=== PATIENT | male | born 1960 | race Caucasian/White ===

== ENCOUNTER 2020-07-01 12:28 | Inpatient (IN) | payer OTHER, SELFPAY ==
[2020-07-01] VITALS (9 sets, daily range): BP systolic 82–161; BP diastolic 56–99; PULSE 85–144; RESP 18–28; TEMP 36.4–37.2; O2SAT 94–97; BMI 22.9
--- NOTE | 2020-07-01 12:44 | ECG_ITS ---
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: : 1960 Requested By: Myke Barrera Order Number: [id number] Cecilia MD: JOSE ANTUNEZ Measurements Intervals [place] Rate: 143 P: AR: -1 QRS: 22 QRSD: 96 T: 35 QT: 297 QTc: 459 Interpretive Statements ATRIAL FIBRILLATION WITH RAPID VENTRICULAR RESPONSE NONSPECIFIC ST & T-WAVE ABNORMALITY ABNORMAL RHYTHM ECG No previous ECG available for comparison Electronically Signed On 07-01-2020 20:14:46 MAINTENANCE DISPATCHER by JOSE ANTUNEZ [id number] f
[2020-07-01 12:59] LABS: Glucose Point of Care > 600 mg/dL (70-110)
[2020-07-01 13:01] LABS: Basophils # 0.1 10^3/uL (0.0-0.1); Basophils % 0.4 %; Eosinophils # 0.1 10^3/uL (0.0-0.8); Eosinophils % 0.7 %; Hematocrit 42.3 % (42.0-52.0); Hemoglobin 13.3 g/dL (11.7-16.6); Lymphocytes # 0.6 10^3/uL (0.8-4.8); Lymphocytes % 3.1 %; Mean Corpuscular HGB Conc 31.4 g/dL (30.0-36.0); Mean Corpuscular Hemoglobin 29.1 pg (28.0-34.0); Mean Corpuscular Volume 92.6 fL (80-94); Mean Platelet Volume 10.5 fL (7.4-10.4); Monocytes # 0.6 10^3/uL (0.2-0.9); Monocytes % 3.4 %; Neutrophils # 16.38 10^3/uL (1.8-7.7); Neutrophils % 91.8 %; Nucleated Red Blood Cells % 0 %; Platelet Count 262 10^3/cmm (130-400); Red Blood Count 4.57 10^6/uL (4.1-5.3); Red Cell Distribution Width 12.9 % (12.1-15.1); White Blood Count 17.8 10^3/uL (4.0-10.0)
[2020-07-01 13:17] LABS: Lactate (Lactic Acid level) 2.4 mmol/L (0.5-2.2)
[2020-07-01 13:18] LABS: Alanine Aminotransferase 11 U/L (0-41); Albumin Level 2.7 g/dL (3.5-5.2); Alkaline Phosphatase 160 IU/L (40-130); Anion Gap 20.2 (5-19); Aspartate Amino Transferase 10 U/L (0-40); Blood Urea Nitrogen 35 mg/dL (6-20); Calcium 8.3 mg/dL (8.5-10.5); Carbon Dioxide 23 mmol/L (22-29); Chloride 87 mmol/L (98-107); Globulin 4.8 g/dL (1.3-4.6); Glomerular Filtration Rate 62.2 mL/min (90-130); Osmolality Calculated 306 mOsm/kg (285-295); Potassium 4.2 mmol/L (3.5-5.1); Sodium 126 mmol/L (136-145); Total Bilirubin 0.3 mg/dL (0.15-1.2); Total Protein 7.5 g/dL (6.6-8.7)
[2020-07-01 13:19] LABS: Glucose 749 mg/dL (65-115)
[2020-07-01 13:27] LABS: Slide Review Slide Review Perform
--- NOTE | 2020-07-01 13:30 | W.ED.WEAKNES ---
HPI - Weakness General: Chief complaint: Weakness Stated complaint: WEAKNESS/ NECROTIC FOOT Time Seen by Provider: 07/01/20 12:41 History of Present Illness: HPI Narrative: 51-year-old male presents emergency room via EMS. Is complaining of swelling and redness discomfort of his left great toe and foot he is also been extremely thirsty has a history of diabetes. He has some abdominal pain and left flank pain he states he fell and hit a stool at home. All of these things particularly his foot seem to come up for the last 3 to 4 days. He denies any fever sweats or chills he has had a little bit of a cough. No vomiting or diarrhea. MD Complaint: generalized weakness and difficulty walking Onset (ago): day(s) (3-4) Duration: constant and progressively worsening Location: generalized Migration: none Severity: severe Relieving factors: none Exacerbating factors: none Context: recent illness Associated symptoms: Reports chills, confusion, decreased appetite, myalgias and nausea; Denies chest pain, melena, diaphoresis, dysuria, easy bruising, fever(s), headache(s), rash, short of breath, syncope or vomiting Review of Systems Const: Reports: chills; Denies: fever(s) or diaphoresis ENMT: Denies: throat pain, ear or mastoid pain, nasal discharge or nasal congestion Card: Denies: chest pain or syncope Resp: Denies: dyspnea, productive cough or non-productive cough GI: Reports: nausea; Denies: vomiting or melena : Denies: dysuria Skin/Breast: Denies: rash or pruritus Neuro: Reports: confusion; Denies: headache(s) Paul/Lymph: Denies: easy bruising PFS ED PFSH: Medical History (Updated 07/05/20 @ 07:25 by Myke Ward DO) Atrial fibrillation COVID-19 Diabetes mellitus HFrEF (heart failure with reduced ejection fraction) Medical non-compliance Peripheral arterial disease Surgical History (Updated 07/04/20 @ 08:14 by Gerson Oshea M.D) S/P ablation of atrial fibrillation Physical Exam Const: COMMON NORMALS: no acute distress GENERAL APPEARANCE: cooperative and comfortable ORIENTATION/CONSCIOUSNESS: Yes awake, Yes oriented to person, Yes oriented to place and Yes oriented to time HENMT: COMMON NORMALS: normocephalic, atraumatic and hearing grossly normal bilaterally HEAD & SCALP: normocephalic and atraumatic Eye: COMMON NORMALS: Equal, round and reactive pupils present, EOMs intact bilaterally, conjunctivae normal and no scleral icterus CONJUNCTIVA: Yes conjunctivae normal PUPIL: Yes Equal, round and reactive pupils present Neck/C-Spine: COMMON NORMALS: full ROM, no lymphadenopathy, supple and no JVD Lymph: LYMPHATIC: no lymphadenopathy noted and no lymphedema noted Resp: COMMON NORMALS: normal respiratory effort, No retractions, No use of accessory muscles and clear to auscultation bilaterally AUSCULTATION: clear to auscultation bilaterally Cardio: COMMON NORMALS: no JVD, regular rate, regular rhythm and No murmurs present (Cardio) RATE: regular rate RHYTHM: regular rhythm GI: COMMON NORMALS: Soft to palpation and No hepatosplenomegaly present AUSCULTATION: Yes normoactive bowel sounds PALPATION: Yes Soft to palpation, No Tenderness to palpation present (GI), No Guarding due to palpation present (GI) and Yes No hepatosplenomegaly present Extremity: NARRATIVE EXTREMITY EXAM: Left great toe blackened gangrenous appearance or some desquamation of tissue on the dorsum of the great toe. Proximally it appears to be subcutaneous tissue involvement. There is redness and erythema over the dorsum of the foot to the level of the ankle and extending with lymphangitic spread proximal. It is warm to the touch there is no fluctuant masses. Neuro: SENSORIUM/ORIENTATION: Yes oriented to person, Yes oriented to place and Yes oriented to time Skin: COMMON NORMALS: no rashes or lesions noted GENERAL SKIN EXAM: no rashes or lesions noted Course Vital Signs: Vital signs: Vital Signs Temperature 97.0 F L 07/05/20 04:00 Pulse Rate 78 07/05/20 04:00 Respiratory Rate 18 07/05/20 04:00 Blood Pressure 132/77 07/05/20 04:00 Pulse Oximetry 97 07/05/20 04:00 MDM - Weakness MDM Narrative: Medical decision making narrative: Initially patient started on Cardizem and then switched to esmolol. Cellulitis is quite impressive and extends up the leg the gangrene on the toe is very well-defined and severe. There is subcutaneous gas along the bone although there is not appear to be any osteolytic changes the bone itself. Patient need to be admitted IV antibiotics been started surgery will need to be consulted discussed with Dr. Arredondo he will contact surgery. Lab Data: Labs: Lab Results 07/01/20 07/01/20 07/01/20 Range/Units 12:52 12:52 12:52 WBC 17.8 H (4.0-10.0) 10^3/ uL RBC 4.57 (4.1-5.3) 10^6/u L Hgb 13.3 (11.7-16.6) g/dL Hct 42.3 (42.0-52.0) % MCV 92.6 (80-94) fL MCH 29.1 (28.0-34.0) pg MCHC 31.4 (30.0-36.0) g/dL RDW 12.9 (12.1-15.1) % Plt Count 262 (130-400) 10^3/c mm MPV 10.5 H (7.4-10.4) fL Neut % (Auto) 91.8 % Lymph % (Auto) 3.1 % [place] % (Auto) 3.4 % Eos % (Auto) 0.7 % Baso % (Auto) 0.4 % Neut # (Auto) 16.38 H (1.8-7.7) 10^3/u L Lymph # (Auto) 0.6 L (0.8-4.8) 10^3/u L [place] # (Auto) 0.6 (0.2-0.9) 10^3/u L Eos # (Auto) 0.1 (0.0-0.8) 10^3/u L Baso # (Auto) 0.1 (0.0-0.1) 10^3/u L Nucleated RBC % (a uto) 0 % Nucleated RBCs # 0.0 /100WBC Specimen Type Sample Site ABG pH (7.35-7.45) ABG pCO2 (35-45) mmHg ABG pO2 (80.0-100.0) mmH g ABG HCO3 (22-26) mmol/L ABG O2 Saturation ABG Base Excess (-2.0-2.0) mmol/ L Arley Test A-a O2 Gradient (5-10) mmHg Hematocrit (42-52) % Hgb O2 Saturation (95-100) % Carboxyhemoglobin (0.4-20.1) %THgb Methemoglobin (0.4-1.5) % Total Hemoglobin (14-18) g/dL Ionized Calcium (1.1-1.4) mmol/L O2 Delivery Device FiO2 % Regulatory Compliance Officer ID Sodium 126 L (136-145) mmol/L Potassium 4.2 (3.5-5.1) mmol/L Chloride 87 L (98-107) mmol/L Carbon Dioxide 23 (22-29) mmol/L Anion Gap 20.2 H (5-19) BUN 35 H (6-20) mg/dL Creatinine 1.2 (0.7-1.2) mg/dL GFR Calculation 62.2 L (90-130) mL/min Glucose 749 H* (65-115) mg/dL POC Glucose (70-110) mg/dL Calculated Osmolal ity 306 H (285-295) mOsm/k g Lactate 2.4 H (0.5-2.2) mmol/L Calcium 8.3 L (8.5-10.5) mg/dL Total Bilirubin 0.3 (0.15-1.2) mg/dL AST 10 (0-40) U/L ALT 11 (0-41) U/L Alkaline Phosphata se 160 H (40-130) IU/L C-Reactive Protein (0.0-4.9) mg/L Total Protein 7.5 (6.6-8.7) g/dL Albumin 2.7 L (3.5-5.2) g/dL Globulin 4.8 H (1.3-4.6) g/dL Urine Color (Yellow) Urine Appearance (CLEAR) Urine pH (5-7) Ur Specific Gravit y (1.005-1.030) Urine Protein (Negative) Urine Glucose (UA) (Normal) Urine Ketones (Negative) Urine Blood (Negative) Urine Nitrate (Negative) Urine Bilirubin (Negative) Urine Urobilinogen (Negative) mg/dL Ur Leukocyte Lo ase (Negative) 07/01/20 07/01/20 07/01/20 Range/Units 12:52 12:56 13:27 WBC (4.0-10.0) 10^3/ uL RBC (4.1-5.3) 10^6/u L Hgb (11.7-16.6) g/dL Hct (42.0-52.0) % MCV (80-94) fL MCH (28.0-34.0) pg MCHC (30.0-36.0) g/dL RDW (12.1-15.1) % Plt Count (130-400) 10^3/c mm MPV (7.4-10.4) fL Neut % (Auto) % Lymph % (Auto) % [place] % (Auto) % Eos % (Auto) % Baso % (Auto) % Neut # (Auto) (1.8-7.7) 10^3/u L Lymph # (Auto) (0.8-4.8) 10^3/u L [place] # (Auto) (0.2-0.9) 10^3/u L Eos # (Auto) (0.0-0.8) 10^3/u L Baso # (Auto) (0.0-0.1) 10^3/u L Nucleated RBC % (a uto) % Nucleated RBCs # /100WBC Specimen Type Arterial Sample Site Brachial, right ABG pH 7.40 (7.35-7.45) ABG pCO2 35.1 (35-45) mmHg ABG pO2 81.8 (80.0-100.0) mmH g ABG HCO3 21.9 L (22-26) mmol/L ABG O2 Saturation 97.4 ABG Base Excess -2.4 L (-2.0-2.0) mmol/ L Arley Test N/a A-a O2 Gradient 3.3 L (5-10) mmHg Hematocrit 37.6 L (42-52) % Hgb O2 Saturation 95.3 (95-100) % Carboxyhemoglobin 1.6 (0.4-20.1) %THgb Methemoglobin 0.6 (0.4-1.5) % Total Hemoglobin 12.3 L (14-18) g/dL Ionized Calcium 1.1 (1.1-1.4) mmol/L O2 Delivery Device Room air FiO2 21.0 % Regulatory Compliance Officer ID Amh Sodium 128.0 L (136-145) mmol/L Potassium 4.2 (3.5-5.1) mmol/L Chloride (98-107) mmol/L Carbon Dioxide (22-29) mmol/L Anion Gap (5-19) BUN (6-20) mg/dL Creatinine (0.7-1.2) mg/dL GFR Calculation (90-130) mL/min Glucose 729.0 H (65-115) mg/dL POC Glucose > 600 (70-110) mg/dL Calculated Osmolal ity (285-295) mOsm/k g Lactate (0.5-2.2) mmol/L Calcium (8.5-10.5) mg/dL Total Bilirubin (0.15-1.2) mg/dL AST (0-40) U/L ALT (0-41) U/L Alkaline Phosphata se (40-130) IU/L C-Reactive Protein 357.6 H (0.0-4.9) mg/L Total Protein (6.6-8.7) g/dL Albumin (3.5-5.2) g/dL Globulin (1.3-4.6) g/dL Urine Color (Yellow) Urine Appearance (CLEAR) Urine pH (5-7) Ur Specific Gravit y (1.005-1.030) Urine Protein (Negative) Urine Glucose (UA) (Normal) Urine Ketones (Negative) Urine Blood (Negative) Urine Nitrate (Negative) Urine Bilirubin (Negative) Urine Urobilinogen (Negative) mg/dL Ur Leukocyte Lo ase (Negative) 07/01/20 07/01/20 07/01/20 Range/Units 15:20 15:28 15:29 WBC (4.0-10.0) 10^3/ uL RBC (4.1-5.3) 10^6/u L Hgb (11.7-16.6) g/dL Hct (42.0-52.0) % MCV (80-94) fL MCH (28.0-34.0) pg MCHC (30.0-36.0) g/dL RDW (12.1-15.1) % Plt Count (130-400) 10^3/c mm MPV (7.4-10.4) fL Neut % (Auto) % Lymph % (Auto) % [place] % (Auto) % Eos % (Auto) % Baso % (Auto) % Neut # (Auto) (1.8-7.7) 10^3/u L Lymph # (Auto) (0.8-4.8) 10^3/u L [place] # (Auto) (0.2-0.9) 10^3/u L Eos # (Auto) (0.0-0.8) 10^3/u L Baso # (Auto) (0.0-0.1) 10^3/u L Nucleated RBC % (a uto) % Nucleated RBCs # /100WBC Specimen Type Sample Site ABG pH (7.35-7.45) ABG pCO2 (35-45) mmHg ABG pO2 (80.0-100.0) mmH g ABG HCO3 (22-26) mmol/L ABG O2 Saturation ABG Base Excess (-2.0-2.0) mmol/ L Arley Test A-a O2 Gradient (5-10) mmHg Hematocrit (42-52) % Hgb O2 Saturation (95-100) % Carboxyhemoglobin (0.4-20.1) %THgb Methemoglobin (0.4-1.5) % Total Hemoglobin (14-18) g/dL Ionized Calcium (1.1-1.4) mmol/L O2 Delivery Device FiO2 % Regulatory Compliance Officer ID Sodium (136-145) mmol/L Potassium (3.5-5.1) mmol/L Chloride (98-107) mmol/L Carbon Dioxide (22-29) mmol/L Anion Gap (5-19) BUN (6-20) mg/dL Creatinine (0.7-1.2) mg/dL GFR Calculation (90-130) mL/min Glucose (65-115) mg/dL POC Glucose 525 536 (70-110) mg/dL Calculated Osmolal ity (285-295) mOsm/k g Lactate (0.5-2.2) mmol/L Calcium (8.5-10.5) mg/dL Total Bilirubin (0.15-1.2) mg/dL AST (0-40) U/L ALT (0-41) U/L Alkaline Phosphata se (40-130) IU/L C-Reactive Protein (0.0-4.9) mg/L Total Protein (6.6-8.7) g/dL Albumin (3.5-5.2) g/dL Globulin (1.3-4.6) g/dL Urine Color Yellow (Yellow) Urine Appearance Clear (CLEAR) Urine pH 5 (5-7) Ur Specific Gravit y 1.010 (1.005-1.030) Urine Protein Neg (Negative) Urine Glucose (UA) 4+ H (Normal) Urine Ketones 1+ H (Negative) Urine Blood Neg (Negative) Urine Nitrate Negative (Negative) Urine Bilirubin Neg (Negative) Urine Urobilinogen Norm (Negative) mg/dL Ur Leukocyte Lo ase Negative (Negative) Discharge Plan Discharge Patient Disposition: Admitted As Inpatient Admit Provider: Petra Bergeron Clinical Impression: Diabetic wet gangrene of the foot, Atrial fibrillation, Diabetes mellitus, Atrial fibrillation with rapid ventricular response, Diabetic peripheral neuropathy associated with type 2 diabetes mellitus, Peripheral arterial disease Condition: Stable Interventions: ED Discharge Assessment Last Done: 07/01/20 20:21 ED Charges Last Done: 07/01/20 20:21 Discharge Date/Time: 07/01/20 20:22 Coding Level of Care Code ED Floor Inspector for Chg Fwd Exam Comprehensive
[2020-07-01 13:39] LABS: ABG PCO2 35.1 mmHg (35-45); Alveolar-Arterial Oxygen Gradi 3.3 mmHg (5-10); Arterial Blood Gas Hematocrit 37.6 % (42-52); Base Excess ABG -2.4 mmol/L (-2.0-2.0); Blood Gas Operator Identificat AMH; Blood Gas Sample Site Brachial, right; Blood Gas Sample Type Arterial; Carboxyhemoglobin 1.6 %THgb (0.4-20.1); HCO3 ABG 21.9 mmol/L (22-26); HGB O2 Sat 95.3 % (95-100); Ionized Calcium Level - ABG 1.1 mmol/L (1.1-1.4); Methemoglobin 0.6 % (0.4-1.5); Oxygen Device ROOM AIR; Oxygen Saturation ABG 97.4; PO2 ABG 81.8 mmHg (80.0-100.0); Potassium Level - ABG 4.2 mmol/L (3.5-5.0); Total Hemoglobin 12.3 g/dL (14-18)
[2020-07-01] MEDS: levofloxacin-dextrose 5 % 750 MG/150 ML PREMIX 100 MG IV (13:55)
[2020-07-01] MEDS: vancomycin 1,000 MG in sodium chloride 0.9% 250 ML 250 MG IV (14:05)
[2020-07-01] MEDS: insulin regular-human 100 units/1 mL 15 UNIT IVP (14:16)
[2020-07-01] MEDS: sodium chloride 0.9% 1,000 ML 999 ML IV ×2 (14:19→18:36)
--- NOTE | 2020-07-01 14:54 | XRR_ITS ---
PROCEDURE INFORMATION: Exam: XR Chest, 1 View Exam date and time: 07/01/2020 3:08 PM Age: 59 years old Clinical indication: Cough and dyspnea; Prior surgery; Surgery type: Ablasion; Additional info: Dyspnea/cough TECHNIQUE: Imaging protocol: XR of the chest Views: 1 view. COMPARISON: No relevant prior studies available. FINDINGS: Lungs: Reticular markings left lung base are nonspecific and could represent chronic fibrosis, atelectasis or interstitial infiltrate. Pleural space: Unremarkable. No pleural effusion. No pneumothorax. Heart/Mediastinum: Unremarkable. No cardiomegaly. Diaphragm: Mild elevation of left hemidiaphragm. Bones/joints: Unremarkable. XR/XR chest 1V portable [id number] IMPRESSION: Reticular markings left lung base are nonspecific and could represent chronic fibrosis, atelectasis or interstitial infiltrate.
--- NOTE | 2020-07-01 14:54 | XRR_ITS ---
PROCEDURE INFORMATION: Exam: XR Left Foot Complete Exam date and time: 07/01/2020 3:14 PM Age: 59 years old Clinical indication: Condition or disease; Other: Infection great toe; Patient HX: Black necrotic weeping 1st digit TECHNIQUE: Imaging protocol: XR Left foot. Views: 3 or more views. COMPARISON: No relevant prior studies available. FINDINGS: Bones/joints: Osseous structures appear intact. Chronic heel spurs. Generalized distal foot and toe soft tissue swelling. Air/gas throughout the big toe soft tissues consistent with infection. Smaller amount of air dorsum of foot. Soft tissues: Normal. XR/XR foot LT min 3V* [id number] IMPRESSION: Osseous structures appear intact. Generalized distal foot and toe soft tissue swelling. Air/gas throughout the big toe soft tissues consistent with infection. Smaller amount of air dorsum of foot.
[2020-07-01 15:34] LABS: Glucose Point of Care 536 mg/dL (70-110)
[2020-07-01 15:34] LABS: Glucose Point of Care 525 mg/dL (70-110)
[2020-07-01] MEDS: insulin regular-human 250 UNIT in sodium chloride 0.9% 250 ML IV (15:36)
[2020-07-01 15:46] LABS: Add Urine Microscopic? NO
--- NOTE | 2020-07-01 15:46 | P.HP_ITS ---
Providers/Chief Complaint Primary Care Provider: ADORE Ramires Chief Complaint: WEAKNESS/ NECROTIC FOOT History of Present Illness 59 year old with past medical history of diabetes mellitus with peripheral neuropathy and lower extremity diabetic foot infection who is presenting to the hospital with generalized weakness, subjective fever and chills. In the last 2-3 days he also noted increasing erythema of left lower extremity and subsequently noted gangrene of left foot great toe. Denied being on any recent antibiotics. Patient has very poor insight in to his medical problems. States he stopped taking all his medication including for diabetes. Upon arrival to ER his initial laboratory work up showed a WBC of 17.8, Sodium of 126, anion gap of 20.2, BUN of 35, creatinine of 1.2, and a glucose 749. Lactate of 2.4. Imaging studies included a left foot x-ray which showed osseous structure to be intact. Soft tissue swelling and air/gas through out big toe consistent with infectious process. He was started on broad specturm antibiotics. In addition due mild dka he was started on insulin gtt. While in ER however he was found to be in atrial fibrillation with rapid ventricular response. Initially started on cardizem gtt however this was changed to esmolol after which the patient converted to NSR. Review of Systems General: Reports: 10 or more systems reviewed and unremarkable except in HPI and below Medications/Allergies Home Medications Medication Instructions Recorded Confirmed Last Taken Type No Known Home Medications 07/01/20 07/01/20 Unknown History Allergies Allergy/AdvReac Type Severity Reaction Status Date / Time Penicillins Allergy Intermediate ALGY-Anaphy Verified 07/01/20 12:42 laxis PFSH Acute PFSH: Medical History (Updated 07/01/20 @ 19:31 by Petra Bergeron MD) Atrial fibrillation Diabetes mellitus Vitals/I&O/Wt Last Vital Signs Temp 97.5 F L 07/01/20 12:34 Pulse 126 H 07/01/20 15:25 Resp 27 H 07/01/20 15:25 BP 136/71 07/01/20 15:25 Pulse Ox 97 07/01/20 15:25 Weight last 48 hrs Weight 72.575 kg Physical Exam Narrative: EXAM NARRATIVE: General : No distress, chronically ill appearing HEENT : Grossly unremarkable CVS : irregularly irregular Chest: Clear to ausculation Abdomen: Soft Nontender Ext - Left lower extremity erythema and dark discoloration of left great toe. Data : 07/01/20 12:52 07/01/20 12:52 Micro: Microbiology 07/01/20 13:30 Blood Culture - Preliminary Blood SPECIMEN COLLECTED 07/01/20 13:30 Blood Culture - Preliminary Blood SPECIMEN COLLECTED A&P Assessment and plan (1) Diabetes mellitus: Status: Acute (2) Atrial fibrillation: Status: Acute (3) Diabetic infection of left foot: Status: Acute (4) Increased anion gap metabolic acidosis: Status: Acute (5) DKA (diabetic ketoacidoses): Status: Acute (6) Medical non-compliance: Status: Acute (7) Atrial fibrillation with rapid ventricular response: Status: Acute Sepsis due to LLE cellulitis, 1st toe gangrene Mild DKA in setting of uncontrolled Dm Anion gap metabolic acidosis Atrial fibrillation with RVR Medication non-compliance GI ppx DVT ppx Plan; Continue vancomycin pharmacy to dose Continue levaquin 750 mg IV q24hr Will add flagyl 500 mg IV q8hr Follow up on blood culture x 2 Will consult podiatry Repeat Cbc, cmpin am Consider ID consult Transition off esmolol gtt Add oral beta dawna ECHO Continue insulin gtt BMP q6hr Mag in am Diabetic diet q1hr bs checks Protonix 40 mg Po daily Loenox 40 mg SQ daily Attestations Medical Necessity Statement*: Due to sepsis from diabetic foot infection, dka, new onset afib will require over 2 midnight stay in hospital for eval and management Time Spent in Patient Care: Greater than 35 minutes Coding Level of Care Code Acute Social Welfare Administrator for [facility] Fwd Diagnoses Diabetes mellitus E11.9 Atrial fibrillation I48.91 Diabetic infection of left foot E11.628; L08.9 Increased anion gap metabolic acidosis E87.2 DKA (diabetic ketoacidoses) E11.10 Medical non-compliance Z91.19 Atrial fibrillation with rapid ventricular response I48.91
[2020-07-01 15:55] LABS: Bilirubin Urine Neg (Negative); Blood Urine Neg (Negative); Glucose Urine UA 4+ (Normal); Ketones Urine 1+ (Negative); Leukocyte Esterase Urine Negative (Negative); Nitrate Urine Negative (Negative); Protein Urine Neg (Negative); Urine Appearance Clear (CLEAR); Urine Color Yellow (Yellow); Urobilinogen Urine Norm (Negative); pH Urine 5 (5-7)
[2020-07-01 16:05] LABS: C Reactive Protein 357.6 mg/L (0.0-4.9)
[2020-07-01] MEDS: esmolol drip 2,500 MG/250 ML PREMIX 21.8 MG IV (17:21)
[2020-07-01 17:52] LABS: Glucose Point of Care 485 mg/dL (70-110)
[2020-07-01] MEDS: insulin glargine 100 units/1 mL 15 UNIT SUBCUT (18:29)
[2020-07-01] MEDS: carvedilol 3.125 mg Tablet PO (18:29)
[2020-07-01] MEDS: insulin regular-human 100 units/1 mL 20 UNIT IVP (18:35)
--- NOTE | 2020-07-01 18:51 | PC.NURSE ---
Insulin drip and esmolol were discontinued, pt resting quietly in room at this time, no needs identified, will continue to monitor.
--- NOTE | 2020-07-01 19:04 | PC.NURSE ---
GLU: [id number]
[2020-07-01 19:06] LABS: Glucose Point of Care 422 mg/dL (70-110)
[2020-07-01 19:45] LABS: Ketone (Acetest) Serum Negative (Negative)
[2020-07-01] MEDS: heparin 5,000 unit/mL INJ 1 mL 5000 UNIT SUBCUT (20:00)
[2020-07-01] MEDS: sodium chloride 0.9% 1,000 ML 125 ML IV (20:01)
[2020-07-01 20:13] LABS: Anion Gap 16.7 (5-19); Blood Urea Nitrogen 35 mg/dL (6-20); Calcium 8.3 mg/dL (8.5-10.5); Carbon Dioxide 23 mmol/L (22-29); Chloride 94 mmol/L (98-107); Glomerular Filtration Rate 76.7 mL/min (90-130); Glucose 404 mg/dL (65-115); Osmolality Calculated 295 mOsm/kg (285-295); Potassium 3.7 mmol/L (3.5-5.1); Sodium 130 mmol/L (136-145)
[2020-07-01 21:40] LABS: Glucose Point of Care 467 mg/dL (70-110)
[2020-07-02] VITALS (7 sets, daily range): BP systolic 98–118; BP diastolic 61–79; PULSE 66–118; RESP 17–30; TEMP 36.3–37.3; O2SAT 92–98
[2020-07-02 06:33] LABS: Glucose Point of Care 166 mg/dL (70-110)
[2020-07-02 06:34] LABS: Alanine Aminotransferase 13 U/L (0-41); Alkaline Phosphatase 177 IU/L (40-130); Anion Gap 14.7 (5-19); Aspartate Amino Transferase 34 U/L (0-40); Blood Urea Nitrogen 40 mg/dL (6-20); Carbon Dioxide 25 mmol/L (22-29); Chloride 99 mmol/L (98-107); Globulin 4.1 g/dL (1.3-4.6); Glomerular Filtration Rate 56.7 mL/min (90-130); Glucose 105 mg/dL (65-115); Osmolality Calculated 290 mOsm/kg (285-295); Potassium 3.7 mmol/L (3.5-5.1); Sodium 135 mmol/L (136-145); Total Bilirubin 0.3 mg/dL (0.15-1.2); Total Protein 6.1 g/dL (6.6-8.7)
[2020-07-02 06:36] LABS: Magnesium 2.5 mg/dL (1.7-2.3); Thyroid Stimulating Hormone 1.12 uIU/mL (0.27-4.20)
[2020-07-02 07:53] LABS: Basophils # 0.2 10^3/uL (0.0-0.1); Basophils % 0.8 %; Eosinophils # 0.2 10^3/uL (0.0-0.8); Eosinophils % 1.1 %; Hematocrit 31.9 % (42.0-52.0); Hemoglobin 10.4 g/dL (11.7-16.6); Lymphocytes # 0.6 10^3/uL (0.8-4.8); Lymphocytes % 3.3 %; Mean Corpuscular HGB Conc 32.6 g/dL (30.0-36.0); Mean Corpuscular Hemoglobin 29.4 pg (28.0-34.0); Mean Corpuscular Volume 90.1 fL (80-94); Mean Platelet Volume 11.4 fL (7.4-10.4); Monocytes # 0.5 10^3/uL (0.2-0.9); Monocytes % 2.5 %; Neutrophils # 17.01 10^3/uL (1.8-7.7); Neutrophils % 91.6 %; Nucleated Red Blood Cells % 0.2 %; Platelet Count 243 10^3/cmm (130-400); Red Blood Count 3.54 10^6/uL (4.1-5.3); Red Cell Distribution Width 13.2 % (12.1-15.1); White Blood Count 18.6 10^3/uL (4.0-10.0)
[2020-07-02] MEDS: famotidine 20 mg Tablet PO ×2 (08:04→18:00)
[2020-07-02] MEDS: heparin 5,000 unit/mL INJ 1 mL 5000 UNIT SUBCUT ×2 (08:05→20:50)
[2020-07-02] MEDS: sodium chloride 0.9% 1,000 ML 125 ML IV ×2 (08:05→20:34)
[2020-07-02 08:09] LABS: Slide Review Slide Review Perform
--- NOTE | 2020-07-02 09:50 | PC.CHAP ---
Pastoral Care Encounter/Spiritual Assessment Type of Contact [] Declined beadworker visit [] Patient/Family/Request visit [] Outpatient visit [] Follow-up visit [] Physician referral [] Code/Alert [] Routine visit [] Staff referral [] Actively dying [] Patient sleeping [] Family support [] [] Out of room [] Palliative care [] [] Receiving care in room [] Pre-surgical visit [] Trauma [] Long length of stay [] ICU visit [] Other: Relational/Emotional Strength [] Patient feels connected with others/family/visitors/staff [x] Distress [] Loneliness/isolation [] Abandonment Spirituality of Patient [x] There are Spiritual issues to be addressed Lightning Rod Installer Interventions [x] Prayer [] Active listening [] Non-anxious presence [] Spiritual/emotional support [] Crisis/trauma care [] Spiritual counseling [] Bereavement support [] Provided bereavement packet [] Provided Bible/devotional materials [] Provided toy/stuffed animal, coloring book to patient or family member [] Provided Communion [] Anointing/[place] [] Salvation [] Completed spiritual assessment [] Other: Impact on Illness or Injury [] Angry [] Fearful [] Anxious [] Often cries [] Exhaustion [] Unable to work [] Unable to attend druze [] Unable to walk/stand [] Unable to read [x] Unable to drive [] Unable to eat/drink [] Unable to sleep [] Unable to be with family [] Patient intubated [] Other: Summary patient very weak going to need hnelp Time spent with patient 15 min
[2020-07-02 10:49] LABS: Glucose Point of Care 362 mg/dL (70-110)
[2020-07-02 11:42] LABS: Glucose Point of Care 150 mg/dL (70-110)
[2020-07-02] MEDS: metroNIDAZOLE IV 500 MG/100 ML PREMIX 100 MG IV ×2 (12:32→17:59)
[2020-07-02] MEDS: levofloxacin-dextrose 5 % 750 MG/150 ML PREMIX 100 MG IV (12:36)
[2020-07-02 16:55] LABS: Glucose Point of Care 126 mg/dL (70-110)
--- NOTE | 2020-07-02 17:04 | P.PN_ITS ---
Subjective Subjective: Interval history: Patient his very unclear about past medical history, noted weakness. No fever, chills, nausea or vomiting. Vitals/I&O/Wt Last Vital Signs Temp 97.7 F 07/02/20 20:00 Pulse 87 07/02/20 20:00 Resp 28 H 07/02/20 20:00 BP 118/73 07/02/20 20:00 Pulse Ox 97 07/02/20 20:00 07/02/20 07/02/20 07/02/20 06:59 14:59 22:59 Intake Total 240 / 480 1220 / 1220 3075 / 4295 Output Total 100 / 100 Balance 240 / 480 1120 / 1120 3075 / 4195 Weight last 48 hrs Weight 78.426 kg Weight 72.575 kg Physical Exam Narrative: EXAM NARRATIVE: General : No distress, chronically ill appearing HEENT : Grossly unremarkable CVS : irregularly irregular Chest: Clear to ausculation Abdomen: Soft Nontender Ext - Left lower extremity erythema and dark discoloration of left great toe. Data : 07/02/20 04:52 07/02/20 04:52 Micro: Microbiology 07/01/20 13:30 Blood Culture - Preliminary Blood Gram positive cocci Gram Negative Rods 07/01/20 13:30 Blood Culture - Preliminary Blood Gram positive cocci Gram Negative Rods A&P Assessment and plan (1) Diabetes mellitus: Status: Acute (2) Atrial fibrillation: Status: Acute (3) Diabetic infection of left foot: Status: Acute (4) Increased anion gap metabolic acidosis: Status: Acute (5) DKA (diabetic ketoacidoses): Status: Acute (6) Medical non-compliance: Status: Acute (7) Atrial fibrillation with rapid ventricular response: Status: Acute Sepsis due to diabetic foot infection/cellulitis - Will continue vancomycin pharmacy to dose - WBC 18 - Levaquin 750 mg IV daily - Flagyl 500 mg IV Q8hr - Blood culture x 2 - NGTD - Lactic acidosis - 2.4 - Check Lactic acid in am - Podiatry consult - Will obtain CTA aorta runoff - Plan to consult Dr. Mills in am - Will likely require surgery Left great toe gangrene - Possible distal embolic - Due to acute onset - Heparin gtt - as noted below - CTA aorta with runoff ordered - Asa 325 mg PO daily Atrial fibrillation with RVR - Converted to NSR - S/p Esmolol gtt / Coreg 3.125 mg x 1 in ER - Soft BP will monitor for now - ECHO - ordered - Start heparin gtt weight based protocol Acute kidney injury - Creatinine 1.3 - NS at 125 cc/hr - Monitor urine output - Alfonso in place Anemia - 13 -> 10 - No obvious bleed - Will check stool occult - Monitor on heparin gtt Diabetes Mellitus - Mild DKA on admission - S/p Insulin gtt - Order a1c in am - Lantus 10 units qam - Sliding scale insulin - Lipid panel in am Medication non-compliance - Unclear past med history GI ppx - Pepcid 20 mg PO BID DVT ppx - On heparin gtt Attestations Medical Necessity Statement*: Will require ongoing hospitalization for management of sepsis, atrial fibrillation, diabetic foot infection. Coding Level of Care Code Acute Aquatics Coordinator for [facility] Fwd Diagnoses Diabetes mellitus E11.9 Atrial fibrillation I48.91 Diabetic infection of left foot E11.628; L08.9 Increased anion gap metabolic acidosis E87.2 DKA (diabetic ketoacidoses) E11.10 Medical non-compliance Z91.19 Atrial fibrillation with rapid ventricular response I48.91
--- NOTE | 2020-07-02 17:23 | P.CONIM_ITS ---
Providers/Reason For Consult Consulting Physican/Specialty*: Jeff Fung D.P.M. Reason for Consult*: Diabetic foot infection with sepsis left foot. Attending Physician: Petra Bergeron Primary Care Provider: ADORE Ramires History of Present Illness History of Present Illness Mr. Hathaway is a 59-year-old uncontrolled diabetic male with wet gangrene to the left foot. He reports color changes, redness and drainage with abrupt onset 4 days ago. Patient has been noncompliant with his medications, he lives alone. Patient septic on admission also DKA and atrial fibrillation. Review of Systems General: Reports: 10 or more systems reviewed and unremarkable except in HPI and below Const: Reports: fever(s) and change in appetite Card: Denies: chest pain or palpitations Resp: Denies: productive cough GI: Reports: nausea : Denies: flank pain Musc: Reports: extremity swelling, joint pain, joint swelling, joint redness, joint warmth, joint stiffness, limited range of motion and deformity Skin/Breast: Reports: erythema, skin tenderness, sores, nail changes and change in hair; Denies: rash Neuro: Reports: numbness in extremities, sensory changes and difficulty walking Psych: Denies: suicidal ideation Paul/Lymph: Denies: easy bruising Meds/Allergies Home Medications and Allergies Home Medications Medication Instructions Recorded Confirmed Last Taken Type No Known Home Medications 07/01/20 07/01/20 Unknown History Allergies Allergy/AdvReac Type Severity Reaction Status Date / Time Penicillins Allergy Intermediate ALGY-Anaphy Verified 07/01/20 12:42 laxis Current Medications Current Medications Generic Name Dose Route Start Last Admin Trade Name Rileyq PRN Reason Stop Dose Admin Famotidine 20 mg 07/02/20 09:00 07/02/20 08:04 Pepcid Tab PO 20 mg BID DAIANA Administration Heparin Sodium (Beef Lung) 5,000 unit 07/01/20 19:45 07/02/20 08:05 Heparin SUBCUT 5,000 unit Q12H DAIANA Administration Insulin Human Regular 250 unit 252.5 mls @ 0 mls/hr 07/01/20 14:15 07/01/20 15:36 / Sodium Chloride IV 5 ml/hr .Q0M DAIANA 5 mls/hr Administration Protocol Per Protocol Sodium Chloride 1,000 mls @ 125 mls/hr 07/01/20 19:45 07/02/20 16:05 Sodium Chloride 0.9% IV Infused .Q8H DAIANA Infusion Metronidazole 500 mg in 100 mls @ 100 mls/hr 07/02/20 12:30 07/02/20 13:32 Flagyl Iv IV Infused Q6H DAIANA Infusion Protocol Vancomycin HCl 1,500 mg/ 250 mls @ 166.667 mls/hr 07/02/20 13:00 07/02/20 14:01 Sodium Chloride IV 166.7 mls/hr Q18H DAIANA Administration Protocol Levofloxacin/Dextrose 750 mg in 150 mls @ 100 mls/hr 07/02/20 13:00 07/02/20 12:36 Levaquin-D5w IV 100 mls/hr Q24H DAIANA Administration Protocol Insulin Aspart 0 unit 07/01/20 21:00 07/02/20 12:37 Novolog SUBCUT 4 unit WM&BEDTIME DAIANA Administration Protocol PFSH Acute PFSH: Medical History (Updated 07/02/20 @ 19:09 by Jeff Fung DPM) Atrial fibrillation Diabetes mellitus Vitals/I&O/Wt Last Vital Signs Temp 97.9 F 07/02/20 14:56 Pulse 99 07/02/20 14:56 Resp 18 07/02/20 14:56 BP 107/69 07/02/20 14:56 Pulse Ox 92 07/02/20 14:56 07/02/20 07/02/20 07/02/20 06:59 14:59 22:59 Intake Total 240 / 480 1220 / 1220 1000 / 2220 Output Total 100 / 100 Balance 240 / 480 1120 / 1120 1000 / 2120 Weight last 48 hrs Weight 172 lb 14.4 oz Weight 160 lb Physical Exam Narrative: EXAM NARRATIVE: GENERAL: Patient is alert and oriented ?3 and in no acute distress. The following is a focused bilateral lower extremity exam. VASCULAR: Dorsalis pedis and posterior tibial are faintly palpable. Capillary refill time less than 5 seconds to the distal hallux bilaterally. Calf is supple and nontender proximally and distally. Diminished pedal hair growth bilaterally. NEUROLOGICAL: Protective sensation intact 0/10 sites, tested with [place] monofilament to bilateral feet. DERMATOLOGICAL: Black left hallux with an eschar there is fluctuance and the eschar is soft, ischemic changes to the entire left hallux with cellulitis at the entire left foot and lower two thirds of the left lower extremity. Malodor present, purulence appreciated there is desquamation at the medial aspect of the left forefoot with bullae and dusky appearance. MUSCULOSKELETAL: No pain with posterior calf squeeze bilaterally. Muscle strength 5 out of 5 in all 3 cardinal planes to bilateral foot and ankle. Data Micro: Micro: Microbiology 07/01/20 13:30 Blood Culture - Pr eliminary Blood Gram positive c occi Gram Negative R ods 07/01/20 13:30 Blood Culture - Pr eliminary Blood Gram positive c occi Gram Negative R ods A&P Assessment and plan (1) Diabetic peripheral neuropathy associated with type 2 diabetes mellitus: Status: Acute (2) Diabetic wet gangrene of the foot: Status: Acute (3) Sepsis: Status: Acute Qualifiers: Sepsis acute organ dysfunction status: unspecified Sepsis type: sepsis due to unspecified organism Qualified Code(s): A41.9 - Sepsis, unspecified organism Mr. Hathaway is a 59-year-old poorly controlled diabetic male with wet gangrene to the left foot. Eschar is soft with fluctuance and crepitus, ascending cellulitis involving the distal two thirds of the left leg. Soft tissue emphysema on x-ray of the left foot without obvious osseous destruction. -Recommend CT angiogram of abdominal aorta with runoff, patient has poor pedal pulses bilaterally and ischemic changes to the left foot. -Recommend vascular surgery consultation for lower extremity peripheral arterial disease -Ideally would prioritize vascular intervention prior to any level of amputation however patient has wet gangrene and is septic with positive blood cultures and significant leukocytosis. -n.p.o. after midnight for partial first ray amputation of the left foot for initial infection control. Scheduled 7 AM 07/03/2020. -Patient receiving empiric IV antibiotics vancomycin, Levaquin and Flagyl, has penicillin allergy. -Will perform soft tissue and bone culture intraoperatively. -Nonweightbearing left foot may heel touch only for transfers. Consult Attestations Medical Necessity Statement: Wet gangrene left foot Coding Level of Care Code Acute Committee Member for [facility] Diagnoses Diabetic peripheral neuropathy associated with type 2 diabetes mellitus E11.42 Diabetic wet gangrene of the foot E11.52 Sepsis A41.9 Sepsis acute organ dysfunction status: unspecified Sepsis type: sepsis due to unspecified organism
[2020-07-02 19:30] LABS: Erythrocyte Sedimentation Rate 89 mm/hr (0-10)
[2020-07-02 19:59] LABS: C Reactive Protein 277.3 mg/L (0.0-4.9)
[2020-07-02 21:16] LABS: Glucose Point of Care 224 mg/dL (70-110)
[2020-07-02] MEDS: metoprolol tartrate 50 mg Tablet PO (21:18)
--- NOTE | 2020-07-02 22:28 | CTR_ITS ---
PROCEDURE INFORMATION: Exam: CTA Angiogram of the Abdominal Aorta and Bilateral Lower Extremities (Run-off) With IV Contrast Exam date and time: 07/02/2020 10:52 PM Age: 59 years old Clinical indication: Condition or disease; Other: Gangrene in lt great toe, afib; Additional info: Large great toe gangrene in setting of atrial fib TECHNIQUE: Imaging protocol: CT angiogram of the abdominal aorta, pelvis and bilateral lower extremities with IV iodinated contrast. 3D rendering (Not supervised by radiologist): MIP and/or 3D reconstructed images were created by the technologist. Radiation optimization: All CT scans at this facility use at least one of these dose optimization techniques: automated exposure control; mA and/or kV adjustment per patient size (includes targeted exams where dose is matched to clinical indication); or iterative reconstruction. Contrast material: VISI; Contrast volume: 95 ml; Contrast route: INTRAVENOUS (IV); COMPARISON: CR XR foot LT min 3V* [id number] 07/01/2020 3:00 PM RADIATION DOSE METRICS: Total DLP (mGy-cm): 3552.69 FINDINGS: Limitations: Motion on some of the slices. Streak artifacts. Aorta: Atherosclerosis. No aortic aneurysm or dissection. Celiac trunk and mesenteric arteries: Replaced hepatic artery. No significant stenosis in the SMA. No occlusion of the proximal splenic artery. Apparent tight stenosis in 1 branch of the distal splenic artery. Approximately moderate stenosis at the origin of the ANAYA. Renal arteries: Approximately mild stenosis of the origin of the right renal artery despite artifacts through this area. No significant stenosis in the left renal artery. Right iliac arteries: Calcific plaque in the right iliac arteries. Mild stenosis in the distal right common iliac artery. [id number]-oozhzczs stenosis of the origin of the right internal iliac artery. No significant stenosis in the right external iliac artery. Right femoral/popliteal arteries: Mild stenosis of the origin of the right superficial femoral artery. Extensive calcific plaque in this artery with 2 mild stenoses in its middle to distal aspect. Calcific plaque in the right popliteal artery associated with a mild stenosis in its distal aspect. Right infrapopliteal arteries: Extensive calcific plaque in the right anterior tibial artery probably associated with some tight stenoses or short occlusions proximally; definite moderate stenosis in the midportion of this artery. Patency of the distal right anterior tibial artery and its continuation into the dorsalis pedis artery. Prominent calcific plaque in the other trifurcation vessels with a moderate stenosis in the proximal aspect of the right tibioperoneal trunk and a probable tight stenosis in its distal aspect. Apparent tight stenoses or short occlusions in the right peroneal and posterior tibial arteries; longer focus of occlusion of the distal peroneal artery, but continuation of the posterior tibial artery into the foot. Left iliac arteries: Calcific plaque in the left iliac arteries. Marked stenosis of the origin of the left internal iliac artery. No significant stenosis in the left common and external iliac arteries. Left femoral/popliteal arteries: Extensive calcific plaque in the left superficial femoral artery. Bxry-qh-eajdhxes stenosis in the distal aspect of this artery. Calcific plaque in the left popliteal artery causing no significant stenosis. Left infrapopliteal arteries: Prominent calcific plaque in the left trifurcation arteries. Multiple occlusions and short reconstitutions in the left anterior tibial artery. Patchy minimal contrast in the left dorsalis pedis artery. Multiple tight stenoses or short occlusions in the peroneal artery resulting in minimal contrast in its distal aspect. At least moderate stenosis of the origin of the left posterior tibial artery, but continuation of this artery into the foot. Lungs: Subsegmental atelectasis in both lower lobes and minimal atelectasis elsewhere in the lower lungs. Calcified granuloma in the right lower lobe on the uppermost slice. Pleural space: [id number]-[id number]-[id number] bilateral pleural effusions. No pneumothorax. Heart: Cardiomegaly. Prominent left coronary artery calcifications. No pericardial effusion. Mediastinum: Extensive gas in the left great toe again evident. Slight gas in the medial plantar soft tissues of the left foot, also. Liver: No enhancing liver mass. Gallbladder and bile ducts: No definite calcified gallstone. No obvious biliary ductal dilatation. Pancreas: Fatty infiltration of the distal pancreas. No pancreatic ductal dilatation. Spleen: Large wedge-shaped area of decreased density measuring 26 HU in the spleen highly likely representing a recent infarct. No splenomegaly. Adrenals: No adrenal mass. Kidneys and ureters: No hydronephrosis or apparent renal mass. Stranding in the perirenal fat. Stomach and bowel: No obstruction. No gross mucosal thickening. Nondistended stomach. Appendix: No apparent appendicitis. Bladder: Nondistended bladder precluding exclusion of wall thickening. Reproductive: Enlarged prostate. Intraperitoneal space: No free air. Slight fluid in the pararenal spaces bilaterally. Lymph nodes: Calcified node in the right superior hilum. Enlarged nodes along the left side of the infrarenal aorta. Enlarged left external iliac node. Slight prominence of other left pelvic nodes. Bones/joints: Developmental variant of 6 lumbar vertebral bodies. Old compression fractures. Degeneration of several discs. Slight spondylolisthesis at L4-L5. Increased kyphosis in the lower thoracic spine. Probable loose body in the lateral right ankle joint. Posterior calcaneal spurring bilaterally and calcifications in the distal Achilles tendons. Left medial chondromalacia patellae. Degenerative spurs along the margins of the left knee joints. Soft tissues: Extensive prominent body wall edema. Extensive edema in the superficial aspects of both lower extremities, also. CT/CT angio abd aorta runof [id number] IMPRESSION: 1. Extensive prominent atherosclerosis causing numerous stenoses along with multiple occlusions in the lower leg arteries detailed above. No aortic aneurysm. 2. Bilateral pleural effusions causing atelectasis in the lower lungs. Cardiomegaly. Prominent left coronary artery calcifications. Extensive prominent body wall edema as well as superficial edema throughout the lower extremities. 3. Large area of decreased density in the spleen consistent with a recent infarct. 4. Enlarged nodes along the left side of the infrarenal aorta and an enlarged left external iliac node, significance unclear. 5. Enlarged prostate. 6. Prominent soft tissue gas in the left great toe and distal foot consistent with the history of gangrene. Bone and joint abnormalities and other findings detailed above. Radiation Dose CTDIVOL = (mGy): DLP = 3552.69 (mGy-cm)
[2020-07-02] MEDS: iodixanol 320 mg/mL 100mL Btl IV (23:24)
[2020-07-02 23:58] LABS: Platelet Count 217 10^3/cmm (130-400)
[2020-07-03] VITALS (15 sets, daily range): BP systolic 92–130; BP diastolic 54–79; PULSE 71–113; RESP 15–24; TEMP 36.1–36.9; O2SAT 95–100
[2020-07-03] MEDS: metroNIDAZOLE IV 500 MG/100 ML PREMIX 100 MG IV ×5 (00:20→23:53)
[2020-07-03] MEDS: heparin drip 25,000 UNIT/500 ML PREMIX 23 UNIT IV (00:21)
[2020-07-03] MEDS: metoprolol tartrate 1 mg/1 mL SDV 5 mL 5 MG IV (05:00)
[2020-07-03 06:24] LABS: Basophils # 0.1 10^3/uL (0.0-0.1); Basophils % 0.5 %; Eosinophils % 0.2 %; Hemoglobin 10.8 g/dL (11.7-16.6); Lymphocytes # 1.8 10^3/uL (0.8-4.8); Lymphocytes % 9.1 %; Mean Corpuscular HGB Conc 32.7 g/dL (30.0-36.0); Mean Corpuscular Hemoglobin 29.3 pg (28.0-34.0); Mean Corpuscular Volume 89.7 fL (80-94); Mean Platelet Volume 10.9 fL (7.4-10.4); Monocytes # 0.8 10^3/uL (0.2-0.9); Monocytes % 4.3 %; Neutrophils # 16.41 10^3/uL (1.8-7.7); Neutrophils % 85.4 %; Nucleated Red Blood Cells % 0 %; Platelet Count 235 10^3/cmm (130-400); Red Blood Count 3.68 10^6/uL (4.1-5.3); Red Cell Distribution Width 13.5 % (12.1-15.1); White Blood Count 19.2 10^3/uL (4.0-10.0)
--- NOTE | 2020-07-03 06:32 | ANES.PREANE2 ---
Pre-Anesthetic Assessment Pre-Anesthetic Assessment: Height/Weight: Height 1.78 m Weight 82.236 kg Temp Pulse Resp BP Pulse Ox 97.6 F 113 H 18 123/73 97 07/03/20 04:00 07/03/20 04:00 07/03/20 04:00 07/03/20 04:00 07/03/20 04:00 Preop Diagnosis: gangrene Proposed Procedure: Operation Date: 07/03/20 07:00 Proposed Procedures p Amputation Toe/s(Left) - Jeff Fung DPM Familial anesthetic complications: None Was Beta Jose taken within 24 hours: Yes Last intake: Intake Last Liquid Date 07/02/20 Last Liquid Time 23:55 Last Solid Date 07/02/20 Last Solid Time 23:55 Social: Social History: No alcohol and No tobacco Exam: Pre-Anes Outpt Exam: alert, oriented x 3, clear to auscultation bilaterally and regular rate & rhythm Airway: Cervical ROM: WNL MP: 3 Dentition: Chipped and Other (missing, poor dentitoin) CV/HEM: CV/HEM: Afib (converted to sinus, HR 78) Metabolic: Metabolic: DM Comments: DKA; sepsis Anesthetic Plan: ASA status: 4 Anesthesia: MAC Risk of > 500 ml blood loss (7ml/kg in children): No Meds/Allergies Current Medications: Current Medications Generic Name Dose Route Start Last Admin Trade Name Freq PRN Reason Stop Dose Admin Famotidine 20 mg 07/02/20 09:00 07/02/20 18:00 Pepcid Tab PO 20 mg BID DAIANA Administration Insulin Human Regu lar 250 unit 252.5 mls @ 0 mls /hr 07/01/20 14:15 07/01/20 15:36 / Sodium Chlorid e IV 5 ml/hr .Q0M DAIANA 5 mls/hr Administration Protocol Per Protocol Sodium Chloride 1,000 mls @ 125 m ls/hr 07/01/20 19:45 07/02/20 20:34 Sodium Chloride 0.9% IV 125 mls/hr .Q8H DAIANA Administration Metronidazole 500 mg in 100 mls @ 100 mls/hr 07/02/20 12:30 07/03/20 06:08 Flagyl Iv IV 100 mls/hr Q6H DAIANA Administration Protocol Vancomycin HCl 1,5 00 mg/ 250 mls @ 166.667 mls/hr 07/02/20 13:00 07/02/20 18:22 Sodium Chloride IV Infused Q18H DAIANA Infusion Protocol Levofloxacin/Dextr ose 750 mg in 150 mls @ 100 mls/hr 07/02/20 13:00 07/02/20 18:22 Levaquin-D5w IV Infused Q24H DAIANA Infusion Protocol Heparin Sodium/Sod ium Chloride 25,000 unit in 50 0 mls @ 0 mls/hr 07/02/20 22:45 07/03/20 00:21 Heparin Drip IV 14.66 unit/kg/hr .Q0M DAIANA 23 mls/hr Administration Protocol Per Protocol Insulin Aspart 0 unit 07/01/20 21:00 07/02/20 21:18 Novolog SUBCUT 8 unit WM&BEDTIME DAIANA Administration Protocol PFS Anesthesia PFSH: Medical History (Updated 07/02/20 @ 19:09 by Jeff Fung DPM) Atrial fibrillation Diabetes mellitus Data Anesthesia CBC & Chem 7: 07/03/20 05:59 07/02/20 04:52 Other Labs: Laboratory Results - last 48 hr 07/01/20 07/01/20 07/01/20 12:52 12:52 12:52 WBC 17.8 H RBC 4.57 Hgb 13.3 Hct 42.3 MCV 92.6 MCH 29.1 MCHC 31.4 RDW 12.9 Plt Count 262 MPV 10.5 H Neut % (Auto) 91.8 Lymph % (Auto) 3.1 Garvin % (Auto) 3.4 Eos % (Auto) 0.7 Baso % (Auto) 0.4 Neut # (Auto) 16.38 H Lymph # (Auto) 0.6 L Garvin # (Auto) 0.6 Eos # (Auto) 0.1 Baso # (Auto) 0.1 Nucleated RBC % (auto) 0 Nucleated RBCs # 0.0 ESR Specimen Type Sample Site ABG pH ABG pCO2 ABG pO2 ABG HCO3 ABG O2 Saturation ABG Base Excess Arley Test A-a O2 Gradient Hematocrit Hgb O2 Saturation Carboxyhemoglobin Methemoglobin Total Hemoglobin Ionized Calcium O2 Delivery Device FiO2 Calculator Operator ID Sodium 126 L Potassium 4.2 Chloride 87 L Carbon Dioxide 23 Anion Gap 20.2 H BUN 35 H Creatinine 1.2 GFR Calculation 62.2 L Glucose 749 H* POC Glucose Calculated Osmolality 306 H Lactate 2.4 H Calcium 8.3 L Magnesium Total Bilirubin 0.3 AST 10 ALT 11 Alkaline Phosphatase 160 H C-Reactive Protein Total Protein 7.5 Albumin 2.7 L Globulin 4.8 H TSH Urine Color Urine Appearance Urine pH Ur Specific [place] Urine Protein Urine Glucose (UA) Urine Ketones Urine Blood Urine Nitrate Urine Bilirubin Urine Urobilinogen Ur Leukocyte Esterase Serum Ketones 07/01/20 07/01/20 07/01/20 12:52 12:56 13:27 WBC RBC Hgb Hct MCV MCH MCHC RDW Plt Count MPV Neut % (Auto) Lymph % (Auto) Garvin % (Auto) Eos % (Auto) Baso % (Auto) Neut # (Auto) Lymph # (Auto) Garvin # (Auto) Eos # (Auto) Baso # (Auto) Nucleated RBC % (auto) Nucleated RBCs # ESR Specimen Type Arterial Sample Site Brachial, right ABG pH 7.40 ABG pCO2 35.1 ABG pO2 81.8 ABG HCO3 21.9 L ABG O2 Saturation 97.4 ABG Base Excess -2.4 L Arley Test N/a A-a O2 Gradient 3.3 L Hematocrit 37.6 L Hgb O2 Saturation 95.3 Carboxyhemoglobin 1.6 Methemoglobin 0.6 Total Hemoglobin 12.3 L Ionized Calcium 1.1 O2 Delivery Device Room air FiO2 21.0 Calculator Operator ID Amh Sodium 128.0 L Potassium 4.2 Chloride Carbon Dioxide Anion Gap BUN Creatinine GFR Calculation Glucose 729.0 H POC Glucose > 600 Calculated Osmolality Lactate Calcium Magnesium Total Bilirubin AST ALT Alkaline Phosphatase C-Reactive Protein 357.6 H Total Protein Albumin Globulin TSH Urine Color Urine Appearance Urine pH Ur Specific [place] Urine Protein Urine Glucose (UA) Urine Ketones Urine Blood Urine Nitrate Urine Bilirubin Urine Urobilinogen Ur Leukocyte Esterase Serum Ketones 07/01/20 07/01/20 07/01/20 15:20 15:28 15:29 WBC RBC Hgb Hct MCV MCH MCHC RDW Plt Count MPV Neut % (Auto) Lymph % (Auto) Garvin % (Auto) Eos % (Auto) Baso % (Auto) Neut # (Auto) Lymph # (Auto) Garvin # (Auto) Eos # (Auto) Baso # (Auto) Nucleated RBC % (auto) Nucleated RBCs # ESR Specimen Type Sample Site ABG pH ABG pCO2 ABG pO2 ABG HCO3 ABG O2 Saturation ABG Base Excess Arley Test A-a O2 Gradient Hematocrit Hgb O2 Saturation Carboxyhemoglobin Methemoglobin Total Hemoglobin Ionized Calcium O2 Delivery Device FiO2 Calculator Operator ID Sodium Potassium Chloride Carbon Dioxide Anion Gap BUN Creatinine GFR Calculation Glucose POC Glucose 525 536 Calculated Osmolality Lactate Calcium Magnesium Total Bilirubin AST ALT Alkaline Phosphatase C-Reactive Protein Total Protein Albumin Globulin TSH Urine Color Yellow Urine Appearance Clear Urine pH 5 Ur Specific [place] 1.010 Urine Protein Neg Urine Glucose (UA) 4+ H Urine Ketones 1+ H Urine Blood Neg Urine Nitrate Negative Urine Bilirubin Neg Urine Urobilinogen Norm Ur Leukocyte Esterase Negative Serum Ketones 07/01/20 07/01/20 07/01/20 17:48 18:18 19:03 WBC RBC Hgb Hct MCV MCH MCHC RDW Plt Count MPV Neut % (Auto) Lymph % (Auto) Garvin % (Auto) Eos % (Auto) Baso % (Auto) Neut # (Auto) Lymph # (Auto) Garvin # (Auto) Eos # (Auto) Baso # (Auto) Nucleated RBC % (auto) Nucleated RBCs # ESR Specimen Type Sample Site ABG pH ABG pCO2 ABG pO2 ABG HCO3 ABG O2 Saturation ABG Base Excess Arley Test A-a O2 Gradient Hematocrit Hgb O2 Saturation Carboxyhemoglobin Methemoglobin Total Hemoglobin Ionized Calcium O2 Delivery Device FiO2 Calculator Operator ID Sodium 130 L Potassium 3.7 Chloride 94 L Carbon Dioxide 23 Anion Gap 16.7 BUN 35 H Creatinine 1.0 GFR Calculation 76.7 L Glucose 404 H POC Glucose 485 422 Calculated Osmolality 295 Lactate Calcium 8.3 L Magnesium Total Bilirubin AST ALT Alkaline Phosphatase C-Reactive Protein Total Protein Albumin Globulin TSH Urine Color Urine Appearance Urine pH Ur Specific [place] Urine Protein Urine Glucose (UA) Urine Ketones Urine Blood Urine Nitrate Urine Bilirubin Urine Urobilinogen Ur Leukocyte Esterase Serum Ketones Negative 07/01/20 07/02/20 07/02/20 21:27 04:52 04:52 WBC 18.6 H RBC 3.54 L Hgb 10.4 L Hct 31.9 L MCV 90.1 MCH 29.4 MCHC 32.6 RDW 13.2 Plt Count 243 MPV 11.4 H Neut % (Auto) 91.6 Lymph % (Auto) 3.3 Garvin % (Auto) 2.5 Eos % (Auto) 1.1 Baso % (Auto) 0.8 Neut # (Auto) 17.01 H Lymph # (Auto) 0.6 L Garvin # (Auto) 0.5 Eos # (Auto) 0.2 Baso # (Auto) 0.2 H Nucleated RBC % (auto) 0.2 Nucleated RBCs # 0.0 ESR Specimen Type Sample Site ABG pH ABG pCO2 ABG pO2 ABG HCO3 ABG O2 Saturation ABG Base Excess Arley Test A-a O2 Gradient Hematocrit Hgb O2 Saturation Carboxyhemoglobin Methemoglobin Total Hemoglobin Ionized Calcium O2 Delivery Device FiO2 Calculator Operator ID Sodium 135 L Potassium 3.7 Chloride 99 Carbon Dioxide 25 Anion Gap 14.7 BUN 40 H Creatinine 1.3 H GFR Calculation 56.7 L Glucose 105 POC Glucose 467 Calculated Osmolality 290 Lactate Calcium 8.0 L Magnesium Total Bilirubin 0.3 AST 34 ALT 13 Alkaline Phosphatase 177 H C-Reactive Protein Total Protein 6.1 L Albumin 2.0 L Globulin 4.1 TSH Urine Color Urine Appearance Urine pH Ur Specific [place] Urine Protein Urine Glucose (UA) Urine Ketones Urine Blood Urine Nitrate Urine Bilirubin Urine Urobilinogen Ur Leukocyte Esterase Serum Ketones 07/02/20 07/02/20 07/02/20 04:52 04:52 04:52 WBC RBC Hgb Hct MCV MCH MCHC RDW Plt Count MPV Neut % (Auto) Lymph % (Auto) Garvin % (Auto) Eos % (Auto) Baso % (Auto) Neut # (Auto) Lymph # (Auto) Garvin # (Auto) Eos # (Auto) Baso # (Auto) Nucleated RBC % (auto) Nucleated RBCs # ESR 89 H Specimen Type Sample Site ABG pH ABG pCO2 ABG pO2 ABG HCO3 ABG O2 Saturation ABG Base Excess Arley Test A-a O2 Gradient Hematocrit Hgb O2 Saturation Carboxyhemoglobin Methemoglobin Total Hemoglobin Ionized Calcium O2 Delivery Device FiO2 Calculator Operator ID Sodium Potassium Chloride Carbon Dioxide Anion Gap BUN Creatinine GFR Calculation Glucose POC Glucose Calculated Osmolality Lactate Calcium Magnesium 2.5 H Total Bilirubin AST ALT Alkaline Phosphatase C-Reactive Protein 277.3 H Total Protein Albumin Globulin TSH 1.12 Urine Color Urine Appearance Urine pH Ur Specific [place] Urine Protein Urine Glucose (UA) Urine Ketones Urine Blood Urine Nitrate Urine Bilirubin Urine Urobilinogen Ur Leukocyte Esterase Serum Ketones 07/02/20 07/02/20 07/02/20 06:25 10:42 11:40 WBC RBC Hgb Hct MCV MCH MCHC RDW Plt Count MPV Neut % (Auto) Lymph % (Auto) Garvin % (Auto) Eos % (Auto) Baso % (Auto) Neut # (Auto) Lymph # (Auto) Garvin # (Auto) Eos # (Auto) Baso # (Auto) Nucleated RBC % (auto) Nucleated RBCs # ESR Specimen Type Sample Site ABG pH ABG pCO2 ABG pO2 ABG HCO3 ABG O2 Saturation ABG Base Excess Arley Test A-a O2 Gradient Hematocrit Hgb O2 Saturation Carboxyhemoglobin Methemoglobin Total Hemoglobin Ionized Calcium O2 Delivery Device FiO2 Calculator Operator ID Sodium Potassium Chloride Carbon Dioxide Anion Gap BUN Creatinine GFR Calculation Glucose POC Glucose 166 362 150 Calculated Osmolality Lactate Calcium Magnesium Total Bilirubin AST ALT Alkaline Phosphatase C-Reactive Protein Total Protein Albumin Globulin TSH Urine Color Urine Appearance Urine pH Ur Specific [place] Urine Protein Urine Glucose (UA) Urine Ketones Urine Blood Urine Nitrate Urine Bilirubin Urine Urobilinogen Ur Leukocyte Esterase Serum Ketones 07/02/20 07/02/20 07/02/20 16:51 21:13 23:48 WBC RBC Hgb Hct MCV MCH MCHC RDW Plt Count 217 MPV Neut % (Auto) Lymph % (Auto) Garvin % (Auto) Eos % (Auto) Baso % (Auto) Neut # (Auto) Lymph # (Auto) Garvin # (Auto) Eos # (Auto) Baso # (Auto) Nucleated RBC % (auto) Nucleated RBCs # ESR Specimen Type Sample Site ABG pH ABG pCO2 ABG pO2 ABG HCO3 ABG O2 Saturation ABG Base Excess Arley Test A-a O2 Gradient Hematocrit Hgb O2 Saturation Carboxyhemoglobin Methemoglobin Total Hemoglobin Ionized Calcium O2 Delivery Device FiO2 Calculator Operator ID Sodium Potassium Chloride Carbon Dioxide Anion Gap BUN Creatinine GFR Calculation Glucose POC Glucose 126 224 Calculated Osmolality Lactate Calcium Magnesium Total Bilirubin AST ALT Alkaline Phosphatase C-Reactive Protein Total Protein Albumin Globulin TSH Urine Color Urine Appearance Urine pH Ur Specific [place] Urine Protein Urine Glucose (UA) Urine Ketones Urine Blood Urine Nitrate Urine Bilirubin Urine Urobilinogen Ur Leukocyte Esterase Serum Ketones 07/03/20 05:59 WBC 19.2 H RBC 3.68 L Hgb 10.8 L Hct 33.0 L MCV 89.7 MCH 29.3 MCHC 32.7 RDW 13.5 Plt Count 235 MPV 10.9 H Neut % (Auto) 85.4 Lymph % (Auto) 9.1 Garvin % (Auto) 4.3 Eos % (Auto) 0.2 Baso % (Auto) 0.5 Neut # (Auto) 16.41 H Lymph # (Auto) 1.8 Garvin # (Auto) 0.8 Eos # (Auto) 0.0 Baso # (Auto) 0.1 Nucleated RBC % (auto) 0 Nucleated RBCs # 0.0 ESR Specimen Type Sample Site ABG pH ABG pCO2 ABG pO2 ABG HCO3 ABG O2 Saturation ABG Base Excess Arley Test A-a O2 Gradient Hematocrit Hgb O2 Saturation Carboxyhemoglobin Methemoglobin Total Hemoglobin Ionized Calcium O2 Delivery Device FiO2 Calculator Operator ID Sodium Potassium Chloride Carbon Dioxide Anion Gap BUN Creatinine GFR Calculation Glucose POC Glucose Calculated Osmolality Lactate Calcium Magnesium Total Bilirubin AST ALT Alkaline Phosphatase C-Reactive Protein Total Protein Albumin Globulin TSH Urine Color Urine Appearance Urine pH Ur Specific [place] Urine Protein Urine Glucose (UA) Urine Ketones Urine Blood Urine Nitrate Urine Bilirubin Urine Urobilinogen Ur Leukocyte Esterase Serum Ketones Micro: Microbiology 07/01/20 13:30 Blood Culture - Preliminary Blood Gram positive cocci Gram Negative Rods 07/01/20 13:30 Blood Culture - Preliminary Blood Gram positive cocci Gram Negative Rods Cardiac Studies: No Data to Display
--- NOTE | 2020-07-03 06:39 | P.OP_ITS ---
Operative Report Date of procedure: July 03, 2020 Pre-op Diagnosis: Wet gangrene left foot Post-op diagnosis: same Post-op Findings: Devitalized soft tissue and bone left foot Procedure Done: Left hallux amputation at the metatarsophalangeal joint CPT code 97496 Implants: 1 g of vancomycin powder. Specimens removed/disposition: Soft tissue left foot sent to microbiology for Gram stain and culture Left proximal phalanx bone sent to microbiology for Gram stain and culture Pathology: Left hallux sent to pathology for permanent Surgeon: Jeff Fung D.P.M. Manager Inventory Management: Stephan Anesthesia: MAC Estimated blood loss: 10 mL Tourniquet time: No tourniquet utilized IV fluids: None Urine output: None Complications: None Findings: Devitalized soft tissue and bone left foot Condition: stable Disposition: floor Brief History: Mr. Hathaway is a 59-year-old uncontrolled diabetic male who is not been taking his medications. He reports 4 days ago abrupt onset of gangrenous changes to his left foot, reports his left great toe turned black his left foot was red draining and malodorous. He endorsed fevers, decreased appetite and malaise. Soft tissue emphysema on x-ray. Procedure: Under mild sedation the patient was brought to the operating room and placed on the operating table in supine position. A timeout was performed. Anesthesia was then administered by the anesthesia service. Local anesthesia injected by myself 30 cc of 0.5% Marcaine and 1% lidocaine one-to-one mixture and a left ankle block fashion. Well-padded pneumatic tourniquet applied to high calf this was never utilized or inflated during the duration of the procedure. Left lower extremity was scrubbed, prepped and draped utilizing normal aseptic technique. Attention was directed to the left foot, able to appreciate gangrenous changes with significant cellulitis and black left hallux, left hallux with soft have purulent drainage and soft tissue emphysema with crepitus at the medial forefoot medially and plantarly. #10 blade utilized to perform incision through soft tissue down to bone circumferentially around the left first metatarsal phalangeal joint this was disarticulated utilizing sharp dissection and passed from the operative field. Devitalized epidermis, dermis, subcutaneous tissue, fat layer and deep fascia sharply debrided at the medial and plantar forefoot, extensor tendons at the metatarsophalangeal joint appeared viable without purulence these were transected at their proximal margin. Flexor tendons and sesamoids had purulence tracking proximally these were sharply dissected at the most proximal margin that was healthy and passed from operative field. First metatarsal appeared viable with normal color and density. Incision site was irrigated with copious amounts of sterile saline solution, all bleeders were ligated and cauterized as necessary. No pulsatile bleeders appreciated. Incision site was dressed with vancomycin powder, Dakin's wet-to-dry, Kerlix, ABD pad and Luis Manuel wrap without compression no compression imparted with the dressing due to underlying peripheral arterial disease. Patient tolerated procedure well and was transferred to the PACU with vital signs stable vascular status intact. Following a period of postoperative monitoring he will be trans ferred back to the floor to continue empiric IV antibiotics including vancomycin, Levaquin and Flagyl. Significant soft tissue deficit due to ischemic changes this was sharply debrided patient will potentially require additional debridement pending his response clinically to IV antibiotics at this point. Patient will likely require healing by secondary intention.
[2020-07-03 06:46] LABS: Alanine Aminotransferase 25 U/L (0-41); Alkaline Phosphatase 201 IU/L (40-130); Aspartate Amino Transferase 69 U/L (0-40); Blood Urea Nitrogen 55 mg/dL (6-20); Calcium 7.9 mg/dL (8.5-10.5); Carbon Dioxide 22 mmol/L (22-29); Chloride 99 mmol/L (98-107); Globulin 4.5 g/dL (1.3-4.6); Glomerular Filtration Rate 36.6 mL/min (90-130); Glucose 188 mg/dL (65-115); Osmolality Calculated 292 mOsm/kg (285-295); Sodium 131 mmol/L (136-145); Total Bilirubin 0.4 mg/dL (0.15-1.2); Total Protein 6.5 g/dL (6.6-8.7)
[2020-07-03 06:47] LABS: Chol HDL Ratio 6.87 mg/dL (1.0-5.00); Cholesterol 103 mg/dL (0-200); HDL Cholesterol 15 mg/dL (60-100); LDL Cholesterol Calculated 57 mg/dL (50-129); Triglycerides 156 mg/dL (0-150)
[2020-07-03 06:54] LABS: Estmated Average Glucose 326
[2020-07-03] MEDS: sodium chloride 0.9% 1,000 ML 30 ML IV (07:09)
[2020-07-03] MEDS: lidocaine 1% INJ 20 mL INJECTION (07:22)
[2020-07-03] MEDS: vancomycin 1,000 MG SDV 1000 MG XX (07:25)
--- NOTE | 2020-07-03 08:05 | PM.PACU ---
PACU note Post-Anesthesia Exam: awake and vital signs stable Disposition: back to floor
--- NOTE | 2020-07-03 08:21 | PC.NURSE ---
pt back on floor from surgery
--- NOTE | 2020-07-03 08:27 | SUR.PHASEI ---
0806 PT AWAKE ALERT REQUESTS JUICE AND BREAKFAST , DENIES PAIN AND NAUSEA, LT FOOT ELEVATED PER BED SOFT DRESSING D/I VSS REPORT CALLED TO FLOOR.
[2020-07-03 08:35] LABS: Glucose Point of Care 190 mg/dL (70-110)
--- NOTE | 2020-07-03 08:39 | PC.NURSE ---
called Thaddeus from Pharmacy, nonadmining 0700 dose of vanc due to current dose from OR running. Dr. Bergeron notified.
[2020-07-03] MEDS: aspirin 325 mg Tablet PO (08:46)
[2020-07-03] MEDS: metoprolol tartrate 25 mg Tablet PO ×2 (08:46→17:56)
[2020-07-03] MEDS: famotidine 20 mg Tablet PO ×2 (08:46→17:19)
[2020-07-03] MEDS: sodium chloride 0.9% 1,000 ML 125 ML IV ×2 (08:47→14:43)
--- NOTE | 2020-07-03 12:50 | PC.NURSE ---
blood sugar 306
--- NOTE | 2020-07-03 13:08 | PC.NURSE ---
pt experiencing emesis. asked pt if he would like Zofran, pt stated no. repositioned pt and cleaned him up. pt states he feels better
--- NOTE | 2020-07-03 15:18 | PM.PN ---
Subjective Subjective: Interval history: Patient seen postop. Denies any chest pain or shortness of breath. Stated to felt somewhat better. Pain was under control. Vitals/I&O/Wt Last Vital Signs Temp 97.5 F L 07/03/20 12:00 Pulse 72 07/03/20 12:00 Resp 17 07/03/20 12:00 BP 104/71 07/03/20 12:00 Pulse Ox 99 07/03/20 12:00 07/03/20 07/03/20 07/03/20 06:59 14:59 22:59 Intake Total 1100 / 5495 941.667 / 941.667 Output Total 150 / 250 Balance 950 / 5245 941.667 / 941.667 Weight last 48 hrs Weight 82.236 kg Weight 78.426 kg Physical Exam Narrative: EXAM NARRATIVE: General : No distress, chronically ill appearing HEENT : Grossly unremarkable CVS : irregularly irregular Chest: Clear to ausculation Abdomen: Soft Nontender Ext - Left lower extremity erythema and dark discoloration of left great toe. Urinary Catheter Management^: Alfonso: Cath Placed During This Visit: yes Reason for Continuing Indwelling Catheter: Other Urinary Catheter Date of Insertion: 07/03/20 Urinary Catheter Time of Insertion: 00:45 Data : 07/03/20 05:59 07/03/20 05:59 Micro: Microbiology 07/01/20 13:30 Blood Culture - Preliminary Blood Staphylococcus species Gram Negative Rods 07/01/20 13:30 Blood Culture - Preliminary Blood Gram positive cocci Gram Negative Rods A&P Assessment and plan (1) Diabetes mellitus: Status: Acute (2) Atrial fibrillation: Status: Acute (3) Diabetic infection of left foot: Status: Acute (4) Increased anion gap metabolic acidosis: Status: Acute (5) DKA (diabetic ketoacidoses): Status: Acute (6) Medical non-compliance: Status: Acute (7) Atrial fibrillation with rapid ventricular response: Status: Acute Sepsis due to diabetic foot infection with Bacteremia - WBC 18 - > 19.2 - Levaquin 750 mg IV daily - Flagyl 500 mg IV Q8hr - Vancomycin pharmacy to dose - Blood culture x 2 - 07/01 - > Staphylococcus species, Gram negative rods. - Repeat blood culture in am - Lactic acidosis - 2.4 - Check Lactic acid in am - Podiatry consult noted - Follow up on operative cultures - Wound care per podiatry - Consider consult with ID Peripheral vascular obstructive disease - Left great toe gangrene - Abrupt onset, weak distal pulse, in setting of afib - Started on IV heparin gtt - held due to surgical intervention - Will resume when ok with surgery - CTA aorta with runoff - Extensive prominent atherosclerosis with numerious stenosis with multiple occulusion - Asa 325 mg PO daily Atrial fibrillation with RVR - Converted to NSR - S/p Esmolol gtt / Coreg 3.125 mg x 1 in ER - Soft BP will monitor for now - ECHO - ordered - Resume Heparin gtt weight based protocol ( when ok with surgery) 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 Diabetes Mellitus with hyperglycemia - S/p Insulin gtt - Qachs checks - A1c - > 13.0% - Lantus 10 units qam - Sliding scale insulin - Lipid panel in am Suspected BPH - Enlarged prostate on CT - Alfonso in place currently Medication non-compliance - Unclear past med history GI ppx - Pepcid 20 mg PO BID DVT ppx - On heparin gtt - No SCD due to PVD Attestations Medical Necessity Statement*: Patient require further hospitalization for management of sepsis, bacteremia, acute renal insufficiency new onset heart failure. Time Spent in Patient Care: Greater than 35 minutes (>than 50% of time spent in counselling and/or direct pt care on unit). Coding Level of Care Code Acute Veterinary Inspector for [facility] Fwd Diagnoses Diabetes mellitus E11.9 Atrial fibrillation I48.91 Diabetic infection of left foot E11.628; L08.9 Increased anion gap metabolic acidosis E87.2 DKA (diabetic ketoacidoses) E11.10 Medical non-compliance Z91.19 Atrial fibrillation with rapid ventricular response I48.91
[2020-07-03 16:11] LABS: Glucose Point of Care 306 mg/dL (70-110)
[2020-07-03 17:02] LABS: Glucose Point of Care 159 mg/dL (70-110)
--- NOTE | 2020-07-03 17:04 | PC.NURSE ---
blood sugar 159
--- NOTE | 2020-07-03 19:42 | XR_ITS ---
WS: [id number] XR foot LT min 3V* [id number] REASON FOR EXAM: post op FINDINGS: Examination of 07/01/2020 demonstrated soft tissue findings indicative of significant soft tissue infe ction in the great toe overlying the proximal and distal phalanx. Since that previous examination the proximal and distal phalanx of the great toe have been amputated. Sesamoid bones have also been sanket richard. The distal first metatarsal appears intact. No radiopaque body is identified in the surgical bed. XR/XR foot LT min 3V* [id number] IMPRESSION: Amputation of the distal great toe as above.
[2020-07-03 21:20] LABS: Glucose Point of Care 118 mg/dL (70-110)
[2020-07-03 21:35] LABS: Partial Thromboplastin Time 38.5 SECONDS (23.9-36.7)
--- NOTE | 2020-07-03 21:38 | PM.CONSULT ---
Providers/Reason For Consult Consulting Physican/Specialty*: Gerson Oshea MD/Interventional Cardiology Reason for Consult*: Afib/congestive heart failure Attending Physician: Petra Bergeron Primary Care Provider: ADORE Ramires History of Present Illness History of Present Illness Ben Hathaway is a 59 year old male with past medical history of diabetes mellitus with peripheral neuropathy and lower extremity diabetic foot infection who presented to the hospital with generalized weakness, subjective fever and chills. He was found to be septic and had wet gangrene of left hallux which underwent amputation with I&D of the left foot. Cardiology was consulted as patient had atrial fibrillation with RVR in the ER which converted to normal sinus rhythm after he was put on esmolol. On echocardiogram his EF was found to be 30 to 35%. According to patient he had known history of A. fib and had ablation done in [place] in the past. Right now his heart rate is well controlled and is in 70s. He is in sinus rhythm. Of note patient also tested positive for Covid. He seems compensated with regards to his congestive heart failure. CTA with runoff was also performed that showed multilevel infrapopliteal disease. Also has possible ostial left common iliac disease. Review of Systems Narrative: CONSTITUTIONAL: Had fever HEENT: Normocephalic, atraumatic.[] RESPIRATORY: No cough, sputum, hemoptysis or wheezing.[] CARDIOVASCULAR: No shortness of breath, chest pain, PND, orthopnea, lower extremity edema, presyncope or syncope. [] GI: no nausea vomiting diarrhea. 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 [] MUSCULOSKELETAL: No knee or joint pain or rashes. [] Meds/Allergies Home Medications and Allergies Home Medications Medication Instructions Recorded Confirmed Last Taken Type No Known Home Medications 07/01/20 07/01/20 Unknown History Allergies Allergy/AdvReac Type Severity Reaction Status Date / Time Penicillins Allergy Intermediate ALGY-Anaphy Verified 07/01/20 12:42 laxis Current Medications Current Medications Generic Name Dose Route Start Last Admin Trade Name Freq PRN Reason Stop Dose Admin Aspirin 325 mg 07/03/20 09:00 07/03/20 08:46 Aspirin PO 325 mg DAILY DAIANA Administration Famotidine 20 mg 07/02/20 09:00 07/03/20 17:19 Pepcid Tab PO 20 mg BID DAIANA Administration Insulin Human Regular 250 unit 252.5 mls @ 0 mls/hr 07/01/20 14:15 07/01/20 15:36 / Sodium Chloride IV 5 ml/hr .Q0M DAIANA 5 mls/hr Administration Protocol Per Protocol Sodium Chloride 1,000 mls @ 125 mls/hr 07/01/20 19:45 07/03/20 14:43 Sodium Chloride 0.9% IV 125 mls/hr .Q8H DAIANA Administration Metronidazole 500 mg in 100 mls @ 100 mls/hr 07/02/20 12:30 07/03/20 17:56 Flagyl Iv IV 100 mls/hr Q6H DAIANA Administration Protocol Vancomycin HCl 1,500 mg/ 250 mls @ 166.667 mls/hr 07/02/20 13:00 07/03/20 08:39 Sodium Chloride IV Not Given Q18H DAIANA Protocol Heparin Sodium/Sodium Chloride 25,000 unit in 500 mls @ 0 mls/hr 07/02/20 22:45 07/03/20 05:50 Heparin Drip IV 0 unit/kg/hr .Q0M DAIANA 0 mls/hr Titration Protocol Per Protocol Insulin Aspart 0 unit 07/01/20 21:00 07/03/20 21:29 Novolog SUBCUT Not Given WM&BEDTIME DAIANA Protocol Metoprolol Tartrate 25 mg 07/03/20 18:00 07/03/20 17:56 Lopressor PO 25 mg BID DAIANA Administration PFSH Acute PFSH: Medical History (Updated 07/04/20 @ 08:24 by Gerson Oshea M.D) Atrial fibrillation Diabetes mellitus Surgical History (Updated 07/04/20 @ 08:14 by Gerson Oshea M.D) S/P ablation of atrial fibrillation Vitals/I&O/Wt Last Vital Signs Temp 98.2 F 07/03/20 19:46 Pulse 79 07/03/20 19:46 Resp 24 H 07/03/20 19:46 BP 106/79 07/03/20 19:46 Pulse Ox 99 07/03/20 16:00 07/03/20 07/03/20 07/03/20 06:59 14:59 22:59 Intake Total 1226.117 / 5621.117 941.667 / 941.667 Output Total 150 / 250 Balance 1076.117 / 5371.117 941.667 / 941.667 Weight last 48 hrs Weight 181 lb 4.8 oz Weight 172 lb 14.4 oz Physical Exam Narrative: EXAM NARRATIVE: GENERAL: Patient is alert, awake and oriented x3. [] NECK: No jugular vein distension. [] HEENT: No cyanosis. No icterus. No pallor. [] HEART: Regular S1 and S2. No murmur, rub or gallop. [] LUNGS: Clear to auscultate bilaterally. [] ABDOMEN: Soft, nontender and nondistended. Positive bowel sounds. No guarding, rebound or tenderness. [] CENTRAL NERVOUS SYSTEM: Grossly nonfocal. [] EXTREMITIES: Has dressing on left foot, diminished pulses bilaterally Urinary Catheter Management^: Alfonso: Cath Placed During This Visit: yes Reason for Continuing Indwelling Catheter: Other Urinary Catheter Date of Insertion: 07/03/20 Urinary Catheter Time of Insertion: 00:45 Data Micro: Micro: Microbiology 07/03/20 07:33 Gram Stain - Final Tissue 07/01/20 13:30 Blood Culture - Pr eliminary Blood Staphylococcus species Gram Negative R ods A&P Assessment and plan (1) Diabetic wet gangrene of the foot: Status: Acute (2) Atrial fibrillation with rapid ventricular response: Status: Acute (3) Diabetes mellitus: Status: Acute (4) HFrEF (heart failure with reduced ejection fraction): Status: Acute Patient is overall stable from a heart standpoint. He is compensated from heart failure standpoint and converted to normal sinus rhythm. Continue anticoagulation if no bleeding risk. Apparently patient had ablation of atrial fibrillation done at outside hospital. Will help to get records to assess if this is a new drop in EF or has been known in the past. He might need ischemic work-up as outpatient. Continue beta-dawna. He has multi level infrapopliteal disease on CTA. There is also possible ostial left iliac artery disease. He is Covid positive at this time. Urgent peripheral angiogram and intervention is not indicated. We will discuss further. Thank you for involving us with care of this patient. Please call with questions. Coding Level of Care Code Acute Pass Worker for Mallory Mata Diagnoses Diabetic wet gangrene of the foot E11.52 Atrial fibrillation with rapid ventricular response I48.91 Diabetes mellitus E11.9 HFrEF (heart failure with reduced ejection fraction) I50.20
--- NOTE | 2020-07-03 22:27 | USCV_ITS ---
Ben Hathaway Age: 59 Gender: M : 1960 Exam Date: 07/03/2020 06:00 Ordering Phys: Petra Bergeron MD Technologist: Gaby Hobson Exam Location: [facility] [place] Indication: edema, afib BP: 123 / 73 HR: 75 Rhythm: Sinus Technical Quality: Adequate MEASUREMENTS (Male / Female) Normal Values 2D ECHO LV Diastolic Diameter PLAX 4.5 cm 4.2 - 5.9 / 3.9 - 5.3 cm LV Systolic Diameter PLAX 3.8 cm LV Chamber Size 4.5 cm IVS Diastolic Thickness 1.3 cm 0.6 - 1.0 / 0.6 - 0.9 cm IVS Systolic Thickness 1.3 cm LVPW Diastolic Thickness 1.6 cm 0.6 - 1.0 / 0.6 - 0.9 cm LVPW Systolic Thickness 2.1 cm RV Chamber Size 3.3 cm LVOT Diameter 2.1 cm LV Ejection Fraction 2D Teich 34.6 % LV Ejection Fraction MOD 2C 27.3 % LV Ejection Fraction 2C AL 29.5 % LA Diameter 4.3 cm LA Width 2.7 cm LA Height 4.3 cm RA Width 4.3 cm RA Height 5.2 cm Aorta at Sinotubular Diameter 3.2 cm M-MODE LV Diastolic Diameter MM 6.1 cm 4.2 - 5.9 / 3.9 - 5.3 cm LV Systolic Diameter MM 5.4 cm LV Ejection Fraction MM Teich 24.2 % IVS Diastolic Thickness MM 0.7 cm 0.6 - 1.0 / 0.6 - 0.9 cm IVS Systolic Thickness MM 0.6 cm LVPW Diastolic Thickness MM 1.0 cm 0.6 - 1.0 / 0.6 - 0.9 cm LVPW Systolic Thickness MM 1.3 cm Aortic Annulus Diameter 3.2 cm LA Ao Ratio MM 1.2 MV E Point Septal Separation 1.2 cm DOPPLER AV Peak Velocity 126.0 cm/s LVOT Peak Velocity 93.0 cm/s AV Area Cont Eq vti 2.7 cm squared AV Area Cont Eq pk 2.5 cm squared MV Area PHT 5.1 cm squared Mitral E to A Ratio 4.0 MV E' Velocity 66.5 cm/s Mitral E to MV E' Ratio 12.7 Mitral E to LV E' Lateral Ratio 9.7 Mitral E to LV E' Septal Ratio 18.3 TR Peak Velocity 271.0 cm/s TR Peak Gradient 29.4 mmHg TV Peak E Velocity 37.0 cm/s Right Atrial Pressure 3.0 mmHg Pulmonary Artery Systolic Pressu 32.4 mmHg PV Peak Velocity 48.0 cm/s RV Acceleration Time 0.1 s RV Ejection Time 0.3 s RV AcT/ET 0.4 FINDINGS Left Ventricle Normal left ventricular size and wall thickness. LV systolic function is severely reduced with EF of 30 to 35%. Severe global hypokinesis is noted. Normal left ventricular wall thickness. Diastolic dysfunction with restrictive pattern. Elevated filling pressures. Right Ventricle The right ventricle is normal in size and function. Right Atrium The right atrium is normal in size. Left Atrium The left atrium is severely enlarged Mitral Valve Structurally normal mitral valve without significant stenosis or prolapse. There is mild to moderate mitral regurgitation. Aortic Valve Structurally normal aortic valve without significant sclerosis or stenosis. There is mild aortic regurgitation. Tricuspid Valve Structurally normal tricuspid valve without significant stenosis. Mild tricuspid regurgitation is present. RVSP is 30 to 35 mmHg. Pulmonic Valve Structurally normal pulmonic valve without significant stenosis. There is no pulmonic regurgitation. Pericardium Normal pericardium without effusion. Aorta Normal ascending aorta dimension. CONCLUSIONS LV systolic function is severely reduced with EF of 30 to 35%. Severe global hypokinesis is present. Diastolic dysfunction with restrictive pattern. Left atrium is severely enlarged. Mild to moderate mitral regurgitation is noted. Mild aortic regurgitation is present. RVSP is 30 to 35 mmHg. There are no comparison studies available. Gerson Oshea MD (Electronically Signed) Final Date: 03 July 2020 09:01 S
[2020-07-03] MEDS: LORazepam 2 mg/mL INJ 1 mL 0.5 MG IVP (22:39)
[2020-07-03 23:03] LABS: Quest SARS-CoV-2 RNA DETECTED (NOT DETECTED)
[2020-07-04] VITALS (8 sets, daily range): BP systolic 102–137; BP diastolic 66–81; PULSE 70–81; RESP 16–24; TEMP 36.4–36.7; O2SAT 94–99
[2020-07-04 02:04] LABS: Platelet Count 178 10^3/cmm (130-400)
--- NOTE | 2020-07-04 04:08 | PC.PHAR ---
Pharmacokinetic dosing service Date: 07/04/20 Time: 399 Patient: Rivas Contreras Floor: [id number] Weight: 82.236 Kilograms Vancomycin single level analysis: Current dose being given: 1500 mg Current dosing interval: 18 hrs Current infusion time (hrs): 1 Single level Trough Data: Trough level obtained: 21 mcg/ml Timing of trough - # of hrs before next dose: 0.01 Hrs Desired peak: 40 mcg/ml Desired trough: 15 mcg/ml Diagnosis: Relevant medical/social history: Cultures and sensitivities: Other labs: Estimated PK Parameters: New rate constant (ashley): 0.045 hr-1 Half-life: 15.40 Hours Vd from levels: 57.57 Liters (0.7 L/kg) CLvanco= 2.591 L/hr Estimated New Dose and Interval Recommended dose: 1510.9 mg Recommended interval: 22.8 Hrs Patient response: Patient is responding to treatment [yes/no] wbc decreasing, S/SX reduced [yes/no] Renal function is stable/unstable Recommendations: Give Vancomycin 1500 mg q 24 hrs. Infuse over 1.5 hrs Expected Cpeak: 38.2 mcg/mL Expected Ctrough: 13.9 mcg/mL AUC 0-24 /TACO Data: TACO 0.5 mcg/mL: AUC/TACO: 1157.9 TACO 1.0 mcg/mL: AUC/TACO: 578.9 Recommended labs and intervals: Measure Bun and Scr 3 times/week. Renal dosing of other antibiotics (review renal dosing of other medications and list guidelines here): Thank you for the consult, will continue to follow. Signature: Florina Hyatt [facility]
[2020-07-04] MEDS: metroNIDAZOLE IV 500 MG/100 ML PREMIX 100 MG IV ×2 (05:38→12:13)
[2020-07-04 05:40] LABS: Partial Thromboplastin Time 153.8 SECONDS (23.9-36.7)
[2020-07-04 06:33] LABS: Glucose Point of Care 194 mg/dL (70-110)
--- NOTE | 2020-07-04 06:35 | PC.NURSE ---
HEPARIN GTT PT'S PTT CAME BACK CRITICAL AT 153.8 AFTER 6 HOURS OF RESTARTING HEPARIN GTT. HOSPITALIST NOTIFIED. LAB REDRAW WAS ORDERED. IF LEVEL IS STILL OVER >150 AFTER REDRAW, HOLD GTT FOR 4 HOURS AND REDRAW ANOTHER PTT.
[2020-07-04 07:16] LABS: Partial Thromboplastin Time 40.7 SECONDS (23.9-36.7)
--- NOTE | 2020-07-04 07:18 | P.PN_ITS ---
Subjective Subjective: Interval history: Mr. Hathaway seen bedside this a.m., denies any acute events overnight, tolerating regular diet, states he is feeling better no subjective fevers. He is 1 day status post left foot I&D and left hallux amputation secondary to wet gangrene, patient was septic on admission with positive blood cultures and leukocytosis. Vitals/I&O/Wt Last Vital Signs Temp 97.6 F 07/04/20 04:00 Pulse 74 07/04/20 04:00 Resp 19 H 07/04/20 04:00 BP 123/81 07/04/20 04:00 Pulse Ox 99 07/04/20 04:00 07/03/20 07/04/20 07/04/20 22:59 06:59 14:59 Intake Total 100 / 1041.667 300 / 1341.667 Output Total 125 / 125 200 / 325 Balance -25 / 916.667 100 / 1016.667 Weight last 48 hrs Weight 208 lb 6.4 oz Weight 181 lb 4.8 oz Physical Exam Narrative: EXAM NARRATIVE: GENERAL: Patient is alert and oriented ?3 and in no acute distress. The following is a focused bilateral lower extremity exam. VASCULAR: Dorsalis pedis and posterior tibial are faintly palpable. Capillary refill time less than 5 seconds to the distal hallux bilaterally. Calf is supple and nontender proximally and distally. Diminished pedal hair growth bilaterally. NEUROLOGICAL: Protective sensation intact 0/10 sites, tested with Hegins Thomas monofilament to bilateral feet. DERMATOLOGICAL: No strikethrough bleeding or drainage from postoperative dressings. Postop dressings were removed and new dressing applied there was minimal bleeding, delayed capillary refill time at skin margins at amputation site, no further proximal lymphangitic streaking or proximal cellulitis in comparison to preoperative evaluation. MUSCULOSKELETAL: No pain with posterior calf squeeze bilaterally. Muscle strength 5 out of 5 in all 3 cardinal planes to bilateral foot and ankle. PREOP POSTOP Urinary Catheter Management^: Alfonso: Cath Placed During This Visit: yes Reason for Continuing Indwelling Catheter: Other Urinary Catheter Date of Insertion: 07/03/20 Urinary Catheter Time of Insertion: 00:45 Data : 07/04/20 01:50 07/03/20 05:59 Micro: Microbiology 07/03/20 07:33 Gram Stain - Final Tissue 11/02/20 13:30 Blood Culture - Preliminary Blood Staphylococcus species Gram Negative Rods A&P Assessment and plan (1) Diabetic peripheral neuropathy associated with type 2 diabetes mellitus: Status: Acute (2) Diabetic wet gangrene of the foot: Status: Acute (3) Sepsis: Status: Acute Qualifiers: Sepsis acute organ dysfunction status: unspecified Sepsis type: sepsis due to unspecified organism Qualified Code(s): A41.9 - Sepsis, unspecified organism Mr. Hathaway is a 59-year-old poorly controlled diabetic male with wet gangrene to the left foot. Eschar is soft with fluctuance and crepitus, ascending cellulitis involving the distal two thirds of the left leg. Soft tissue emphysema on x-ray of the left foot without obvious osseous destruction. -Recommend CT angiogram of abdominal aorta with runoff, patient has poor pedal pulses bilaterally and ischemic changes to the left foot. -Recommend interventional cardiology/vascular surgery consultation for lower extremity peripheral arterial disease -Ideally would prioritize vascular intervention prior to any level of amputation however patient has wet gangrene and is septic with positive blood cultures and significant leukocytosis. -Patient receiving empiric IV antibiotics vancomycin, Levaquin and Flagyl, has penicillin allergy. -Nonweightbearing left foot may heel touch only for transfers. Interim: CT angiogram completed concerning for multiple segmental occlusions and calcifications infrapopliteal and distally. Echocardiogram shows decreased ejection fraction. Patient is 1 day status post incision and debridement left foot with left hallux amputation and excision of sesamoids, soft tissue and bone cultures taken intraoperatively pending. Patient has tested positive for COVID-19 and is in isolation. Performed dressing change Dakin's wet-to-dry. From my perspective patient is stabilized and would prioritize vascular work- up/intervention if this is indicated, in regards to his left foot wound he would likely require further surgical debridement, PICC line and wound care versus higher level of amputation. 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
[2020-07-04] MEDS: metoprolol tartrate 25 mg Tablet PO ×2 (08:43→17:12)
[2020-07-04] MEDS: famotidine 20 mg Tablet PO ×2 (08:43→17:11)
[2020-07-04] MEDS: heparin 5,000 unit/mL INJ 1 mL IV (09:10)
[2020-07-04 11:50] LABS: Glucose Point of Care 188 mg/dL (70-110)
[2020-07-04] MEDS: bisacodyl 5 mg Tablet 10 MG PO (12:13)
--- NOTE | 2020-07-04 12:19 | ANE.PACU2 ---
Inpatient post-anesthesia follow up: Airway intact: Yes Vital signs: Temperature 98.1 F Pulse Rate [Right Radial] 142 Pulse Rate 70 Respiratory Rate 16 Blood Pressure [Ri ght Arm] 82/56 Blood Pressure 119/74 Pulse Oximetry 96 Oxygen Delivery Me thod [ Room Air Current Rate & Del jad] Oxygen Delivery Me thod Room Air Oxygen Flow Rate 8 Fraction of Inspir ed Oxygen Hydration adequate: Yes Nausea and vomiting: No Pain level: 1 Mental status: Baseline
[2020-07-04] MEDS: levofloxacin-dextrose 5 % 750 MG/150 ML PREMIX 100 MG IV (13:20)
--- NOTE | 2020-07-04 15:19 | PM.PN ---
Subjective Subjective: Interval history: Hospital course and vitals appreciated. No acute events overnight. Patient on examination looks tired but is able to have complete conversation with me, AO x3, complaining of hiccups denies any nausea, vomiting, headache, dizziness. Denies any back pain. No labs done today. Vitals/I&O/Wt Last Vital Signs Temp 98.1 F 07/04/20 11:47 Pulse 70 07/04/20 11:47 Resp 16 07/04/20 11:47 BP 119/74 07/04/20 11:47 Pulse Ox 96 07/04/20 11:47 07/04/20 07/04/20 07/04/20 06:59 14:59 22:59 Intake Total 400 / 1441.667 710 / 710 Output Total 200 / 325 Balance 200 / 1116.667 710 / 710 Weight last 48 hrs Weight 94.529 kg Weight 82.236 kg Physical Exam Narrative: EXAM NARRATIVE: General : No distress, chronically ill appearing HEENT : Grossly unremarkable CVS : i S1-S2 irregularly irregular, pansystolic murmur at the apex Chest: Normal vesicular breath sounds, no added sounds, good air entry all over the lung aguilar. Abdomen: Soft, nontender, no organomegaly, bowel sounds present Ext -surgically bandaged, no cellulitis in calf Urinary Catheter Management^: Alfonso: Cath Placed During This Visit: yes Reason for Continuing Indwelling Catheter: Required Immobilization for Trauma or Surgery or Anesthesia Urinary Catheter Date of Insertion: 07/03/20 Urinary Catheter Time of Insertion: 00:45 Data : 07/04/20 01:50 07/03/20 05:59 Micro: Microbiology 07/03/20 07:33 Gram Stain - Final Tissue Wound Culture - Preliminary Staphylococcus aureus Gram Negative Rods 07/03/20 07:55 Wound Culture - Preliminary Bone Staphylococcus aureus Gram Negative Rods 07/01/20 13:30 Blood Culture - Final Blood Staphylococcus aureus Enterobacter cloacae 07/01/20 13:30 Blood Culture - Final Blood Staphylococcus aureus Enterobacter cloacae A&P Assessment and plan (1) Sepsis: Status: Acute Qualifiers: Sepsis type: sepsis due to unspecified organism Sepsis acute organ dysfunction status: unspecified Qualified Code(s): A41.9 - Sepsis, unspecified organism (2) Staphylococcus aureus bacteremia: Status: Acute (3) Diabetic wet gangrene of the foot: Status: Acute (4) Diabetic peripheral neuropathy associated with type 2 diabetes mellitus: Status: Acute (5) Atrial fibrillation with rapid ventricular response: Status: Acute (6) HFrEF (heart failure with reduced ejection fraction): Status: Acute (7) Peripheral arterial disease: Status: Acute (8) COVID-19: Status: Acute (9) Medical non-compliance: Status: Acute Additional A&P Information MSSA staphylococcal and enterococcal bacteremia: Blood cultures positive from admission. Sepsis due to diabetic wet gangrene: Post amputation of the toe. Patient most likely require further debridement as per Dr. Fung. Dr. [place] will be following up with Dr. Fung is awaited. Dr. Fung is requesting ID consult. Wound cultures growing staph MSSA and gram-negative rods. Most likely patient would require 6 weeks of antibiotics. PICC line once blood cultures are negative. Stat blood cultures. Repeat CBC and CMP today along with procalcitonin. MRSA swab. Repeat lactate. Peripheral arterial disease: CTA aorta runoff appreciated. Case discussed with Dr. Diaz from cardiology. No plan for revascularization as an inpatient for now as patient has small vessel disease and has collaterals. Stop heparin drip and start patient on Eliquis 5 mg twice daily. Hemoglobin has remained stable and no active signs of bleeding. Lipid panel results appreciated. Continue aspirin 81 mg oral daily. Congestive heart failure: Compensated at present. Echocardiogram shows an EF of 30-35% with diastolic dysfunction with mild to moderate MR, moderate AR. Cardiology has been consulted. Patient looks euvolemic to dehydrated at present. No further diuresis at present. Documented urine output in last 24 hours to 50 cc. Start patient on IV fluids with normal saline at 50 cc/h with gentle hydration while monitoring for fluid overload. Atrial fibrillation with rapid ventricular response: Normal sinus rhythm at present. Continue with metoprolol 25 mg twice daily for now. Monitor blood pressures. Damir vas score- 4. Eliquis 5 mg twice daily. BARBER: Multifactorial. Most likely secondary to cardiorenal syndrome and severe sepsis. CT abdomen negative for any hydronephrosis. Renal ultrasound, urinalysis, urine lites, urine creatinine. We will give fluid challenge with 50 cc/h while monitoring for fluid overload. Medical reconciliation done for nephrotoxic drugs. Controlled Alfonso catheterization for strict input output charting. COVID-19: Rapid antigen positive. Patient is on room air. Vitamin C, zinc. Continue to monitor. Isolation precautions. Type 2 diabetes mellitus: On admission was in DKA. Noncompliance. HbA1c 13. Insulin sliding scale at moderate dose. Anemia: On admission 13. A 10.6 and has been stable. Stool for occult blood pending. Monitor for bleeding. Iron panel. Suspected BPH Renal nondialysis carb consistent diet. Eliquis will help with DVT prophylaxis. Full code. Attestations Medical Necessity Statement*: Patient requires further hospitalization for management of MSSA staphylococcal and enterococcal bacteremia, wet gangrene, peripheral artery disease, arterial fibrillation, BARBER, COVID-19, congestive heart failure. Time Spent in Patient Care: Greater than 35 minutes (>than 50% of time spent in counselling and/or direct pt care on unit). Coding Level of Care Code Acute Air Technician for [facility] Fwd Diagnoses Sepsis A41.9 Sepsis type: sepsis due to unspecified organism Sepsis acute organ dysfunction status: unspecified Staphylococcus aureus bacteremia R78.81; B95.61 Diabetic wet gangrene of the foot E11.52 Diabetic peripheral neuropathy associated with type 2 diabetes mellitus E11.42 Atrial fibrillation with rapid ventricular response I48.91 HFrEF (heart failure with reduced ejection fraction) I50.20 Peripheral arterial disease I73.9 COVID-19 U07.1 Medical non-compliance Z91.19
[2020-07-04] MEDS: cefepime 1,000 MG in sodium chloride 0.9% (plus) 50 ML 100 MG IV (15:28)
[2020-07-04] MEDS: sodium chloride 0.9% 1,000 ML 75 ML IV (15:54)
[2020-07-04 16:37] LABS: Glucose Point of Care 253 mg/dL (70-110)
[2020-07-04] MEDS: apixaban 5 mg Tablet PO (17:11)
[2020-07-04 17:16] LABS: Potassium, Radom Urine 60 mmol/L; Urine Random Chloride 19 mmol/L; Urine Random Sodium 16 mmol/L
[2020-07-04 18:29] LABS: Urine Creatinine 157 mg/dL (39-259)
[2020-07-04 19:37] LABS: Urine Appearance Cloudy (CLEAR); Urine Color Yellow (Yellow)
[2020-07-04 19:39] LABS: pH Urine 5 (5-7)
[2020-07-04 19:40] LABS: Bilirubin Urine Neg (Negative); Blood Urine 2+ (Negative); Glucose Urine UA Norm (Normal); Ketones Urine 1+ (Negative); Leukocyte Esterase Urine 2+ (Negative); Nitrate Urine Negative (Negative); Protein Urine Trace (Negative); Urobilinogen Urine 1 mg/dL (Negative)
[2020-07-04 19:42] LABS: Bacteria Urine 3+ /hpf; Mucus Urine 1+ /hpf; Squamous Epithelial Cell Urine 0-4 /hpf (0-5)
[2020-07-04 19:43] LABS: Add Urine Culture? Yes; Amorphous Sediment Urine 1+ /hpf; Eosinophil Urine No Eosinophils Seen; Urine Eosinophil Count 0 (0-0)
[2020-07-04 20:41] LABS: Glucose Point of Care 111 mg/dL (70-110)
[2020-07-04 20:52] LABS: Basophils # 0.1 10^3/uL (0.0-0.1); Basophils % 0.4 %; Eosinophils # 0.1 10^3/uL (0.0-0.8); Eosinophils % 0.5 %; Hematocrit 39.2 % (42.0-52.0); Hemoglobin 12.4 g/dL (11.7-16.6); Lymphocytes # 2.8 10^3/uL (0.8-4.8); Lymphocytes % 16.5 %; Mean Corpuscular HGB Conc 31.6 g/dL (30.0-36.0); Mean Corpuscular Hemoglobin 28.8 pg (28.0-34.0); Mean Corpuscular Volume 91.2 fL (80-94); Mean Platelet Volume 11.4 fL (7.4-10.4); Monocytes # 0.8 10^3/uL (0.2-0.9); Monocytes % 4.5 %; Neutrophils # 12.93 10^3/uL (1.8-7.7); Neutrophils % 77.2 %; Nucleated Red Blood Cells % 0 %; Platelet Count 320 10^3/cmm (130-400); Red Cell Distribution Width 14.1 % (12.1-15.1); White Blood Count 16.8 10^3/uL (4.0-10.0)
[2020-07-04 21:12] LABS: Alanine Aminotransferase 211 U/L (0-41); Albumin Level 1.9 g/dL (3.5-5.2); Alkaline Phosphatase 423 IU/L (40-130); Anion Gap 16.2 (5-19); Aspartate Amino Transferase 543 U/L (0-40); Blood Urea Nitrogen 74 mg/dL (6-20); Calcium 7.4 mg/dL (8.5-10.5); Carbon Dioxide 18 mmol/L (22-29); Chloride 100 mmol/L (98-107); Globulin 5.2 g/dL (1.3-4.6); Glomerular Filtration Rate 25.5 mL/min (90-130); Glucose 97 mg/dL (65-115); NT Pro B Type Natriuretic Pept 9562 pg/mL (0-125); Osmolality Calculated 292 mOsm/kg (285-295); Potassium 4.2 mmol/L (3.5-5.1); Sodium 130 mmol/L (136-145); Total Bilirubin 0.5 mg/dL (0.15-1.2); Total Protein 7.1 g/dL (6.6-8.7)
[2020-07-05] VITALS (7 sets, daily range): BP systolic 106–132; BP diastolic 65–79; PULSE 70–79; RESP 16–22; TEMP 36.1–36.7; O2SAT 94–99
[2020-07-05 00:09] LABS: Procalcitonin 4.21 ng/mL (0-0.5)
[2020-07-05 00:22] LABS: Iron 88 ug/dL (59-158)
[2020-07-05 00:39] LABS: Unsaturated Iron Binding > 10 ug/dL (112-347)
[2020-07-05] MEDS: cefepime 1,000 MG in sodium chloride 0.9% (plus) 50 ML 100 MG IV ×2 (04:52→15:17)
[2020-07-05] MEDS: sodium chloride 0.9% 1,000 ML 75 ML IV ×2 (04:53→22:12)
--- NOTE | 2020-07-05 05:26 | PC.NURSE ---
Pt had no events overnight. Did not require insuline at 2100. Was incontinent of bowel tonight, required a bed change. Continues to be a hard stick when attempting to draw blood. Lab was notified. No other needs at this time. Will continue to monitor.
[2020-07-05 06:31] LABS: Glucose Point of Care 173 mg/dL (70-110)
[2020-07-05 07:35] LABS: Alanine Aminotransferase 185 U/L (0-41); Albumin Level 1.7 g/dL (3.5-5.2); Alkaline Phosphatase 474 IU/L (40-130); Blood Urea Nitrogen 72 mg/dL (6-20); Calcium 7.7 mg/dL (8.5-10.5); Carbon Dioxide 16 mmol/L (22-29); Chloride 98 mmol/L (98-107); Globulin 5.1 g/dL (1.3-4.6); Glomerular Filtration Rate 30.9 mL/min (90-130); Glucose 140 mg/dL (65-115); Osmolality Calculated 293 mOsm/kg (285-295); Sodium 130 mmol/L (136-145); Total Bilirubin 0.6 mg/dL (0.15-1.2); Total Protein 6.8 g/dL (6.6-8.7)
[2020-07-05 07:36] LABS: Anion Gap 20.4 (5-19); Aspartate Amino Transferase 272 U/L (0-40); Potassium 4.4 mmol/L (3.5-5.1)
[2020-07-05 07:53] LABS: Basophils # 0.1 10^3/uL (0.0-0.1); Basophils % 0.7 %; Eosinophils # 0.1 10^3/uL (0.0-0.8); Eosinophils % 0.4 %; Hematocrit 49.9 % (42.0-52.0); Hemoglobin 16.1 g/dL (11.7-16.6); Lymphocytes # 1.4 10^3/uL (0.8-4.8); Lymphocytes % 7.2 %; Mean Corpuscular HGB Conc 32.3 g/dL (30.0-36.0); Mean Corpuscular Hemoglobin 28.4 pg (28.0-34.0); Mean Corpuscular Volume 88.2 fL (80-94); Mean Platelet Volume 11.6 fL (7.4-10.4); Monocytes # 0.7 10^3/uL (0.2-0.9); Monocytes % 3.7 %; Neutrophils # 17.28 10^3/uL (1.8-7.7); Nucleated Red Blood Cells % 0 %; Platelet Count 210 10^3/cmm (130-400); Red Blood Count 5.66 10^6/uL (4.1-5.3); Red Cell Distribution Width 13.9 % (12.1-15.1); White Blood Count 19.9 10^3/uL (4.0-10.0)
[2020-07-05] MEDS: ascorbic acid 500 mg Tablet PO (08:33)
[2020-07-05] MEDS: zinc gluconate 50 mg Tablet PO (08:33)
[2020-07-05] MEDS: metoprolol tartrate 25 mg Tablet PO ×2 (08:33→17:04)
[2020-07-05] MEDS: famotidine 20 mg Tablet PO ×2 (08:33→17:04)
[2020-07-05] MEDS: apixaban 5 mg Tablet PO ×2 (08:33→17:04)
[2020-07-05] MEDS: aspirin 325 mg Tablet PO (08:49)
--- NOTE | 2020-07-05 10:43 | PC.NURSE ---
Patient transferred to bedside commode, Non-weight bearing to left foot, pivot transfer with right foot, patient is noted to have moderate weakness with transfer, large BM soft and formed, Assisted back to bed, call light in reach, side rails up X2.
--- NOTE | 2020-07-05 11:12 | PM.PN ---
Subjective Subjective: Interval history: Leighton reports he is doing okay. Certainly feels better than he did on admission. No chest pain. No shortness of breath. Medications: Reviewed: Yes Vitals/I&O/Wt Last Vital Signs Temp 97.9 F 07/05/20 08:00 Pulse 79 07/05/20 08:00 Resp 16 07/05/20 08:00 BP 128/79 07/05/20 08:00 Pulse Ox 98 07/05/20 07:41 07/04/20 07/05/20 07/05/20 22:59 06:59 14:59 Intake Total 170 / 880 973.75 / 1853.75 480 / 480 Output Total 125 / 125 100 / 225 325 / 325 Balance 45 / 755 873.75 / 1628.75 155 / 155 Weight last 48 hrs Weight 86.183 kg Weight 94.529 kg Physical Exam Narrative: EXAM NARRATIVE: General exam is no apparent distress Cardiovascular regular rate and rhythm without murmur Lungs clear no wheezing or crackles Abdomen is soft, positive bowel sounds. Extremities no cyanosis clubbing. 1+ edema noted left lower extremity. Dressing in place left lower extremity over recent amputation site. Urinary Catheter Management^: Alfonso: Cath Placed During This Visit: yes Reason for Continuing Indwelling Catheter: Acute Urinary Retention or Obstruction Urinary Catheter Date of Insertion: 07/03/20 Urinary Catheter Time of Insertion: 00:45 Data : 07/05/20 06:55 07/05/20 06:55 Micro: Microbiology 07/05/20 06:50 Blood Culture - Preliminary Blood SPECIMEN COLLECTED 07/04/20 20:23 Blood Culture - Preliminary Blood SPECIMEN COLLECTED 07/03/20 07:33 Gram Stain - Final Tissue Wound Culture - Preliminary Staphylococcus aureus Gram Negative Rods 07/03/20 07:55 Wound Culture - Preliminary Bone Staphylococcus aureus Gram Negative Rods 07/01/20 13:30 Blood Culture - Final Blood Staphylococcus aureus Enterobacter cloacae 07/01/20 13:30 Blood Culture - Final Blood Staphylococcus aureus Enterobacter cloacae A&P Assessment and plan (1) Sepsis: Status: Resolved Qualifiers: Sepsis type: sepsis due to unspecified organism Sepsis acute organ dysfunction status: unspecified Qualified Code(s): A41.9 - Sepsis, unspecified organism (2) Staphylococcus aureus bacteremia: Status: Acute (3) Diabetic wet gangrene of the foot: Status: Acute (4) Diabetic peripheral neuropathy associated with type 2 diabetes mellitus: Status: Acute (5) Atrial fibrillation with rapid ventricular response: Status: Resolved (6) HFrEF (heart failure with reduced ejection fraction): Status: Chronic (7) Peripheral arterial disease: Status: Acute (8) COVID-19: Status: Acute (9) Medical non-compliance: Status: Acute Additional A&P Information Sepsis appears resolved. Repeat blood cultures pending but negative to date. Initial blood cultures demonstrated methicillin sensitive staphylococcal aureus, and Enterobacter. Currently the patient is on cefepime and vancomycin. Tissue cultures sensitivities are pending but are growing staph aureus and gram-negative rods. Infectious disease consultation has been ordered. He will likely need a course of IV antibiotics as an outpatient, the exact course to be determined. Wet gangrene. 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 Appreciate podiatry intervention. Peripheral vascular disease. Cardiology will evaluate again as an outpatient. They do not believe intervention is needed acutely. Please arrange follow-up with them upon patient's discharge. CTA demonstrated extensive atherosclerosis. Continue aspirin Atrial fibrillation. Previously with rapid ventricular rate now controlled and converted to sinus rhythm. Continue metoprolol, and anticoagulation with apixaban History of chronic ischemic cardiomyopathy with an EF of 30 to 35% with moderate mitral regurgitation. Continue beta-dawna. DONYA inhibitor contraindicated secondary to renal dysfunction. Currently he is well compensated. Acute kidney injury. Continue low-dose fluids. Renal function is improving. A renal ultrasound/Doppler was ordered but results are pending. Avoid renal toxic medications. Alfonso was placed Hyponatremia. Likely secondary to renal dysfunction. This appears stable. Splenic infarct noted on CT. Continue anticoagulation Anemia is stable, and there is no evidence of active bleeding. Type 2 diabetes. Continue sliding scale History of BPH. Currently has a Alfonso. Initiate Flomax. Consider removing this if renal function continues to improve. Eliquis for DVT prophylaxis Full code Attestations Medical Necessity Statement*: Needs continued hospitalization for IV antibiotics secondary to sepsis and close monitoring of renal failure. Coding Level of Care Code Acute Integration Software Engineer for [facility] Diagnoses Sepsis A41.9 Sepsis type: sepsis due to unspecified organism Sepsis acute organ dysfunction status: unspecified Staphylococcus aureus bacteremia R78.81; B95.61 Diabetic wet gangrene of the foot E11.52 Diabetic peripheral neuropathy associated with type 2 diabetes mellitus E11.42 Atrial fibrillation with rapid ventricular response I48.91 HFrEF (heart failure with reduced ejection fraction) I50.20 Peripheral arterial disease I73.9 COVID-19 U07.1 Medical non-compliance Z91.19
[2020-07-05 11:35] LABS: Glucose Point of Care 269 mg/dL (70-110)
--- NOTE | 2020-07-05 13:12 | PC.NURSE ---
Patient reports seeing flurries with vision for the past few days, Dr. Licona made aware.
--- NOTE | 2020-07-05 16:34 | USCV_ITS ---
Ben Hathaway Age: 59 Gender: M : 1960 Exam Date: 07/05/2020 06:19 Ordering Phys: Angus Guzmán MD Technologist: Carlos Alberto Bermudez [place]am Location: [facility] [place] [facility] [place] Indication: renal failure Aortic Velocity @ SMA (cm/s) 81.2 RIGHT KIDNEY LEFT KIDNEY Velocity (cm/s) Velocity (cm/s) Sys/Watson Sys/Watson Resistive Index Resistive Index 73.9 / 24.0 0.68 Proximal Renal Artery 71.3 / 16.4 0.77 81.2 / 15.4 0.81 Mid Renal Artery 53.1 / 11.5 0.78 65.9 / 16.0 0.76 Distal Renal Artery 53.1 / 15.4 0.71 54.2 / 11.1 0.80 Hilar 49.2 / 10.8 0.78 49.2 / 11.7 0.76 Upper Pole 50.8 / 13.1 0.74 40.0 / 10.7 0.73 Mid Pole 34.1 / 6.2 0.82 49.6 / 13.0 0.74 Lower Pole 35.1 / 8.7 0.75 1.00 Renal Aortic Ratio 0.88 Accleration Index (cm/sec2) 936.00 Hilar 3355.0 0 737.00 Upper Pole 870.00 Mid Pole 893.00 1268.0 Lower Pole 1132.0 0 0 124.0 Kidney Length (mm) 133.7 CONCLUSIONS Normal color flow Doppler, peak systolic velocities, Renal/Aortic peak systolic velocity ratio and resistive indices noted in bilateral main, segmental and interlobar renal arteries. No significant stenosis. Valentin Zarate MD (Electronically Signed) Final Date: 05 July 2020 17:06 S
[2020-07-05 16:57] LABS: Glucose Point of Care 330 mg/dL (70-110)
--- NOTE | 2020-07-05 18:11 | P.CONIM_ITS ---
Providers/Reason For Consult Consulting Physican/Specialty*: Daysi Vargas MD/Infectious Disease Reason for Consult*: Bacteremia, gangrene Attending Physician: Chip Licona MD Primary Care Provider: ADORE Ramires History of Present Illness History of Present Illness Ben Hathaway is a 59 year old male with past medical history of diabetes mellitus, peripheral neuropathy who presented to the hospital with history of trauma that he sustained 2 to 3 weeks ago, worsening 2 to 3 days prior to admission which brought him to the ER. Currently noted to be Covid PCR positive. Upon admission his foot was noted to have wet gangrene along with color changes redness and drainage. Labs were notable for a white blood cell count of 17, he was noted to be in DKA at the time and was started on insulin drip. Additionally noted to be having A. fib with RVR for which she was on Cardizem drip initially as well. Evaluated by podiatry, noted to have ischemic changes to the entire left hallux with cellulitis of the left foot and lower two thirds of the left lower extremity.. Purulence was noted as was disclamation. Pictures from initial podiatry consult reviewed. Due to him having sepsis, he was taken to the OR on 07 03 for a left hallux amputation at the meta tarsophalangeal joint along with I&D.. CTA with runoff was additionally ordered due to signs of poor extremity perfusion and this showed multilevel infrapopliteal disease. Also has possible ostial left common iliac disease. Urgent peripheral angiogram and intervention was not indicated for intervention cardiology consult. He is currently undergoing wet-to-dry dressing. ID service has been consulted due to positive blood cultures as follows: From 07/01: Blood culture positive for Enterobacter cloacae and MSSA. Blood culture from 07 04 is negative thus far. No intervening cultures available. From 07/03 OR cultures, MSSA and Enterobacter cloacae isolated. Patient has been afebrile since admission. White blood cell count persisting at 19(17 upon admission), not currently on any steroids as no respiratory symptoms from Covid. Echocardiogram with severely reduced EF of 30 to 35% with global hypokinesis. Diastolic dysfunction with restrictive pattern. Left atrium severely enlarged with probable mild to moderate mitral regurgitation. No past echocardiograms are in the system to compare. Review of Systems General: Reports: 10 or more systems reviewed and unremarkable except in HPI and below Const: Denies: fever(s), chills or body aches Eyes: Denies: change in vision, blurry vision or photophobia ENMT: Reports: hoarseness; Denies: throat pain, enlarged tonsils, odynophagia or nasal congestion Card: Denies: chest pain, palpitations, irregular heart rhythm, edema, swelling of feet/ankles, lightheadedness, pre-syncope, dyspnea on exertion or orthopnea Resp: Denies: dyspnea, productive cough, non-productive cough, wheezing, stridor, pain on inspiration, change in phlegm color, hemoptysis or chest congestion GI: Denies: abdominal pain, nausea, vomiting, hematemesis, coffee ground emesis, dysphagia, heartburn, diarrhea, constipation, GI cramping, change in stool character, hematochezia or melena : Denies: flank pain, dysuria, urinary frequency, urinary urgency, urinary hesitancy or hematuria Musc: Denies: neck pain, back pain, extremity pain, joint swelling, joint warmth or deformity Neuro: Denies: headache(s), numbness in extremities, weakness in extremities, sensory changes, difficulty walking, frequent falls, dizziness, vertigo, behavioral changes, Slurred speech present or seizure-like activity Psych: Denies: anxiety, depression, suicidal ideation or homicidal ideation Endo: Denies: polyuria, polydipsia, tired all the time, cold intolerance or hot flashes Paul/Lymph: Denies: easy bruising or easy bleeding Meds/Allergies Home Medications and Allergies Home Medications Medication Instructions Recorded Confirmed Last Taken Type No Known Home Medications 07/01/20 07/01/20 Unknown History Allergies Allergy/AdvReac Type Severity Reaction Status Date / Time Penicillins Allergy Intermediate ALGY-Anaphy Verified 07/01/20 12:42 laxis Current Medications Current Medications Generic Name Dose Route Start Last Admin Trade Name Freddie PRN Reason Stop Dose Admin Apixaban 5 mg 07/04/20 18:00 07/05/20 17:04 Eliquis PO 5 mg BID DAIANA Administration Ascorbic Acid 500 mg 07/05/20 09:00 07/05/20 08:33 Vitamin C PO 500 mg DAILY DAIANA Administration Aspirin 325 mg 07/05/20 09:00 07/05/20 08:49 Aspirin PO 325 mg DAILY DAIANA Administration Famotidine 20 mg 07/02/20 09:00 07/05/20 17:04 Pepcid Tab PO 20 mg BID DAIANA Administration Vancomycin HCl 1,500 mg/ 250 mls @ 166.667 mls/hr 07/04/20 07:00 07/05/20 06:54 Sodium Chloride IV 166.7 mls/hr Q24H DAIANA Administration Protocol Cefepime HCl 1,000 mg/ Sodium 50 mls @ 100 mls/hr 07/04/20 15:00 07/05/20 15:17 Chloride IV 100 mls/hr Q12H DAIANA Administration Protocol Sodium Chloride 1,000 mls @ 50 mls/hr 07/04/20 15:30 07/05/20 04:53 Sodium Chloride 0.9% IV 75 mls/hr .Q20H DAIANA Administration Insulin Aspart 0 unit 07/01/20 21:00 07/05/20 17:05 Novolog SUBCUT 12 unit WM&BEDTIME DAIANA Administration Protocol Metoprolol Tartrate 25 mg 07/03/20 18:00 07/05/20 17:04 Lopressor PO 25 mg BID DAIANA Administration Zinc Gluconate 50 mg 07/05/20 09:00 07/05/20 08:33 Zinc Gluconate PO 50 mg DAILY DAIANA Administration PFSH Acute PFSH: Medical History Atrial fibrillation COVID-19 Diabetes mellitus HFrEF (heart failure with reduced ejection fraction) Medical non-compliance Peripheral arterial disease Surgical History S/P ablation of atrial fibrillation Vitals/I&O/Wt Last Vital Signs Temp 97.5 F L 07/05/20 16:00 Pulse 70 07/05/20 16:00 Resp 18 07/05/20 16:00 BP 110/69 07/05/20 16:00 Pulse Ox 99 07/05/20 16:00 07/05/20 07/05/20 07/05/20 06:59 14:59 22:59 Intake Total 1023.75 / 1903.75 720 / 720 Output Total 100 / 225 325 / 325 200 / 525 Balance 923.75 / 1678.75 395 / 395 -200 / 195 Weight last 48 hrs Weight 86.183 kg Weight 94.529 kg Physical Exam Narrative: EXAM NARRATIVE: GENERAL: Awake, alert, oriented, in no acute distress. [] HEENT: Normocephalic, atraumatic, PERRLA. [] CHEST: Clear to auscultation bilaterally. [] CVS: S1, S2 normal. No murmur, rubs, gallops. Peripheral pulses palpable. [] ABDOMEN: Soft, nontender. Nondistended. Bowel sounds heard. [] NEUROVASCULAR: Awake, alert. Power 5/5 all extremities. DTR+ [] EXTREMITIES: Status post amputation, no gross cellulitic changes, dressing not open for exam by me today. [] Urinary Catheter Management^: Alfonso: Cath Placed During This Visit: yes Reason for Continuing Indwelling Catheter: Acute Urinary Retention or Obstruction Urinary Catheter Date of Insertion: 07/03/20 Urinary Catheter Time of Insertion: 00:45 Data Micro: Micro: Microbiology 07/04/20 13:30 MRSA Culture - Fin al Nose 07/03/20 07:55 Wound Culture - Pr eliminary Bone Staphylococcus aureus Enterobacter cl oacae 07/03/20 07:33 Gram Stain - Final Tissue Wound Culture - Pr eliminary Staphylococcus aureus Gram Negative R ods 07/05/20 06:50 Blood Culture - Pr eliminary Blood SPECIMEN [facility] 07/04/20 20:23 Blood Culture - Pr eliminary Blood SPECIMEN [facility] SUNDAY Imaging^: Other Xray: Radiologist's impression: XR/XR foot LT min 3V* [id number] IMPRESSION: Osseous structures appear intact. Generalized distal foot and toe soft tissue swelling. Air/gas throughout the big toe soft tissues consistent with infection. Smaller amount of air dorsum of foot. Other CT: Radiologist's impression: CT/CT angio abd aorta runof [id number] IMPRESSION: 1. Extensive prominent atherosclerosis causing numerous stenoses along with multiple occlusions in the lower leg arteries detailed above. No aortic aneurysm. 2. Bilateral pleural effusions causing atelectasis in the lower lungs. Cardiomegaly. Prominent left coronary artery calcifications. Extensive prominent body wall edema as well as superficial edema throughout the lower extremities. 3. Large area of decreased density in the spleen consistent with a recent infarct. 4. Enlarged nodes along the left side of the infrarenal aorta and an enlarged left external iliac node, significance unclear. 5. Enlarged prostate. 6. Prominent soft tissue gas in the left great toe and distal foot consistent with the history of gangrene. Bone and joint abnormalities and other findings detailed above. Echo: Radiologist's impression: CONCLUSIONS LV systolic function is severely reduced with EF of 30 to 35%. Severe global hypokinesis is present. Diastolic dysfunction with restrictive pattern. Left atrium is severely enlarged. Mild to moderate mitral regurgitation is noted. Mild aortic regurgitation is present. RVSP is 30 to 35 mmHg. There are no comparison studies available. Other Imaging: My impression: Procedure(s): CV renal doppler [id number] CONCLUSIONS Normal color flow Doppler, peak systolic velocities, Renal/Aortic peak systolic velocity ratio and resistive indices noted in bilateral main, segmental and interlobar renal arteries. No significant stenosis. Other Data: Other data: Wound Culture Justin: 07/03/20-0755 Organism 1 Staphylococcus aureus Growth HEAVY Organism 2 Enterobacter cloacae Growth FEW DAY 3 CRITICAL RESULT YES/NO: YES CRITICAL CALLED BY: SHANELL TO AND READ BACK BY: ABBIE DATE: 07/04/20 TIME: 1245 S aureus E cloacae M.I.C. RX M.I.C. RX --------- ------ --------- ------ * Amikacin <=16 S * Amoxicillin/Clavulanate <=4/2 S >16/8 R * Ampicillin >8 R >16 R * Ampicillin/Sulbactam <=8/4 S <=8/4 R * Aztreonam <=4 S * Cefepime <=8 S * Ceftriaxone <=8 S <=1 S * Cefuroxime 8 R * Ciprofloxacin <=1 S <=1 S * Clindamycin <=0.5 S * Erythromycin <=0.5 S * Gentamicin <=4 S <=2 S * Imipenem <=1 S * Levofloxacin <=1 S <=2 S * Linezolid 4 S * Oxacillin 0.5 S * Penicillin >8 R * Rifampin <=1 S * Tetracycline <=4 S <=4 S * Trimethoprim/Sulfamethoxazole <=0.5/9.5 S <=2/38 S Vancomycin 2 S * Piperacillin/Tazobactam <=16 S Daptomycin <=0.5 S Blood Culture Justin: 07/01/20-1330 4 of 4 BOTTLES POSITIVE AEROBIC BOTTLES GRAM STAIN: GRAM POSITIVE COCCI IN CLUSTERS AND GRAM NEGATIVE RODS ANAEROBIC BOTTLES GRAM STAIN:GRAM NEGATIVE RODS Organism 1 Staphylococcus aureus Growth IN 3 BOTTLES Organism 2 Enterobacter cloacae Growth IN 4 BOTTLES S aureus E cloacae M.I.C. RX M.I.C. RX --------- ------ --------- ------ * Amikacin <=16 S * Amoxicillin/Clavulanate <=4/2 S >16/8 R * Ampicillin 4 R 16 R * Ampicillin/Sulbactam <=8/4 S <=8/4 R * Aztreonam <=4 S * Cefepime <=8 S * Ceftriaxone <=8 S <=1 S * Cefuroxime 8 R * Ciprofloxacin <=1 S <=1 S * Clindamycin <=0.5 S * Erythromycin <=0.5 S * Gentamicin <=4 S <=2 S * Imipenem <=1 S * Levofloxacin <=1 S <=2 S * Linezolid 4 S * Oxacillin 0.5 S * Penicillin 8 R * Rifampin <=1 S * Tetracycline <=4 S <=4 S * Trimethoprim/Sulfamethoxazole <=0.5/9.5 S <=2/38 S Vancomycin 2 S * Piperacillin/Tazobactam <=16 S Daptomycin <=0.5 S A&P Assessment and plan (1) Diabetic wet gangrene of the foot: Status: Acute (2) Staphylococcus aureus bacteremia: Status: Acute (3) Gram-negative bacteremia: Status: Acute (4) COVID-19: Status: Acute (5) HFrEF (heart failure with reduced ejection fraction): Status: Chronic (6) Peripheral arterial disease: Status: Chronic (7) DKA (diabetic ketoacidoses): Status: Resolved (8) Atrial fibrillation with rapid ventricular response: Status: Resolved (9) Septicemia: Status: Acute Additional A&P Information 59 year old male with past medical history of diabetes mellitus, peripheral neuropathy who presented to the hospital with history of trauma that he sustained 2 to 3 weeks ago with worsening lower extremity wounds. Upon admission found to have sepsis due to wet gangrene s/p I&D with amputation on 07/03. Blood and wound cx + for MSSA and Enterobacter cloacae. #Septicemia as a result of wet gangrene #MSSA and Enterobacter cloacae bacteremia #COVID-19, no current respiratory symptoms #Heart failure with systolic dysfunction Status post amputation with I&D on 07/03, over findings with gangrenous changes and significant cellulitis of the hallux with soft tissue emphysema and crepitus. Metatarsophalangeal joint appeared viable without purulence. Flexor tendons and sesamoids had purulence tracking proximally which were sharply dissected. Based on x-ray findings, does not appear there were signs of underlying osteomyelitis. Patient does have significant peripheral artery disease as noted on CTA with runoff. WBC range persisting between 16-18. He has received empiric antibiotics with IV vancomycin Levaquin and Flagyl earlier in the course of admission, this was transitioned to cefepime and vancomycin with recovery of culture results. He has tolerated cefepime well. Allergy to penicillin listed as anaphylaxis. At this present time, will recommend changing patient's antibiotics to imipenem given recovery of Enterobacter which is a spice organism. Imipenem to appropriately cover for MSSA as well. We will plan to transition this to IV ertapenem once daily on discharge. Once daily regimen has been chosen for ease of outpatient administration, likely at outpatient surgery, given that patient does not have insurance, poor insight into medical understanding and will likely not be able to manage 3 times a day antibiotics at home. Important to note that given patient's known vasculopathy and poor peripheral perfusion, he remains at high risk for failure of conservative management. Any further debridements and/or amputations may additionally remain at poor risk of healing. Interventional cardiology consult reviewed. Duration of antibiotic recommended to be at least 4 to 6 weeks. Will prefer a longer course over short course of 2 weeks given the recovery of MSSA, there remains some degree of residual infection at the site and unknown duration of bacteremia prior to admission. #COVID-19 infection, no current respiratory symptoms at this present time. #Management of BARBER, CHF, A. 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
[2020-07-05 21:39] LABS: Glucose Point of Care 216 mg/dL (70-110)
[2020-07-06] VITALS: BP 111/75; PULSE 69; RESP 20; TEMP 35.9; O2SAT 99
[2020-07-06 04:00] VITALS: BP 119/71; PULSE 91; RESP 24; TEMP 36.4; O2SAT 98
[2020-07-06 07:17] LABS: Basophils # 0.1 10^3/uL (0.0-0.1); Basophils % 0.4 %; Eosinophils # 0.2 10^3/uL (0.0-0.8); Eosinophils % 1.3 %; Hematocrit 39.2 % (42.0-52.0); Hemoglobin 12.6 g/dL (11.7-16.6); Lymphocytes # 1.8 10^3/uL (0.8-4.8); Lymphocytes % 9.5 %; Mean Corpuscular HGB Conc 32.1 g/dL (30.0-36.0); Mean Corpuscular Hemoglobin 28.4 pg (28.0-34.0); Mean Corpuscular Volume 88.5 fL (80-94); Mean Platelet Volume 10.9 fL (7.4-10.4); Monocytes # 1.1 10^3/uL (0.2-0.9); Neutrophils # 15.11 10^3/uL (1.8-7.7); Neutrophils % 81.6 %; Nucleated Red Blood Cells % 0 %; Platelet Count 300 10^3/cmm (130-400); Red Blood Count 4.43 10^6/uL (4.1-5.3); Red Cell Distribution Width 13.9 % (12.1-15.1); White Blood Count 18.6 10^3/uL (4.0-10.0)
[2020-07-06 07:36] LABS: Glucose Point of Care 168 mg/dL (70-110)
[2020-07-06 07:37] LABS: Alanine Aminotransferase 114 U/L (0-41); Albumin Level 1.6 g/dL (3.5-5.2); Alkaline Phosphatase 483 IU/L (40-130); Anion Gap 13.8 (5-19); Aspartate Amino Transferase 119 U/L (0-40); Blood Urea Nitrogen 73 mg/dL (6-20); Carbon Dioxide 20 mmol/L (22-29); Chloride 101 mmol/L (98-107); Globulin 4.5 g/dL (1.3-4.6); Glomerular Filtration Rate 34.5 mL/min (90-130); Glucose 187 mg/dL (65-115); Osmolality Calculated 298 mOsm/kg (285-295); Potassium 3.8 mmol/L (3.5-5.1); Sodium 131 mmol/L (136-145); Total Bilirubin 0.4 mg/dL (0.15-1.2); Total Protein 6.1 g/dL (6.6-8.7)
[2020-07-06 08:00] VITALS: BP 125/78; PULSE 99; RESP 18; TEMP 36.4; O2SAT 98
[2020-07-06] MEDS: apixaban 5 mg Tablet PO ×2 (08:07→17:06)
[2020-07-06] MEDS: metoprolol tartrate 25 mg Tablet PO ×2 (08:07→17:05)
[2020-07-06] MEDS: tamsulosin 0.4 mg Capsule PO (08:07)
[2020-07-06] MEDS: zinc gluconate 50 mg Tablet PO (08:07)
[2020-07-06] MEDS: aspirin 325 mg Tablet PO (08:07)
[2020-07-06] MEDS: ascorbic acid 500 mg Tablet PO (08:07)
[2020-07-06] MEDS: famotidine 20 mg Tablet PO ×2 (08:07→17:06)
--- NOTE | 2020-07-06 09:15 | PC.NURSE ---
Patient had episode of incontinence of stool in bed, cleaned linens changed and blue pads applied, repositioned, unable to collect stool due to incontinence soaked into sheets.
--- NOTE | 2020-07-06 09:27 | PC.NURSE ---
Dr. [place] in the room with patient and this nurse, new orders received for wet to dry dressing changes TID to left foot, completed with 4X4's and kerlex, elevated foot with pillows due to swelling per doctors orders.
--- NOTE | 2020-07-06 10:49 | PC.NURSE ---
Patient resting in bed watching TV with left foot elevated, denies pain or needs, call light in reach, side rails up X2.
--- NOTE | 2020-07-06 11:27 | P.PN_ITS ---
Subjective Subjective: Interval history: Patient is status post amputation of left great toe, currently on IV antibiotics. He states that it is tender Vitals/I&O/Wt Last Vital Signs Temp 97.6 F 07/06/20 08:00 Pulse 99 07/06/20 08:00 Resp 18 07/06/20 08:00 BP 125/78 07/06/20 08:00 Pulse Ox 98 07/06/20 08:00 07/05/20 07/06/20 07/06/20 22:59 06:59 14:59 Intake Total 1580 / 2540 240 / 2540 200 / 200 Output Total 200 / 975 450 / 975 250 / 250 Balance 1380 / 1565 -210 / 1565 -50 / -50 Weight last 48 hrs Weight 200 lb 14.4 oz Weight 190 lb Physical Exam Narrative: EXAM NARRATIVE: Left foot: Wound has minimal necrotic tissue on the edges, the first metatarsal head is exposed. Erythema significantly improved Urinary Catheter Management^: Alfonso: Cath Placed During This Visit: yes Reason for Continuing Indwelling Catheter: Acute Urinary Retention or Obstruction Urinary Catheter Date of Insertion: 07/03/20 Urinary Catheter Time of Insertion: 00:45 Data : 07/06/20 07:02 07/06/20 07:02 Micro: Microbiology 07/04/20 17:45 Urine Culture - Final Urine,Clean Catch 07/05/20 06:50 Blood Culture - Preliminary Blood NEGATIVE TO DATE 07/04/20 20:23 Blood Culture - Preliminary Blood NEGATIVE TO DATE 07/04/20 13:30 MRSA Culture - Final Nose 07/03/20 07:55 Wound Culture - Preliminary Bone Staphylococcus aureus Enterobacter cloacae 07/03/20 07:33 Gram Stain - Final Tissue Wound Culture - Preliminary Staphylococcus aureus Gram Negative Rods A&P Assessment and plan (1) Diabetic wet gangrene of the foot: Status: Acute Mr. Hathaway is a 59-year-old poorly controlled diabetic male with wet gangrene to the left foot status post debridement and left great toe amputation who now has an open wound. Wet-to-dry dressings 3 times a day Continue IV antibiotics as per Dr. Vargas's recommendations Medical management as per hospitalist service Discussed with the patient that he most likely will need further debridement and or amputation at a higher level but at this point he is clinically stable and will continue with local wound care Attestations Medical Necessity Statement*: Diabetic foot ulcer Charu Coding Level of Care Code Acute Semiconductor Technician for [facility] [place] Diagnoses Diabetic wet gangrene of the foot E11.52
[2020-07-06 11:47] LABS: Glucose Point of Care 276 mg/dL (70-110)
[2020-07-06 12:00] VITALS: BP 110/71; PULSE 101; RESP 18; TEMP 36.5; O2SAT 98
--- NOTE | 2020-07-06 13:13 | PC.NURSE ---
Patient has been much weaker today with turning, and incontinent of stool today as well, brief changed and barrier ointment applied to bottom, repositioned with pillows to relieve pressure and elevated left foot, dressing to left foot changed with wet to dry per Dr. Colorado's order of TID dressing changes, patient denies pain or feeling in the left foot, call light in reach, side rails up x2.
--- NOTE | 2020-07-06 14:51 | P.PN_ITS ---
Subjective Subjective: Interval history: Assuming care of this patient today, chart thoroughly reviewed, labs noted, hemodynamically stable, afebrile, on room air, continued improvement in renal function, LFTs. Leukocytosis persists with white count of 18.6 today. Had 550 mL urine output overnight. He is POD # 3 s/p amputation of L great toe and debridement. Noted increased weakness today per PT and nursing staff. Dressing change recently completed by nurse, patient resting comfortably in bed, noted frustration due to increased weakness today. Medications: Reviewed: Yes Medication Review Details: Current Medications Generic Name Dose Route Start Last Admin Trade Name Freq PRN Reason Stop Dose Admin Apixaban 5 mg 07/04/20 18:00 07/06/20 08:07 Eliquis PO 5 mg BID DAIANA Administration Ascorbic Acid 500 mg 07/05/20 09:00 07/06/20 08:07 Vitamin C PO 500 mg DAILY DAIANA Administration Aspirin 325 mg 07/05/20 09:00 07/06/20 08:07 Aspirin PO 325 mg DAILY DAIANA Administration Famotidine 20 mg 07/02/20 09:00 07/06/20 08:07 Pepcid Tab PO 20 mg BID DAIANA Administration Sodium Chloride 1,000 mls @ 50 ml s/hr 07/04/20 15:30 07/05/20 22:12 Sodium Chloride 0.9% IV 75 mls/hr .Q20H DAIANA Administration Imipenem/Cilastati n Sodium 250 100 mls @ 200 mls /hr 07/05/20 19:00 07/06/20 11:35 mg/ Sodium Chlor natalia IV 200 mls/hr Q8H DAIANA Administration Protocol Insulin Aspart 0 unit 07/01/20 21:00 07/06/20 11:53 Novolog SUBCUT 10 unit WM&BEDTIME DAIANA Administration Protocol Metoprolol Tartrat e 25 mg 07/03/20 18:00 07/06/20 08:07 Lopressor PO 25 mg BID DAIANA Administration Tamsulosin HCl 0.4 mg 07/06/20 09:00 07/06/20 08:07 Flomax PO 0.4 mg DAILY DAIANA Administration Zinc Gluconate 50 mg 07/05/20 09:00 07/06/20 08:07 Zinc Gluconate PO 50 mg DAILY DAIANA Administration Vitals/I&O/Wt Last Vital Signs Temp 97.7 F 07/06/20 12:00 Pulse 101 H 07/06/20 12:00 Resp 18 07/06/20 12:00 BP 110/71 07/06/20 12:00 Pulse Ox 98 07/06/20 12:00 07/05/20 07/06/20 07/06/20 22:59 06:59 14:59 Intake Total 1580 / 2300 340 / 2640 560 / 560 Output Total 200 / 525 450 / 975 250 / 250 Balance 1380 / 1775 -110 / 1665 310 / 310 Weight last 48 hrs Weight 91.127 kg Weight 86.183 kg Physical Exam Const: COMMON NORMALS: no acute distress, patient oriented x3 and alert GENERAL APPEARANCE: cooperative and comfortable ORIENTATION/CONSCIOUSNESS: Yes awake OTHER: -resting quietly in bed HENMT: COMMON NORMALS: normocephalic, atraumatic, hearing grossly normal bilaterally and moist oral mucous membranes HEAD & SCALP: normocephalic and atraumatic Eye: COMMON NORMALS: Equal, round and reactive pupils present, EOMs intact bilaterally and conjunctivae normal CONJUNCTIVA: Yes conjunctivae normal PUPIL: Yes Equal, round and reactive pupils present Neck/C-Spine: COMMON NORMALS: full ROM GENERAL: Yes normal visual inspection and Yes trachea midline Resp: COMMON NORMALS: normal respiratory effort, No retractions, No use of accessory muscles and clear to auscultation bilaterally EFFORT & INSPECTION: Yes able to speak in complete sentences, Yes symmetric chest movement and No tachypneic AUSCULTATION: clear to auscultation bilaterally Cardio: COMMON NORMALS: regular rate, regular rhythm, S1 normal heart sound present, S2 normal heart sound present and No murmurs present (Cardio) RATE: regular rate RHYTHM: regular rhythm HEART SOUNDS: S1 normal heart sound present and S2 normal heart sound present GI: COMMON NORMALS: Normal to inspection, nondistended, normoactive bowel sounds present, Soft to palpation and non-tender PALPATION: Yes Soft to palpation : BLADDER/KIDNEY EXAM: Yes catheter in place Catheter type (Male): urethral Extremity: COMMON NORMALS: no pedal edema NARRATIVE EXTREMITY EXAM: -L foot; clean dressing in place; NWB Neuro: COMMON NORMALS: patient oriented x3, moves all extremities, no focal motor deficits and no sensory deficits noted SENSORIUM/ORIENTATION: Yes alert OTHER: -NWB to the E Psych: COMMON NORMALS: mental status grossly normal, Normal thought process present, cooperative, normal affect and speech normal SPEECH: Yes normal speech THOUGHT PROCESS: Normal thought process present Skin: COMMON NORMALS: no rashes or lesions noted, no jaundice, no petechiae and no mottling GENERAL SKIN EXAM: no rashes or lesions noted Urinary Catheter Management^: Alfonso: Cath Placed During This Visit: yes Reason for Continuing Indwelling Catheter: Acute Urinary Retention or Obstruction Urinary Catheter Date of Insertion: 07/03/20 Urinary Catheter Time of Insertion: 00:45 Data : 07/06/20 07:02 07/06/20 07:02 Micro: Microbiology 07/06/20 13:10 Occult Blood (FIT) - Final Stool - Stool Aspirate 07/03/20 07:33 Gram Stain - Final Tissue Wound Culture - Final Staphylococcus aureus Enterobacter cloacae 07/03/20 07:55 Wound Culture - Final Bone Staphylococcus aureus Enterobacter cloacae 07/04/20 17:45 Urine Culture - Final Urine,Clean Catch 07/05/20 06:50 Blood Culture - Preliminary Blood NEGATIVE TO DATE 07/04/20 20:23 Blood Culture - Preliminary Blood NEGATIVE TO DATE 07/04/20 13:30 MRSA Culture - Final Nose A&P Assessment and plan (1) Diabetic wet gangrene of the foot: -s/p debridement and amputation of L great toe on 07/03; POD # 3 -Wound cultures noted to grow staph aureus (MSSA) and Enterobacter cloacae -Initial set of blood cx grew staph aureus and Enterobacter in 4/4 bottles; repeat set prelim negative -leukocytosis persists; continue to monitor WBC -afebrile, VSS; continue to monitor -wound care per Dr. [place]; wet to dry dressings TID -pain control as needed -appreciate input from Dr. Fung -initially septic -appreciate input from Dr. Vargas; switched to Primaxin; off vancomycin, cefepime Status: Acute (2) Staphylococcus aureus bacteremia: -as noted above Status: Acute (3) Acute kidney injury: -renal function is gradually improving, continue to monitor -avoid nephrotoxins, renally dose meds -on gentle IVF -has Alfonso catheter in place -does have some underlying CKD stage 2; baseline Cr < 1 Status: Acute (4) COVID-19: -found to be COVID-19 positive -isolation precautions -appears to be mild disease -not requiring supplemental oxygen Status: Acute (5) HFrEF (heart failure with reduced ejection fraction): -Echo: EF=30-35%, severe global hypokinesis, mild to moderate MR, mild AR, mild TR -Appreciate cardiology evaluation -may need further ischemic workup as an outpatient -clinically compensated -continue BB; no diuretics or ACEi due to renal impairment Status: Chronic (6) Peripheral arterial disease: -has multilevel disease and evidence of extensive atherosclerosis that can be further evaluated as outpatient preferably by vascular surgery -continue ASA -imaging noted Status: Chronic (7) Diabetes mellitus: -poorly controlled, A1c-13 -Accucheks, ISS, hypoglycemia precautions Status: Chronic Qualifiers: Diabetes mellitus complication detail: with peripheral angiopathy with gangrene Diabetes mellitus complication status: with circulatory complication Diabetes mellitus detention insulin use: without computer terminal operator use Diabetes mellitus type: type 2 Qualified Code(s): E11.52 - Type 2 diabetes mellitus with diabetic peripheral angiopathy with gangrene (8) Diabetic peripheral neuropathy associated with type 2 diabetes mellitus: Status: Chronic (9) Atrial fibrillation: -initially had A.fib with RVR -HR better controlled, on BB -on AC with Eliquis -telemetry monitoring Status: Acute Qualifiers: Atrial fibrillation type: unspecified Qualified Code(s): I48.91 - Unspecified atrial fibrillation Additional A&P Information -known hx of chronic ischemic cardiomyopathy -hx of BPH; on floomax -noted evidence of large splenic infarct on CTA; on AC -hyponatremia; corrected Na-132 -Chronic normocytic anemia; baseline Hg wnl; H/H stable, no evidence of bleeding -UTI; UA indicative of infection, urine cx negative; on abx -Physical deconditioning; PT evaluation appreciated; noted increased weakness today -DVT ppx not needed as on Eliquis -GI ppx with famotidine -Dispo: home -Code status: FULL code Attestations Medical Necessity Statement*: Patient requires hospitalization for continued IV antibiotics for diabetic wet gangrene involving L foot, bacteremia, acute renal impairment. Time Spent in Patient Care: 16 - 35 minutes (>than 50% of time spent in counselling and/or direct pt care on unit) . Coding Level of Care Code Acute Manager [employer] [facility] Fwd Exam Comprehensive Diagnoses Diabetic wet gangrene of the foot E11.52 Staphylococcus aureus bacteremia R78.81; B95.61 Acute kidney injury N17.9 COVID-19 U07.1 HFrEF (heart failure with reduced ejection fraction) I50.20 Peripheral arterial disease I73.9 Diabetes mellitus E11.52 Diabetes mellitus complication detail: with peripheral angiopathy with gangrene Diabetes mellitus complication status: with circulatory complication Diabetes mellitus detention insulin use: without computer terminal operator use Diabetes mellitus type: type 2 Diabetic peripheral neuropathy associated with type 2 diabetes mellitus E11.42 Atrial fibrillation I48.91 Atrial fibrillation type: unspecified
[2020-07-06 15:21] VITALS: BP 116/70; PULSE 98; RESP 18; TEMP 36.7; O2SAT 97
[2020-07-06 16:51] LABS: Glucose Point of Care 148 mg/dL (70-110)
--- NOTE | 2020-07-06 18:01 | PC.NURSE ---
completed dressing change to left foot with wet to dry dressing per doctors orders.
[2020-07-06 20:00] VITALS: BP 127/76; PULSE 80; RESP 24; TEMP 36.4; O2SAT 98
[2020-07-06] MEDS: sodium chloride 0.9% 1,000 ML 75 ML IV (20:42)
[2020-07-06 22:52] LABS: Glucose Point of Care 160 mg/dL (70-110)
[2020-07-06 22:52] LABS: Glucose Point of Care 152 mg/dL (70-110)
[2020-07-07] VITALS (7 sets, daily range): BP systolic 111–132; BP diastolic 68–79; PULSE 79–93; RESP 16–20; TEMP 36–36.7; O2SAT 91–97
--- NOTE | 2020-07-07 04:47 | PC.NURSE ---
Addendum entered by Luna Finch RN 07/07/20 05:02: Notified Dr. Huynh. Original Note: Patient was noted to have decreased urine output in yañez catheter bag. Assessed tubing - free of kinks. Less than 25mL of urine in catheter bag. Patient denies pain or discomfort. Bladder scan shows >200mL of urine in bladder. Obvious sediment in urinary catheter tubing. Deflated and re-inflated yañez balloon, without any improvement of urine drainage. Attempted to irrigate catheter, but met significant resistance. Yañez was deflated and removed. Noted thick sediment at tip of yañez, and around balloon. Reinserted new 16fr yañez catheter. Immediate urine return noted with sediment. Approximately 300mL noted in catheter bag with insertion. Small amount of light red blood noted at the beginning of urine stream. Patient's brief and bed linens were saturated with urine through to the mattress. He states the catheter has been leaking for some time. Educated patient on signs and symptoms to report to nurse and clinical staff. Assisted with hygiene and linen change. Patient tolerated well.
--- NOTE | 2020-07-07 04:49 | PC.NURSE ---
Asked patient if brief was soiled and patient stated no. When asked to allow me to check patient refused.
[2020-07-07 06:20] LABS: Basophils # 0.1 10^3/uL (0.0-0.1); Basophils % 0.4 %; Eosinophils # 0.2 10^3/uL (0.0-0.8); Eosinophils % 1.1 %; Hematocrit 38.2 % (42.0-52.0); Hemoglobin 11.6 g/dL (11.7-16.6); Lymphocytes # 1.2 10^3/uL (0.8-4.8); Lymphocytes % 6.5 %; Mean Corpuscular HGB Conc 30.4 g/dL (30.0-36.0); Mean Corpuscular Hemoglobin 28.6 pg (28.0-34.0); Mean Corpuscular Volume 94.1 fL (80-94); Mean Platelet Volume 10.7 fL (7.4-10.4); Monocytes # 0.9 10^3/uL (0.2-0.9); Monocytes % 5.2 %; Neutrophils # 15.33 10^3/uL (1.8-7.7); Neutrophils % 85.5 %; Nucleated Red Blood Cells % 0 %; Platelet Count 276 10^3/cmm (130-400); Red Blood Count 4.06 10^6/uL (4.1-5.3); Red Cell Distribution Width 14.2 % (12.1-15.1); White Blood Count 17.9 10^3/uL (4.0-10.0)
[2020-07-07 06:27] LABS: Glucose Point of Care 183 mg/dL (70-110)
[2020-07-07 06:43] LABS: Alanine Aminotransferase 80 U/L (0-41); Albumin Level 1.6 g/dL (3.5-5.2); Alkaline Phosphatase 419 IU/L (40-130); Anion Gap 15.3 (5-19); Aspartate Amino Transferase 94 U/L (0-40); Blood Urea Nitrogen 63 mg/dL (6-20); Carbon Dioxide 17 mmol/L (22-29); Chloride 102 mmol/L (98-107); Globulin 4.3 g/dL (1.3-4.6); Glomerular Filtration Rate 34.5 mL/min (90-130); Glucose 210 mg/dL (65-115); Osmolality Calculated 294 mOsm/kg (285-295); Potassium 4.3 mmol/L (3.5-5.1); Sodium 130 mmol/L (136-145); Total Bilirubin 0.5 mg/dL (0.15-1.2); Total Protein 5.9 g/dL (6.6-8.7)
[2020-07-07] MEDS: aspirin 325 mg Tablet PO (08:35)
[2020-07-07] MEDS: ascorbic acid 500 mg Tablet PO (08:35)
[2020-07-07] MEDS: famotidine 20 mg Tablet PO ×2 (08:35→18:04)
[2020-07-07] MEDS: apixaban 5 mg Tablet PO ×2 (08:35→18:04)
[2020-07-07] MEDS: zinc gluconate 50 mg Tablet PO (08:35)
[2020-07-07] MEDS: tamsulosin 0.4 mg Capsule PO (08:35)
[2020-07-07] MEDS: metoprolol tartrate 25 mg Tablet PO ×2 (08:35→18:04)
--- NOTE | 2020-07-07 09:00 | PC.NURSE ---
Completed dressing change wet to dry to left foot, tolerated well, elevated with pillows, denies pain.
--- NOTE | 2020-07-07 09:50 | PC.NURSE ---
Optifoam applied to coccyx, blanchable redness noted to bottom.
[2020-07-07 11:05] LABS: Glucose Point of Care 260 mg/dL (70-110)
--- NOTE | 2020-07-07 12:33 | PM.PN ---
Subjective Subjective: Interval history: Hemodynamically stable, on RA, afebrile, Alfonso catheter replaced overnight due to noted decreased urine output. Improved leukocytosis, stable renal function, improved LFTs. Feels a little stronger today but continues to have some bouts of incontinence. Will need additional debridement planned for tomorrow. Medications: Reviewed: Yes Medication Review Details: Active Medications Generic Name Dose Route Start Last Admin Trade Name Freq PRN Reason Stop Dose Admin Acetaminophen 650 mg 07/01/20 19:39 Tylenol PO Q6H PRN Mild/Mod Pain Or Temp >/= 101 Apixaban 5 mg 07/04/20 18:00 07/07/20 08:35 Eliquis PO 5 mg BID DAIANA Administration Ascorbic Acid 500 mg 07/05/20 09:00 07/07/20 08:35 Vitamin C PO 500 mg DAILY DAIANA Administration Aspirin 325 mg 07/05/20 09:00 07/07/20 08:35 Aspirin PO 325 mg DAILY DAIANA Administration Dextrose 25 ml 07/01/20 14:07 D50w IVP ONCE PRN hypoglycemia prot ocol Protocol Dextrose 50 ml 07/01/20 14:07 D50w IVP PRN PRN hypoglycemia prot ocol Protocol Dextrose 25 ml 07/01/20 20:25 D50w IVP ONCE PRN hypoglycemia prot ocol Protocol Dextrose 50 ml 07/01/20 20:25 D50w IVP PRN PRN hypoglycemia prot ocol Protocol Famotidine 20 mg 07/02/20 09:00 07/07/20 08:35 Pepcid Tab PO 20 mg BID DAIANA Administration Glucagon 1 mg 07/01/20 14:07 Glucagen IM ONCE PRN Adult Acute Hypog lycemia Prot Protocol Glucagon 1 mg 07/01/20 20:25 Glucagen IM ONCE PRN Adult Acute Hypog lycemia Prot. Protocol Dextrose 500 mls @ 100 mls /hr 07/01/20 14:07 D5w IV ONCE PRN Adult Acute Hypog lycemia Prot Protocol Sodium Chloride 1,000 mls @ 50 ml s/hr 07/04/20 15:30 07/06/20 20:42 Sodium Chloride 0.9% IV 75 mls/hr .Q20H DAIANA Administration Imipenem/Cilastati n Sodium 250 100 mls @ 200 mls /hr 07/07/20 12:00 07/07/20 11:22 mg/ Sodium Chlor natalia IV 200 mls/hr Q6H DAIANA Administration Protocol Insulin Aspart 0 unit 07/01/20 21:00 07/07/20 11:22 Novolog SUBCUT 8 unit WM&BEDTIME DAIANA Administration Protocol Metoprolol Tartrat e 25 mg 07/03/20 18:00 07/07/20 08:35 Lopressor PO 25 mg BID DAIANA Administration Morphine Sulfate 2 mg 07/01/20 20:25 Morphine IVP Q4H PRN SEVERE PAIN Ondansetron HCl 4 mg 07/01/20 19:39 Zofran IVP Q8H PRN vomiting, or N/V if npo Tamsulosin HCl 0.4 mg 07/06/20 09:00 07/07/20 08:35 Flomax PO 0.4 mg DAILY DAIANA Administration Zinc Gluconate 50 mg 07/05/20 09:00 07/07/20 08:35 Zinc Gluconate PO 50 mg DAILY DAIANA Administration Penicillins Allergy (Intermediate, Verified 07/01/20 12:42) ALGY-Anaphylaxis Vitals/I&O/Wt Last Vital Signs Temp 96.8 F L 07/07/20 12:00 Pulse 93 07/07/20 12:00 Resp 16 07/07/20 12:00 BP 121/79 07/07/20 12:00 Pulse Ox 92 07/07/20 12:00 07/06/20 07/07/20 07/07/20 22:59 06:59 14:59 Intake Total 340 / 2000 240 / 2240 100 / 100 Output Total 305 / 805 251 / 251 Balance 340 / 1500 -65 / 1435 -151 / -151 Weight last 48 hrs Weight 92.397 kg Weight 91.127 kg Physical Exam Const: COMMON NORMALS: no acute distress, patient oriented x3 and alert GENERAL APPEARANCE: cooperative and comfortable ORIENTATION/CONSCIOUSNESS: Yes awake OTHER: -resting quietly in bed HENMT: COMMON NORMALS: normocephalic, atraumatic, hearing grossly normal bilaterally and moist oral mucous membranes HEAD & SCALP: normocephalic and atraumatic Eye: COMMON NORMALS: Equal, round and reactive pupils present, EOMs intact bilaterally and conjunctivae normal CONJUNCTIVA: Yes conjunctivae normal PUPIL: Yes Equal, round and reactive pupils present Neck/C-Spine: COMMON NORMALS: full ROM GENERAL: Yes normal visual inspection and Yes trachea midline Resp: COMMON NORMALS: normal respiratory effort, No retractions, No use of accessory muscles and clear to auscultation bilaterally EFFORT & INSPECTION: Yes able to speak in complete sentences, Yes symmetric chest movement and No tachypneic AUSCULTATION: clear to auscultation bilaterally Cardio: COMMON NORMALS: regular rate, regular rhythm, S1 normal heart sound present, S2 normal heart sound present and No murmurs present (Cardio) RATE: regular rate RHYTHM: regular rhythm HEART SOUNDS: S1 normal heart sound present and S2 normal heart sound present GI: COMMON NORMALS: Normal to inspection, nondistended, normoactive bowel sounds present, Soft to palpation and non-tender PALPATION: Yes Soft to palpation : BLADDER/KIDNEY EXAM: Yes catheter in place Extremity: COMMON NORMALS: no pedal edema NARRATIVE EXTREMITY EXAM: -L foot; clean dressing in place; NWB -s/p amputation of L great toe Neuro: COMMON NORMALS: patient oriented x3, moves all extremities, no focal motor deficits and no sensory deficits noted SENSORIUM/ORIENTATION: Yes alert OTHER: -NWB to the E Psych: COMMON NORMALS: mental status grossly normal, Normal thought process present, cooperative, normal affect and speech normal SPEECH: Yes normal speech THOUGHT PROCESS: Normal thought process present Skin: COMMON NORMALS: no rashes or lesions noted, no jaundice, no petechiae and no mottling GENERAL SKIN EXAM: no rashes or lesions noted Urinary Catheter Management^: Alfonso: Cath Placed During This Visit: yes, but has since been removed by the nurse Reason for Continuing Indwelling Catheter: Accurate Measurement of Urinary Output in Critically Ill Patients Urinary Catheter Date of Insertion: 07/03/20 Urinary Catheter Time of Insertion: 00:45 Date Urinary Catheter Removed: 07/07/20 Time Urinary Catheter Discontinued: 04:54 Alfonso Latex: Cath Placed During This Visit: no Reason for Continuing Indwelling Catheter: Accurate Measurement of Urinary Output in Critically Ill Patients Data : 07/07/20 05:51 07/07/20 05:51 Micro: Microbiology 07/06/20 13:10 Occult Blood (FIT) - Final Stool - Stool Aspirate 07/03/20 07:33 Gram Stain - Final Tissue Wound Culture - Final Staphylococcus aureus Enterobacter cloacae 07/03/20 07:55 Wound Culture - Final Bone Staphylococcus aureus Enterobacter cloacae 11/05/20 17:45 Urine Culture - Final Urine,Clean Catch 07/05/20 06:50 Blood Culture - Preliminary Blood NEGATIVE TO DATE A&P Assessment and plan (1) Diabetic wet gangrene of the foot: -s/p debridement and amputation of L great toe on 07/03; POD # 4 -Wound cultures noted to grow staph aureus (MSSA) and Enterobacter cloacae -Initial set of blood cx grew staph aureus and Enterobacter in 4/4 bottles; repeat set prelim negative -leukocytosis persists; continue to monitor WBC -afebrile, VSS; continue to monitor -wound care per Dr. [place]; wet to dry dressings TID -pain control as needed -appreciate input from Dr. Fung -initially septic -appreciate input from Dr. Vargas; switched to Primaxin (day 1); off vancomycin, cefepime -additional debridement in OR tomorrow, NPO after midnight Status: Acute (2) Staphylococcus aureus bacteremia: -as noted above Status: Acute (3) Acute kidney injury: -renal function is gradually improving, continue to monitor -avoid nephrotoxins, renally dose meds -on gentle IVF -has Alfonso catheter in place, continue to monitor urine output -does have some underlying CKD stage 2; baseline Cr < 1 Status: Acute (4) COVID-19: -found to be COVID-19 positive -isolation precautions -appears to be mild disease -not requiring supplemental oxygen Status: Acute (5) HFrEF (heart failure with reduced ejection fraction): -Echo: EF=30-35%, severe global hypokinesis, mild to moderate MR, mild AR, mild TR -Appreciate cardiology evaluation -may need further ischemic workup as an outpatient -clinically compensated -continue BB; no diuretics or ACEi due to renal impairment Status: Chronic (6) Peripheral arterial disease: -has multilevel disease and evidence of extensive atherosclerosis that can be further evaluated as outpatient preferably by vascular surgery -continue ASA -imaging noted Status: Chronic (7) Diabetes mellitus: -poorly controlled, A1c-13 -Accucheks, ISS, hypoglycemia precautions Status: Chronic Qualifiers: Diabetes mellitus complication detail: with peripheral angiopathy with gangrene Diabetes mellitus complication status: with circulatory complication Diabetes mellitus skilled nursing insulin use: without terminal operator use Diabetes mellitus type: type 2 Qualified Code(s): E11.52 - Type 2 diabetes mellitus with diabetic peripheral angiopathy with gangrene (8) Diabetic peripheral neuropathy associated with type 2 diabetes mellitus: Status: Chronic (9) Atrial fibrillation: -initially had A.fib with RVR -HR better controlled, on BB -on AC with Eliquis -telemetry monitoring Status: Acute Qualifiers: Atrial fibrillation type: unspecified Qualified Code(s): I48.91 - Unspecified atrial fibrillation Additional A&P Information -known hx of chronic ischemic cardiomyopathy -hx of BPH; on flomax -noted evidence of large splenic infarct on CTA; on AC -hyponatremia; corrected Na-132 -Chronic normocytic anemia; baseline Hg wnl; H/H stable, no evidence of bleeding -UTI; UA indicative of infection, urine cx negative; on abx -Physical deconditioning; PT evaluation appreciated; noted increased weakness -Hypoalbuminemia -DVT ppx not needed as on Eliquis -GI ppx with famotidine -Dispo: home -Code status: FULL code Attestations Medical Necessity Statement*: Patient requires hospitalization for continued IV antibiotics, aggressive wound care for L foot wet gangrene and diabetic foot infection, management of acute renal impairment. Time Spent in Patient Care: 16 - 35 minutes (>than 50% of time spent in counselling and/or direct pt care on unit). Coding Level of Care Code Acute [employer]or Operator [employer] Fwd Exam Comprehensive Diagnoses Diabetic wet gangrene of the foot E11.52 Staphylococcus aureus bacteremia R78.81; B95.61 Acute kidney injury N17.9 COVID-19 U07.1 HFrEF (heart failure with reduced ejection fraction) I50.20 Peripheral arterial disease I73.9 Diabetes mellitus E11.52 Diabetes mellitus complication detail: with peripheral angiopathy with gangrene Diabetes mellitus complication status: with circulatory complication Diabetes mellitus skilled nursing insulin use: without skilled nursing use Diabetes mellitus type: type 2 Diabetic peripheral neuropathy associated with type 2 diabetes mellitus E11.42 Atrial fibrillation I48.91 Atrial fibrillation type: unspecified
--- NOTE | 2020-07-07 13:21 | PC.NURSE ---
Dressing to left foot changed per doctors orders using dakins solution, denies pain with dressing change.
--- NOTE | 2020-07-07 14:54 | PC.NURSE ---
Dr. [place] in to see patient, dressing removed and a new wet to dry dressing reapplied with izabella after Dr. Colorado was finished.
--- NOTE | 2020-07-07 14:55 | PM.PN ---
Subjective Subjective: Interval history: Patient denies any significant pain, feeling weak, wound overall looks better. Nursing staff was concerned about a new area of redness on the medial aspect of the right foot, he denies any right foot pain Vitals/I&O/Wt Last Vital Signs Temp 96.8 F L 07/07/20 12:00 Pulse 93 07/07/20 12:00 Resp 16 07/07/20 12:00 BP 121/79 07/07/20 12:00 Pulse Ox 92 07/07/20 12:00 07/06/20 07/07/20 07/07/20 22:59 06:59 14:59 Intake Total 340 / 2240 240 / 2240 660 / 660 Output Total 305 / 805 251 / 251 Balance 340 / 1435 -65 / 1435 409 / 409 Weight last 48 hrs Weight 203 lb 11.2 oz Weight 200 lb 14.4 oz Physical Exam Narrative: EXAM NARRATIVE: Right foot: Slight erythema over the first metatarsophalangeal joint, no evidence of drainage, nontender, not warm to touch left foot: Wound looks better though he still has necrotic tissue. I was able to debride some of the necrotic tissue until there was punctate bleeding noted but towards the posterior aspect of the wound the area was tender Urinary Catheter Management^: Alfonso: Cath Placed During This Visit: yes, but has since been removed by the nurse Reason for Continuing Indwelling Catheter: Accurate Measurement of Urinary Output in Critically Ill Patients Urinary Catheter Date of Insertion: 07/03/20 Urinary Catheter Time of Insertion: 00:45 Date Urinary Catheter Removed: 07/07/20 Time Urinary Catheter Discontinued: 04:54 Alfonso Latex: Cath Placed During This Visit: no Reason for Continuing Indwelling Catheter: Accurate Measurement of Urinary Output in Critically Ill Patients Data : 07/07/20 05:51 07/07/20 05:51 Micro: Microbiology 07/06/20 13:10 Occult Blood (FIT) - Final Stool - Stool Aspirate 07/03/20 07:33 Gram Stain - Final Tissue Wound Culture - Final Staphylococcus aureus Enterobacter cloacae 07/03/20 07:55 Wound Culture - Final Bone Staphylococcus aureus Enterobacter cloacae 07/04/20 17:45 Urine Culture - Final Urine,Clean Catch A&P Assessment and plan (1) Diabetic wet gangrene of the foot: Status: Acute Mr. Hathaway is a 59-year-old poorly controlled diabetic male with wet gangrene to the left foot status post debridement and left great toe amputation who now has an open wound, the wound is debrided at the bedside today though I think he still needs a formal debridement Right foot: I have asked the nursing staff to rainer the area of erythema and continue with observation since patient is on IV antibiotics Wet-to-dry dressings 3 times a day Continue IV antibiotics as per Dr. Vargas's recommendations Medical management as per hospitalist service Keep n.p.o. after midnight in case Dr. 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
[2020-07-07] MEDS: sodium chloride 0.9% 1,000 ML 75 ML IV (15:25)
--- NOTE | 2020-07-07 16:49 | PC.NURSE ---
Redness to right foot marked with skin marker per doctor Stanislav request. Placed heel protector to right foot.
[2020-07-07 17:44] LABS: Glucose Point of Care 265 mg/dL (70-110)
--- NOTE | 2020-07-07 18:33 | PC.NURSE ---
Patients IV fluids have been infusing at 50mL/hr for this shift unable to edit the rate in MAR so titrated down to match current rate and order.
[2020-07-07 20:38] LABS: Glucose Point of Care 365 mg/dL (70-110)
[2020-07-08] VITALS (44 sets, daily range): BP systolic 74–144; BP diastolic 51–80; PULSE 83–142; RESP 13–34; TEMP 34.7–37.9; O2SAT 90–99
[2020-07-08 05:07] LABS: Basophils # 0.1 10^3/uL (0.0-0.1); Basophils % 0.3 %; Eosinophils # 0.2 10^3/uL (0.0-0.8); Eosinophils % 0.8 %; Hematocrit 40.6 % (42.0-52.0); Hemoglobin 12.8 g/dL (11.7-16.6); Lymphocytes # 1.1 10^3/uL (0.8-4.8); Lymphocytes % 5.4 %; Mean Corpuscular HGB Conc 31.5 g/dL (30.0-36.0); Mean Corpuscular Hemoglobin 28.6 pg (28.0-34.0); Mean Corpuscular Volume 90.6 fL (80-94); Mean Platelet Volume 10.5 fL (7.4-10.4); Monocytes # 0.4 10^3/uL (0.2-0.9); Monocytes % 1.9 %; Neutrophils # 17.58 10^3/uL (1.8-7.7); Neutrophils % 90.6 %; Nucleated Red Blood Cells % 0 %; Platelet Count 326 10^3/cmm (130-400); Red Blood Count 4.48 10^6/uL (4.1-5.3); Red Cell Distribution Width 14.2 % (12.1-15.1); White Blood Count 19.4 10^3/uL (4.0-10.0)
[2020-07-08 05:52] LABS: Alanine Aminotransferase 73 U/L (0-41); Albumin Level 1.9 g/dL (3.5-5.2); Alkaline Phosphatase 386 IU/L (40-130); Anion Gap 13.2 (5-19); Aspartate Amino Transferase 99 U/L (0-40); Blood Urea Nitrogen 50 mg/dL (6-20); Carbon Dioxide 19 mmol/L (22-29); Chloride 105 mmol/L (98-107); Globulin 4.6 g/dL (1.3-4.6); Glomerular Filtration Rate 41.6 mL/min (90-130); Glucose 163 mg/dL (65-115); Osmolality Calculated 293 mOsm/kg (285-295); Potassium 4.2 mmol/L (3.5-5.1); Sodium 133 mmol/L (136-145); Total Bilirubin 0.5 mg/dL (0.15-1.2); Total Protein 6.5 g/dL (6.6-8.7)
--- NOTE | 2020-07-08 05:57 | XR_ITS ---
WS: [id number] XR chest 1V portable [id number] REASON FOR EXAM: sob FINDINGS: Compared to the examination of 07/01/2020, compared to the previous chest x-ray of 07/01/2020, there is been progression of the infiltrative changes and consolidation in the lower lung aguilar and an incre asing amount of bilateral pleural fluid as well. CT angiogram of the aorta demonstrated significant p leural effusion and lung consolidation on 07/02/2020. XR/XR chest 1V portable [id number] IMPRESSION: Significant interval change since the previous chest x-ray however the findings that are noted on today's examination were present on a CT angiogram of the ab dominal aorta performed 07/02/2020.
[2020-07-08] MEDS: FUROsemide 10 mg/mL SDV 4mL 40 MG IVP (06:13)
[2020-07-08 06:22] LABS: ABG PCO2 27.8 mmHg (35-45); ABG PH Result 7.43 (7.35-7.45); Arterial Blood Gas Hematocrit 38.7 % (42-52); Base Excess ABG -4.5 mmol/L (-2.0-2.0); Blood Gas Allen Test Pos; Blood Gas Sample Site Brachial, right; Blood Gas Sample Type Arterial; HCO3 ABG 18.5 mmol/L (22-26); Oxygen Device OXY MASK; PO2 ABG 55.3 mmHg (80.0-100.0)
--- NOTE | 2020-07-08 06:43 | PM.PN ---
Subjective Subjective: Interval history: Patient seen bedside this morning, respiratory therapy present patient on BiPAP due to respiratory distress. Patient is tachypneic and tachycardic, plans for transfer to ICU patient is Covid positive also history of sepsis on admission with positive blood cultures. He is status post left hallux amputation and debridement of left foot secondary to wet gangrene. Vitals/I&O/Wt Last Vital Signs Temp 98.7 F 07/08/20 04:00 Pulse 94 07/08/20 04:00 Resp 19 H 07/08/20 04:00 BP 144/80 07/08/20 04:00 Pulse Ox 93 07/08/20 04:00 07/07/20 07/07/20 07/08/20 14:59 22:59 06:59 Intake Total 1760 / 1760 573.75 / 2333.75 160 / 2493.75 Output Total 251 / 251 100 / 351 700 / 1051 Balance 1509 / 1509 473.75 / 1982.75 -540 / 1442.75 Weight last 48 hrs Weight 209 lb 9.6 oz Weight 203 lb 11.2 oz Physical Exam Narrative: EXAM NARRATIVE: Patient is anxious, alert and oriented x3 VASCULAR: Dorsalis pedis and posterior tibial are faintly palpable. Capillary refill time less than 5 seconds to the distal hallux bilaterally. Calf is supple and nontender proximally and distally. Diminished pedal hair growth bilaterally. NEUROLOGICAL: Protective sensation intact 0/10 sites, tested with Laurel Thomas monofilament to bilateral feet. DERMATOLOGICAL: No strikethrough bleeding or drainage from postoperative dressings. Postop dressings were removed and new dressing applied there was minimal bleeding, delayed capillary refill time at skin margins at amputation site, no further proximal lymphangitic streaking or proximal cellulitis in comparison to preoperative evaluation. Several margins are dusky, unable to express any purulence manually. MUSCULOSKELETAL: No pain with posterior calf squeeze bilaterally. Muscle strength 5 out of 5 in all 3 cardinal planes to bilateral foot and ankle. Urinary Catheter Management^: Alfonso: Cath Placed During This Visit: yes, but has since been removed by the nurse Reason for Continuing Indwelling Catheter: Accurate Measurement of Urinary Output in Critically Ill Patients Urinary Catheter Date of Insertion: 07/03/20 Urinary Catheter Time of Insertion: 00:45 Date Urinary Catheter Removed: 07/07/20 Time Urinary Catheter Discontinued: 04:54 Alfonso Latex: Cath Placed During This Visit: no Reason for Continuing Indwelling Catheter: Acute Urinary Retention or Obstruction Data : 07/08/20 04:50 07/08/20 04:50 A&P Assessment and plan (1) Diabetic peripheral neuropathy associated with type 2 diabetes mellitus: Status: Chronic (2) Diabetic wet gangrene of the foot: Status: Acute (3) Sepsis: Status: Resolved Qualifiers: Sepsis type: sepsis due to unspecified organism Sepsis acute organ dysfunction status: unspecified Qualified Code(s): A41.9 - Sepsis, unspecified organism Mr. Hathaway is a 59-year-old poorly controlled diabetic male with wet gangrene to the left foot. Eschar is soft with fluctuance and crepitus, ascending cellulitis involving the distal two thirds of the left leg. Soft tissue emphysema on x-ray of the left foot without obvious osseous destruction. CT angiogram completed concerning for multiple segmental occlusions and calcifications infrapopliteal and distally. Echocardiogram shows decreased ejection fraction. Patient is 5 days status post incision and debridement left foot with left hallux amputation and excision of sesamoids, soft tissue and bone cultures significant for Enterobacter and staph aureus. Patient has tested positive for COVID-19 and is in isolation. Performed dressing change Dakin's wet-to-dry. Appreciate recommendations from infectious disease he was switched to Primaxin yesterday Patient is tachypneic and tachycardic currently on BiPAP with respiratory therapy present being transferred to the ICU. Left lower extremity does demonstrate some improvement with decreased edema and mild decrease in erythema, skin lines present, no purulence expressed from the wound he will require further debridement however will need to be stabilized prior to induction of anesthesia. Will order MRI of the left foot and left leg to evaluate for abscess or proximal tracking. No plans for surgical debridement today MRI will not be completed until end of day will reevaluate and potentially proceed with debridement Wednesday or Wednesday. 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
[2020-07-08 06:44] LABS: Glucose Point of Care 262 mg/dL (70-110)
--- NOTE | 2020-07-08 06:44 | XR_ITS ---
WS: [id number] FOOT LEFT TECHNIQUE: 3 views of the left foot CLINICAL INFORMATION: Diabetic ulcer COMPARISON: July 03, 2020 FINDINGS: Prior postoperative changes first MTP amputation. Soft tissue edema with ulceration overlying the fir st metatarsal. No destructive changes involving the head of the first metatarsal. Vascular calcificat ion. Plantar calcaneal spurring. Achilles enthesophyte. XR/XR foot LT min 3V* [id number] IMPRESSION: 1. Recent postoperative changes first MTP amputation with ulceration. Persiste nt but improved soft tissue edema. 2. No destructive changes involving the head of the first metatarsal. 3. Plantar calcaneal spurring with Achilles enthesophyte.
[2020-07-08] MEDS: metoprolol tartrate 25 mg Tablet PO (06:46)
--- NOTE | 2020-07-08 06:46 | PC.NURSE ---
METOPROLOL Pt's heart rate consistently staying above 120 beats/minute, Doctor Amina gave order to give metoprolol 25mg early.
--- NOTE | 2020-07-08 06:49 | PC.NURSE ---
ORDER ENTRY SPECIALIST called this nurse to patients room due to patient having a hard time breathing. This RN listened to the patients breath sounds and heart rate put him on 10L oxymask and continuous pulseox on vitals cart. Breath sounds throughout were clear to auscultation. HR was elevated at 128. Called Dr. Huynh about the situation and he came and laid on eyes on. He gave new orders to give metoprolol 25mg early, 40mg lasix IVP now, and to shut off fluids. This RN completed all of this and currently respiratory is placing patient on biPAP. No other needs voiced at this time, will continue to monitor and pass this along to day shift.
--- NOTE | 2020-07-08 06:50 | P.EN_ITS ---
Event Note Event Note: Early this morning, patient had episodes of shortness of breath, requiring up to 4 L nasal cannula, ABG shows acute hypoxic respiratory failure, chest x-ray shows diffuse bilateral pulmonary edema, cannot rule out acute respiratory distress syndrome given COVID-19, I gave him 40 mg of Lasix, he is +13 189 since admission, creatinine is 1.7. White blood cell count 19.4, pro- Td, BNP pending. He has a history of systolic heart failure, EF 30 to 35%. Place patient on BiPAP, added Bumex 1 mg IV every 12 hours, metolazone 5 mg p.o., started Decadron 6 mg IV push daily, remdesivir, monitor urine output, monitor creatinine currently alert oriented x3, complaining of some shortness of breath on 6 L, lungs bilateral crackles, cardiovascular S1, S2 tachycardic heart rates in the 120s, A. fib heart rates currently 129, advised nurse to give metoprolol early, continue Eliquis
--- NOTE | 2020-07-08 07:30 | MR_ITS ---
WS: [id number] INDICATION: Diabetic foot infection TECHNIQUE: Sagittal PD, axial T1, sagittal STIR, axial STIR, axial T2, axial PD, coronal PD, and mali nal T2 fat sat. FINDINGS: MRI of the left lower leg and foot without gadolinium enhancement. Recent postoperative soraya nges first MTP amputation. Bone marrow signal in the head of first metatarsal appears normal. No evid ence of osteomyelitis. Preservation of the normal fatty bone marrow signal. Normal bone marrow signal in the remainder of the metatarsals and phalanges. Normal bone marrow signal in the calcaneus and ta mehnaz. Normal tarsal bones. Diffuse soft tissue edema involving the lower leg and foot soft tissues con sistent with cellulitis. Diffuse subcutaneous soft tissue edema with skin thickening. Bone marrow signal involving the tibia and fibula is normal. No evidence of osteomyelitis in the lowe r leg. Diffuse subcutaneous soft tissue edema involving the lower leg with skin thickening likely due to cellulitis. No drainable fluid collections or abscess. MR/MR foot LT wo con* [id number] IMPRESSION: 1. Recent postoperative changes first MTP amputation. 2. No evidence of osteomyelitis. Normal bone marrow signal in the first metata rsal. 3. No drainable abscess or fluid collection. 4. Diffuse subcutaneous edema consistent with cellulitis involving the lower l eg and foot soft tissues.
--- NOTE | 2020-07-08 07:36 | CT_ITS ---
WS: [id number] CT CHEST TECHNIQUE: Noncontrast CT of the chest with coronal and sagittal reformatted images. CLINICAL INFORMATION: SOB, covid, sepsis COMPARISON: CTA July 02, 2020 DLP: 798.[address] scans at [facility] use at least one of these dose optimization techniques: automat ed exposure control; mA and/or kV adjustment per patient size (includes targeted exams where dose is matched to clinical indication); or iterative reconstruction. FINDINGS: Moderate bilateral pleural effusions with compressive atelectasis in the lung bases. Slightly hazy pe rihilar groundglass infiltrates. Upper lungs are well aerated. Coronary calcification. Normal caliber thoracic aorta. No mediastinal or hilar lymphadenopathy. No ax illary lymphadenopathy. Diffuse body wall anasarca. 0 Low-attenuation in the spleen suspicious for infarct appears unchanged since July 02, 2020. Adren al glands are normal. Mild thoracic curve. Moderate thoracic kyphosis. CT/CT chest wo con [id number] IMPRESSION: 1. Moderate bilateral pleural effusions with compressive atelectasis in the pretty ng bases. 2. Slight hazy perihilar groundglass infiltrates. 3. No mediastinal or hilar lymphadenopathy. A few reactive lymph nodes. 4. Partially visualized low-attenuation in the spleen likely splenic infarct a ppears similar to July 02, 2020
[2020-07-08] MEDS: dexamethasone 4 mg/mL INJ 6 MG IVP (08:11)
[2020-07-08] MEDS: FUROsemide 10 mg/mL SDV 10mL 60 MG IVP ×3 (08:12→20:30)
[2020-07-08] MEDS: ascorbic acid 500 mg Tablet PO (08:14)
[2020-07-08] MEDS: zinc gluconate 50 mg Tablet PO (08:14)
[2020-07-08] MEDS: tamsulosin 0.4 mg Capsule PO (08:14)
[2020-07-08] MEDS: aspirin 325 mg Tablet PO (08:14)
[2020-07-08] MEDS: famotidine 20 mg Tablet PO ×2 (08:14→17:07)
[2020-07-08] MEDS: apixaban 5 mg Tablet PO (08:14)
[2020-07-08 08:15] LABS: NT Pro B Type Natriuretic Pept 5988 pg/mL (0-125); Procalcitonin 0.93 ng/mL (0-0.5)
--- NOTE | 2020-07-08 08:30 | MR_ITS ---
WS: [id number] INDICATION: Diabetic foot infection TECHNIQUE: Sagittal PD, axial T1, sagittal STIR, axial STIR, axial T2, axial PD, coronal PD, and mali nal T2 fat sat. FINDINGS: MRI of the left lower leg and foot without gadolinium enhancement. Recent postoperative soraya nges first MTP amputation. Bone marrow signal in the head of first metatarsal appears normal. No evid ence of osteomyelitis. Preservation of the normal fatty bone marrow signal. Normal bone marrow signal in the remainder of the metatarsals and phalanges. Normal bone marrow signal in the calcaneus and ta mehnaz. Normal tarsal bones. Diffuse soft tissue edema involving the lower leg and foot soft tissues con sistent with cellulitis. Diffuse subcutaneous soft tissue edema with skin thickening. Bone marrow signal involving the tibia and fibula is normal. No evidence of osteomyelitis in the lowe r leg. Diffuse subcutaneous soft tissue edema involving the lower leg with skin thickening likely due to cellulitis. No drainable fluid collections or abscess. MR/MR lower leg LT wo con* [id number] IMPRESSION: 1. Recent postoperative changes first MTP amputation. 2. No evidence of osteomyelitis. Normal bone marrow signal in the first metata rsal. 3. No drainable abscess or fluid collection. 4. Diffuse subcutaneous edema consistent with cellulitis involving the lower l eg and foot soft tissues.
--- NOTE | 2020-07-08 09:24 | PM.PN ---
Subjective Subjective: Interval history: Hospital course, labs, vitals noted. Overnight patient has been requiring more more oxygen. Today morning on examination patient was on BiPAP ventilation but was able to turn down to room air saturating 90 to 92%. Patient continues to have tachycardia with heart rate running in 130s. Patient is awake alert and is able to have complete conversation with me. He is oriented to time, place, president, self. Vitals/I&O/Wt Last Vital Signs Temp 100.3 F H 07/08/20 08:00 Pulse 101 H 07/08/20 08:00 Resp 17 07/08/20 08:00 BP 120/58 07/08/20 08:00 Pulse Ox 91 07/08/20 08:00 07/07/20 07/08/20 07/08/20 22:59 06:59 14:59 Intake Total 573.75 / 2333.75 160 / 2493.75 Output Total 100 / 351 700 / 1051 Balance 473.75 / 1982.75 -540 / 1442.75 Weight last 48 hrs Weight 95.073 kg Weight 92.397 kg Physical Exam Narrative: EXAM NARRATIVE: General : No distress, chronically ill appearing HEENT : Grossly unremarkable CVS : S1-S2 irregularly irregular, pansystolic murmur at the apex Chest: Normal vesicular breath sounds, crackles present in middle to lower zone, decreased air entry bilaterally in lower zones. Abdomen: Soft, nontender, no organomegaly, bowel sounds present Ext -surgically bandaged, no cellulitis in calf Urinary Catheter Management^: Alfonso: Cath Placed During This Visit: yes, but has since been removed by the nurse Reason for Continuing Indwelling Catheter: Accurate Measurement of Urinary Output in Critically Ill Patients Urinary Catheter Date of Insertion: 07/03/20 Urinary Catheter Time of Insertion: 00:45 Date Urinary Catheter Removed: 07/07/20 Time Urinary Catheter Discontinued: 04:54 Alfonso Latex: Cath Placed During This Visit: no Reason for Continuing Indwelling Catheter: Acute Urinary Retention or Obstruction Data : 07/08/20 04:50 07/08/20 04:50 A&P Assessment and plan (1) Hypoxia: Status: Acute (2) Sepsis: Status: Resolved Qualifiers: Sepsis acute organ dysfunction status: unspecified Sepsis type: sepsis due to unspecified organism Qualified Code(s): A41.9 - Sepsis, unspecified organism (3) Staphylococcus aureus bacteremia: Status: Acute (4) Diabetic wet gangrene of the foot: Status: Acute (5) Diabetic peripheral neuropathy associated with type 2 diabetes mellitus: Status: Chronic (6) Atrial fibrillation with rapid ventricular response: Status: Resolved (7) HFrEF (heart failure with reduced ejection fraction): Status: Chronic (8) Peripheral arterial disease: Status: Chronic (9) COVID-19: Status: Acute (10) Medical non-compliance: Status: Acute Additional A&P Information Hypoxia: Most likely secondary to exacerbation of congestive heart failure. Less likely secondary to COVID-19. CT chest without contrast. Most likely patient has bilateral pleural effusions. Will consult with Dr. King for thoracocentesis given hypoxia. Echocardiogram shows an EF of 30 to 35% with diastolic dysfunction with mild to moderate MR, moderate AI. As per the chart patient is overall 13 L positive since admission. Start patient on Lasix 60 mg IV twice daily. Strict input output charting. Daily weights. Wean oxygenation keeping saturation over 96%. Atrial fibrillation with rapid ventricular response: Borderline blood pressures. Start patient on amiodarone drip after 150 mg bolus. Continue with metoprolol 25 mg twice daily. Will uptitrate medications accordingly. Continue with Eliquis 5 mg twice daily. MSSA staphylococcal and enterococcal bacteremia: Blood cultures positive from admission. Sepsis due to diabetic wet gangrene: Post amputation of the toe. Post debridement with Dr. Fung on 07/03. Case discussed with Dr. Fung most likely patient will require further debridement. He request for MRI of the leg and the foot. We will discuss with MRI department for urgent MRI. Wound cultures growing staph MSSA and Enterobacter. Blood cultures growing both MSSA staph and Enterobacter as well. Appreciate recommendations both from Dr. Vargas and Dr. Fung. Dressings as per Dr. Fung. Continue with imipenem. Will dose imipenem as per the renal functions. MRSA swab negative. Patient will most likely require PICC line. Repeat blood cultures have remained negative. We will go ahead with PICC line as patient will require 6 weeks of IV antibiotics. Peripheral arterial disease: CTA aorta runoff appreciated. Case discussed with Dr. Diaz from cardiology. No plan for revascularization as an inpatient for now as patient has small vessel disease and has collaterals. Eliquis as above. Lipid panel results appreciated. Continue aspirin 81 mg oral daily. BARBER: Multifactorial. Most likely secondary to cardiorenal syndrome and severe sepsis. Baseline creatinine normal. Creatinine 1.7 trending down from 2.6. Diuresis as above. Medical reconciliation done for nephrotoxic drugs. Controlled Alfonso catheterization for strict input output charting. COVID-19: Rapid antigen positive. Overnight patient was started on dexamethasone and remdesivir. Unlikely patient's desaturation is from COVID-19. We will stop the remdesivir and dexamethasone for now and continue to monitor. If patient requires more oxygenation will start again. Advair and Spiriva Vitamin C, zinc. Continue to monitor. Isolation precautions. Type 2 diabetes mellitus: On admission was in DKA. Noncompliance. HbA1c 13. Insulin sliding scale at moderate dose. Anemia: On admission 13. A 10.6 and has been stable. Start patient oral iron supplementation. Suspected BPH Renal nondialysis carb consistent diet. Eliquis will help with DVT prophylaxis. Full code. Transfer the patient to viral ICU because of soft blood pressures, atrial fibrillation, ongoing hypoxia. Attestations Medical Necessity Statement*: Patient requires further hospitalization for management of hypoxia because of congestive heart failure, atrial fibrillation with rapid ventricular response, MSSA bacteremia due to wet gangrene requiring further debridement. 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
--- NOTE | 2020-07-08 09:51 | PC.RESP ---
patient going to CT at this time. therapist placed patient on a NRB at 15LPM, sats at 96% heart rate 97. nurse stated that she would call respiratory when patient gets back to room from CT>
--- NOTE | 2020-07-08 11:31 | PC.RESP ---
Therapist talked to Dr. Ames and he wanted to keep patient on Room air for a few minutes to see what sats were at, due to pulse ox not reading right. Therapist used own pulse ox and patient was sating 90-92% on RA. was called and notified. stated that he wants him on 3LPM NC with a repeat blood gas in a couple of hours.
--- NOTE | 2020-07-08 11:44 | P.CONIM_ITS ---
Providers/Reason For Consult Consulting Physican/Specialty*: Pulmonary critical care medicine Reason for Consult*: Bilateral pleural effusion with worsening hypoxia Attending Physician: Angus Guzmán MD Primary Care Provider: ADORE Ramires History of Present Illness History of Present Illness Ben Hathaway is a 59 year old male with poorly controlled diabetes mellitus, peripheral neuropathy who presented to the hospital on July 01 with fever, weakness and chills. He was found to have increased erythema in bilateral lower extremity and gangrene involving the left toe. The initial blood work showed hyponatremia with a sodium of 126, creatinine of 1.2. The patient was subsequently diagnosed with osteomyelitis. His blood culture was positive from staph aureus and Enterobacter on July 01. The wound culture was also positive for staph aureus and Enterobacter. Since then repeat blood culture on July 04 and have been negative so far. The patient also tested positive for COVID-19 on July 02. Currently the patient is receiving dexamethasone, remdesivir. The patient had an echocardiogram on July 03 which revealed an ejection fraction of 30 to 35%. Global hypokinesis diastolic dysfunction. There was severe enlargement of the left atrium. RVSP was 30 to 35 mmHg. Mild to moderate mitral regurgitation and no other valvular abnormalities. The patient had developed hypoxia overnight requiring BiPAP. CT scan of the chest revealed moderate bilateral pleural effusion with compressive atelectasis of the lungs. There was minimal perihilar groundglass opacities. The CT scan appearance is very consistent with heart failure. There is minimal pleural effusion when the patient presented on the second. He was treated with Bumex and metolazone. Currently requiring 4 L of oxygen. The patient also has history of atrial fibrillation. I am unclear whether the heart failure with reduced ejection fraction is secondary to coronary artery disease or whether this is nonischemic cardiomyopathy. The patient does not give any history of previous heart attacks or stents. There is evidence of peripheral arterial disease on CT angiogram. The patient was seen and examined in the viral ICU. The patient appears tired, mild shortness of breath while resting. He denied any fever, significant cough, sputum production. The predominant complaint is exertional shortness of breath. I performed a bedside ultrasound. The patient has bilateral pleural effusion with right greater than left. There was no complexity identified. Review of Systems Narrative: The patient has significant exertional shortness of breath, bilateral lower extremity swelling and fatigue. He denies any significant nausea or vomiting. The review of system could not be obtained completely because of his clinical condition. Meds/Allergies Home Medications and Allergies Home Medications Medication Instructions Recorded Confirmed Last Taken Type No Known Home Medications 07/01/20 07/01/20 Unknown History Allergies Allergy/AdvReac Type Severity Reaction Status Date / Time Penicillins Allergy Intermediate ALGY-Anaphy Verified 07/01/20 12:42 laxis Current Medications Current Medications Generic Name Dose Route Start Last Admin Trade Name Freddie PRN Reason Stop Dose Admin Apixaban 5 mg 07/04/20 18:00 07/08/20 08:14 Apixaban 5 Mg Tablet PO 5 mg BID DAIANA Administration Ascorbic Acid 500 mg 07/05/20 09:00 07/08/20 08:14 Vitamin C PO 500 mg DAILY DAIANA Administration Aspirin 325 mg 07/05/20 09:00 07/08/20 08:14 Aspirin PO 325 mg DAILY DAIANA Administration Dexamethasone 6 mg 07/08/20 07:00 07/08/20 08:11 Dexamethasone 4 Mg/Ml Inj IVP 6 mg Q24H DAIANA Administration Famotidine 20 mg 07/02/20 09:00 07/08/20 08:14 Pepcid Tab PO 20 mg BID DAIANA Administration Furosemide 60 mg 07/08/20 08:00 07/08/20 08:12 Furosemide 10 Mg/Ml Sdv 10ml IVP 60 mg Q12H DAIANA Administration Imipenem/Cilastatin Sodium 250 100 mls @ 200 mls/hr 07/07/20 12:00 07/08/20 06:13 mg/ Sodium Chloride IV 200 mls/hr Q6H DAIANA Administration Protocol Insulin Aspart 0 unit 07/01/20 21:00 07/08/20 08:13 Novolog SUBCUT 10 unit WM&BEDTIME DAIANA Administration Protocol Metoprolol Tartrate 25 mg 07/03/20 18:00 07/08/20 06:46 Lopressor PO 25 mg BID DAIANA Administration Tamsulosin HCl 0.4 mg 07/06/20 09:00 07/08/20 08:14 Flomax PO 0.4 mg DAILY DAIANA Administration Zinc Gluconate 50 mg 07/05/20 09:00 07/08/20 08:14 Zinc Gluconate PO 50 mg DAILY DAIANA Administration PFSH Acute PFSH: Medical History (Updated 07/08/20 @ 19:04 by Ranjan King MD) Atrial fibrillation COVID-19 Diabetes mellitus HFrEF (heart failure with reduced ejection fraction) Medical non-compliance Peripheral arterial disease Surgical History S/P ablation of atrial fibrillation Vitals/I&O/Wt Last Vital Signs Temp 100.3 F H 07/08/20 08:00 Pulse 88 07/08/20 09:50 Resp 17 07/08/20 08:00 BP 120/58 07/08/20 08:00 Pulse Ox 97 07/08/20 09:50 07/07/20 07/08/20 07/08/20 22:59 06:59 14:59 Intake Total 573.75 / 2333.75 160 / 2493.75 Output Total 100 / 351 700 / 1051 Balance 473.75 / 1982.75 -540 / 1442.75 Weight last 48 hrs Weight 209 lb 9.6 oz Weight 203 lb 11.2 oz Physical Exam Narrative: EXAM NARRATIVE: General: Patient is awake alert and oriented, in mild distress. Neck: Positive for jugular venous distention Respiratory: Auscultation: Reduced breath sound bilaterally in the posterior lung bases almost [facility] up in the posterior hemithorax, no wheezing or rhonchi Cardiovascular: Variable first heart sound, no murmur, bilateral peripheral edema Abdomen: Soft, nontender, mildly distended, positive bowel sound Musculoskeletal: His feet are wrapped I did not examine them Skin: His bilateral lower extremity edema Neuro: The patient appears fatigued, no gross motor or cranial nerve abnormalities Urinary Catheter Management^: Alfonso: Cath Placed During This Visit: yes, but has since been removed by the nurse Reason for Continuing Indwelling Catheter: Accurate Measurement of Urinary Output in Critically Ill Patients Urinary Catheter Date of Insertion: 07/03/20 Urinary Catheter Time of Insertion: 00:45 Date Urinary Catheter Removed: 07/07/20 Time Urinary Catheter Discontinued: 04:54 Alfonso Latex: Cath Placed During This Visit: no Reason for Continuing Indwelling Catheter: Acute Urinary Retention or Obstruction Data Other Data: Attestation for Other Data: I personally reviewed and interpreted the following: Other data: I have reviewed the laboratory, microbiologic and radiologic data. Please see the HPI for details. A&P Assessment and plan (1) Acute respiratory failure with hypoxia: Acute hypoxic respiratory failure is likely secondary to heart failure, pulmonary edema and bilateral pleural effusion. I do not believe the COVID-19 is contributing to his shortness of breath and hypoxia. There is no groundglass opacity in the upper lobes on the CT scan that was obtained today. The patient has completed a course of remdesivir and was on dexamethasone which I think can be discontinued. Status: Acute (2) COVID-19: Please see above. Status: Acute (3) HFrEF (heart failure with reduced ejection fraction): The patient likely has cardiorenal syndrome and will improve with diuretics which the patient is already receiving. Status: Chronic (4) Staphylococcus aureus bacteremia: The staph and Enterococcus bacteremia is likely coming from the lower extremity osteomyelitis. The patient is undergoing an MRI of the lower extremity today. The bilateral pleural effusion is likely from heart failure however since the patient had bacteremia there is a chance that this fluid is seeded with bacteria. I am going to perform a thoracentesis and make sure this fluid is not infected. Status: Acute (5) Osteomyelitis: Please see above. Thank you for the consultation. Status: Acute Coding Level of Care Code Acute Pharmacognosist for [facility] [place] Diagnoses Acute respiratory failure with hypoxia J96.01 COVID-19 U07.1 HFrEF (heart failure with reduced ejection fraction) I50.20 Staphylococcus aureus bacteremia R78.81; B95.61 Osteomyelitis M86.9
--- NOTE | 2020-07-08 12:00 | PC.NURSE ---
Pt transferred from Med surg unit with 2 RN's at bedside. Pt on non-breather at 15L/min. No report called. Bedside report given. Pt stable. Pt in a-fib on monitor and transferred to VICU due to hypotension. Oral temp. 94.5. MD at bedside and placed on bear hugger. Will continue to monitor the pt.
[2020-07-08 12:18] LABS: Glucose Point of Care 112 mg/dL (70-110)
[2020-07-08 16:14] LABS: Glucose Point of Care 247 mg/dL (70-110)
[2020-07-08] MEDS: ferrous gluconate 324 mg Tablet PO (17:07)
--- NOTE | 2020-07-08 17:31 | PC.NURSE ---
Pt being transported off unit to [facility] with Sudha PROGRAM REP, and two EMS licensed personnel. VSS. Pt has no complaints at this time. Will continue to monitor the pt upon returning to the unit.
--- NOTE | 2020-07-08 18:45 | PC.NURSE ---
Received report on patient from Katharina ELAM. Patient still out of room at this time having a MRI done.
--- NOTE | 2020-07-08 18:54 | P.PCN_ITS ---
Procedure/Consent Time out: Time Out Performed: Yes Consent: Consent for Procedure: Consent obtained from patient Procedure Narrative: Name of the procedure: Right thoracentesis under ultrasound guidance. Indication: Suspicion for malignant complex pleural effusion and empyema Anesthetics: Local anesthesia with 1% lidocaine. IV pain medication: None. Description of the procedure: The procedure was explained to the patient in detail including the risks and a consent was obtained. The right hemithorax was scanned with ultrasound to find a safe fluid pocket. Moderate to large free- flowing fluid was noted. There was no complexity. Following identification of the fluid pocket the site was marked. The site was cleaned using sterile technique. Lidocaine 1% was injected into the skin and the subcutaneous tissue. Subsequently, the periosteum in the parietal pleural was also anesthetized using lidocaine. The pleural space was entered in the posterior axillary line in the right seventh intercostal space. Cloudy straw- colored fluid was aspirated. About 650 cc of fluid was aspirated. Sample: The pleural fluid was sent for cell count and differential, pH, protein, LDH, albumin, Gram stain and culture, fungal stain and culture, AFB stain and culture. Acute Procedures Epistaxis Control: Time out performed: Yes
--- NOTE | 2020-07-08 19:10 | PC.NURSE ---
Patient returned to room via EMS stretcher and RN. Transferred to bed and placed on cardiac monitor technician, sat monitor and BP cuff. Incont of stool and complete bath done and linen change. Restarted the Amiodarone drip at 1mg and is due to be decreased at 2100. HOB elevated and patient finishing his meal. No complaints voiced at this time. Bed low, bed locked, side rales up x 2 and call light in reach.
[2020-07-08 19:32] LABS: Body Fluid Polynuclear #Cells 5.706; Body Fluid WBC 6712 /uL; Monocytes # Body Fluid 1.006
[2020-07-08 19:33] LABS: Apprearance, Body Fluid CLOUDY; Color, Body Fluid PALE YELLOW
[2020-07-08 21:20] LABS: Glucose Point of Care 296 mg/dL (70-110)
[2020-07-08 21:52] LABS: LDH Pleural Fluid 177 U/L; Total Protein Pleural Fluid 1.7 g/dL
[2020-07-09] VITALS (38 sets, daily range): BP systolic 74–135; BP diastolic 46–90; PULSE 68–124; RESP 11–24; TEMP 36.4–36.6; O2SAT 91–99
[2020-07-09] MEDS: morphine 4 mg/mL SDV 1 mL 2 MG IVP (02:53)
[2020-07-09] MEDS: ondansetron 2 mg/ML SDV 2 mL 4 MG IVP (02:54)
[2020-07-09 04:08] LABS: Basophils % 0.2 %; Hematocrit 31.1 % (42.0-52.0); Hemoglobin 10.1 g/dL (11.7-16.6); Lymphocytes % 4.6 %; Mean Corpuscular HGB Conc 32.5 g/dL (30.0-36.0); Mean Corpuscular Hemoglobin 28.9 pg (28.0-34.0); Mean Corpuscular Volume 89.1 fL (80-94); Mean Platelet Volume 10.8 fL (7.4-10.4); Monocytes # 0.6 10^3/uL (0.2-0.9); Monocytes % 2.8 %; Neutrophils # 20.06 10^3/uL (1.8-7.7); Neutrophils % 91.6 %; Nucleated Red Blood Cells % 0 %; Platelet Count 227 10^3/cmm (130-400); Red Blood Count 3.49 10^6/uL (4.1-5.3); Red Cell Distribution Width 14.6 % (12.1-15.1); White Blood Count 21.9 10^3/uL (4.0-10.0)
[2020-07-09 04:40] LABS: Fibrinogen 445 mg/dL (174-498)
[2020-07-09 04:43] LABS: D Dimer 3.67 ug/mIFEU (0-0.59)
[2020-07-09 04:53] LABS: Alanine Aminotransferase 63 U/L (0-41); Albumin Level 1.6 g/dL (3.5-5.2); Alkaline Phosphatase 297 IU/L (40-130); Anion Gap 16.1 (5-19); Aspartate Amino Transferase 87 U/L (0-40); Blood Urea Nitrogen 54 mg/dL (6-20); C Reactive Protein 112.1 mg/L (0.0-4.9); Calcium 6.9 mg/dL (8.5-10.5); Carbon Dioxide 18 mmol/L (22-29); Chloride 104 mmol/L (98-107); Creatine Phosphokinase 13 U/L (39-308); Globulin 4.3 g/dL (1.3-4.6); Glomerular Filtration Rate 38.9 mL/min (90-130); Glucose 272 mg/dL (65-115); Lactate Dehydrogenase 190 U/L (135-225); NT Pro B Type Natriuretic Pept 10955 pg/mL (0-125); Osmolality Calculated 302 mOsm/kg (285-295); Potassium 4.1 mmol/L (3.5-5.1); Sodium 134 mmol/L (136-145); Total Bilirubin 0.3 mg/dL (0.15-1.2); Total Protein 5.9 g/dL (6.6-8.7)
[2020-07-09 05:37] LABS: Ferritin 1053 ng/mL (30-400)
[2020-07-09 07:55] LABS: Glucose Point of Care 330 mg/dL (70-110)
[2020-07-09] MEDS: tamsulosin 0.4 mg Capsule PO (08:36)
[2020-07-09] MEDS: ascorbic acid 500 mg Tablet PO (08:36)
[2020-07-09] MEDS: metoprolol tartrate 25 mg Tablet PO ×2 (08:36→17:00)
[2020-07-09] MEDS: famotidine 20 mg Tablet PO ×2 (08:36→17:00)
[2020-07-09] MEDS: ferrous gluconate 324 mg Tablet PO ×2 (08:36→17:00)
[2020-07-09] MEDS: zinc gluconate 50 mg Tablet PO (08:36)
[2020-07-09] MEDS: FUROsemide 10 mg/mL SDV 10mL 60 MG IVP (08:37)
[2020-07-09] MEDS: aspirin 81 mg Chew Tablet PO (08:37)
--- NOTE | 2020-07-09 10:20 | PC.NURSE ---
1005- UPDATED PRIMARY CARE NURSE, PICC LINE WILL BE PLACED IN COORDINATION WITH SURGICAL DEBRIDEMENT PLACEMENT IS NEEDED PRIOR TO DISCHARGE FOR CONTINUED ANTIBIOTIC THERAPY.
[2020-07-09 11:33] LABS: Glucose Point of Care 349 mg/dL (70-110)
--- NOTE | 2020-07-09 11:38 | P.PN_ITS ---
Subjective Subjective: Interval history: No acute events overnight. On examination patient states he is feeling a lot better today. He is maintaining 96% on room air. He states he is feeling a lot better than yesterday. He states his swelling in his leg is decreasing. Is able to eat. Denies any nausea, vomiting, headache. T max 100.3 Vitals/I&O/Wt Last Vital Signs Temp 97.6 F 07/09/20 08:00 Pulse 82 07/09/20 08:17 Resp 18 07/09/20 08:17 BP 124/76 07/09/20 08:00 Pulse Ox 96 07/09/20 08:17 07/08/20 07/09/20 07/09/20 22:59 06:59 14:59 Intake Total 1052.125 / 2295.125 400 / 2695.125 100 / 100 Output Total 3701 / 3701 2600 / 6301 Balance -2648.875 / -1405.875 -2200 / -3605.875 100 / 100 Weight last 48 hrs Weight 95.073 kg Weight 95.073 kg Physical Exam Narrative: EXAM NARRATIVE: General : No distress, chronically ill appearing HEENT : Grossly unremarkable CVS : S1-S2 irregularly irregular, pansystolic murmur at the apex Chest: Normal vesicular breath sounds, crackles present in middle to lower zone, decreased air entry bilaterally in lower zones. Abdomen: Soft, nontender, no organomegaly, bowel sounds present Ext -surgically bandaged, no cellulitis in calf Urinary Catheter Management^: Alfonso: Cath Placed During This Visit: yes, but has since been removed by the nurse Reason for Continuing Indwelling Catheter: Accurate Measurement of Urinary Output in Critically Ill Patients Urinary Catheter Date of Insertion: 07/03/20 Urinary Catheter Time of Insertion: 00:45 Date Urinary Catheter Removed: 07/07/20 Time Urinary Catheter Discontinued: 04:54 Alfonso Latex: Cath Placed During This Visit: no Reason for Continuing Indwelling Catheter: Accurate Measurement of Urinary Output in Critically Ill Patients Data : 07/09/20 03:33 07/09/20 03:33 Micro: Microbiology 07/08/20 16:40 Gram Stain - Final Pleural Fluid A&P Assessment and plan (1) Hypoxia: Status: Acute (2) Sepsis: Status: Resolved Qualifiers: Sepsis acute organ dysfunction status: unspecified Sepsis type: sepsis due to unspecified organism Qualified Code(s): A41.9 - Sepsis, unspecified organism (3) Staphylococcus aureus bacteremia: -as noted above Status: Acute (4) Diabetic wet gangrene of the foot: Status: Acute (5) Diabetic peripheral neuropathy associated with type 2 diabetes mellitus: Status: Chronic (6) Atrial fibrillation with rapid ventricular response: Status: Resolved (7) HFrEF (heart failure with reduced ejection fraction): Status: Chronic (8) Peripheral arterial disease: Status: Chronic (9) COVID-19: Status: Acute (10) Medical non-compliance: Status: Acute Additional A&P Information Hypoxia: Most likely secondary to exacerbation of congestive heart failure. Less likely secondary to COVID-19. CT chest without contrast. Most likely patient has bilateral pleural effusions. Will consult with Dr. King for thoracocentesis given hypoxia. Echocardiogram shows an EF of 30 to 35% with diastolic dysfunction with mild to moderate MR, moderate AI. Post thoracentesis on 07/[address] King. Fluid studies consistent with transudative most likely secondary to congestive heart failure. Last 24 hours patient seems to be around 4.5 L negative. Continue with Lasix 60 mg IV twice daily. Strict input output charting. Daily weights. Wean oxygenation keeping saturation over 96%. Atrial fibrillation with rapid ventricular response: Converted to sinus rhythm overnight. Continue and finish the amnio drip as per the protocol. Start patient on amiodarone 200 mg twice daily for next 7 days followed by 200 mg daily. Continue metoprolol 25 mg twice daily. Continue with Eliquis 5 mg twice daily. MSSA staphylococcal and enterococcal bacteremia: Blood cultures positive from admission. Blood cultures since then has remained negative. Patient did have fever last night so we will repeat blood cultures. Sepsis due to diabetic wet gangrene: Post amputation of the toe. Post debridement with Dr. Fung on 07/03. Case discussed with Dr. Fung most likely patient will require further debridement. Most likely patient will undergo further debridement tomorrow on 07/[address] Fung. Wound cultures growing staph MSSA and Enterobacter. Appreciate recommendations both from Dr. Vargas and Dr. Fung. Dressing changes as per Dr. Fung. Continue with imipenem. Will dose imipenem as per the renal functions. MRSA swab negative. Patient will most likely require PICC line. Repeat blood cultures have remained negative. We will go ahead with PICC line as patient will require 6 weeks of IV antibiotics. Peripheral arterial disease: CTA aorta runoff appreciated. Case discussed with Dr. Diaz from cardiology. No plan for revascularization as an inpatient for now as patient has small vessel disease and has collaterals. Eliquis as above. Lipid panel results appreciated. Continue aspirin 81 mg oral daily. BARBER: Multifactorial. Most likely secondary to cardiorenal syndrome and severe sepsis. Baseline creatinine normal. Creatinine has remained high stable and is trending down from 2.6. Diuresis as above. Medical reconciliation done for nephrotoxic drugs. Controlled Alfonso catheterization for strict input output charting. COVID-19: Rapid antigen positive. Continue to hold off on dexamethasone and remdesivir. We will continue to monitor. Patient is already on anticoagulation with Eliquis as above. Advair and Spiriva Vitamin C, zinc. Continue to monitor. Isolation precautions. Type 2 diabetes mellitus: On admission was in DKA. Noncompliance. HbA1c 13. Insulin sliding scale at moderate dose. Anemia: On admission 13. A 10.6 and has been stable. Start patient oral iron supplementation. Suspected BPH Renal nondialysis carb consistent diet. Eliquis will help with DVT prophylaxis. Full code. Discharge planning: We will continue ICU monitoring for now. If patient continues to improve can plan to transfer patient down to the floors after debridement tomorrow. Depending on the clinical picture patient will be discharged home with advised to have IV antibiotics through PICC line for next 6 weeks. PT and OT evaluation today. Patient most likely requires further rehabitation given severe deconditioning. We will consult with case management as patient does not seem to have any insurance. Attestations Medical Necessity Statement*: Patient requires further hospitalization for management of sepsis and atrial fibrillation with rapid ventricular spots lidiaon wilberto to MSSA bacteremia. Coding Level of Care Code Acute Button Decorating Machine Operator for [facility] Fwd Diagnoses Hypoxia R09.02 Sepsis A41.9 Sepsis acute organ dysfunction status: unspecified Sepsis type: sepsis due to unspecified organism Staphylococcus aureus bacteremia R78.81; B95.61 Diabetic wet gangrene of the foot E11.52 Diabetic peripheral neuropathy associated with type 2 diabetes mellitus E11.42 Atrial fibrillation with rapid ventricular response I48.91 HFrEF (heart failure with reduced ejection fraction) I50.20 Peripheral arterial disease I73.9 COVID-19 U07.1 Medical non-compliance Z91.19
[2020-07-09] MEDS: amiodarone 200 mg Tablet PO ×2 (12:08→17:00)
--- NOTE | 2020-07-09 12:39 | P.PN_ITS ---
Subjective Subjective: Interval history: Patient seen bedside doing well, on room air is conversive, breathing is unlabored. Denies any left foot pain. Vitals/I&O/Wt Last Vital Signs Temp 97.6 F 07/09/20 08:00 Pulse 82 07/09/20 08:17 Resp 18 07/09/20 08:17 BP 124/76 07/09/20 08:00 Pulse Ox 96 07/09/20 08:17 07/08/20 07/09/20 07/09/20 22:59 06:59 14:59 Intake Total 1052.125 / 2295.125 400 / 2695.125 100 / 100 Output Total 3701 / 3701 2600 / 6301 Balance -2648.875 / -1405.875 -2200 / -3605.875 100 / 100 Weight last 48 hrs Weight 209 lb 9.6 oz Weight 209 lb 9.6 oz Physical Exam Narrative: EXAM NARRATIVE: Patient is anxious, alert and oriented x3 VASCULAR: Dorsalis pedis and posterior tibial are faintly palpable. Capillary refill time less than 5 seconds to the distal hallux bilaterally. Calf is supple and nontender proximally and distally. Diminished pedal hair growth bilaterally. NEUROLOGICAL: Protective sensation intact 0/10 sites, tested with Birney Thomas monofilament to bilateral feet. DERMATOLOGICAL: No strikethrough bleeding or drainage from postoperative dressings. Postop dressings were removed and new dressing applied there was minimal bleeding, delayed capillary refill time at skin margins at amputation site, no further proximal lymphangitic streaking or proximal cellulitis in comparison to preoperative evaluation. Several margins are dusky, unable to express any purulence manually. MUSCULOSKELETAL: No pain with posterior calf squeeze bilaterally. Muscle strength 5 out of 5 in all 3 cardinal planes to bilateral foot and ankle. Urinary Catheter Management^: Alfonso: Cath Placed During This Visit: yes, but has since been removed by the nurse Reason for Continuing Indwelling Catheter: Accurate Measurement of Urinary Output in Critically Ill Patients Urinary Catheter Date of Insertion: 07/03/20 Urinary Catheter Time of Insertion: 00:45 Date Urinary Catheter Removed: 07/07/20 Time Urinary Catheter Discontinued: 04:54 Alfonso Latex: Cath Placed During This Visit: no Reason for Continuing Indwelling Catheter: Accurate Measurement of Urinary Output in Critically Ill Patients Data : 07/09/20 03:33 07/09/20 03:33 Micro: Microbiology 07/08/20 16:40 Gram Stain - Final Pleural Fluid A&P Assessment and plan (1) Diabetic peripheral neuropathy associated with type 2 diabetes mellitus: Status: Chronic (2) Diabetic wet gangrene of the foot: Status: Acute (3) Sepsis: Status: Resolved Qualifiers: Sepsis type: sepsis due to unspecified organism Sepsis acute organ dysfunction status: unspecified Qualified Code(s): A41.9 - Sepsis, unspecified organism Mr. Hathaway is a 59-year-old poorly controlled diabetic male with wet gangrene to the left foot. Eschar is soft with fluctuance and crepitus, ascending cellulitis involving the distal two thirds of the left leg. Soft tissue emphysema on x-ray of the left foot without obvious osseous destruction. CT angiogram completed concerning for multiple segmental occlusions and calcifications infrapopliteal and distally. Echocardiogram shows decreased ejection fraction. Patient is 5 days status post incision and debridement left foot with left hallux amputation and excision of sesamoids, soft tissue and bone cultures significant for Enterobacter and staph aureus. Patient has tested positive for COVID-19 and is in isolation. Performed dressing change Dakin's wet-to-dry. Appreciate recommendations from infectious disease he is currently taking Primaxin. -MRI left foot and leg completed there is cellulitis no drainable abscess no osteomyelitis. Left foot wound has devitalized margins recommending further surgical debridement, patient to be n.p.o. after midnight, surgery scheduled for 07/10/2020 at noon can be performed under MAC anesthesia. Attestations Medical Necessity Statement*: Diabetic foot infection with wet gangrene. Coding Level of Care Code Acute [employer] Media Specialist for [facility] Fwd Diagnoses Diabetic peripheral neuropathy associated with type 2 diabetes mellitus E11.42 Diabetic wet gangrene of the foot E11.52 Sepsis A41.9 Sepsis type: sepsis due to unspecified organism Sepsis acute organ dysfunction status: unspecified
[2020-07-09 16:58] LABS: Glucose Point of Care 399 mg/dL (70-110)
[2020-07-09 20:53] LABS: Glucose Point of Care 276 mg/dL (70-110)
[2020-07-09] MEDS: FUROsemide 10 mg/mL SDV 4mL 60 MG IVP (21:47)
[2020-07-10] VITALS (29 sets, daily range): BP systolic 83–136; BP diastolic 51–97; PULSE 63–94; RESP 6–24; TEMP 36.4–36.6; O2SAT 95–100
[2020-07-10 03:18] LABS: Basophils # 0.1 10^3/uL (0.0-0.1); Basophils % 0.2 %; Eosinophils # 0.1 10^3/uL (0.0-0.8); Eosinophils % 0.3 %; Hematocrit 32.8 % (42.0-52.0); Hemoglobin 10.5 g/dL (11.7-16.6); Lymphocytes # 1.6 10^3/uL (0.8-4.8); Lymphocytes % 6.8 %; Mean Corpuscular Hemoglobin 28.6 pg (28.0-34.0); Mean Corpuscular Volume 89.4 fL (80-94); Mean Platelet Volume 11.3 fL (7.4-10.4); Monocytes # 0.9 10^3/uL (0.2-0.9); Monocytes % 3.8 %; Neutrophils # 21.26 10^3/uL (1.8-7.7); Neutrophils % 88.3 %; Nucleated Red Blood Cells % 0 %; Platelet Count 277 10^3/cmm (130-400); Red Blood Count 3.67 10^6/uL (4.1-5.3); Red Cell Distribution Width 14.7 % (12.1-15.1); White Blood Count 24.1 10^3/uL (4.0-10.0)
[2020-07-10 04:01] LABS: Alanine Aminotransferase 55 U/L (0-41); Albumin Level 1.6 g/dL (3.5-5.2); Alkaline Phosphatase 278 IU/L (40-130); Blood Urea Nitrogen 53 mg/dL (6-20); Calcium 6.8 mg/dL (8.5-10.5); Carbon Dioxide 20 mmol/L (22-29); Chloride 102 mmol/L (98-107); Globulin 4.4 g/dL (1.3-4.6); Glomerular Filtration Rate 38.9 mL/min (90-130); Glucose 248 mg/dL (65-115); Osmolality Calculated 299 mOsm/kg (285-295); Sodium 133 mmol/L (136-145); Total Bilirubin 0.2 mg/dL (0.15-1.2)
[2020-07-10 04:14] LABS: NT Pro B Type Natriuretic Pept 6100 pg/mL (0-125); Procalcitonin 6.67 ng/mL (0-0.5)
[2020-07-10 04:23] LABS: Anion Gap 15.4 (5-19); Aspartate Amino Transferase 46 U/L (0-40); Potassium 4.4 mmol/L (3.5-5.1)
[2020-07-10 04:26] LABS: C Reactive Protein 67.2 mg/L (0.0-4.9); Creatine Phosphokinase 21 U/L (39-308); Ferritin 930 ng/mL (30-400)
[2020-07-10 04:27] LABS: Lactate Dehydrogenase 272 U/L (135-225)
[2020-07-10 04:31] LABS: Fibrinogen 431 mg/dL (174-498)
[2020-07-10 07:11] LABS: Glucose Point of Care 293 mg/dL (70-110)
[2020-07-10] MEDS: FUROsemide 10 mg/mL SDV 4mL 60 MG IVP (09:22)
[2020-07-10] MEDS: morphine 4 mg/mL SDV 1 mL 2 MG IVP (09:23)
[2020-07-10] MEDS: zinc gluconate 50 mg Tablet PO (09:24)
[2020-07-10] MEDS: ondansetron 2 mg/ML SDV 2 mL 4 MG IVP ×2 (09:24→15:42)
[2020-07-10] MEDS: famotidine 20 mg Tablet PO ×2 (09:26→15:21)
[2020-07-10] MEDS: metoprolol tartrate 25 mg Tablet PO ×2 (09:26→15:22)
[2020-07-10] MEDS: ferrous gluconate 324 mg Tablet PO ×2 (09:26→15:22)
[2020-07-10] MEDS: tamsulosin 0.4 mg Capsule PO (09:26)
[2020-07-10] MEDS: ascorbic acid 500 mg Tablet PO (09:27)
[2020-07-10] MEDS: amiodarone 200 mg Tablet PO ×2 (09:27→15:17)
[2020-07-10] MEDS: aspirin 81 mg Chew Tablet PO (09:27)
[2020-07-10 12:14] LABS: Glucose Point of Care 310 mg/dL (70-110)
--- NOTE | 2020-07-10 12:15 | ANES.PREANE2 ---
Pre-Anesthetic Assessment Pre-Anesthetic Assessment: Height/Weight: Height 1.78 m Weight 87.044 kg Temp Pulse Resp BP Pulse Ox 97.6 F 84 12 111/70 97 07/10/20 04:00 07/10/20 08:01 07/10/20 09:23 07/10/20 04:00 07/10/20 07:59 Preop Diagnosis: Wet gangrene left foot Proposed Procedure: Operation Date: 07/03/20 07:00 Proposed Procedures p Amputation Toe/s(Left) - Jeff Fung DPM Operation Date: 07/10/20 12:00 Proposed Procedures p Incision And Drainage left foot(Left) - Jeff Fung DPM Last intake: Intake Last Liquid Date 07/02/20 Last Liquid Time 23:55 Last Solid Date 07/02/20 Last Solid Time 23:55 Social: Social History: No alcohol and No tobacco Exam: Pre-Anes Outpt Exam: alert and oriented x 3 Airway: Submandibular: WNL Cervical ROM: WNL MP: 2 Pulmonary: Pulmonary: Cough and SOB (Acute respiratory failure with hypoxemia ) Comments: Covid Positive with recurrent pleural effusion CV/HEM: CV/HEM: Anemia, CAD, HTN and PVD : Comments: Acute on chronic renal failure Hepatic: Comments: Abnormal LFT's GI: GI: None reported Metabolic: Metabolic: DM Musc/skel: Musc/skel: None reported Neuropsych: Neuropsych: None reported Anesthetic Plan: ASA status: 4 Anesthesia: MAC Meds/Allergies Current Medications: Current Medications Generic Name Dose Route Start Last Admin Trade Name Freq PRN Reason Stop Dose Admin Amiodarone HCl 200 mg 07/09/20 12:00 07/10/20 09:27 Amiodarone 200 M g Tablet PO 200 mg BID DAIANA Administration Apixaban 5 mg 07/04/20 18:00 07/08/20 08:14 Apixaban 5 Mg Ta blet PO 5 mg BID DAIANA Administration Ascorbic Acid 500 mg 07/05/20 09:00 07/10/20 09:27 Vitamin C PO 500 mg DAILY DAIANA Administration Aspirin 81 mg 07/09/20 09:00 07/10/20 09:27 Aspirin 81 Mg Ch ew Tablet PO 81 mg DAILY DAIANA Administration Famotidine 20 mg 07/02/20 09:00 07/10/20 09:26 Pepcid Tab PO 20 mg BID DAIANA Administration Ferrous Gluconate 324 mg 07/08/20 18:00 07/10/20 09:26 Ferrous Gluconat e 324 Mg Tablet PO 324 mg BIDWM DAIANA Administration Furosemide 60 mg 07/09/20 08:45 07/10/20 09:22 Furosemide 10 Mg /Ml Sdv 4ml IVP 60 mg Q12H DAIANA Administration Imipenem/Cilastati n Sodium 500 100 mls @ 200 mls /hr 07/08/20 12:30 07/10/20 09:02 mg/ Sodium Chlor natalia IV Infused Q8H DAIANA Infusion Protocol Amiodarone HCl 900 mg/ 518 mls @ 0 mls/h r 07/08/20 13:30 07/09/20 15:00 Dextrose/ IV Misce llaneous IV 0 mg/min Supplies .Q0M DAIANA 0 mls/hr Titration Protocol Per Protocol Insulin Aspart 0 unit 07/01/20 21:00 07/10/20 09:21 Novolog SUBCUT 10 unit WM&BEDTIME DAIANA Administration Protocol Metoprolol Tartrat e 25 mg 07/03/20 18:00 07/10/20 09:26 Lopressor PO 25 mg BID DAIANA Administration Morphine Sulfate 2 mg 07/01/20 20:25 07/10/20 09:23 Morphine 4 Mg/Ml Sdv 1 Ml IVP 2 mg Q4H PRN Administration SEVERE PAIN Ondansetron HCl 4 mg 07/01/20 19:39 07/10/20 09:24 Zofran IVP 4 mg Q8H PRN Administration vomiting, or N/V if npo Fluticasone/Salmet sabas 1 puff 07/08/20 20:00 07/10/20 07:59 Fluticasone-Salm eterol 250-50 Disk us INHALATION 1 puff BID.RESPIRATORY S CH Administration Sodium Hypochlorit e 1 applic 07/08/20 21:00 07/10/20 09:27 Sodium Hypochlor ite 0.5% Btl 473 M l TOPICAL 1 applic BID DAIANA Administration Tamsulosin HCl 0.4 mg 07/06/20 09:00 07/10/20 09:26 Flomax PO 0.4 mg DAILY DAIANA Administration Tiotropium [place] 18 mcg 07/09/20 08:00 07/10/20 07:59 Tiotropium 18 Mc g Mdi INHALATION 1 puff DAILY.RESPIRATORY DAIANA Administration Zinc Gluconate 50 mg 07/05/20 09:00 07/10/20 09:24 Zinc Gluconate PO 50 mg DAILY DAIANA Administration Additional Medication Information: Active Medications Generic Name Dose Route Start Last Admin Trade Name Freq PRN Reason Stop Dose Admin Acetaminophen 650 mg 07/01/20 19:39 Tylenol PO Q6H PRN Mild/Mod Pain Or Temp >/= 101 Apixaban 5 mg 07/04/20 18:00 07/07/20 08:35 Eliquis PO 5 mg BID DAIANA Administration Ascorbic Acid 500 mg 07/05/20 09:00 07/07/20 08:35 Vitamin C PO 500 mg DAILY DAIANA Administration Aspirin 325 mg 07/05/20 09:00 07/07/20 08:35 Aspirin PO 325 mg DAILY DAIANA Administration Dextrose 25 ml 07/01/20 14:07 D50w IVP ONCE PRN hypoglycemia prot ocol Protocol Dextrose 50 ml 07/01/20 14:07 D50w IVP PRN PRN hypoglycemia prot ocol Protocol Dextrose 25 ml 07/01/20 20:25 D50w IVP ONCE PRN hypoglycemia prot ocol Protocol Dextrose 50 ml 07/01/20 20:25 D50w IVP PRN PRN hypoglycemia prot ocol Protocol Famotidine 20 mg 07/02/20 09:00 07/07/20 08:35 Pepcid Tab PO 20 mg BID DAIANA Administration Glucagon 1 mg 07/01/20 14:07 Glucagen IM ONCE PRN Adult Acute Hypog lycemia Prot Protocol Glucagon 1 mg 07/01/20 20:25 Glucagen IM ONCE PRN Adult Acute Hypog lycemia Prot. Protocol Dextrose 500 mls @ 100 mls /hr 07/01/20 14:07 D5w IV ONCE PRN Adult Acute Hypog lycemia Prot Protocol Sodium Chloride 1,000 mls @ 50 ml s/hr 07/04/20 15:30 07/06/20 20:42 Sodium Chloride 0.9% IV 75 mls/hr .Q20H DAIANA Administration Imipenem/Cilastati n Sodium 250 100 mls @ 200 mls /hr 07/07/20 12:00 07/07/20 11:22 mg/ Sodium Chlor natalia IV 200 mls/hr Q6H DAIANA Administration Protocol Insulin Aspart 0 unit 07/01/20 21:00 07/07/20 11:22 Novolog SUBCUT 8 unit WM&BEDTIME DAIANA Administration Protocol Metoprolol Tartrat e 25 mg 07/03/20 18:00 07/07/20 08:35 Lopressor PO 25 mg BID DAIANA Administration Morphine Sulfate 2 mg 07/01/20 20:25 Morphine IVP Q4H PRN SEVERE PAIN Ondansetron HCl 4 mg 07/01/20 19:39 Zofran IVP Q8H PRN vomiting, or N/V if npo Tamsulosin HCl 0.4 mg 07/06/20 09:00 07/07/20 08:35 Flomax PO 0.4 mg DAILY DAIANA Administration Zinc Gluconate 50 mg 07/05/20 09:00 07/07/20 08:35 Zinc Gluconate PO 50 mg DAILY DAIANA Administration Penicillins Allergy (Intermediate, Verified 07/01/20 12:42) ALGY-Anaphylaxis PFSH Anesthesia PFSH: Medical History (Updated 07/08/20 @ 19:04 by Ranjan King MD) Atrial fibrillation COVID-19 Diabetes mellitus HFrEF (heart failure with reduced ejection fraction) Medical non-compliance Peripheral arterial disease Surgical History S/P ablation of atrial fibrillation Data Anesthesia CBC & Chem 7: 07/10/20 02:30 07/10/20 02:30 Other Labs: Laboratory Results - last 48 hr 07/08/20 07/08/20 07/08/20 12:02 16:09 16:40 WBC RBC Hgb Hct MCV MCH MCHC RDW Plt Count MPV Neut % (Auto) Lymph % (Auto) [place] % (Auto) Eos % (Auto) Baso % (Auto) Neut # (Auto) Lymph # (Auto) [place] # (Auto) Eos # (Auto) Baso # (Auto) Nucleated RBC % (auto) Nucleated RBCs # Fibrinogen D-Dimer Sodium Potassium Chloride Carbon Dioxide Anion Gap BUN Creatinine GFR Calculation Glucose POC Glucose 112 247 Calculated Osmolality Calcium Ferritin Total Bilirubin AST ALT Alkaline Phosphatase Lactate Dehydrogenase Creatine Kinase C-Reactive Protein NT-Pro-B Natriuret Pep Total Protein Albumin Globulin Procalcitonin Fluid Color Pale yellow Fluid Appearance Cloudy Fluid WBC 6712 Fluid RBC 5.000 Fld Polynuclear WBCs # 5.706 Fld Polynuclear WBCs % 85.000 Fl Mononucl WBCs #(Auto) 1.006 Fl Mononuclear % Auto 15.000 Pleural pH 8.00 H Pleural Total Protein 1.7 Pleural LDH 177 Pleural Glucose 178.0 07/08/20 07/09/20 07/09/20 21:12 03:33 03:33 WBC 21.9 H RBC 3.49 L Hgb 10.1 L Hct 31.1 L MCV 89.1 MCH 28.9 MCHC 32.5 RDW 14.6 Plt Count 227 MPV 10.8 H Neut % (Auto) 91.6 Lymph % (Auto) 4.6 [place] % (Auto) 2.8 Eos % (Auto) 0.0 Baso % (Auto) 0.2 Neut # (Auto) 20.06 H Lymph # (Auto) 1.0 [place] # (Auto) 0.6 Eos # (Auto) 0.0 Baso # (Auto) 0.0 Nucleated RBC % (auto) 0 Nucleated RBCs # 0.0 Fibrinogen D-Dimer Sodium 134 L Potassium 4.1 Chloride 104 Carbon Dioxide 18 L Anion Gap 16.1 BUN 54 H Creatinine 1.8 H GFR Calculation 38.9 L Glucose 272 H POC Glucose 296 Calculated Osmolality 302 H Calcium 6.9 L Ferritin Total Bilirubin 0.3 AST 87 H ALT 63 H Alkaline Phosphatase 297 H Lactate Dehydrogenase Creatine Kinase C-Reactive Protein NT-Pro-B Natriuret Pep Total Protein 5.9 L Albumin 1.6 L Globulin 4.3 Procalcitonin Fluid Color Fluid Appearance Fluid WBC Fluid RBC Fld Polynuclear WBCs # Fld Polynuclear WBCs % Fl Mononucl WBCs #(Auto) Fl Mononuclear % Auto Pleural pH Pleural Total Protein Pleural LDH Pleural Glucose 07/09/20 07/09/20 07/09/20 03:33 03:33 07:43 WBC RBC Hgb Hct MCV MCH MCHC RDW Plt Count MPV Neut % (Auto) Lymph % (Auto) [place] % (Auto) Eos % (Auto) Baso % (Auto) Neut # (Auto) Lymph # (Auto) [place] # (Auto) Eos # (Auto) Baso # (Auto) Nucleated RBC % (auto) Nucleated RBCs # Fibrinogen 445 D-Dimer 3.67 H Sodium Potassium Chloride Carbon Dioxide Anion Gap BUN Creatinine GFR Calculation Glucose POC Glucose 330 Calculated Osmolality Calcium Ferritin 1053 H Total Bilirubin AST ALT Alkaline Phosphatase Lactate Dehydrogenase 190 Creatine Kinase 13 L C-Reactive Protein 112.1 H NT-Pro-B Natriuret Pep 83320 H Total Protein Albumin Globulin Procalcitonin Fluid Color Fluid Appearance Fluid WBC Fluid RBC Fld Polynuclear WBCs # Fld Polynuclear WBCs % Fl Mononucl WBCs #(Auto) Fl Mononuclear % Auto Pleural pH Pleural Total Protein Pleural LDH Pleural Glucose 07/09/20 07/09/20 07/09/20 11:29 16:56 20:44 WBC RBC Hgb Hct MCV MCH MCHC RDW Plt Count MPV Neut % (Auto) Lymph % (Auto) [place] % (Auto) Eos % (Auto) Baso % (Auto) Neut # (Auto) Lymph # (Auto) [place] # (Auto) Eos # (Auto) Baso # (Auto) Nucleated RBC % (auto) Nucleated RBCs # Fibrinogen D-Dimer Sodium Potassium Chloride Carbon Dioxide Anion Gap BUN Creatinine GFR Calculation Glucose POC Glucose 349 399 276 Calculated Osmolality Calcium Ferritin Total Bilirubin AST ALT Alkaline Phosphatase Lactate Dehydrogenase Creatine Kinase C-Reactive Protein NT-Pro-B Natriuret Pep Total Protein Albumin Globulin Procalcitonin Fluid Color Fluid Appearance Fluid WBC Fluid RBC Fld Polynuclear WBCs # Fld Polynuclear WBCs % Fl Mononucl WBCs #(Auto) Fl Mononuclear % Auto Pleural pH Pleural Total Protein Pleural LDH Pleural Glucose 07/10/20 07/10/20 07/10/20 02:30 02:30 02:30 WBC 24.1 H RBC 3.67 L Hgb 10.5 L Hct 32.8 L MCV 89.4 MCH 28.6 MCHC 32.0 RDW 14.7 Plt Count 277 MPV 11.3 H Neut % (Auto) 88.3 Lymph % (Auto) 6.8 [place] % (Auto) 3.8 Eos % (Auto) 0.3 Baso % (Auto) 0.2 Neut # (Auto) 21.26 H Lymph # (Auto) 1.6 [place] # (Auto) 0.9 Eos # (Auto) 0.1 Baso # (Auto) 0.1 Nucleated RBC % (auto) 0 Nucleated RBCs # 0.0 Fibrinogen 431 D-Dimer Sodium Potassium Chloride Carbon Dioxide Anion Gap BUN Creatinine GFR Calculation Glucose POC Glucose Calculated Osmolality Calcium Ferritin 930 H Total Bilirubin AST ALT Alkaline Phosphatase Lactate Dehydrogenase 272 H Creatine Kinase 21 L C-Reactive Protein 67.2 H NT-Pro-B Natriuret Pep 6100 H Total Protein Albumin Globulin Procalcitonin 6.67 H Fluid Color Fluid Appearance Fluid WBC Fluid RBC Fld Polynuclear WBCs # Fld Polynuclear WBCs % Fl Mononucl WBCs #(Auto) Fl Mononuclear % Auto Pleural pH Pleural Total Protein Pleural LDH Pleural Glucose 07/10/20 07/10/20 07/10/20 02:30 07:09 11:51 WBC RBC Hgb Hct MCV MCH MCHC RDW Plt Count MPV Neut % (Auto) Lymph % (Auto) [place] % (Auto) Eos % (Auto) Baso % (Auto) Neut # (Auto) Lymph # (Auto) [place] # (Auto) Eos # (Auto) Baso # (Auto) Nucleated RBC % (auto) Nucleated RBCs # Fibrinogen D-Dimer Sodium 133 L Potassium 4.4 Chloride 102 Carbon Dioxide 20 L Anion Gap 15.4 BUN 53 H Creatinine 1.8 H GFR Calculation 38.9 L Glucose 248 H POC Glucose 293 310 Calculated Osmolality 299 H Calcium 6.8 L Ferritin Total Bilirubin 0.2 AST 46 H ALT 55 H Alkaline Phosphatase 278 H Lactate Dehydrogenase Creatine Kinase C-Reactive Protein NT-Pro-B Natriuret Pep Total Protein 6.0 L Albumin 1.6 L Globulin 4.4 Procalcitonin Fluid Color Fluid Appearance Fluid WBC Fluid RBC Fld Polynuclear WBCs # Fld Polynuclear WBCs % Fl Mononucl WBCs #(Auto) Fl Mononuclear % Auto Pleural pH Pleural Total Protein Pleural LDH Pleural Glucose Micro: Microbiology 07/08/20 16:40 Gram Stain - Final Pleural Fluid Body Fluid Culture - Preliminary Staphylococcus aureus 07/05/20 06:50 Blood Culture - Final Blood NO GROWTH AFTER 5 DAYS 07/04/20 20:23 Blood Culture - Final Blood NO GROWTH AFTER 5 DAYS 07/09/20 14:07 Blood Culture - Preliminary Blood SPECIMEN COLLECTED 07/09/20 14:07 Blood Culture - Preliminary Blood SPECIMEN COLLECTED Cardiac Studies: No Data to Display
[2020-07-10] MEDS: lidocaine 1% INJ 20 mL INJECTION (13:05)
--- NOTE | 2020-07-10 13:21 | P.OP_ITS ---
Operative Report Date of procedure: July 10, 2020 Pre-op Diagnosis: Left diabetic foot ulcer with osteomyelitis. Post-op diagnosis: same Post-op Findings: Devitalized soft tissue and bone left foot Procedure Done: Incision and debridement left foot with first metatarsectomy and wound VAC application. CPT code 70011 and 20848 Implants: Granulafoam wound VAC dressing Specimens removed/disposition: Left first metatarsal Pathology: Left first metatarsal sent to pathology for review. Surgeon: Jeff Fung D.P.M. Instructional Paraprofessional: Chele Anesthesia: MAC Estimated blood loss: 40 mL Tourniquet time: See intraoperative document IV fluids: None Urine output: None Complications: None Findings: Ischemic appearing and devitalized soft tissue margins of left foot wound and devitalized first metatarsal. Condition: stable Disposition: ICU Brief History: Mr. Hathaway is a uncontrolled diabetic male with history of wet gangrene left foot, sepsis and Covid, medical noncompliance not taking medications or following up with primary care. He is status post left hallux matrixectomy and sesamoidectomy due to wet gangrene. Skin margins from initial incision and debridement demonstrated dusky ischemic appearance at the inferior aspect and distally as well as color and density changes to the head of the first metatarsal left foot. Recommended incision and debridement of nonviable muscle tendon and bone of the left foot with wound VAC application. Risks include pain, bleeding, numbness, infection, need for higher levels of amputation such as below-knee amputation, IV and oral antibiotic therapies. Procedure: Patient was brought to the operating room and placed on the operating table in supine position. A timeout was performed. Anesthesia was then administered by anesthesia service. Local anesthesia injected by myself consisting of 20 cc of one-to-one mixture 1% lidocaine and 0.5% Marcaine plain and a left ankle block fashion. Well-padded pneumatic tourniquet applied to the left high calf. Left lower extremity was scrubbed, prepped and draped utilizing normal aseptic technique. Attention was directed to the left foot medially where previous wound was appreciated, the distal, proximal and inferior margins of the wound were dusky with alejandro and ischemic appearance. Skin margin was excised to healthy bleeding edges utilizing a 10 blade and pickups and passed from the operative field. Attention was directed to the first metatarsal head which was devitalized it was yellow and centrally was light alejandro with decreased density. Due to left first metatarsal being devitalized as well as protruding into the wound determination was made to excise the first metatarsal to eradicate infection as well as promote healing without having to cover bone that was infected. First metatarsal sent to pathology for review. Extensor and flexor tendons were evaluated, no purulence within the tendon sheaths appreciated both extensor houses longus and flexor houses longus as well as flexor digitorum longus tendons, within the wound confines the tendinous structures were firmly held in traction and cut at the most proximal margin and allowed to retract. Digits appeared healthy at their levels of resection. There was no sepideh purulence encountered throughout the procedure. Incision site was irrigated with copious amounts of sterile saline solution. Wound measures 8 cm x 7 cm x 2.5 cm. Wound was dressed utilizing a wound VAC dressing with granular foam and set at negative pressure 125 mmHg this will be monitored and decreased as necessary. Tourniquet was deflated and a prompt hyperemic response was noted to the remaining distal digits of the left foot. Patient tolerated the procedure well and was transferred back to the Covid unit with vital signs stable and vascular status intact. Also of note pulmonology was present during the case for placement of chest tubes as well as PICC line team for PICC line placement.
--- NOTE | 2020-07-10 13:36 | XR_ITS ---
WS: [id number] Portable AP upright chest, 07/10/2020 Clinical Data: chest tube placement-bilateral, picc line placement Comparison: Portable chest, 07/08/2020. Findings: The right PICC line has been inserted and ends in the superior vena cava. No pneumothorax i s seen. There are small bibasilar chest tubes which have drained the bilateral pleural effusions. The re are still patchy opacities in the right lower lobe and left upper lobe. The heart size remains the same. Monitor leads are on the chest wall. XR/XR chest 1V portable [id number] Impression: 1. Satisfactory placement of right PICC line. 2. Placement of bilateral basilar chest tubes reducing the bilateral effusions. 3. No change in cardiomegaly. 4. Patchy opacities in right lower lobe and left upper lobe which may indicate acute pneumonia.
--- NOTE | 2020-07-10 13:43 | P.PN_ITS ---
Subjective Subjective: Interval history: No acute events overnight. Patient continues to do well on room air. Today morning patient underwent debridement with Dr. Fung. Pleural fluid came back positive for Staphylococcus for which patient underwent bilateral chest tube placement with Dr. King. Patient seen postoperatively complaining of pain. Denies any nausea, vomiting, headache. Has remained hemodynamically stable. Afebrile last 24 hours. Vitals/I&O/Wt Last Vital Signs Temp 97.6 F 07/10/20 04:00 Pulse 84 07/10/20 08:01 Resp 12 07/10/20 09:23 BP 111/70 07/10/20 04:00 Pulse Ox 97 07/10/20 07:59 07/09/20 07/10/20 07/10/20 22:59 06:59 14:59 Intake Total 2069.4 / 2669.4 114 / 2783.4 100 / 100 Output Total 1150 / 1350 950 / 2300 Balance 919.4 / 1319.4 -836 / 483.4 100 / 100 Weight last 48 hrs Weight 87.044 kg Weight 95.073 kg Physical Exam Narrative: EXAM NARRATIVE: General : No distress, chronically ill appearing HEENT : Grossly unremarkable CVS : S1-S2 irregularly irregular, pansystolic murmur at the apex Chest: Normal vesicular breath sounds, crackles present in middle to lower zone, decreased air entry bilaterally in lower zones. Abdomen: Soft, nontender, no organomegaly, bowel sounds present Ext -surgically bandaged, no cellulitis in calf Urinary Catheter Management^: Alfonso: Cath Placed During This Visit: yes, but has since been removed by the nurse Reason for Continuing Indwelling Catheter: Accurate Measurement of Urinary Output in Critically Ill Patients Urinary Catheter Date of Insertion: 07/03/20 Urinary Catheter Time of Insertion: 00:45 Date Urinary Catheter Removed: 07/07/20 Time Urinary Catheter Discontinued: 04:54 Alfonso Latex: Cath Placed During This Visit: no Reason for Continuing Indwelling Catheter: Accurate Measurement of Urinary Output in Critically Ill Patients Data : 07/10/20 02:30 07/10/20 02:30 Micro: Microbiology 07/08/20 16:40 Gram Stain - Final Pleural Fluid Body Fluid Culture - Preliminary Staphylococcus aureus 07/05/20 06:50 Blood Culture - Final Blood NO GROWTH AFTER 5 DAYS 07/04/20 20:23 Blood Culture - Final Blood NO GROWTH AFTER 5 DAYS 07/09/20 14:07 Blood Culture - Preliminary Blood SPECIMEN COLLECTED 07/09/20 14:07 Blood Culture - Preliminary Blood SPECIMEN COLLECTED A&P Assessment and plan (1) Hypoxia: Status: Acute (2) Sepsis: Status: Resolved Qualifiers: Sepsis acute organ dysfunction status: unspecified Sepsis type: sepsis due to unspecified organism Qualified Code(s): A41.9 - Sepsis, unspecified organism (3) Empyema: Status: Acute (4) Staphylococcus aureus bacteremia: -as noted above Status: Acute (5) Diabetic wet gangrene of the foot: Status: Acute (6) Diabetic peripheral neuropathy associated with type 2 diabetes mellitus: Status: Chronic (7) Atrial fibrillation with rapid ventricular response: Status: Resolved (8) HFrEF (heart failure with reduced ejection fraction): Status: Chronic (9) Peripheral arterial disease: Status: Chronic (10) COVID-19: Status: Acute (11) Medical non-compliance: Status: Acute Additional A&P Information Hypoxia: Most likely secondary to exacerbation of diastolic and systolic isaac estive heart failure. Less likely secondary to COVID-19. Echocardiogram shows an EF of 30 to 35% with diastolic dysfunction with mild to moderate MR, moderate AI. Post thoracentesis on 07/[address] King. Fluid studies consistent with transudative most likely secondary to congestive heart failure. Pleural fluid growing Staphylococcus. Empyema: Case discussed with Dr. King. Patient will undergo chest tube placement bilaterally. Patient is still around 10 L positive since admission. Though fluid balance is better now. Continue with Lasix 60 mg IV twice daily. Fluid restriction up to 1500 cc. Strict input output charting. Daily weights. Wean oxygenation keeping saturation over 90%. Atrial fibrillation with rapid ventricular response: Converted to sinus rhythm overnight. Continue with amiodarone 200 mg twice daily for next 7 days followed by 200 mg daily. Continue metoprolol 25 mg twice daily. Continue with Eliquis 5 mg twice daily. MSSA staphylococcal and enterococcal bacteremia: Blood cultures positive from admission. Blood cultures since then has remained negative. Sepsis due to diabetic wet gangrene: Post amputation of the toe. Post debridement with Dr. Fung on 07/03 and 07/[address] Fung and Dr. Vargas input. We will switch the antibiotics as per the recommendations from ID to cefazolin 2 g IV every 8 hour, levofloxacin 750 mg daily to cover both for MSSA and Enterobacter. Patient can most likely be discharged on ertapenem as per ID and then stable enough to be discharged. As per ID plan would be to continue the same antibiotics for now. Wound cultures growing staph MSSA and Enterobacter. Dressing as per Dr. Fung. Patient will require wound VAC. MRSA swab negative. Patient will most likely require PICC line. Repeat blood cultures have remained negative. We will go ahead with PICC line as patient will require 6 weeks of IV antibiotics. BARBER: Multifactorial. Most likely secondary to cardiorenal syndrome and severe sepsis. Baseline creatinine normal. Creatinine has remained high stable and is trending down from 2.6. Diuresis as above. Medical reconciliation done for nephrotoxic drugs. Controlled Alfonso catheterization for strict input output charting. COVID-19: Rapid antigen positive. Continue to hold off on dexamethasone and remdesivir. We will continue to monitor. Patient is already on anticoagulation with Eliquis as above. Advair and Spiriva Vitamin C, zinc. Continue to monitor. Isolation precautions. Peripheral arterial disease: CTA aorta runoff appreciated. Case discussed with Dr. Diaz from cardiology. No plan for revascularization as an inpatient for now as patient has small vessel disease and has collaterals. Eliquis as above. Lipid panel results appreciated. Continue aspirin 81 mg oral daily. Type 2 diabetes mellitus: On admission was in DKA. Noncompliance. HbA1c 13. Insulin sliding scale at moderate dose. Anemia: On admission 13. A 10.6 and has been stable. Continue with oral iron supplementation. Suspected BPH Renal nondialysis carb consistent diet. Eliquis will help with DVT prophylaxis. Full code. Discharge planning: We will continue ICU monitoring for now. On discharge patient will require wound VAC, IV antibiotics for 6 weeks most likely ertapenem on discharge. Currently patient has bilateral chest tubes, wound VAC. Will consult care coordination. Most likely patient will require placement at swing bed. Attestations 2 Medical Necessity Statement*: Patient requires further hospitalization for management of empyema, MSSA bacteremia, wet gangrene, COVID-19, stable BARBER, diastolic and systolic congestive heart failure. 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
[2020-07-10 13:49] LABS: D Dimer 3.85 ug/mIFEU (0-0.59)
--- NOTE | 2020-07-10 14:14 | PM.PACU ---
PACU note Post-Anesthesia Exam: awake and vital signs stable Disposition: admitted and back to floor
--- NOTE | 2020-07-10 14:21 | P.OP_ITS ---
Operative Report Date of procedure: July 10, 2020 Pre-op Diagnosis: Empyema of the right side Post-op diagnosis: same Brief History: This is a 59-year-old gentleman with heart failure with reduced ejection fraction who presented to the hospital with osteomyelitis and had staph aureus bacteremia. I had performed right-sided thoracentesis which grew staph aureus. The patient was undergoing surgical intervention for his osteomyelitis. The plan was for me to perform bilateral chest tube placement in the setting of worsening leukocytosis. Procedure: Name of the procedure: Right-sided chest tube placement under ultrasound guidance. Medications: Lidocaine 1% 10 mL. Consent: Obtained from the patient. Description of the procedure: An ultrasound was performed and a moderate to lar ge right-sided pleural effusion was identified. The plankton sign was positive. A safe fluid pocket was identified with the ultrasound guidance and marked. The skin, subcutaneous tissue and the pleura was anesthetized with 1% lidocaine. Needle was advanced till flash back was noted. Cloudy straw-colored fluid was noted. Using Seldinger technique the right-sided chest tube was put in. The chest tube was secured with suture and transparent dressing. 1200 mL of cloudy serosanguineous fluid drained immediately. Complications: None. Chest x-ray: The chest x-ray revealed optimal position of the chest tube.
--- NOTE | 2020-07-10 14:24 | P.OP_ITS ---
Operative Report Date of procedure: July 10, 2020 Pre-op Diagnosis: Suspected empyema of the left side Post-op diagnosis: same Procedure: Name of the procedure: Left-sided chest tube placement under ultrasound guidance. Medications: Lidocaine 1% 10 mL. Consent: Obtained from the patient Description of the procedure: An ultrasound was performed and a moderate left- sided pleural effusion was identified. A safe fluid pocket was identified with the ultrasound guidance and marked. The skin, subcutaneous tissue and the pleura was anesthetized with 1% lidocaine. Needle was advanced till flash back was noted. Cloudy straw-colored fluid was noted. Using Seldinger technique the right-sided chest tube was put in. The chest tube was secured with suture and transparent dressing. 600 mL of cloudy straw-colored fluid was obtained immediately. Complications: None. Chest x-ray: The chest tube is in optimal position.
--- NOTE | 2020-07-10 14:56 | P.PN_ITS ---
Subjective Subjective: Interval history: The patient was seen and examined in the OR today. The patient's initial pleural fluid study on the right sided pleural effusion post thoracentesis revealed exudative pleural effusion with neutrophilic predominance. The patient had 85% neutrophils. The pleural fluid culture came back positive for staph aureus. The patient had been doing well. His blood pressure is stable he is saturating well on ambient air. However, he has developed leukocytosis. I have discussed these findings with the patient and we have decided to progress with bilateral c hest tube placement for empyema. Medications: Reviewed: Yes Vitals/I&O/Wt Last Vital Signs Temp 97.8 F 07/10/20 12:00 Pulse 78 07/10/20 11:00 Resp 13 07/10/20 11:00 BP 136/81 07/10/20 13:00 Pulse Ox 96 07/10/20 11:00 07/09/20 07/10/20 07/10/20 22:59 06:59 14:59 Intake Total 2069.4 / 2669.4 114 / 2783.4 100 / 100 Output Total 1150 / 1350 950 / 2300 Balance 919.4 / 1319.4 -836 / 483.4 100 / 100 Weight last 48 hrs Weight 191 lb 14.4 oz Weight 209 lb 9.6 oz Physical Exam Narrative: EXAM NARRATIVE: General: Patient is awake alert and oriented, in no distress Neck: Minimal jugular venous distention Respiratory: Auscultation: Reduced breath sound bilaterally in the posterior lung bases Cardiovascular: Variable first heart sound, systolic murmur in the apex, improved bilateral peripheral edema Abdomen: Soft, nontender, mildly distended, positive bowel sound Musculoskeletal: The left big toe has been removed Neuro: No gross cranial or motor deficit Urinary Catheter Management^: Alfonso: Cath Placed During This Visit: yes, but has since been removed by the nurse Reason for Continuing Indwelling Catheter: Accurate Measurement of Urinary Output in Critically Ill Patients Urinary Catheter Date of Insertion: 07/03/20 Urinary Catheter Time of Insertion: 00:45 Date Urinary Catheter Removed: 07/07/20 Time Urinary Catheter Discontinued: 04:54 Alfonso Latex: Cath Placed During This Visit: no Reason for Continuing Indwelling Catheter: Accurate Measurement of Urinary Output in Critically Ill Patients Data : 07/10/20 02:30 07/10/20 02:30 Micro: Microbiology 07/09/20 14:07 Blood Culture - Preliminary Blood NEGATIVE TO DATE 07/09/20 14:07 Blood Culture - Preliminary Blood NEGATIVE TO DATE 07/08/20 16:40 Gram Stain - Final Pleural Fluid Body Fluid Culture - Preliminary Staphylococcus aureus 07/05/20 06:50 Blood Culture - Final Blood NO GROWTH AFTER 5 DAYS 07/04/20 20:23 Blood Culture - Final Blood NO GROWTH AFTER 5 DAYS Attestation for Other Data: I personally reviewed and interpreted the following: Other data: I have reviewed the patient laboratory, microbiologic and radiologic data. The latest blood cultures from the , have remained negative. A&P Assessment and plan (1) Empyema: The patient had right-sided thoracentesis and the pleural fluid cultures positive for staph. This is likely secondary to seeding of the pleural space from bacteremia. At this point I am going to assume that the patient also has empyema of the left side. I am going to perform bilateral chest tube placement. The patient did not have any recent blood culture positive. I am hoping once the fluid is drained completely and the fluid accumulation is less, I will be able to take the chest tubes out. I expect that the chest tubes will likely come off in 48 to 72 hours. Status: Acute (2) Acute respiratory failure with hypoxia: The patient is doing well with diuresis. Overall much more comfortable and not requiring oxygen. Status: Acute (3) COVID-19: The patient has completed remdesivir and received dexamethasone for a few days. I do not believe he has any evidence of COVID-19 pneumonia. Status: Acute (4) HFrEF (heart failure with reduced ejection fraction): The patient likely has cardiorenal syndrome and will improve with diuretics which the patient is already receiving. Status: Chronic (5) Staphylococcus aureus bacteremia: The patient clearly had sitting of the pleural fluid on the right side with Staphylococcus bacteremia. At this point I am considering that the process was systemic and the left-sided foot is also infected. Status: Acute Attestations Medical Necessity Statement*: Will defer to the primary team Coding Level of Care Code Acute Aerotriangulation Specialist for [facility] Fwd Diagnoses Empyema J86.9 Acute respiratory failure with hypoxia J96.01 COVID-19 U07.1 HFrEF (heart failure with reduced ejection fraction) I50.20 Staphylococcus aureus bacteremia R78.81; B95.61
[2020-07-10 14:58] LABS: Glucose Point of Care 279 mg/dL (70-110)
[2020-07-10] MEDS: apixaban 5 mg Tablet PO (15:23)
[2020-07-10] MEDS: acetaminophen 325 mg Tablet 650 MG PO (15:40)
[2020-07-10] MEDS: HYDROmorphone 1 mg/mL INJ 1 mL IVP (15:41)
--- NOTE | 2020-07-10 19:40 | PC.NURSE ---
ON RETURN FROM [place] PATIENT HAD A NEW PICC, BILATERAL CHEST TUBES WITH HIGH OUTPUT, AND A WOUND VAC ON HIS LEFT FOOT. HIS PAIN WAS UNCONTROLLED WITH MORPHINE DOSE AND DILAUDID WAS GIVEN WITH GOOD EFFECT. NOTED LEFT CHEST TUBE LEAKING BLOOD AT INSERTION POINT. AREA CLEANED, GAUZE PACKED AROUND THE SITE AND HEAVY TAPE APPLIED. NOTED THAT FROM SHORTLY AFTER [facility] TO [facility] HIS WOUND VAC WAS ALARMING BLOCKAGE. TROUBLE SHOOTING WITH MILKING OF THE TUBING , RESETING AND LOWING THE PUMP DID NOT HELP. UNABLE TO GET A CANNISTER I COULD NOT TRY JUST EXCHANGING THAT BUT NOTED SMALL BLOOD LEAK UNDER DRESSING WAS APPARENT AND ATTEMPTED TO REPLACE THE [place] DRESSING BUT THE BLEEDING MADE IT TOO DIFFICULT TO GET A GOOD SEAL. DR OLIVEIRA AWARE AND CAME AT 1800 FOR A DRESSING CHANGE. CANNISTER WAS RECIEVED. PATIENT TOLERATED WELL. TWO ROLLS OF KERLIX, 4 PACKS OF GAUZE , AND A SET OF STERILE TOWLS USED.
[2020-07-10 20:19] LABS: Glucose Point of Care 94 mg/dL (70-110)
[2020-07-10] MEDS: sodium chloride 0.9% 1,000 ML 999 ML IV (20:52)
--- NOTE | 2020-07-10 23:12 | XR_ITS ---
WS: [id number] Portable AP upright chest, 07/10/2020, 2333 hours. Clinical Data: chest tube placement Comparison: Portable chest, 07/10/2020, 1340 hours Findings: There is a 20% left superior and lateral pneumothorax. There is a left chest tube which marquis s overlie the left pneumothorax. There is a small right chest tube with its tip now ending in the rig ht mid lung. No right pneumothorax is seen. The right PICC line now advances to the level of the righ t atrium and perhaps into the inferior vena cava. Bilateral patchy opacities are still present. XR/XR chest 1V portable [id number] Impression: 1. Left apical and lateral pneumothorax. 2. Bilateral chest tubes are still present but have changed in position. 3. The right PICC line now ends at the level of the right atrium or perhaps he inferior vena cava. 4. No change in bilateral opacities.
[2020-07-11] VITALS (33 sets, daily range): BP systolic 77–121; BP diastolic 48–81; PULSE 70–119; RESP 2–28; TEMP 36.6–37.1; O2SAT 93–100
[2020-07-11 00:24] LABS: Alanine Aminotransferase 37 U/L (0-41); Albumin Level 1.6 g/dL (3.5-5.2); Alkaline Phosphatase 275 IU/L (40-130); Blood Urea Nitrogen 58 mg/dL (6-20); Calcium 7.2 mg/dL (8.5-10.5); Carbon Dioxide 22 mmol/L (22-29); Chloride 106 mmol/L (98-107); Globulin 3.7 g/dL (1.3-4.6); Glomerular Filtration Rate 41.6 mL/min (90-130); Glucose 138 mg/dL (65-115); Osmolality Calculated 300 mOsm/kg (285-295); Sodium 136 mmol/L (136-145); Total Bilirubin 0.2 mg/dL (0.15-1.2); Total Protein 5.3 g/dL (6.6-8.7)
[2020-07-11 00:29] LABS: Anion Gap 12.4 (5-19); Aspartate Amino Transferase 46 U/L (0-40); Potassium 4.4 mmol/L (3.5-5.1)
[2020-07-11 00:35] LABS: C Reactive Protein 55.6 mg/L (0.0-4.9); Creatine Phosphokinase 20 U/L (39-308); Ferritin 779 ng/mL (30-400); NT Pro B Type Natriuretic Pept 5628 pg/mL (0-125)
--- NOTE | 2020-07-11 00:37 | P.PN_ITS ---
Subjective Subjective: Interval history: I was informed earlier that the patient was having persistent wheezing around the left-sided chest tube with soaking up the gauze pieces and large clot. I evaluated the patient in the viral ICU. There was adherent clot to the chest tube and there was slow oozing from the chest tube insertion site. The blood appeared to be venous in origin. I had performed a pursestring suture around the bleeding site after anesthetizing the area with lidocaine and epinephrine. Post suture there was no significant bleeding. The dressing was changed using extremity. The patient tolerated the procedure well without any difficulty. His blood pressure was in the low 100s with a heart rate in the 60s to 70s. Good mental status. Repeat chest x-ray obtained prior to my arrival revealed improvement of bilateral pleural effusion there was no evidence of hemothorax. Chest tube output from both side were straw-colored and there was no evidence of blood. The CBC is pending. The patient had received 1 L fluid bolus earlier because of borderline hypotension. Given the patient's history of heart failure with reduced ejection fraction I would be careful about excessive volume administration. If necessary which I seriously doubt, the patient can be given pliant with diuresis in between. However, I believe once the morning dose of apixaban is held this p roblem will be solved. The patient received a dose of apixaban at 3 PM yesterday which likely precipitated ongoing bleeding. Vitals/I&O/Wt Last Vital Signs Temp 97.8 F 07/10/20 12:00 Pulse 70 07/10/20 22:00 Resp 6 L 07/10/20 22:00 BP 91/51 07/10/20 22:00 Pulse Ox 100 07/10/20 22:00 07/10/20 07/10/20 07/11/20 14:59 22:59 06:59 Intake Total 150 / 150 105 / 255 1000 / 1255 Output Total 5575 / 5575 3200 / 8775 Balance -5425 / -5425 -3095 / -8520 1000 / -7520 Weight last 48 hrs Weight 191 lb 14.4 oz Weight 209 lb 9.6 oz Physical Exam Urinary Catheter Management^: Alfonso: Cath Placed During This Visit: yes, but has since been removed by the nurse Reason for Continuing Indwelling Catheter: Accurate Measurement of Urinary Output in Critically Ill Patients Urinary Catheter Date of Insertion: 07/03/20 Urinary Catheter Time of Insertion: 00:45 Date Urinary Catheter Removed: 07/07/20 Time Urinary Catheter Discontinued: 04:54 Alfonso Latex: Cath Placed During This Visit: no Reason for Continuing Indwelling Catheter: Accurate Measurement of Urinary Outpu t in Critically Ill Patients Data : 07/10/20 02:30 07/11/20 00:01 Micro: Microbiology 07/08/20 16:40 Mycobacterial Smear - Preliminary Body Fluids - Pleura 07/09/20 14:07 Blood Culture - Preliminary Blood NEGATIVE TO DATE 07/09/20 14:07 Blood Culture - Preliminary Blood NEGATIVE TO DATE 07/08/20 16:40 Gram Stain - Final Pleural Fluid Body Fluid Culture - Preliminary Staphylococcus aureus 07/05/20 06:50 Blood Culture - Final Blood NO GROWTH AFTER 5 DAYS 07/04/20 20:23 Blood Culture - Final Blood NO GROWTH AFTER 5 DAYS Attestations Medical Necessity Statement*: Defer to the primary team Coding Level of Care Code Acute [employer] Net Developer for [facility]
[2020-07-11 00:46] LABS: Lactate Dehydrogenase 227 U/L (135-225)
[2020-07-11 00:48] LABS: Fibrinogen 358 mg/dL (174-498)
[2020-07-11 00:49] LABS: Basophils # 0.1 10^3/uL (0.0-0.1); Basophils % 0.3 %; Hematocrit 27.8 % (42.0-52.0); Hemoglobin 8.7 g/dL (11.7-16.6); Lymphocytes # 0.8 10^3/uL (0.8-4.8); Lymphocytes % 1.9 %; Mean Corpuscular HGB Conc 31.3 g/dL (30.0-36.0); Mean Corpuscular Hemoglobin 28.8 pg (28.0-34.0); Mean Corpuscular Volume 92.1 fL (80-94); Mean Platelet Volume 10.8 fL (7.4-10.4); Monocytes # 0.6 10^3/uL (0.2-0.9); Monocytes % 1.4 %; Neutrophils # 40.36 10^3/uL (1.8-7.7); Neutrophils % 94.1 %; Nucleated Red Blood Cells % 0 %; Platelet Count 213 10^3/cmm (130-400); Red Blood Count 3.02 10^6/uL (4.1-5.3); Red Cell Distribution Width 14.8 % (12.1-15.1)
[2020-07-11 00:51] LABS: D Dimer 2.63 ug/mIFEU (0-0.59)
[2020-07-11 00:54] LABS: White Blood Count 42.9 10^3/uL (4.0-10.0)
--- NOTE | 2020-07-11 01:23 | PC.PHAR ---
Vancomycin is resumed at 1500mg IVPB every 24 hours with a trough to be obtained before the fourth dose.
--- NOTE | 2020-07-11 02:15 | PC.NURSE ---
Addendum entered by Tiffanie Mclain RN 07/11/20 04:03: Stat XRay was ordered, not Stat CT Original Note: Upon arrival to VICU and receiving report, signee and another nurse Sheri Thomas RN went and assessed Patient. Upon assessment substantial amounts of bright red sepideh blood was draining from left side chest tube placement site, not into canister. Digital Account Supervisor and other nurse reinforced dressing to promote clotting of site. Digital Account Supervisor continued to monitor v/s and noticed BP was decreasing. At 2051 bp reached 87/51 with a map of 65, aligner typewriter called Dr. Calderon and received telephone orders verify read back for a 1 liter bolus of fluids, and to hold lasix order due at that time. After receiving fluids patients BP was 99/60. pipeline maintenance supervisor Isabel ELAM was in vicu at this time and aligner typewriter consulted with Isabel ELAM about patients condition and the bleeding at the site. Upon further assessment and taking reinforced dressing off, a clot was present around chest tube. Digital Account Supervisor and Isabel ELAM contacted Dr. King who placed the chest tube and presented with findings, hypotensive, continuing bleeding. Dr. King ordered at CT stat, CBC to check H&H levels, and stated he would be in to check on the patient. Dr. King arrived to unit and was bedside at approximately 2250 to assess dressing at patient. Dr. King numbed site with xylocaine and added sutures to left chest tube placement site and does not want suction hooked up to either chest tube chambers. Dr. King also gave verbal orders to hold dayshifts eliquis that is ordered for one shift. Dr. King re dressed left side chest tube insertion site at this time and gave orders to type and cross match and prepare to transfuse is H&H levels dropped below 7 and to maintain a MAP of 65 on blood pressures. At this time patient is resting in bed with eyes closed and no s/s of distress or pain. V/S are stable at this time.
[2020-07-11] MEDS: ondansetron 2 mg/ML SDV 2 mL 4 MG IVP ×2 (04:59→09:30)
[2020-07-11] MEDS: levoFLOXacin 750 mg Tablet PO (05:20)
--- NOTE | 2020-07-11 05:56 | PC.NURSE ---
Dressing change: Dressing changed to left chest tube insertion site again. Continues to have bloody drainage. Changed per sterile technique and added a sandbag to help clotting. Dr. King aware.
--- NOTE | 2020-07-11 07:59 | P.PN_ITS ---
Subjective Subjective: Interval history: Mr. Hathaway seen bedside this morning, he is talkative denies any pain to the left foot. I was called in last night for wound VAC dressing change due blockage in the wound VAC toes. Wound VAC has remained to suction and functioning overnight 30 cc of serosanguineous drainage in the canister. Patient is 1 day status post repeat debridement and left first metatarsectomy and wound VAC application. Vitals/I&O/Wt Last Vital Signs Temp 97.8 F 07/10/20 12:00 Pulse 81 07/11/20 06:00 Resp 13 07/11/20 06:00 BP 107/61 07/11/20 06:00 Pulse Ox 100 07/11/20 06:00 07/10/20 07/11/20 07/11/20 22:59 06:59 14:59 Intake Total 105 / 255 1110 / 1365 Output Total 3200 / 8775 1250 / 95795 Balance -3095 / -8520 -140 / -8660 Weight last 48 hrs Weight 195 lb 5 oz Weight 191 lb 14.4 oz Physical Exam Narrative: EXAM NARRATIVE: Patient is anxious, alert and oriented x3 VASCULAR: Dorsalis pedis and posterior tibial palpable. Capillary refill time less than 5 seconds distal lesser toes 2 through 5 left foot. Calf is supple and nontender proximally and distally. Diminished pedal hair growth bila terally. NEUROLOGICAL: Protective sensation intact 0/10 sites, tested with [place] Thomas monofilament to bilateral feet. DERMATOLOGICAL: Wound VAC dressing is intact and to suction 30 cc of serosan guineous drainage in the canister. Improved erythema to left lower extremity, no warmth. MUSCULOSKELETAL: No pain with posterior calf squeeze bilaterally. Muscle strength 5 out of 5 in all 3 cardinal planes to bilateral foot and ankle. Urinary Catheter Management^: Alfonso: Cath Placed During This Visit: yes, but has since been removed by the nurse Reason for Continuing Indwelling Catheter: Accurate Measurement of Urinary Output in Critically Ill Patients Urinary Catheter Date of Insertion: 07/03/20 Urinary Catheter Time of Insertion: 00:45 Date Urinary Catheter Removed: 07/07/20 Time Urinary Catheter Discontinued: 04:54 Alfonso Latex: Cath Placed During This Visit: no Reason for Continuing Indwelling Catheter: Accurate Measurement of Urinary Output in Critically Ill Patients Data : 07/11/20 00:01 07/11/20 00:01 Micro: Microbiology 07/08/20 16:40 Mycobacterial Smear - Preliminary Body Fluids - Pleura 07/09/20 14:07 Blood Culture - Preliminary Blood NEGATIVE TO DATE 07/09/20 14:07 Blood Culture - Preliminary Blood NEGATIVE TO DATE 07/08/20 16:40 Gram Stain - Final Pleural Fluid Body Fluid Culture - Preliminary Staphylococcus aureus 07/05/20 06:50 Blood Culture - Final Blood NO GROWTH AFTER 5 DAYS A&P Assessment and plan (1) Diabetic peripheral neuropathy associated with type 2 diabetes mellitus: Status: Chronic (2) Diabetic wet gangrene of the foot: Status: Acute (3) Sepsis: Status: Resolved Qualifiers: Sepsis type: sepsis due to unspecified organism Sepsis acute organ dysfunction status: unspecified Qualified Code(s): A41.9 - Sepsis, unspecified organism Mr. 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 He is status post left metatarsectomy, debridement and wound VAC application date of operation 07/10/2020. Significant improvement clinically to the left lower extremity. Repeat debridement yesterday did not yield any purulent drainage, clinically his left foot wound appears healthy with some healing potential, will continue wound VAC, patient will need wound VAC on discharge will have to arrange this with social work and [facility] financial assistance program. No further surgica l debridement or intervention to the left lower extremity anticipated during this hospitalization. Patient still has significant leukocytosis, I do not believe that the left foot is the source of infection at this time. Podiatry will continue to follow. Attestations Medical Necessity Statement*: Diabetic foot infection with wet gangrene. Coding Level of Care Code Acute Meter Changes Records Clerk for [facility] Fwd Diagnoses Diabetic peripheral neuropathy associated with type 2 diabetes mellitus E11.42 Diabetic wet gangrene of the foot E11.52 Sepsis A41.9 Sepsis type: sepsis due to unspecified organism Sepsis acute organ dysfunction status: unspecified
[2020-07-11 08:18] LABS: Glucose Point of Care 238 mg/dL (70-110)
--- NOTE | 2020-07-11 08:20 | XR_ITS ---
WS: [id number] Left foot, 3 views, 07/11/2020 Clinical Data: post op Comparison: Left foot, 07/08/2020.. Findings: The left first metatarsal has been resected. There is a drain in the operative site. The remainder of the left foot shows no change. XR/XR foot LT min 3V* [id number] Impression: Resection of left first metatarsal.
[2020-07-11 09:19] LABS: Hematocrit 27.7 % (42.0-52.0); Hemoglobin 8.6 g/dL (11.7-16.6)
[2020-07-11] MEDS: ferrous gluconate 324 mg Tablet PO ×2 (09:25→14:11)
[2020-07-11] MEDS: FUROsemide 10 mg/mL SDV 4mL 60 MG IVP ×2 (09:25→21:07)
[2020-07-11] MEDS: ascorbic acid 500 mg Tablet PO (09:26)
[2020-07-11] MEDS: amiodarone 200 mg Tablet PO ×2 (09:26→15:58)
[2020-07-11] MEDS: aspirin 81 mg Chew Tablet PO (09:26)
[2020-07-11] MEDS: metoprolol tartrate 25 mg Tablet PO ×2 (09:26→14:10)
[2020-07-11] MEDS: famotidine 20 mg Tablet PO ×2 (09:26→14:09)
[2020-07-11] MEDS: tamsulosin 0.4 mg Capsule PO (09:27)
[2020-07-11] MEDS: zinc gluconate 50 mg Tablet PO (09:27)
[2020-07-11] MEDS: acetaminophen 325 mg Tablet 650 MG PO (09:29)
[2020-07-11] MEDS: HYDROmorphone 1 mg/mL INJ 1 mL IVP (09:29)
[2020-07-11 13:28] LABS: Glucose Point of Care 185 mg/dL (70-110)
[2020-07-11 13:45] LABS: Basophils # 0.1 10^3/uL (0.0-0.1); Basophils % 0.3 %; Hematocrit 25.8 % (42.0-52.0); Lymphocytes # 1.3 10^3/uL (0.8-4.8); Lymphocytes % 3.4 %; Mean Corpuscular Volume 93.5 fL (80-94); Mean Platelet Volume 11.5 fL (7.4-10.4); Monocytes # 0.7 10^3/uL (0.2-0.9); Monocytes % 1.8 %; Neutrophils # 36.12 10^3/uL (1.8-7.7); Neutrophils % 92.7 %; Nucleated Red Blood Cells % 0 %; Platelet Count 194 10^3/cmm (130-400); Red Blood Count 2.76 10^6/uL (4.1-5.3)
[2020-07-11 16:21] LABS: Glucose Point of Care 149 mg/dL (70-110)
--- NOTE | 2020-07-11 17:06 | PM.PN ---
Subjective Subjective: Interval history: This morning patient was examined, he is laying in bed, bilateral chest tubes in place, hooked up to suction, he is having pain on the location of the chest tubes, denies fevers, denies chills, no nausea, no vomiting, has a poor appetite, having intermittent episodes of atrial fibrillation, heart rates as high as 120s, has not got his morning medications yet, he remains optimistic, states that he feels better compared to yesterday Vitals/I&O/Wt Last Vital Signs Temp 98.3 F 07/11/20 12:00 Pulse 102 H 07/11/20 17:00 Resp 15 07/11/20 17:00 BP 95/70 07/11/20 17:00 Pulse Ox 93 07/11/20 17:00 07/11/20 07/11/20 07/11/20 06:59 14:59 22:59 Intake Total 1110 / 1365 50 / 50 110 / 160 Output Total 1250 / 04272 1310 / 1310 Balance -140 / -8660 50 / 50 -1200 / -1150 Weight last 48 hrs Weight 88.592 kg Weight 87.044 kg Physical Exam Const: COMMON NORMALS: no acute distress GENERAL APPEARANCE: ill appearing HENMT: COMMON NORMALS: normocephalic HEAD & SCALP: normocephalic Neck/C-Spine: COMMON NORMALS: no JVD Chest: OTHER: Bilateral chest tubes in place, minimal bleeding out of right chest tube, both hooked up to suction, minimal air leak Resp: COMMON NORMALS: normal respiratory effort, No retractions and No use of accessory muscles AUSCULTATION: diminished lung sounds bilateral in the lower lung aguilar Cardio: COMMON NORMALS: no JVD, S1 normal heart sound present and S2 normal heart sound present RATE: tachycardic RHYTHM: abnormal rhythm HEART SOUNDS: S1 normal heart sound present and S2 normal heart sound present GI: COMMON NORMALS: Normal to inspection, nondistended, normoactive bowel sounds present, Soft to palpation, non-tender, No hepatosplenomegaly present, no masses and no bruits PALPATION: Yes Soft to palpation and Yes No hepatosplenomegaly present Extremity: COMMON NORMALS: capillary refill normal, no clubbing, cyanosis or edema, no calf tenderness and no pedal edema NARRATIVE EXTREMITY EXAM: Left lower extremity, wrapped Luis Manuel wrap, wound VAC in place Psych: COMMON NORMALS: mental status grossly normal Urinary Catheter Management^: Alfonso: Cath Placed During This Visit: yes, but has since been removed by the nurse Reason for Continuing Indwelling Catheter: Accurate Measurement of Urinary Output in Critically Ill Patients Urinary Catheter Date of Insertion: 07/03/20 Urinary Catheter Time of Insertion: 00:45 Date Urinary Catheter Removed: 07/07/20 Time Urinary Catheter Discontinued: 04:54 Alfonso Latex: Cath Placed During This Visit: yes Reason for Continuing Indwelling Catheter: Accurate Measurement of Urinary Output in Critically Ill Patients Urinary Catheter Date of Insertion: 07/08/20 Data : 07/11/20 13:30 07/11/20 00:01 Micro: Microbiology 07/09/20 14:07 Blood Culture - Preliminary Blood Gram positive cocci 07/08/20 16:40 Mycobacterial Smear - Preliminary Body Fluids - Pleura 07/08/20 16:40 Gram Stain - Final Pleural Fluid Body Fluid Culture - Preliminary Staphylococcus aureus 07/09/20 14:07 Blood Culture - Preliminary Blood NEGATIVE TO DATE A&P Assessment and plan (1) Hypoxia: Status: Acute (2) Sepsis: Status: Resolved Qualifiers: Sepsis type: sepsis due to unspecified organism Sepsis acute organ dysfunction status: unspecified Qualified Code(s): A41.9 - Sepsis, unspecified organism (3) Empyema: Status: Acute (4) Staphylococcus aureus bacteremia: -as noted above Status: Acute (5) Diabetic wet gangrene of the foot: Status: Acute (6) Diabetic peripheral neuropathy associated with type 2 diabetes mellitus: Status: Chronic (7) Atrial fibrillation with rapid ventricular response: Status: Resolved (8) HFrEF (heart failure with reduced ejection fraction): Status: Chronic (9) Peripheral arterial disease: Status: Chronic (10) COVID-19: Status: Acute (11) Medical non-compliance: Status: Acute Additional A&P Information Hypoxia: Most likely secondary to exacerbation of diastolic and systolic congestive heart failure and empyema. Less likely secondary to COVID-19. Echocardiogram shows an EF of 30 to 35% with diastolic dysfunction with mild to moderate MR, moderate AI. Patient is still around 256 mL since admission Continue with Lasix 60 mg IV twice daily. Fluid restriction up to 1500 cc. Strict input output charting. Daily weights. Wean oxygenation keeping saturation over 90%. Post thoracentesis on 07/[address] King. Fluid studies consistent with transudative most likely secondary to congestive heart failure Sepsis secondary to empyema: Case discussed with Dr. King. -Chest tube placed bilaterally, currently to suction, minimal air leak -Right chest tube had some bleeding, which was reinforced with packing, Eliquis on hold -culture so far growing Staphylococcus aureus -white blood cell count up to 39,000, continue vancomycin, Levaquin, cefazolin as per infectious disease -Has some complaints of diarrhea, is on Levaquin, start p.o. vancomycin, until C. difficile comes back Atrial fibrillation with rapid ventricular response: Has paroxysmal atrial fibrillation Continue with amiodarone 200 mg twice daily for next 7 days followed by 200 mg daily. Continue metoprolol 25 mg twice daily. Currently Eliquis is on hold MSSA staphylococcal and enterococcal bacteremia: Blood cultures positive from admission. Blood cultures since then has remained negative. Sepsis due to diabetic wet gangrene: Post amputation of the toe. Post debridement with Dr. Fung on 07/03 and 07/[address] Culture growing MSSA, Enterobacter Appreciate Dr. Fung and Dr. Vargas input. MRSA swab negative. Patient will most likely require PICC line. Repeat blood cultures have remained negative. We will go ahead with PICC line as patient will require 6 weeks of IV antibiotics. BARBER: Multifactorial. Most likely secondary to cardiorenal syndrome and severe sepsis. Baseline creatinine normal. Creatinine has remained high stable and is trending down from 2.6. Currently 1.7 Continue Lasix as above Medical reconciliation done for nephrotoxic drugs. Controlled Alfonso catheterization for strict input output charting. COVID-19: Rapid antigen positive. Continue to hold off on dexamethasone and remdesivir. We will continue to monitor. Eliquis anticoagulation on hold for now Advair and Spiriva Vitamin C, zinc. Continue to monitor. Isolation precautions. Peripheral arterial disease: CTA aorta runoff appreciated. Case discussed with Dr. Diaz from cardiology. No plan for revascularization as an inpatient for now as patient has small vessel disease and has collaterals. Eliquis as above. Lipid panel results appreciated. Continue aspirin 81 mg oral daily. Type 2 diabetes mellitus: On admission was in DKA. Noncompliance. HbA1c 13. Insulin sliding scale at moderate dose. Anemia: On admission 13. Hemoglobin this afternoon is 8, transfuse 1 unit PRBC Continue with oral iron supplementation. Suspected BPH Renal nondialysis carb consistent diet. Eliquis will help with DVT prophylaxis. Full code. Discharge planning: We will continue ICU monitoring for now. On discharge patient will require wound VAC, IV antibiotics for 6 weeks most likely ertapenem on discharge. Currently patient has bilateral chest tubes, wound VAC. Will consult care coordination. Most likely patient will require placement at swing bed. Plan: Continue vancomycin given leukocytosis, add p.o. vancomycin for positive C. difficile colitis, will give 1 unit PRBC for hemoglobin of 8, Eliquis on hold, still has soft blood pressures, will consider Levophed if required Attestations Medical Necessity Statement*: She requires hospitalization for sepsis secondary to empyema, diabetic ulcer, acute respiratory failure secondary to CHF, MSSA and Enterobacter bacteremia Coding Level of Care Code Acute Change Director for [facility] Fwd Diagnoses Hypoxia R09.02 Sepsis A41.9 Sepsis type: sepsis due to unspecified organism Sepsis acute organ dysfunction status: unspecified Empyema J86.9 Staphylococcus aureus bacteremia R78.81; B95.61 Diabetic wet gangrene of the foot E11.52 Diabetic peripheral neuropathy associated with type 2 diabetes mellitus E11.42 Atrial fibrillation with rapid ventricular response I48.91 HFrEF (heart failure with reduced ejection fraction) I50.20 Peripheral arterial disease I73.9 COVID-19 U07.1 Medical non-compliance Z91.19
--- NOTE | 2020-07-11 19:33 | PC.NURSE ---
LEFT CHEST TUBE SITE REDRESSED AND REINFORCED ONE TIME EACH. ONCE AT 0800 AND ONCE AT 10 AM. WOUND VAC OCCLUDED AND ALARMING. BUT DR OLIVEIRA CAME AND REDRESSED IT AND IT RAN PERFECTLY WITHOUT AN ALARM UNTIL 1900, RESET WORKED THOUGH. PATIENTS PROJECTILE BILE VOMITING SEEMS TO BE BROUGHT ON BY PAIN HE DID THIS 3X MAKING IT INTO THE BUCKET. HE WAS ABLE TO HOLD DOWN AN ENSURE PROTEIN BY 1700. PATIENT TURNED EVERY 3 HRS AND BY HIMSELF AT TIMES. 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 BLOOD TRANSFUSION STARTED AT 1800 IMPROVED PATIENTS RYTHM AND BP VERY QUICKLY. HE HAD BEEN IN NSR EARLY IN SHIFT BUT WENT INTO AFIB AROUND 1000 JUST HE GOT HIS AM MEDS AND PAIN CONTROL. HE REMAINED IN AFIB UNDER 120 BPM FOR THE SHIFT BUT CONVERTED TO SINUS JUST AFTER HIS BLOOD TRANSFUSION STARTED.
[2020-07-11 21:06] LABS: Glucose Point of Care 144 mg/dL (70-110)
[2020-07-12] VITALS (32 sets, daily range): BP systolic 96–140; BP diastolic 53–76; PULSE 63–122; RESP 10–29; TEMP 36.4–36.8; O2SAT 94–100; BMI 27.7
[2020-07-12 04:30] LABS: ABG PCO2 33.8 mmHg (35-45); ABG PH Result 7.42 (7.35-7.45); Arterial Blood Gas Hematocrit 16.8 % (42-52); Base Excess ABG -2.6 mmol/L (-2.0-2.0); Blood Gas Allen Test Pos; Blood Gas Operator Identificat JB; Blood Gas Sample Site Radial, left; Blood Gas Sample Type Arterial; HCO3 ABG 21.8 mmol/L (22-26); Oxygen Device NC
[2020-07-12 05:04] LABS: Basophils % 0.2 %; Hemoglobin 9.1 g/dL (11.7-16.6); Lymphocytes # 0.7 10^3/uL (0.8-4.8); Lymphocytes % 2.9 %; Mean Corpuscular HGB Conc 32.5 g/dL (30.0-36.0); Mean Corpuscular Hemoglobin 28.9 pg (28.0-34.0); Mean Corpuscular Volume 88.9 fL (80-94); Mean Platelet Volume 11.3 fL (7.4-10.4); Monocytes # 0.3 10^3/uL (0.2-0.9); Monocytes % 1.1 %; Neutrophils # 22.41 10^3/uL (1.8-7.7); Nucleated Red Blood Cells % 0 %; Platelet Count 161 10^3/cmm (130-400); Red Blood Count 3.15 10^6/uL (4.1-5.3); White Blood Count 23.6 10^3/uL (4.0-10.0)
[2020-07-12 05:28] LABS: INR 1.54 (0.8-1.2)
[2020-07-12 05:29] LABS: Fibrinogen 352 mg/dL (174-498)
[2020-07-12] MEDS: levoFLOXacin 750 mg Tablet PO (05:38)
[2020-07-12 05:48] LABS: Alanine Aminotransferase 19 U/L (0-41); Albumin Level 1.8 g/dL (3.5-5.2); Alkaline Phosphatase 247 IU/L (40-130); Anion Gap 15.5 (5-19); Aspartate Amino Transferase 13 U/L (0-40); Blood Urea Nitrogen 55 mg/dL (6-20); Calcium 6.8 mg/dL (8.5-10.5); Carbon Dioxide 20 mmol/L (22-29); Chloride 105 mmol/L (98-107); Globulin 3.3 g/dL (1.3-4.6); Glomerular Filtration Rate 48.1 mL/min (90-130); Glucose 242 mg/dL (65-115); NT Pro B Type Natriuretic Pept 3379 pg/mL (0-125); Osmolality Calculated 305 mOsm/kg (285-295); Potassium 4.5 mmol/L (3.5-5.1); Procalcitonin 9.45 ng/mL (0-0.5); Sodium 136 mmol/L (136-145); Total Bilirubin 0.3 mg/dL (0.15-1.2); Total Protein 5.1 g/dL (6.6-8.7)
[2020-07-12 05:49] LABS: Lactic Sepsis W/Reflex 1.4 mmol/L (0.5-2.2)
[2020-07-12 05:53] LABS: C Reactive Protein 55.9 mg/L (0.0-4.9); Magnesium 1.7 mg/dL (1.7-2.3)
--- NOTE | 2020-07-12 07:53 | XR_ITS ---
WS: [id number] Portable AP upright chest, 07/12/2020 Clinical Data: SOB Comparison: Portable chest, 07/10/2020. Findings: Bilateral pneumothoraces are seen that are approximately 50%. There are 2 chest tubes, one in the right base, and the other in the left lateral mid chest. Right PICC line ends at the atriocava l junction. Monitor leads are on the chest wall. The heart size is normal. XR/XR chest 1V portable [id number] Impression: 1. Bilateral 50% pneumothoraces. 2. Bilateral small chest tubes are in present. 3. The report was called to the ICU at 1030 hours.
[2020-07-12 08:29] LABS: Glucose Point of Care 289 mg/dL (70-110)
[2020-07-12] MEDS: famotidine 20 mg Tablet PO ×2 (08:43→15:52)
[2020-07-12] MEDS: FUROsemide 40 mg Tablet PO (08:43)
[2020-07-12] MEDS: zinc gluconate 50 mg Tablet PO (08:43)
[2020-07-12] MEDS: ascorbic acid 500 mg Tablet PO (08:44)
[2020-07-12] MEDS: amiodarone 200 mg Tablet PO ×2 (08:44→15:51)
[2020-07-12] MEDS: metoprolol tartrate 25 mg Tablet 37.5 MG PO ×2 (08:45→15:47)
[2020-07-12] MEDS: aspirin 81 mg Chew Tablet PO (08:47)
[2020-07-12] MEDS: morphine 4 mg/mL SDV 1 mL 2 MG IVP (08:49)
[2020-07-12] MEDS: acetaminophen 325 mg Tablet 650 MG PO (08:52)
[2020-07-12] MEDS: tamsulosin 0.4 mg Capsule PO (08:53)
[2020-07-12] MEDS: ferrous gluconate 324 mg Tablet PO ×2 (08:53→15:47)
--- NOTE | 2020-07-12 10:36 | PC.NURSE ---
PATIENT COMPLAINED OF SOB AT 0700 WHILE LYING IN BED. SATS WERE 94 ON 2 LITERS, I HELPED HIM TO SIT AT THE SIDE OF THE BED. HE WAS DIZZY AND COULD NOT BRUSH HIS TEETH EASILY ON HIS OWN. OXYGEN DEMAND INCREASED . NC TO 4.5 LITERS. PATIENT COULD ONLY HANDLE 30 MIN. HE MANAGED TO KEEP DOWN HIS ENSURE AND PILLS. NOTED BUBBLE CHAMBERS ON BOTH CHEST TUBES WERE DRY. THESE WERE REFILLED ABOUT 0745. PATIENT ASSSITED BACK TO SUPINE POSITION AND WAS CALMED WITH WARM BLANKETS . HEART RATE 114 SITTING UP SINUS IN NATURE. SATS 96 WHEN CXR DONE, REGUVIATED BUBBLE CHAMBERS AGAIN AND HE IS FEELING BETTER. YULISSA ORDERED.
--- NOTE | 2020-07-12 10:44 | XR_ITS ---
WS: [id number] Portable AP upright chest, 07/12/2020, 1059 hours Clinical Data: PNEUMOTHORAX Comparison: Portable chest, today, 0903 hours. Findings: The bilateral pneumothoraces remain the same. Again there are 2 chest tubes, one in the rig ht and one in the left. The right PICC line remains the same. The heart size has not changed. XR/XR chest 1V portable [id number] Impression: Change in bilateral pneumothoraces.
[2020-07-12 12:49] LABS: Glucose Point of Care 262 mg/dL (70-110)
--- NOTE | 2020-07-12 12:57 | PC.NURSE ---
chest tube suction will not perform properly. after changing the set up 2x , biomed was called to come check any issues. it seemed to be in the suction device, and not the wall. no spares were available so we used a Blue[employer]ava[employer] portable and the wall and improved the bubble rate . note that the leak chambers were both dry on am assessment and have been refilled 2x since this shift ended. patients hypoxia is improving and is now down to 2 liters again on his long nc line. sats are 99.
--- NOTE | 2020-07-12 13:06 | P.PN_ITS ---
Subjective Subjective: Interval history: This morning patient had episodes of tachypnea, requiring 4 L nasal cannula, chest x-ray shows bilateral pneumothorax, it seems as if maybe the water in one of the chest tube chamber dried up sucking in air, both of the chambers were checked, water was refilled, both are functioning properly, good seal, both chest tubes on the right position both pressures are at 20, there is some issue in terms of week suction to the wall, engineering has helped out, patient is feeling better since this has been fixed, repeat chest x- ray shows bilateral pneumothorax, case was discussed with Dr. King, plan is to keep the chest tube is in for in the next 24 hours, hopefully can remove tomorrow based upon repeat chest x-ray tomorrow, patient is feeling better this midmorning, no fevers, no chills, no cough, no lightheadedness, no dizziness, minimal diarrhea Vitals/I&O/Wt Last Vital Signs Temp 97.8 F 07/12/20 08:00 Pulse 103 H 07/12/20 10:00 Resp 22 H 07/12/20 10:00 BP 111/57 07/12/20 10:00 Pulse Ox 99 07/12/20 10:00 07/11/20 07/12/20 07/12/20 22:59 06:59 14:59 Intake Total 830 / 880 300 / 1180 250 / 250 Output Total 2310 / 2310 1695 / 4005 Balance -1480 / -1430 -1395 / -2825 250 / 250 Weight last 48 hrs Weight 87.685 kg Weight 88.592 kg Physical Exam Const: COMMON NORMALS: no acute distress and patient oriented x3 GENERAL APPEARANCE: ill appearing HENMT: COMMON NORMALS: normocephalic HEAD & SCALP: normocephalic Neck/C-Spine: COMMON NORMALS: no JVD Chest: OTHER: Bilateral chest tubes in place, minimal bleeding out of right chest tube, both hooked up to suction, minimal air leak Resp: COMMON NORMALS: normal respiratory effort, No retractions and No use of accessory muscles AUSCULTATION: breath sounds absent (Periphery of right and left lung) Cardio: COMMON NORMALS: no JVD, regular rate, regular rhythm, S1 normal heart sound present and S2 normal heart sound present RATE: regular rate RHYTHM: regular rhythm HEART SOUNDS: S1 normal heart sound present and S2 normal heart sound present GI: COMMON NORMALS: Normal to inspection, nondistended, normoactive bowel sounds present, Soft to palpation, non-tender, No hepatosplenomegaly present, no masses and no bruits PALPATION: Yes Soft to palpation and Yes No hepatosplenomegaly present Extremity: COMMON NORMALS: capillary refill normal, no clubbing, cyanosis or edema, no calf tenderness and no pedal edema NARRATIVE EXTREMITY EXAM: Left lower extremity, wrapped Luis Manuel wrap, wound VAC in place Neuro: COMMON NORMALS: patient oriented x3 Psych: COMMON NORMALS: mental status grossly normal Urinary Catheter Management^: Alfonso: Cath Placed During This Visit: yes, but has since been removed by the nurse Reason for Continuing Indwelling Catheter: Accurate Measurement of Urinary Output in Critically Ill Patients Urinary Catheter Date of Insertion: 07/03/20 Urinary Catheter Time of Insertion: 00:45 Date Urinary Catheter Removed: 07/07/20 Time Urinary Catheter Discontinued: 04:54 Alfonso Latex: Cath Placed During This Visit: yes Reason for Continuing Indwelling Catheter: Acute Urinary Retention or Obstruction Urinary Catheter Date of Insertion: 07/08/20 Data : 07/12/20 04:20 07/12/20 04:20 Micro: Microbiology 07/08/20 16:40 Gram Stain - Final Pleural Fluid Body Fluid Culture - Final Staphylococcus aureus 07/09/20 14:07 Blood Culture - Preliminary Blood Gram positive cocci 07/08/20 16:40 Mycobacterial Smear - Preliminary Body Fluids - Pleura A&P Assessment and plan (1) Hypoxia: Status: Acute (2) Sepsis: Status: Resolved Qualifiers: Sepsis type: sepsis due to unspecified organism Sepsis acute organ dysfunction status: unspecified Qualified Code(s): A41.9 - Sepsis, unspecified organism (3) Empyema: Status: Acute (4) Staphylococcus aureus bacteremia: -as noted above Status: Acute (5) Diabetic wet gangrene of the foot: Status: Acute (6) Diabetic peripheral neuropathy associated with type 2 diabetes mellitus: Status: Chronic (7) Atrial fibrillation with rapid ventricular response: Status: Resolved (8) HFrEF (heart failure with reduced ejection fraction): Status: Chronic (9) Peripheral arterial disease: Status: Chronic (10) COVID-19: Status: Acute (11) Medical non-compliance: Status: Acute Additional A&P Information Bilateral pneumothorax: Seems as if the water in one of the chest tubes dried, sucking in air, this was rectified, chest tubes have a good seal, chest tubes in good position, both pressures at 20, wall suction now is strong enough -Plan is to continue chest tube to suction -Repeat chest x-ray tomorrow -If lungs look better tomorrow, will clamp chest tube, and hopefully if he does well, remove chest tube Hypoxia: Most likely secondary to exacerbation of diastolic and systolic congestive heart failure and empyema. Less likely secondary to COVID-19. Echocardiogram shows an EF of 30 to 35% with diastolic dysfunction with mild to moderate MR, moderate AI. Patient is still around 256 mL since admission Continue with Lasix 60 mg IV twice daily. Fluid restriction up to 1500 cc. Strict input output charting. Daily weights. Wean oxygenation keeping saturation over 90%. Post thoracentesis on 07/[address] King. Fluid studies consistent with transudative most likely secondary to congestive heart failure Sepsis secondary to empyema: Case discussed with Dr. King. -Chest tube placed bilaterally -Right chest tube had some bleeding, which was reinforced with packing, Eliquis on hold -culture so far growing Staphylococcus aureus -white blood cell count up to 23.6, continue vancomycin, Levaquin, cefazolin as per infectious disease -Has some complaints of diarrhea, is on Levaquin, continue p.o. vancomycin, until C. difficile comes back Atrial fibrillation with rapid ventricular response: Has paroxysmal atrial fibrillation Continue with amiodarone 200 mg twice daily for next 7 days followed by 200 mg daily. Continue metoprolol 25 mg twice daily. Currently Eliquis is on hold, continue to hold due to concerns for chest tube bleeding MSSA staphylococcal and enterococcal bacteremia: Blood cultures positive from admission. Blood cultures since then has remained negative. Sepsis due to diabetic wet gangrene: Post amputation of the toe. Post debridement with Dr. Fung on 07/03 and 07/[address] Culture growing MSSA, Enterobacter Appreciate Dr. Fung and Dr. Vargas input. MRSA swab negative. Patient will most likely require PICC line. Repeat blood cultures have remained negative. We will go ahead with PICC line as patient will require 6 weeks of IV antibiotics. BARBER: Multifactorial. Most likely secondary to cardiorenal syndrome and severe sepsis. Baseline creatinine normal. Creatinine has remained high stable and is trending down from 2.6. Currently 1.5 Continue Lasix as above Medical reconciliation done for nephrotoxic drugs. Controlled Alfonso catheterization for strict input output charting. COVID-19: Rapid antigen positive. Continue to hold off on dexamethasone and remdesivir. We will continue to monitor. Eliquis anticoagulation on hold for now Advair and Spiriva Vitamin C, zinc. Continue to monitor. Isolation precautions. Peripheral arterial disease: CTA aorta runoff appreciated. Case discussed with Dr. Diaz from cardiology. No plan for revascularization as an inpatient for now as patient has small vessel disease and has collaterals. Eliquis as above. Lipid panel results appreciated. Continue aspirin 81 mg oral daily. Type 2 diabetes mellitus: On admission was in DKA. Noncompliance. HbA1c 13. Insulin sliding scale at moderate dose. Anemia: On admission 13. Hemoglobin this afternoon is 8, transfused 1 unit PRBC Continue with oral iron supplementation. Suspected BPH Renal nondialysis carb consistent diet. Eliquis will help with DVT prophylaxis. Full code. Discharge planning: We will continue ICU monitoring for now. On discharge patient will require wound VAC, IV antibiotics for 6 weeks most likely ertapenem on discharge. Currently patient has bilateral chest tubes, wound VAC. Will consult care coordination. Most likely patient will require placement at swing bed. Plan: Continue to monitor chest tubes closely, monitor for air leak, monitor suctioning monitor respiratory status closely, monitor hemoglobin, continue to hold Eliquis, working on placement Attestations Medical Necessity Statement*: Patient requires hospitalization due to bilateral pneumothorax, sepsis secondary to empyema, pneumonia, COVID-19 Coding Level of Care Code Acute [employer] Off[facility]arer for [facility] Diagnoses Hypoxia R09.02 Sepsis A41.9 Sepsis type: sepsis due to unspecified organism Sepsis acute organ dysfunction status: unspecified Empyema J86.9 Staphylococcus aureus bacteremia R78.81; B95.61 Diabetic wet gangrene of the foot E11.52 Diabetic peripheral neuropathy associated with type 2 diabetes mellitus E11.42 Atrial fibrillation with rapid ventricular response I48.91 HFrEF (heart failure with reduced ejection fraction) I50.20 Peripheral arterial disease I73.9 COVID-19 U07.1 Medical non-compliance Z91.19
--- NOTE | 2020-07-12 13:45 | PM.PN ---
Subjective Subjective: Interval history: Patient seen bedside, denies any pain to the left lower extremity. Wound VAC is functioning, no strikethrough bleeding at the dressing. Patient denies any subjective nausea, vomiting, fever, chills, shortness of breath or chest pain. Vitals/I&O/Wt Last Vital Signs Temp 97.5 F L 07/12/20 12:00 Pulse 103 H 07/12/20 10:00 Resp 22 H 07/12/20 10:00 BP 111/57 07/12/20 13:36 Pulse Ox 99 07/12/20 13:36 07/11/20 07/12/20 07/12/20 22:59 06:59 14:59 Intake Total 830 / 880 300 / 1180 450 / 450 Output Total 2310 / 2310 1695 / 4005 Balance -1480 / -1430 -1395 / -2825 450 / 450 Weight last 48 hrs Weight 193 lb 5 oz Weight 195 lb 5 oz Physical Exam Narrative: EXAM NARRATIVE: atient is anxious, alert and oriented x3 VASCULAR: Dorsalis pedis and posterior tibial palpable. Capillary refill time less than 5 seconds distal lesser toes 2 through 5 left foot. Calf is supple and nontender proximally and distally. Diminished pedal hair growth bilaterally. NEUROLOGICAL: Protective sensation intact 0/10 sites, tested with [place] monofilament to bilateral feet. DERMATOLOGICAL: Wound VAC dressing is intact and to suction 40 cc of serosanguineous drainage in the canister. Improved erythema to left lower extremity, no warmth. MUSCULOSKELETAL: No pain with posterior calf squeeze bilaterally. Muscle strength 5 out of 5 in all 3 cardinal planes to bilateral foot and ankle. Urinary Catheter Management^: Alfonso: Cath Placed During This Visit: yes, but has since been removed by the nurse Reason for Continuing Indwelling Catheter: Accurate Measurement of Urinary Output in Critically Ill Patients Urinary Catheter Date of Insertion: 07/03/20 Urinary Catheter Time of Insertion: 00:45 Date Urinary Catheter Removed: 07/07/20 Time Urinary Catheter Discontinued: 04:54 Alfonso Latex: Cath Placed During This Visit: yes Reason for Continuing Indwelling Catheter: Acute Urinary Retention or Obstruction Urinary Catheter Date of Insertion: 07/08/20 Data : 07/12/20 04:20 07/12/20 04:20 Micro: Microbiology 07/08/20 16:40 Gram Stain - Final Pleural Fluid Body Fluid Culture - Final Staphylococcus aureus 07/09/20 14:07 Blood Culture - Preliminary Blood Gram positive cocci 07/08/20 16:40 Mycobacterial Smear - Preliminary Body Fluids - Pleura A&P Assessment and plan (1) Diabetic peripheral neuropathy associated with type 2 diabetes mellitus: Status: Chronic (2) Diabetic wet gangrene of the foot: Status: Acute (3) Sepsis: Status: Resolved Qualifiers: Sepsis type: sepsis due to unspecified organism Sepsis acute organ dysfunction status: unspecified Qualified Code(s): A41.9 - Sepsis, unspecified organism Mr. 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 He is status post left metatarsectomy, debridement and wound VAC application date of operation 07/10/2020. Continued improvement clinically to the left foot, resolved erythema/cellulitis, no purulent drainage in the canister or at the wound with wound VAC dressing change performed today. Patient will require wound VAC on discharge, per infectious disease recommendations will need PICC line and IV antibiotics 6 weeks postoperatively. Leukocytosis trending down, from podiatry standpoint in regards to his left foot wound he is stable for discharge, I will continue to follow him while inpatient, I will plan on next wound VAC dressing change on 07/14/2020. Attestations Medical Necessity Statement*: Diabetic foot infection with wet gangrene. Coding Level of Care Code Acute Hydrogeologist for [facility] Diagnoses Diabetic peripheral neuropathy associated with type 2 diabetes mellitus E11.42 Diabetic wet gangrene of the foot E11.52 Sepsis A41.9 Sepsis type: sepsis due to unspecified organism Sepsis acute organ dysfunction status: unspecified
[2020-07-12] MEDS: FUROsemide 10 mg/mL SDV 10mL 60 MG IVP (15:46)
[2020-07-12 16:05] LABS: Glucose Point of Care 195 mg/dL (70-110)
[2020-07-12] MEDS: HYDROmorphone 1 mg/mL INJ 1 mL IVP (16:19)
--- NOTE | 2020-07-12 17:16 | XRR_ITS ---
PROCEDURE INFORMATION: Exam: XR Chest, 1 View Exam date and time: 07/12/2020 6:56 PM Age: 59 years old Clinical indication: Shortness of breath; Additional info: SOB TECHNIQUE: Imaging protocol: XR of the chest Views: 1 view. COMPARISON: CR XR chest 1V portable [id number] 07/12/2020 10:53 AM FINDINGS: Tubes, catheters and devices: Bilateral chest tubes are present. Right side PICC line extends into the right atrium Lungs: Unremarkable. No consolidation. Pleural space: Unremarkable. No pleural effusion. Bilateral pneumothorax. The left pneumothorax has partially re-expanded. Heart/Mediastinum: Unremarkable. No cardiomegaly. Bones/joints: Unremarkable. XR/XR chest 1V portable [id number] IMPRESSION: 1. Bilateral pneumothorax as noted 2. Bilateral chest tubes 3. A PICC line is present on the right side extending into the right atrium
--- NOTE | 2020-07-12 17:45 | PC.NURSE ---
PATIENTS OXYGENATION IMPROVED ALL DAY , CURRENTLY ON ROOM AIR. HAVE FOUND IT NECESSARY TO FILL THE LEAK/BUBBLE CHAMBER WITH 10 CC OF NS EVERY 3 HRS TO MAINTAIN A SEAL . PATIENT HAS NOT VOMITED ALL DAY AND HELD DOWN SOUP, SODA AND NOW A YOGURT. DIET ADVANCED TO FULL LIQUID, WILL CONSIDER ANTIREFLUX DIET TOMORROW. AWAITING STAT CHEST XRAY TO BE DONE NOW. DR HUNTER PRESENT PATIENT RECIEVED A FINACIAL AIDE LETTER THAT REQUIRES ONE TO CALL FOR AN INTERVIEW BETWEEN 8 AND 430 M-F. THE LETTER ARRIVED AT 414 ON WEDNESDAY , PATIENT HAD RECENT PAIN MEDS AND HIS PHONE WAS NOT WORKING FOR HIM. I CALLED BUT THEY WERE CLOSED. THE FORM IS ON HIS CLIP BOARD CHART FOR FIRST THING WEDNESDAY.
--- NOTE | 2020-07-12 18:03 | PC.NURSE ---
[facility] NURSE CAME TO HELP WITH XRAY, NOTED THAT WITH THE DOUBLE CHAMBER THAT THE UNUSED SIDE DOES NOT CLAMP OFF WITHOUT A TUBE CONNECTED AND MUST BE MANUALLY CLAMPED IN ORDER TO GET GOOD SUCTION. THIS WOULD EXPLAIN THE SAWANT EVAPORATION OF THE BUBBLE CHAMBER.
[2020-07-12 21:04] LABS: Glucose Point of Care 61 mg/dL (70-110)
[2020-07-12 21:04] LABS: Glucose Point of Care 63 mg/dL (70-110)
[2020-07-12 23:11] LABS: Glucose Point of Care 76 mg/dL (70-110)
[2020-07-13] VITALS (33 sets, daily range): BP systolic 100–132; BP diastolic 55–80; PULSE 57–92; RESP 3–43; TEMP 36.5–36.8; O2SAT 92–100
[2020-07-13] LABS: Glucose Point of Care 82 mg/dL (70-110)
[2020-07-13 04:44] LABS: ABG PH Result 7.43 (7.35-7.45); Base Excess ABG 1.4 mmol/L (-2.0-2.0); Blood Gas Allen Test Pos; Blood Gas Operator Identificat HARKR; Blood Gas Sample Site Radial, right; Blood Gas Sample Type Arterial; HCO3 ABG 25.8 mmol/L (22-26); Oxygen Device ROOM AIR
[2020-07-13 05:01] LABS: Glucose Point of Care 116 mg/dL (70-110)
[2020-07-13 05:46] LABS: Basophils % 0.1 %; Eosinophils # 0.1 10^3/uL (0.0-0.8); Eosinophils % 0.4 %; Hematocrit 25.8 % (42.0-52.0); Hemoglobin 8.1 g/dL (11.7-16.6); Lymphocytes # 1.4 10^3/uL (0.8-4.8); Lymphocytes % 4.9 %; Mean Corpuscular HGB Conc 31.4 g/dL (30.0-36.0); Mean Corpuscular Hemoglobin 28.9 pg (28.0-34.0); Mean Corpuscular Volume 92.1 fL (80-94); Mean Platelet Volume 11.2 fL (7.4-10.4); Monocytes # 0.8 10^3/uL (0.2-0.9); Monocytes % 2.7 %; Neutrophils # 25.69 10^3/uL (1.8-7.7); Neutrophils % 91.3 %; Nucleated Red Blood Cells % 0 %; Platelet Count 179 10^3/cmm (130-400); Red Cell Distribution Width 15.1 % (12.1-15.1); White Blood Count 28.2 10^3/uL (4.0-10.0)
[2020-07-13] MEDS: FUROsemide 10 mg/mL SDV 10mL 60 MG IVP (05:54)
[2020-07-13] MEDS: levoFLOXacin 750 mg Tablet PO (05:54)
[2020-07-13 05:57] LABS: C Reactive Protein 31.9 mg/L (0.0-4.9); Magnesium 1.9 mg/dL (1.7-2.3); Phosphorus 4.5 mg/dL (2.5-4.5)
[2020-07-13 06:05] LABS: Lactic Sepsis W/Reflex 0.8 mmol/L (0.5-2.2)
[2020-07-13 06:36] LABS: Fibrinogen 306 mg/dL (174-498); INR 1.37 (0.8-1.2)
[2020-07-13 06:39] LABS: D Dimer 1.04 ug/mIFEU (0-0.59)
--- NOTE | 2020-07-13 07:00 | XRR_ITS ---
PROCEDURE INFORMATION: Exam: XR Chest, 1 View Exam date and time: 07/13/2020 3:17 AM Age: 59 years old Clinical indication: Shortness of breath; Additional info: SOB TECHNIQUE: Imaging protocol: XR of the chest Views: 1 view. COMPARISON: CR XR chest 1V portable [id number] 07/12/2020 7:05 PM FINDINGS: Tubes, catheters and devices: Right upper extremity PICC line, tip overlying the cavoatrial junction. Right chest tube with tip overlying the right lower thorax, similar to prior position. Left chest tube with tip overlying the left upper to mid thorax, similar to prior position. Lungs: Mild patchy airspace opacities (atelectasis and/or consolidation) at the right lung base, left lung apex, and left lung base, overall increased from prior study. Mild pulmonary edema, increased from prior study. Pleural space: Large right pneumothorax visible apically, laterally, and basilarly, similar to prior study. Small left pneumothorax visible medially, similar to prior study. No pleural effusion identified. Heart/Mediastinum: Heart size within normal limits. Bones/joints: No emergent findings identified. XR/XR chest 1V portable [id number] IMPRESSION: 1. Large right pneumothorax visible apically, laterally, and basilarly, similar to prior study. 2. Small left pneumothorax visible medially, similar to prior study. 3. Mild patchy airspace opacities (atelectasis and/or consolidation) at the right lung base, left lung apex, and left lung base, overall increased from prior study. 4. Mild pulmonary edema, increased from prior study.
[2020-07-13 07:24] LABS: Glucose Point of Care 124 mg/dL (70-110)
--- NOTE | 2020-07-13 07:42 | USCV_ITS ---
Ben Hathaway Age: 59 Gender: M : 1960 Exam Date: 07/13/2020 08:16 Ordering Phys: Trenton Huynh MD Technologist: Josselyn Alvarez Exam Location: [facility] – [place] Indication: Bacteremia, r/o endocarditis BP: 118 / 65 HR: 87 Rhythm: Sinus Technical Quality: Adequate MEASUREMENTS (Male / Female) Normal Values 2D ECHO LV Diastolic Diameter PLAX 4.3 cm 4.2 - 5.9 / 3.9 - 5.3 cm LV Systolic Diameter PLAX 2.6 cm LV Chamber Size 5.0 cm IVS Diastolic Thickness 1.3 cm 0.6 - 1.0 / 0.6 - 0.9 cm IVS Systolic Thickness 1.6 cm LVPW Diastolic Thickness 0.9 cm 0.6 - 1.0 / 0.6 - 0.9 cm LVPW Systolic Thickness 1.5 cm RV Chamber Size 4.0 cm LVOT Diameter 2.1 cm LV Ejection Fraction 2D Teich 68.9 % LV Ejection Fraction MOD 2C 50.8 % LV Ejection Fraction 2C AL 50.8 % LA Diameter 4.9 cm LA Width 4.1 cm LA Height 5.3 cm RA Width 3.9 cm RA Height 4.6 cm Aorta at Sinotubular Diameter 2.7 cm M-MODE LV Diastolic Diameter MM 5.0 cm 4.2 - 5.9 / 3.9 - 5.3 cm LV Systolic Diameter MM 3.4 cm LV Ejection Fraction MM Teich 61.7 % IVS Diastolic Thickness MM 1.4 cm 0.6 - 1.0 / 0.6 - 0.9 cm IVS Systolic Thickness MM 1.7 cm LVPW Diastolic Thickness MM 1.2 cm 0.6 - 1.0 / 0.6 - 0.9 cm LVPW Systolic Thickness MM 1.8 cm RV Diastolic Diameter MM 1.8 cm Aortic Annulus Diameter 2.7 cm LA Ao Ratio MM 1.9 MV E Point Septal Separation 0.8 cm DOPPLER AV Peak Velocity 150.0 cm/s LVOT Peak Velocity 89.0 cm/s AV Area Cont Eq vti 2.1 cm squared AV Area Cont Eq pk 2.0 cm squared MV Area PHT 3.7 cm squared Mitral E to A Ratio 0.9 MV E' Velocity 39.0 cm/s Mitral E to MV E' Ratio 12.6 Mitral E to LV E' Lateral Ratio 12.8 Mitral E to LV E' Septal Ratio 12.4 TV Peak E Velocity 66.0 cm/s Right Atrial Pressure 3.0 mmHg FINDINGS Left Ventricle Normal left ventricular size and systolic function, EF 55 %. No gross wall motion abnormalities Right Ventricle The right ventricle is normal in size and function. Right Atrium Catheter/pacemaker wire in the right atrial cavity. Mildly increased right atrial size. Left Atrium Mildly increased left atrial size. Mitral Valve Mild mitral annular calcification. Aortic Valve Calcification in the base of the right coronary cusp Tricuspid Valve Mild tricuspid regurgitation Pulmonic Valve Trace pulmonary valve regurgitation. Pericardium Normal pericardium without effusion. Aorta Normal ascending aorta dimension. CONCLUSIONS Normal left ventricular size and systolic function, EF 55 %. No gross wall motion abnormalities. Catheter/pacemaker wire in the right atrial cavity. Mildly increased left atrial size. Calcification in the base of the right coronary cusp. Mild tricuspid regurgitation. Trace of pulmonary valve regurgitation. Pacemaker wire/catheter tip in the right atrium There is no pericardial effusion. Compared to the previous study from 07/03/2020, there is significant improvement in the LV ejection fraction Dr Demond Underwood MD FAC (Electronically Signed) Final Date: 13 July 2020 14:30 S
[2020-07-13] MEDS: HYDROmorphone 1 mg/mL INJ 1 mL IVP (08:20)
[2020-07-13] MEDS: metoprolol tartrate 25 mg Tablet 37.5 MG PO ×2 (08:21→15:34)
[2020-07-13] MEDS: tamsulosin 0.4 mg Capsule PO (08:21)
[2020-07-13] MEDS: acetaminophen 325 mg Tablet 650 MG PO (08:21)
[2020-07-13] MEDS: zinc gluconate 50 mg Tablet PO (08:21)
[2020-07-13] MEDS: ferrous gluconate 324 mg Tablet PO ×2 (08:21→15:33)
[2020-07-13] MEDS: famotidine 20 mg Tablet PO ×2 (08:22→15:33)
[2020-07-13] MEDS: amiodarone 200 mg Tablet PO ×2 (08:22→15:34)
[2020-07-13] MEDS: ascorbic acid 500 mg Tablet PO (08:22)
[2020-07-13] MEDS: aspirin 81 mg Chew Tablet PO (08:23)
--- NOTE | 2020-07-13 09:00 | XRR_ITS ---
PROCEDURE INFORMATION: Exam: XR Chest, 1 View Exam date and time: 07/13/2020 9:00 AM Age: 59 years old Clinical indication: Shortness of breath; Additional info: SOB TECHNIQUE: Imaging protocol: XR of the chest Views: 1 view. COMPARISON: CR XR chest 1V portable [id number] 07/13/2020 3:54 AM FINDINGS: Tubes, catheters and devices: Bilateral chest tubes are present in stable position. A right arm PICC is present in the SVC. Lungs: There is patchy infiltrate or atelectasis in the left lung which is similar to old study. The right lung is collapsed. Pleural space: Large right pneumothorax is present which is unchanged. There is a stable small left pneumothorax. Heart/Mediastinum: Unremarkable. No cardiomegaly. Bones/joints: Unremarkable. XR/XR chest 1V portable [id number] IMPRESSION: 1. Stable large right pneumothorax and small left pneumothorax. 2. Mild patchy infiltrate or atelectasis in the left lung. 3. No significant change.
[2020-07-13 09:05] LABS: Alanine Aminotransferase 9 U/L (0-41); Albumin Level 1.9 g/dL (3.5-5.2); Alkaline Phosphatase 294 IU/L (40-130); Anion Gap 13.1 (5-19); Aspartate Amino Transferase 16 U/L (0-40); Blood Urea Nitrogen 59 mg/dL (6-20); Calcium 7.3 mg/dL (8.5-10.5); Carbon Dioxide 24 mmol/L (22-29); Chloride 102 mmol/L (98-107); Globulin 3.4 g/dL (1.3-4.6); Glomerular Filtration Rate 36.6 mL/min (90-130); Glucose 102 mg/dL (65-115); Osmolality Calculated 297 mOsm/kg (285-295); Potassium 4.1 mmol/L (3.5-5.1); Sodium 135 mmol/L (136-145); Total Bilirubin 0.2 mg/dL (0.15-1.2); Total Protein 5.3 g/dL (6.6-8.7)
[2020-07-13 09:16] LABS: NT Pro B Type Natriuretic Pept 2816 pg/mL (0-125); Procalcitonin 5.64 ng/mL (0-0.5)
[2020-07-13 12:02] LABS: Glucose Point of Care 233 mg/dL (70-110)
--- NOTE | 2020-07-13 16:03 | XRR_ITS ---
PROCEDURE INFORMATION: Exam: XR Chest, 1 View Exam date and time: 07/13/2020 4:32 PM Age: 59 years old Clinical indication: Condition or disease; Lung condition and disease; Pneumothorax; Chronic/persistent air leak; Additional info: Progression of pneumo TECHNIQUE: Imaging protocol: XR of the chest Views: 1 view. COMPARISON: CR XR chest 1V portable [id number] 07/13/2020 9:00 AM FINDINGS: Lungs: There is a chest tube along the lateral aspect of the right hemithorax near the right lung base. A chest tube is present along the lateral aspect of the left hemithorax as well. There are bilateral perihilar and bibasilar patchy opacities. Pleural space: There has been interval decrease in the size of the right pneumothorax when compared to the prior study however large pneumothorax still remains. Left pneumothorax appears larger when compared to the prior study. Heart/Mediastinum: Heart size not optimally evaluated with a single AP view of the chest. Bones/joints: Unremarkable. XR/XR chest 1V portable [id number] IMPRESSION: 1. Interval decrease in the size of the right pneumothorax. 2. Interval increase in the size of the left pneumothorax. 3. Bilateral perihilar and bibasilar patchy opacities.
[2020-07-13 16:14] LABS: Glucose Point of Care 133 mg/dL (70-110)
--- NOTE | 2020-07-13 17:17 | P.PN_ITS ---
Subjective Subjective: Interval history: This morning patient was examined, he states that he is feeling well is on 1 L nasal cannula, afebrile overnight, no nausea, no vomiting, no lightheadedness, no dizziness, still has some degree of a poor appetite Vitals/I&O/Wt Last Vital Signs Temp 97.9 F 07/13/20 14:00 Pulse 76 07/13/20 16:00 Resp 16 07/13/20 16:00 BP 113/61 07/13/20 16:00 Pulse Ox 96 07/13/20 16:58 07/13/20 07/13/20 07/13/20 06:59 14:59 22:59 Intake Total 100 / 2090 1150 / 1150 950 / 2100 Output Total 120 / 1240 70 / 70 820 / 890 Balance -20 / 850 1080 / 1080 130 / 1210 Weight last 48 hrs Weight 85.774 kg Weight 87.685 kg Physical Exam Const: COMMON NORMALS: no acute distress and patient oriented x3 GENERAL APPEARANCE: ill appearing HENMT: COMMON NORMALS: normocephalic HEAD & SCALP: normocephalic Neck/C-Spine: COMMON NORMALS: no JVD Chest: OTHER: Bilateral chest tubes in place, good seal to chest, Resp: COMMON NORMALS: normal respiratory effort, No retractions and No use of accessory muscles AUSCULTATION: breath sounds absent (Right apex, right lateral lung) on the right Cardio: COMMON NORMALS: no JVD, regular rate, regular rhythm, S1 normal heart sound present and S2 normal heart sound present RATE: regular rate RHYTHM: regular rhythm HEART SOUNDS: S1 normal heart sound present and S2 normal heart sound present GI: COMMON NORMALS: Normal to inspection, nondistended, normoactive bowel sounds present, Soft to palpation, non-tender, No hepatosplenomegaly present, no masses and no bruits PALPATION: Yes Soft to palpation and Yes No hepatosplenomegaly present Extremity: COMMON NORMALS: capillary refill normal, no clubbing, cyanosis or edema, no calf tenderness and no pedal edema NARRATIVE EXTREMITY EXAM: Left lower extremity, wrapped Luis Manuel wrap, wound VAC in place Neuro: COMMON NORMALS: patient oriented x3 Psych: COMMON NORMALS: mental status grossly normal Urinary Catheter Management^: Alfonso: Cath Placed During This Visit: yes, but has since been removed by the nurse Reason for Continuing Indwelling Catheter: Accurate Measurement of Urinary Output in Critically Ill Patients Urinary Catheter Date of Insertion: 07/03/20 Urinary Catheter Time of Insertion: 00:45 Date Urinary Catheter Removed: 07/07/20 Time Urinary Catheter Discontinued: 04:54 Alfonso Latex: Cath Placed During This Visit: yes Reason for Continuing Indwelling Catheter: Accurate Measurement of Urinary Output in Critically Ill Patients Urinary Catheter Date of Insertion: 07/08/20 Data : 07/13/20 04:15 07/13/20 04:15 Micro: Microbiology 07/13/20 04:49 Blood Culture - Preliminary Blood SPECIMEN COLLECTED 07/13/20 04:15 Blood Culture - Preliminary Blood SPECIMEN COLLECTED 07/09/20 14:07 Blood Culture - Preliminary Blood Coagulase negativ staphylococc 07/11/20 09:00 MRSA Culture - Final Nose A&P Assessment and plan (1) Hypoxia: Status: Acute (2) Sepsis: Status: Resolved Qualifiers: Sepsis type: sepsis due to unspecified organism Sepsis acute organ dysfunction status: unspecified Qualified Code(s): A41.9 - Sepsis, unspecified organism (3) Empyema: Status: Acute (4) Staphylococcus aureus bacteremia: -as noted above Status: Acute (5) Diabetic wet gangrene of the foot: Status: Acute (6) Diabetic peripheral neuropathy associated with type 2 diabetes mellitus: Status: Chronic (7) Atrial fibrillation with rapid ventricular response: Status: Resolved (8) HFrEF (heart failure with reduced ejection fraction): Status: Chronic (9) Peripheral arterial disease: Status: Chronic (10) COVID-19: Status: Acute (11) Medical non-compliance: Status: Acute (12) Bilateral pneumothorax: Status: Acute Additional A&P Information Bilateral pneumothorax: -Yesterday both chest tube canister, had an open seal, likely leading to bilateral pneumothoraxes, clamped, left lung had fully expanded by the evening, right lung pneumothorax still 50% present, both lungs left suction -This morning left lung had expanded, small left apical pneumothorax. Right lung still had 50% pneumothorax, suction was off on the right unit, suction was turned on, still no titling of breaths, entire right unit was changed, tidling then seen. Both right and left units, no air leak, waterseal, left unit with pneumothorax resolved, no tidling, right side with persistent pneumothorax, titling seen. Left lung was clamped -Repeat chest x-ray this evening shows expanding pneumothorax on the left, pneum othorax on the right is improved -Plan is to continue bilateral chest tubes to suction, monitor tidling bilaterally, waterseal, -Repeat chest x-ray tomorrow morning -If lungs look better tomorrow, will clamp chest tube, and hopefully if he does well, remove chest tube Hypoxia: Most likely secondary to exacerbation of diastolic and systolic congestive heart failure and empyema and bilateral pneumothorax. Less likely secondary to COVID-19. Echocardiogram shows an EF of 30 to 35% with diastolic dysfunction with mild to moderate MR, moderate AI. Currently on 1 L nasal cannula, Urine output yesterday 4 L, is +641 mL since admission Creatinine up to 1.9 today, hold Lasix 60 mg IV twice daily Fluid restriction up to 1500 cc. Strict input output charting. Daily weights. Wean oxygenation keeping saturation over 90%. Post thoracentesis on 07/[address] King. Fluid studies consistent with tra nsudative most likely secondary to congestive heart failure Sepsis secondary to empyema: Case discussed with Dr. King. -Chest tube placed bilaterally -Right chest tube had some bleeding, which was reinforced with packing, Eliquis on hold -culture so far growing Staphylococcus aureus -Blood cultures on 07/09/2020 culture showed coagulase-negative staph, likely contamination, repeat blood culture today have been unremarkable s -white blood cell count up to 28.2, continue vancomycin, Levaquin, cefazolin as per infectious disease -Has some complaints of diarrhea, is on Levaquin, continue p.o. vancomycin, until C. difficile comes back Atrial fibrillation with rapid ventricular response: Has paroxysmal atrial fibrillation Continue with amiodarone 200 mg twice daily for next 7 days followed by 200 mg daily. Continue metoprolol 25 mg twice daily. Currently Eliquis is on hold, continue to hold due to concerns for chest tube bleeding, anemia MSSA staphylococcal and enterococcal bacteremia: Blood cultures positive from admission. Blood cultures since then has remained negative. -1 blood culture staph coagulase-negative, likely contamination Sepsis due to diabetic wet gangrene: Post amputation of the toe. Post debridement with Dr. Fung on 07/03 and 07/[address] Culture growing MSSA, Enterobacter Appreciate Dr. Fung and Dr. Vargas input. MRSA swab negative. Patient will most likely require PICC line. Repeat blood cultures have remained negative. We will go ahead with PICC line as patient will require 6 weeks of IV antibiotics. Acute on chronic anemia -Secondary to sepsis, COVID-19, bone marrow suppression -Holding Eliquis -Status post 1 unit PRBC -Hemoglobin 8.1 today, transfuse another unit PRBC -Protonix 40 twice daily BARBER: Multifactorial. Most likely secondary to cardiorenal syndrome and severe sepsis. Baseline creatinine normal. Creatinine has remained high stable and is trending down from 2.6. Currently 1.9 Hold Lasix for now Medical reconciliation done for nephrotoxic drugs. Controlled Alfonso catheterization for strict input output charting. COVID-19: Rapid antigen positive. Continue to hold off on dexamethasone and remdesivir. We will continue to monitor. Eliquis anticoagulation on hold for now Advair and Spiriva Vitamin C, zinc. Continue to monitor. Isolation precautions. Peripheral arterial disease: CTA aorta runoff appreciated. Case discussed with Dr. Diaz from cardiology. No plan for revascularization as an inpatient for now as patient has small vessel disease and has collaterals. Eliquis as above. Lipid panel results appreciated. Continue aspirin 81 mg oral daily. Type 2 diabetes mellitus: On admission was in DKA. Noncompliance. HbA1c 13. Insulin sliding scale at moderate dose. Anemia: On admission 13. Hemoglobin this afternoon is 8, transfused 1 unit PRBC Continue with oral iron supplementation. Suspected BPH Renal nondialysis carb consistent diet. Eliquis will help with DVT prophylaxis. Full code. Discharge planning: We will continue ICU monitoring for now. On discharge patient will require wound VAC, IV antibiotics for 6 weeks most likely ertapenem on discharge. Currently patient has bilateral chest tubes, wound VAC. Will consult care coordination. Most likely patient will require placement at swing bed. Plan: Continue to monitor chest tubes closely, monitor for air leak, monitor suctioning monitor respiratory status closely, monitor hemoglobin, continue to hold Eliquis, working on placement Attestations Medical Necessity Statement*: Patient requires hospitalization, for bilateral pneumothorax, empyema, sepsis, A. 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
--- NOTE | 2020-07-13 17:53 | PC.NURSE ---
LEFT CHEST TUBE TURNED BACK ON TO SUCTION PER ORDER AT 1730. WATER ADDED TO BUBBLE CHAMBER IN BOTH UNITS DUE TO LOW LEVELS. HE ATE 50% OF DINNER AND HAD NO VOMITING TODAY. BLOOD SUGARS IMPROVING.
[2020-07-13] MEDS: pantoprazole 40 mg SDV IVP (19:10)
[2020-07-13 21:23] LABS: Glucose Point of Care 214 mg/dL (70-110)
--- NOTE | 2020-07-13 21:25 | PC.NURSE ---
Evaluated chest tube on right, still in place, no bleeding at site noted, evaluated left chest tube, no bleeding at site, both vacs still bubbling, this is approx per Dr Huynh. Also evalutated wound vac on left foot, still draining, no bleeding at site
[2020-07-14] VITALS (30 sets, daily range): BP systolic 96–133; BP diastolic 56–77; PULSE 74–134; RESP 13–31; TEMP 36.7–37.1; O2SAT 92–99
--- NOTE | 2020-07-14 00:22 | PC.NURSE ---
Attempted to give patient bedbath, states Just wipe my mouth and face, please no bath.
--- NOTE | 2020-07-14 03:42 | PC.NURSE ---
Called and spoke with Dr Calderon regarding patient's Afib, states to give Metroprol 37.5mg PO, WDRB order
[2020-07-14] MEDS: metoprolol tartrate 25 mg Tablet 37.5 MG PO ×2 (03:52→09:10)
[2020-07-14 04:15] LABS: Basophils % 0.1 %; Eosinophils # 0.2 10^3/uL (0.0-0.8); Eosinophils % 0.8 %; Hematocrit 29.2 % (42.0-52.0); Hemoglobin 9.2 g/dL (11.7-16.6); Lymphocytes # 1.6 10^3/uL (0.8-4.8); Lymphocytes % 6.8 %; Mean Corpuscular HGB Conc 31.5 g/dL (30.0-36.0); Mean Corpuscular Hemoglobin 28.7 pg (28.0-34.0); Monocytes # 0.7 10^3/uL (0.2-0.9); Monocytes % 3.1 %; Neutrophils # 20.12 10^3/uL (1.8-7.7); Neutrophils % 88.5 %; Nucleated Red Blood Cells % 0 %; Platelet Count 168 10^3/cmm (130-400); Red Blood Count 3.21 10^6/uL (4.1-5.3); Red Cell Distribution Width 14.9 % (12.1-15.1); White Blood Count 22.7 10^3/uL (4.0-10.0)
[2020-07-14 04:24] LABS: Lactic Sepsis W/Reflex 0.8 mmol/L (0.5-2.2)
[2020-07-14 04:37] LABS: INR 1.31 (0.8-1.2)
[2020-07-14 04:38] LABS: Fibrinogen 350 mg/dL (174-498)
[2020-07-14 04:40] LABS: Alanine Aminotransferase 7 U/L (0-41); Albumin Level 1.9 g/dL (3.5-5.2); Alkaline Phosphatase 394 IU/L (40-130); Anion Gap 12.3 (5-19); Aspartate Amino Transferase 31 U/L (0-40); Blood Urea Nitrogen 55 mg/dL (6-20); Calcium 7.1 mg/dL (8.5-10.5); Carbon Dioxide 26 mmol/L (22-29); Chloride 103 mmol/L (98-107); Globulin 3.2 g/dL (1.3-4.6); Glomerular Filtration Rate 34.5 mL/min (90-130); Glucose 66 mg/dL (65-115); Osmolality Calculated 297 mOsm/kg (285-295); Potassium 4.3 mmol/L (3.5-5.1); Sodium 137 mmol/L (136-145); Total Bilirubin 0.2 mg/dL (0.15-1.2); Total Protein 5.1 g/dL (6.6-8.7)
[2020-07-14 04:41] LABS: C Reactive Protein 24.2 mg/L (0.0-4.9); Magnesium 1.9 mg/dL (1.7-2.3); Phosphorus 3.5 mg/dL (2.5-4.5)
[2020-07-14 04:45] LABS: D Dimer 0.96 ug/mIFEU (0-0.59); NT Pro B Type Natriuretic Pept 3499 pg/mL (0-125); Procalcitonin 2.28 ng/mL (0-0.5)
--- NOTE | 2020-07-14 05:25 | PC.NURSE ---
Went in to change patients linens, asked patient if I could clean his yañez line, upon inspection noticed yellow colored purlent drainage around yañez cath, smell was ordorous, also notice scalding of the testes, did take swab of drainage, will call doctor for orders to send swabs for culture and ask for Nystatin powder
[2020-07-14] MEDS: levoFLOXacin 750 mg Tablet PO (05:52)
[2020-07-14] MEDS: pantoprazole 40 mg SDV IVP ×2 (05:52→17:58)
[2020-07-14] MEDS: nystatin powder 15 gm Btl 1 APPLIC TOPICAL ×2 (05:53→17:58)
[2020-07-14 06:03] LABS: ABG PCO2 37.2 mmHg (35-45); ABG PH Result 7.46 (7.35-7.45); Arterial Blood Gas Hematocrit 30.6 % (42-52); Base Excess ABG 2.8 mmol/L (-2.0-2.0); Blood Gas Allen Test Pos; Blood Gas Sample Type Arterial; HCO3 ABG 26.6 mmol/L (22-26); PO2 ABG 89.1 mmHg (80.0-100.0)
[2020-07-14 06:04] LABS: Blood Gas Sample Site Radial, right; Oxygen Device NC
--- NOTE | 2020-07-14 07:00 | XRR_ITS ---
PROCEDURE INFORMATION: Exam: XR Chest, 1 View Exam date and time: 07/14/2020 4:00 AM Age: 59 years old Clinical indication: Condition or disease; Other: Covid follow up; Prior surgery; Patient HX: Chest tubes; Additional info: SOB TECHNIQUE: Imaging protocol: XR of the chest Views: 1 view. Other technique: There are bilateral COMPARISON: CR (CHEST, ) 07/13/2020 4:25 PM FINDINGS: Tubes, catheters and devices: There is stable placement of bilateral thoracostomy tubes. Lungs: Increasing opacification of the right lower hemithorax is seen suggesting worsening pneumonia versus atelectasis. Pleural space: There are bilateral pneumothoraces again seen. The left hemithorax appears slightly improved, the right pneumothorax appears unchanged compared with yesterday's examination. Heart/Mediastinum: Unremarkable. No cardiomegaly. Bones/joints: Unremarkable. XR/XR chest 1V portable [id number] IMPRESSION: 1. Bilateral pneumothoraces are again seen in today's examination, unchanged on the right but appearing slightly improved on the left. 2. Worsening opacification within the right lower hemithorax suggest worsening pneumonia versus atelectasis.
[2020-07-14 07:43] LABS: Glucose Urine UA Norm (Normal); Protein Urine 2+ (Negative); Urine Appearance Cloudy (CLEAR); Urine Color Red (Yellow); pH Urine 5 (5-7)
[2020-07-14 07:44] LABS: Add Urine Culture? Yes; Bacteria Urine 1+ /hpf; Bilirubin Urine Neg (Negative); Blood Urine 3+ (Negative); Ketones Urine 1+ (Negative); Leukocyte Esterase Urine 2+ (Negative); Nitrate Urine Positive (Negative); RBC Urine TOO NUMEROUS TO CNT /hpf (0-2); Urobilinogen Urine Norm (Negative); WBC Urine >100 /hpf (0-5)
[2020-07-14 08:18] LABS: Glucose Point of Care 143 mg/dL (70-110)
[2020-07-14] MEDS: ascorbic acid 500 mg Tablet PO (09:10)
[2020-07-14] MEDS: ferrous gluconate 324 mg Tablet PO ×2 (09:10→17:58)
[2020-07-14] MEDS: tamsulosin 0.4 mg Capsule PO (09:10)
[2020-07-14] MEDS: zinc gluconate 50 mg Tablet PO (09:10)
[2020-07-14] MEDS: amiodarone 200 mg Tablet PO ×2 (09:10→17:58)
[2020-07-14] MEDS: aspirin 81 mg Chew Tablet PO (09:10)
[2020-07-14] MEDS: HYDROmorphone 1 mg/mL INJ 1 mL IVP (11:00)
--- NOTE | 2020-07-14 11:03 | XRR_ITS ---
PROCEDURE INFORMATION: Exam: XR Chest, 1 View Exam date and time: 07/14/2020 11:11 AM Age: 59 years old Clinical indication: Device placement; Chest tube; Additional info: Chest tube insertion TECHNIQUE: Imaging protocol: XR of the chest Views: 1 view. COMPARISON: CR XR chest 1V portable [id number] 07/14/2020 4:39 AM FINDINGS: Tubes, catheters and devices: Right PICC line. Lungs: Interstitial prominence and mild basilar airspace disease, with near complete interval resolution of previously visualized right basilar airspace disease. Pleural space: Bilateral pleural catheters with trace left pneumothorax. Heart/Mediastinum: Cardiac silhouette accentuated by hypoinflation and portable positioning. Bones/joints: Degenerative change. XR/XR chest 1V portable [id number] IMPRESSION: 1. Bilateral pleural catheters with trace left pneumothorax. 2. Interstitial prominence and mild basilar airspace disease, with near complete interval resolution of previously visualized right basilar airspace disease.
[2020-07-14 12:05] LABS: Glucose Point of Care 230 mg/dL (70-110)
--- NOTE | 2020-07-14 13:15 | P.PN_ITS ---
Subjective Subjective: Interval history: This morning patient was examined, currently on 1 L, states that he is doing fine, continues to have a poor appetite Chest x-ray this morning, continues to show right pneumothorax, I spoke to Dr. campos, he will come in to replace the right chest tube for possible kink Vitals/I&O/Wt Last Vital Signs Temp 98.7 F 07/14/20 12:00 Pulse 92 07/14/20 12:00 Resp 25 H 07/14/20 12:00 BP 112/77 07/14/20 12:00 Pulse Ox 97 07/14/20 12:00 07/13/20 07/14/20 07/14/20 22:59 06:59 14:59 Intake Total 1000 / 2150 300 / 2450 300 / 300 Output Total 820 / 890 1000 / 1890 75 / 75 Balance 180 / 1260 -700 / 560 225 / 225 Weight last 48 hrs Weight 83.178 kg Weight 85.774 kg Physical Exam Const: COMMON NORMALS: no acute distress and patient oriented x3 GENERAL APPEARANCE: ill appearing HENMT: COMMON NORMALS: normocephalic HEAD & SCALP: normocephalic Neck/C-Spine: COMMON NORMALS: no JVD Chest: OTHER: Bilateral chest tubes in place, both to suction, minimal air leak, right chest tube, no tidling Resp: COMMON NORMALS: normal respiratory effort, No retractions and No use of accessory muscles AUSCULTATION: breath sounds absent (Right periphery, right apex) on the right Cardio: COMMON NORMALS: no JVD, regular rate, regular rhythm, S1 normal heart sound present and S2 normal heart sound present RATE: regular rate RHYTHM: regular rhythm HEART SOUNDS: S1 normal heart sound present and S2 normal heart sound present GI: COMMON NORMALS: Normal to inspection, nondistended, normoactive bowel sounds present, Soft to palpation, non-tender, No hepatosplenomegaly present, no masses and no bruits PALPATION: Yes Soft to palpation and Yes No hepatosplenomegaly present Extremity: COMMON NORMALS: capillary refill normal, no clubbing, cyanosis or edema, no calf tenderness and no pedal edema NARRATIVE EXTREMITY EXAM: Left lower extremity, wrapped Luis Manuel wrap, wound VAC in place Neuro: COMMON NORMALS: patient oriented x3 Psych: COMMON NORMALS: mental status grossly normal Urinary Catheter Management^: Alfonso: Cath Placed During This Visit: yes, but has since been removed by the nurse Reason for Continuing Indwelling Catheter: Accurate Measurement of Urinary Output in Critically Ill Patients Urinary Catheter Date of Insertion: 07/03/20 Urinary Catheter Time of Insertion: 00:45 Date Urinary Catheter Removed: 07/07/20 Time Urinary Catheter Discontinued: 04:54 Alfonso Latex: Cath Placed During This Visit: yes Reason for Continuing Indwelling Catheter: Accurate Measurement of Urinary Output in Critically Ill Patients Urinary Catheter Date of Insertion: 07/14/20 Urinary Catheter Time of Insertion: 06:45 Data : 07/14/20 03:10 07/14/20 03:10 Micro: Microbiology 07/13/20 04:49 Blood Culture - Preliminary Blood NEGATIVE TO DATE 07/13/20 04:15 Blood Culture - Preliminary Blood NEGATIVE TO DATE A&P Assessment and plan (1) Hypoxia: Status: Acute (2) Sepsis: Status: Resolved Qualifiers: Sepsis type: sepsis due to unspecified organism Sepsis acute organ dysfunction status: unspecified Qualified Code(s): A41.9 - Sepsis, unspecified organism (3) Empyema: Status: Acute (4) Staphylococcus aureus bacteremia: -as noted above Status: Acute (5) Diabetic wet gangrene of the foot: Status: Acute (6) Diabetic peripheral neuropathy associated with type 2 diabetes mellitus: Status: Chronic (7) Atrial fibrillation with rapid ventricular response: Status: Resolved (8) HFrEF (heart failure with reduced ejection fraction): Status: Chronic (9) Peripheral arterial disease: Status: Chronic (10) COVID-19: Status: Acute (11) Medical non-compliance: Status: Acute (12) Bilateral pneumothorax: Status: Acute Additional A&P Information Bilateral pneumothorax: -Right chest tube was replaced by Dr. Campos,right lung has expanded, minimal apical pneumothorax -Right chest tube in place, minimal apical pneumothorax -Both chest tubes, minimal pneumothorax, good titling on the right -Plan is to continue both chest tubes to suction, clamp at 6, repeat chest x-ray tomorrow morning. If any point during the clamping he desats, put to back to suction Hypoxia: Most likely secondary to exacerbation of diastolic and systolic congestive heart failure and empyema and bilateral pneumothorax. Less likely secondary to COVID-19. Echocardiogram shows an EF of 30 to 35% with diastolic dysfunction with mild to moderate MR, moderate AI. Currently on 1 L nasal cannula, Urine output yesterday 1890 cc Creatinine up to 2.0 today, hold Lasix for today Fluid restriction up to 1500 cc. Strict input output charting. Daily weights. Wean oxygenation keeping saturation over 90%. Post thoracentesis on 07/[address] King. Fluid studies consistent with transudative most likely secondary to congestive heart failure Sepsis secondary to empyema: Case discussed with Dr. King. -Chest tube placed bilaterally -Right chest tube had some bleeding, which was reinforced with packing, Eliquis on hold -culture so far growing Staphylococcus aureus -Blood cultures on 07/09/2020 culture showed coagulase-negative staph, likely contamination, repeat blood culture today have been unremarkable s -white blood cell count up to 28.2, continue vancomycin, Levaquin, cefazolin as per infectious disease -Has some complaints of diarrhea, is on Levaquin, continue p.o. vancomycin, until C. difficile comes back Atrial fibrillation with rapid ventricular response: Has paroxysmal atrial fibrillation Continue with amiodarone 200 mg twice daily for next 7 days followed by 200 mg daily. Had A. fib events overnight, increase metoprolol to 50 twice daily Currently Eliquis is on hold, continue to hold due to concerns for chest tube bleeding, anemia, clots MSSA staphylococcal and enterococcal bacteremia: Blood cultures positive from admission. Blood cultures since then has remained negative. -1 blood culture staph coagulase-negative, likely contamination Sepsis due to diabetic wet gangrene: Post amputation of the toe. Post debridement with Dr. Fung on 07/03 and 07/[address] Culture growing MSSA, Enterobacter Appreciate Dr. Fung and Dr. Vargas input. MRSA swab negative. Patient will most likely require PICC line. Repeat blood cultures have remained negative. We will go ahead with PICC line as patient will require 6 weeks of IV antibiotics. Acute on chronic anemia -Secondary to sepsis, COVID-19, bone marrow suppression -Holding Eliquis -Status post 1 unit PRBC -Hemoglobin 9.1 today, transfuse another unit PRBC -Protonix 40 twice daily BARBER: Multifactorial. Most likely secondary to cardiorenal syndrome and severe sepsis. Baseline creatinine normal. Creatinine has remained high stable and is trending down from 2.6. Currently 2.0 Hold Lasix for now Medical reconciliation done for nephrotoxic drugs. Controlled Alfonso catheterization for strict input output charting. COVID-19: Rapid antigen positive. Continue to hold off on dexamethasone and remdesivir. We will continue to monitor. Eliquis anticoagulation on hold for now Advair and Spiriva Vitamin C, zinc. Continue to monitor. Isolation precautions. Peripheral arterial disease: CTA aorta runoff appreciated. Case discussed with Dr. Diaz from cardiology. No plan for revascularization as an inpatient for now as patient has small vessel disease and has collaterals. Eliquis as above. Lipid panel results appreciated. Continue aspirin 81 mg oral daily. Type 2 diabetes mellitus: On admission was in DKA. Noncompliance. HbA1c 13. Insulin sliding scale at moderate dose. Anemia: On admission 13. Hemoglobin this afternoon is 8, transfused 1 unit PRBC Continue with oral iron supplementation. Suspected BPH Renal nondialysis carb consistent diet. Eliquis will help with DVT prophylaxis. Full code. Discharge planning: We will continue ICU monitoring for now. On discharge patient will require wound VAC, IV antibiotics for 6 weeks most likely ertapenem on discharge. Currently patient has bilateral chest tubes, wound VAC. Will consult care coordination. Most likely patient will require placement at swing bed. We will obtain UA, urine culture, as UA has evidence of UTI, on Levaquin, evaluate for possible ESBL given persistent leukocytosis, consider removing urinary catheter after chest tubes removed Plan: We will clamp bilateral chest tubes at 6 PM, repeat x-ray tomorrow, at any point if desaturations overnight put back to suction, obtain a urine culture, monitor for fevers, monitor for A. fib events, Attestations Medical Necessity Statement*: She requires hospitalization for bilateral pneumothorax, empyema, sepsis, A. 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
--- NOTE | 2020-07-14 13:29 | PM.ACPR ---
Procedure/Consent Time out: Time Out Performed: Yes Consent: Consent for Procedure: Consent obtained from patient Procedure Narrative: Right chest 14 fr pigtail placement for persistent pneumothorax Acute Procedures Chest Tube^: Chest Tube 2: Chest tube location: Lateral Chest Size of tube: 14 Chest tube procedure: Yes betadine prep and sterile drapes applied Tube sutured to skin: Yes Sterile dressing applied: Yes Anesthesia: 1% Lidocaine Volume anesthetic (ml): 10 Patient tolerated procedure: Yes Complications: other (none) Progress: PULMONARY AND CRITICAL CARE MEDICINE CHEST TUBE PLACEMENT Procedure: 14 Fr Pigtail Catheter Indication: Persistent large pneumothorax on right side - no tidaling or air leak noted in atrim - possible kinked previously existing chest tube. Diamond Setter Apprentice(s): Marlo Bailey MD Consent: Given by patient witnessed by RN Ms. Moreno Anesthesia: 10 cc 1% lidocaine without epinephrine Description:Right pneumothorax was localized using ultrasound guidance and site marked accordingly. After chlorhexidine skin prep, area was draped in a sterile manner. 1% lidocaine was used for local anesthesia. 14 Fr pigtail catheter was then inserted into the pleural space with return of air bubbles in introducer syringe. Guidewire introduced and using Seldinger technique the right-sided chest tube was put in. Catheter was connected to 20 cm H2O suction then sutured in place, and a sterile dressing applied. Tidaling noted with inspiration and airbubbles noted in the atrium. Ultrasound guidance used: No EBL: 5 cc Complications: No After confirming 14 fr pigtail position and resolution of pneumthorax ; previous 14 fr pigtail placed in 07/10/2020 was removed and sterile dressing with xeroform gel was placed over the site. Epistaxis Control: Time out performed: Yes
--- NOTE | 2020-07-14 14:41 | PM.PN ---
Subjective Subjective: Interval history: Patient seen bedside this afternoon, doing well denies any complaints. Denies any left foot pain. States he is feeling much better. Vitals/I&O/Wt Last Vital Signs Temp 98.7 F 07/14/20 12:00 Pulse 92 07/14/20 12:00 Resp 25 H 07/14/20 12:00 BP 112/77 07/14/20 12:00 Pulse Ox 97 07/14/20 12:00 07/13/20 07/14/20 07/14/20 22:59 06:59 14:59 Intake Total 1000 / 2150 300 / 2450 300 / 300 Output Total 820 / 890 1000 / 1890 75 / 75 Balance 180 / 1260 -700 / 560 225 / 225 Weight last 48 hrs Weight 183 lb 6 oz Weight 189 lb 1.6 oz Physical Exam Narrative: EXAM NARRATIVE: Mr. Hathaway is alert and oriented x3 and in no acute distress. VASCULAR: Dorsalis pedis and posterior tibial palpable. Capillary refill time less than 5 seconds distal lesser toes 2 through 5 left foot. Calf is supple and nontender proximally and distally. Diminished pedal hair growth bilaterally. NEUROLOGICAL: Protective sensation intact 0/10 sites, tested with [place] Thomas monofilament to bilateral feet. DERMATOLOGICAL: Wound VAC dressing is intact and to suction, good seal, 300 cc of serosanguineous drainage in the canister. Resolved erythema to left lower extremity, no warmth. MUSCULOSKELETAL: No pain with posterior calf squeeze bilaterally. Muscle strength 5 out of 5 in all 3 cardinal planes to bilateral foot and ankle. Urinary Catheter Management^: Alfonso: Cath Placed During This Visit: yes, but has since been removed by the nurse Reason for Continuing Indwelling Catheter: Accurate Measurement of Urinary Output in Critically Ill Patients Urinary Catheter Date of Insertion: 07/03/20 Urinary Catheter Time of Insertion: 00:45 Date Urinary Catheter Removed: 07/07/20 Time Urinary Catheter Discontinued: 04:54 Alfonso Latex: Cath Placed During This Visit: yes Reason for Continuing Indwelling Catheter: Accurate Measurement of Urinary Output in Critically Ill Patients Urinary Catheter Date of Insertion: 07/14/20 Urinary Catheter Time of Insertion: 06:45 Data : 07/14/20 03:10 07/14/20 03:10 Micro: Microbiology 07/09/20 14:07 Blood Culture - Final Blood NO GROWTH AFTER 5 DAYS 07/13/20 04:49 Blood Culture - Preliminary Blood NEGATIVE TO DATE 07/13/20 04:15 Blood Culture - Preliminary Blood NEGATIVE TO DATE A&P Assessment and plan (1) Diabetic peripheral neuropathy associated with type 2 diabetes mellitus: Status: Chronic (2) Diabetic wet gangrene of the foot: Status: Acute (3) Sepsis: Status: Resolved Qualifiers: Sepsis type: sepsis due to unspecified organism Sepsis acute organ dysfunction status: unspecified Qualified Code(s): A41.9 - Sepsis, unspecified organism Mr. 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 He is status post left metatarsectomy, debridement and wound VAC application date of operation 07/10/2020. Resolved erythema to the left lower extremity. Wound VAC is intact with excellent seal, no leak set at 125 mm of continuous negative pressure. 300 cc of serosanguineous drainage in the canister, no purulence. Planning on wound VAC dressing change tomorrow, podiatry will continue to follow. 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
--- NOTE | 2020-07-14 17:01 | PC.NURSE ---
0700 received report from MARIALUISA Whitehead. bilateral chest tubes hooked up to suction. no bleeding at site on either chest tube. drainage marked by previous nurse. Right chest tube has small amount of bubbles in chamber. yañez in tact and draining. vital signs WNL. patient states that he is not in any pain at this time.
[2020-07-14 17:43] LABS: Glucose Point of Care 116 mg/dL (70-110)
[2020-07-14] MEDS: metoprolol tartrate 50 mg Tablet PO (17:58)
[2020-07-14] MEDS: morphine 4 mg/mL SDV 1 mL 2 MG IVP (18:26)
--- NOTE | 2020-07-14 18:27 | PC.NURSE ---
at bedside ultrasound of patient chest tubes done by . decision to place a new chest tube on the right side d/t kinking of tube. consent given by patient prior to pain medication given. Chest tube placed on right side. secured by . chest xray obtained. patient stated that he feels much better after the placement of chest tube. verbal order from to turn suction off after nurses shift. as long as patient maintains oxygen saturation in 90s to keep suction off. If patient deteriorated, turn suction back on. 1800 call to . patient stating 6/10 soreness in right chest. verbal order for 2mg morphine Q4HR. vital sign WNL
[2020-07-14 20:45] LABS: Glucose Point of Care 161 mg/dL (70-110)
[2020-07-14 22:01] LABS: Glucose Point of Care 160 mg/dL (70-110)
[2020-07-15] VITALS (32 sets, daily range): BP systolic 100–140; BP diastolic 47–81; PULSE 68–86; RESP 12–33; TEMP 36.2–37.1; O2SAT 81–100
[2020-07-15 03:58] LABS: Basophils % 0.2 %; Eosinophils # 0.2 10^3/uL (0.0-0.8); Eosinophils % 1.2 %; Hematocrit 27.1 % (42.0-52.0); Hemoglobin 8.6 g/dL (11.7-16.6); Lymphocytes # 1.3 10^3/uL (0.8-4.8); Lymphocytes % 9.6 %; Mean Corpuscular HGB Conc 31.7 g/dL (30.0-36.0); Mean Corpuscular Hemoglobin 28.7 pg (28.0-34.0); Mean Corpuscular Volume 90.3 fL (80-94); Mean Platelet Volume 11.1 fL (7.4-10.4); Monocytes # 0.4 10^3/uL (0.2-0.9); Monocytes % 2.9 %; Neutrophils # 11.29 10^3/uL (1.8-7.7); Nucleated Red Blood Cells % 0 %; Platelet Count 155 10^3/cmm (130-400); Red Cell Distribution Width 14.6 % (12.1-15.1); White Blood Count 13.3 10^3/uL (4.0-10.0)
[2020-07-15 04:00] LABS: ABG PCO2 36.9 mmHg (35-45); ABG PH Result 7.48 (7.35-7.45); Arterial Blood Gas Hematocrit 30.9 % (42-52); Base Excess ABG 3.7 mmol/L (-2.0-2.0); Blood Gas Operator Identificat HARKR; Blood Gas Sample Site Brachial, left; Blood Gas Sample Type Arterial; HCO3 ABG 27.4 mmol/L (22-26); Oxygen Device ROOM AIR; PO2 ABG 83.8 mmHg (80.0-100.0)
[2020-07-15 04:15] LABS: INR 1.27 (0.8-1.2)
[2020-07-15 04:28] LABS: Alanine Aminotransferase < 5 U/L (0-41); Albumin Level 1.7 g/dL (3.5-5.2); Alkaline Phosphatase 289 IU/L (40-130); Anion Gap 9.3 (5-19); Aspartate Amino Transferase 16 U/L (0-40); Blood Urea Nitrogen 45 mg/dL (6-20); C Reactive Protein 27.6 mg/L (0.0-4.9); Calcium 6.9 mg/dL (8.5-10.5); Carbon Dioxide 27 mmol/L (22-29); Chloride 102 mmol/L (98-107); Globulin 3.3 g/dL (1.3-4.6); Glomerular Filtration Rate 44.6 mL/min (90-130); Glucose 149 mg/dL (65-115); Magnesium 1.9 mg/dL (1.7-2.3); Osmolality Calculated 292 mOsm/kg (285-295); Potassium 4.3 mmol/L (3.5-5.1); Sodium 134 mmol/L (136-145); Total Bilirubin 0.2 mg/dL (0.15-1.2)
[2020-07-15 04:30] LABS: Lactic Sepsis W/Reflex 0.7 mmol/L (0.5-2.2)
[2020-07-15 05:36] LABS: NT Pro B Type Natriuretic Pept 5200 pg/mL (0-125); Procalcitonin 1.43 ng/mL (0-0.5)
[2020-07-15] MEDS: levoFLOXacin 750 mg Tablet PO (06:01)
[2020-07-15] MEDS: pantoprazole 40 mg SDV IVP ×2 (06:01→15:36)
--- NOTE | 2020-07-15 07:00 | XR_ITS ---
WS: [id number] Exam: XR chest 1V portable [id number] Date/Time of Exam: 07/15/2020 5:34 AM Reason For Exam: sob Comparison 07/14/2020. Tiny left upper lobe but pneumothorax shows no change. There are new infiltrates in the upper left lo be and the right lower lobe since prior study. Heart size is stable. The mediastinum is not widened. No pleural effusions. There is atelectasis in the left lower lobe. Bilateral thoracostomy tubes remai n in place unchanged. A right-sided PICC line is noted and appears to extend into the right atrium. T he bony thorax is intact. XR/XR chest 1V portable [id number] IMPRESSION: 1. New infiltrates in the left upper lobe and the right lower lobe suspicious f or pneumonia. 2. Bilateral chest tubes in place unchanged. 3. Tiny left upper lobe pneumothorax.
[2020-07-15] MEDS: morphine 4 mg/mL SDV 1 mL 2 MG IVP ×2 (07:20→14:30)
[2020-07-15 08:02] LABS: Glucose Point of Care 180 mg/dL (70-110)
[2020-07-15] MEDS: zinc gluconate 50 mg Tablet PO (09:18)
[2020-07-15] MEDS: ascorbic acid 500 mg Tablet PO (09:18)
[2020-07-15] MEDS: FUROsemide 40 mg Tablet PO (09:18)
[2020-07-15] MEDS: tamsulosin 0.4 mg Capsule PO (09:18)
[2020-07-15] MEDS: metoprolol tartrate 50 mg Tablet PO ×2 (09:18→15:35)
[2020-07-15] MEDS: aspirin 81 mg Chew Tablet PO (09:18)
[2020-07-15] MEDS: ferrous gluconate 324 mg Tablet PO ×2 (09:19→15:35)
[2020-07-15] MEDS: acetaminophen 325 mg Tablet 650 MG PO (09:19)
[2020-07-15] MEDS: nystatin powder 15 gm Btl 1 APPLIC TOPICAL ×2 (09:22→15:36)
[2020-07-15] MEDS: amiodarone 200 mg Tablet PO ×2 (10:33→15:35)
[2020-07-15 12:20] LABS: Glucose Point of Care 258 mg/dL (70-110)
--- NOTE | 2020-07-15 12:33 | P.PN_ITS ---
Subjective Subjective: Interval history: Patient was examined this morning, states that he is feeling well, is on room air, bilateral chest tubes do bother him, wants to see if he can set up into a chair, no bloody or black stools, no hematemesis Vitals/I&O/Wt Last Vital Signs Temp 97.9 F 07/15/20 08:00 Pulse 81 07/15/20 10:00 Resp 17 07/15/20 10:00 BP 129/64 07/15/20 10:00 Pulse Ox 97 07/15/20 10:00 07/14/20 07/15/20 07/15/20 22:59 06:59 14:59 Intake Total 300 / 950 50 / 1000 550 / 550 Output Total 1325 / 1400 400 / 1800 Balance -1025 / -450 -350 / -800 550 / 550 Weight last 48 hrs Weight 83.688 kg Weight 83.178 kg Physical Exam Const: COMMON NORMALS: no acute distress and patient oriented x3 HENMT: COMMON NORMALS: normocephalic HEAD & SCALP: normocephalic Neck/C-Spine: COMMON NORMALS: no JVD Chest: OTHER: Bilateral chest tubes in place, left chest suction, no air leak, right to waterseal, no air leak Resp: COMMON NORMALS: normal respiratory effort, No retractions, No use of accessory muscles and clear to auscultation bilaterally AUSCULTATION: clear to auscultation bilaterally Cardio: COMMON NORMALS: no JVD, regular rate, regular rhythm, S1 normal heart sound present and S2 normal heart sound present RATE: regular rate and tachycardic RHYTHM: regular rhythm and abnormal rhythm HEART SOUNDS: S1 normal heart sound present and S2 normal heart sound present GI: COMMON NORMALS: Normal to inspection, nondistended, normoactive bowel sounds present, Soft to palpation, non-tender, No hepatosplenomegaly present, no masses and no bruits PALPATION: Yes Soft to palpation and Yes No hepatosplenomegaly present Extremity: COMMON NORMALS: capillary refill normal, no clubbing, cyanosis or edema, no calf tenderness and no pedal edema NARRATIVE EXTREMITY EXAM: Left lower extremity, wrapped Luis Manuel wrap, wound VAC in place Neuro: COMMON NORMALS: patient oriented x3 Psych: COMMON NORMALS: mental status grossly normal Urinary Catheter Management^: Alfonso: Cath Placed During This Visit: yes, but has since been removed by the nurse Reason for Continuing Indwelling Catheter: Accurate Measurement of Urinary Output in Critically Ill Patients Urinary Catheter Date of Insertion: 07/03/20 Urinary Catheter Time of Insertion: 00:45 Date Urinary Catheter Removed: 07/07/20 Time Urinary Catheter Discontinued: 04:54 Alfonso Latex: Cath Placed During This Visit: yes Reason for Continuing Indwelling Catheter: Accurate Measurement of Urinary Output in Critically Ill Patients Urinary Catheter Date of Insertion: 07/14/20 Urinary Catheter Time of Insertion: 06:45 Data : 07/15/20 03:15 07/15/20 03:15 Micro: Microbiology 07/14/20 12:52 Body Fluid Culture - Preliminary Other Source Yeast species 07/14/20 06:45 Urine Culture - Preliminary Urine,Clean Catch Yeast species 07/09/20 14:07 Blood Culture - Final Blood NO GROWTH AFTER 5 DAYS A&P Assessment and plan (1) Hypoxia: Status: Acute (2) Sepsis: Status: Resolved Qualifiers: Sepsis type: sepsis due to unspecified organism Sepsis acute organ dysfunction status: unspecified Qualified Code(s): A41.9 - Sepsis, unspecified organism (3) Empyema: Status: Acute (4) Staphylococcus aureus bacteremia: -as noted above Status: Acute (5) Diabetic wet gangrene of the foot: Status: Acute (6) Diabetic peripheral neuropathy associated with type 2 diabetes mellitus: Status: Chronic (7) Atrial fibrillation with rapid ventricular response: Status: Resolved (8) HFrEF (heart failure with reduced ejection fraction): Status: Chronic (9) Peripheral arterial disease: Status: Chronic (10) COVID-19: Status: Acute (11) Medical non-compliance: Status: Acute (12) Bilateral pneumothorax: Status: Acute Additional A&P Information Bilateral pneumothorax: -Right chest tube was replaced by Dr. Bailey,right lung has expanded, minimal apical pneumothorax, to waterseal today -Left chest tube in place, minimal apical pneumothorax, dissection -Both chest tubes, minimal pneumothorax, will clamp tonight at 6 PM -Repeat chest x-ray tomorrow morning, possible removal of bilateral chest tubes tomorrow Hypoxia: Most likely secondary to exacerbation of diastolic and systolic congestive heart failure and empyema and bilateral pneumothorax. Less likely secondary to COVID-19. Echocardiogram shows an EF of 30 to 35% with diastolic dysfunction with mild to moderate MR, moderate AI. Currently on room air Urine output yesterday 1800 cc Creatinine up to 1.6 today, Lasix 40 mg p.o. daily We will give 2 doses of albumin today Fluid restriction up to 1500 cc. Strict input output charting. Daily weights. Wean oxygenation keeping saturation over 90%. Post thoracentesis on 07/[address] King. Fluid studies consistent with transudative most likely secondary to congestive heart failure Anemia: Status post 2 units PRBC this admission, hemoglobin trending down to 8.6, continue to hold Eliquis due to concerns for significant bleeding, will give 1 unit of PRBC this morning Sepsis secondary to empyema: Case discussed with Dr. King. -Chest tube placed bilaterally -Right chest tube had some bleeding, which was reinforced with packing, Eliquis on hold -culture so far growing Staphylococcus aureus -Blood cultures on 07/09/2020 culture showed coagulase-negative staph, likely contamination, repeat blood culture today have been unremarkable s -white blood cell count up to 13.3, continue Levaquin, cefazolin as per infectious disease -Urine culture showing yeast species, start fluconazole Atrial fibrillation with rapid ventricular response: Has paroxysmal atrial fibrillation Continue with amiodarone 200 mg twice daily for next 7 days followed by 200 mg daily. metoprolol to 50 twice daily Currently Eliquis is on hold, continue to hold due to concerns for chest tube bleeding, anemia, clots MSSA staphylococcal and enterococcal bacteremia: Blood cultures positive from admission. Blood cultures since then has remained negative. -1 blood culture staph coagulase-negative, likely contamination Sepsis due to diabetic wet gangrene: Post amputation of the toe. Post debridement with Dr. Fung on 07/03 and 07/[address] Culture growing MSSA, Enterobacter Appreciate Dr. Fung and Dr. Vargas input. MRSA swab negative. Patient will most likely require PICC line. Repeat blood cultures have remained negative. We will go ahead with PICC line as patient will require 6 weeks of IV antibiotics. Acute on chronic anemia -Secondary to sepsis, COVID-19, bone marrow suppression, bleeding from chest tube -Holding Eliquis, advised of risks and benefits, versus secondary to proceed -Status post 2 unit PRBC -Hemoglobin 8.6 today, transfuse another unit PRBC today -Protonix 40 twice daily BARBER: Multifactorial. Most likely secondary to cardiorenal syndrome and severe sepsis. Baseline creatinine normal. Creatinine has remained high stable and is trending down from 2.6. Currently 1.6 Lasix for now Medical reconciliation done for nephrotoxic drugs. Controlled Alfonso catheterization for strict input output charting We will likely discontinue Alfonso catheter tomorrow COVID-19: Rapid antigen positive. Continue to hold off on dexamethasone and remdesivir. We will continue to monitor. Eliquis anticoagulation on hold for now Advair and Spiriva Vitamin C, zinc. Continue to monitor. Isolation precautions. Peripheral arterial disease: CTA aorta runoff appreciated. Case discussed with Dr. Diaz from cardiology. No plan for revascularization as an inpatient for now as patient has small vessel disease and has collaterals. Eliquis as above. Lipid panel results appreciated. Continue aspirin 81 mg oral daily. Type 2 diabetes mellitus: On admission was in DKA. Noncompliance. HbA1c 13. Insulin sliding scale at moderate dose. Renal nondialysis carb consistent diet. SCDs for DVT prophylaxis Full code. Discharge planning: We will continue ICU monitoring for now. On discharge patient will require wound VAC, IV antibiotics for 6 weeks most likely ertapenem on discharge. Currently patient has bilateral chest tubes, wound VAC. Will consult care coordination. Most likely patient will require placement at swing bed. 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
[2020-07-15] MEDS: fluconazole 100 mg Tablet 200 MG PO (15:34)
[2020-07-15 17:28] LABS: Glucose Point of Care 135 mg/dL (70-110)
[2020-07-15] MEDS: acetaZOLAMIDE 250 mg Tablet 500 MG PO (18:35)
[2020-07-15] MEDS: sodium chloride 0.9% 500 ML 100 ML IV (18:35)
--- NOTE | 2020-07-15 19:10 | P.PN_ITS ---
Subjective Subjective: Interval history: Patient seen bedside this afternoon, doing well denies any complaints. Denies any left foot pain. He is in good spirits, states he is feeling well. Vitals/I&O/Wt Last Vital Signs Temp 97.3 F L 07/15/20 18:00 Pulse 71 07/15/20 18:00 Resp 26 H 07/15/20 18:00 BP 136/78 07/15/20 18:00 Pulse Ox 100 07/15/20 18:00 07/15/20 07/15/20 07/15/20 06:59 14:59 22:59 Intake Total 50 / 1000 900 / 900 564 / 1464 Output Total 400 / 1800 1500 / 1500 Balance -350 / -800 -600 / -600 564 / -36 Weight last 48 hrs Weight 184 lb 8 oz Weight 183 lb 6 oz Physical Exam 2 Narrative: EXAM NARRATIVE: Mr. Hathaway is alert and oriented x3 and in no acute distress. VASCULAR: Dorsalis pedis and posterior tibial palpable. Capillary refill time less than 5 seconds distal lesser toes 2 through 5 left foot. Calf is supple and nontender proximally and distally. Diminished pedal hair growth bilaterally. NEUROLOGICAL: Protective sensation intact 0/10 sites, tested with [place] Thomas monofilament to bilateral feet. DERMATOLOGICAL: Resolved cellulitis to the left lower extremity, of concern is new localized ischemia at the distal portion of the amputation site just medial to the second digit as well as at the dorsum of the left midfoot limited to breakdown of skin has alejandro dusky appearance. No purulent drainage of the left foot. MUSCULOSKELETAL: No pain with posterior calf squeeze bilaterally. Muscle strength 5 out of 5 in all 3 cardinal planes to bilateral foot and ankle. Urinary Catheter Management^: Alfonso: Cath Placed During This Visit: yes, but has since been removed by the nurse Reason for Continuing Indwelling Catheter: Accurate Measurement of Urinary Output in Critically Ill Patients Urinary Catheter Date of Insertion: 07/03/20 Urinary Catheter Time of Insertion: 00:45 Date Urinary Catheter Removed: 07/07/20 Time Urinary Catheter Discontinued: 04:54 Alfonso Latex: Cath Placed During This Visit: yes Reason for Continuing Indwelling Catheter: Accurate Measurement of Urinary Output in Critically Ill Patients Urinary Catheter Date of Insertion: 07/14/20 Urinary Catheter Time of Insertion: 06:45 Data : 07/15/20 03:15 07/15/20 03:15 Micro: Microbiology 07/14/20 12:52 Body Fluid Culture - Preliminary Other Source Yeast species 07/14/20 06:45 Urine Culture - Preliminary Urine,Clean Catch Yeast species 07/09/20 14:07 Blood Culture - Final Blood NO GROWTH AFTER 5 DAYS A&P Assessment and plan (1) Diabetic peripheral neuropathy associated with type 2 diabetes mellitus: Status: Chronic (2) Diabetic wet gangrene of the foot: Status: Acute (3) Sepsis: Status: Resolved Qualifiers: Sepsis type: sepsis due to unspecified organism Sepsis acute organ dysfunction status: unspecified Qualified Code(s): A41.9 - Sepsis, unspecified organism Mr. 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 He is status post left metatarsectomy, debridement and wound VAC application date of operation 07/10/2020. Resolved erythema to the left lower extremity. [place] of localized ischemia with patchy dusky alejandro appearance to the dorsum of the left midfoot and forefoot. Wound remains clean without surrounding erythema or purulent drainage. Will discontinue wound VAC for now, may restart wound VAC pending clinical response, left foot wound dressed with Dakin's wet-to-dry. CT angio s hows numerous stenosis with multiple occlusions of the lower legs. No intervention planned per cardiology. Will continue to monitor closely. Patient is at high risk for below-knee amputation. May use Darco shoe with OrthoWedge heel to the left foot for ambulation and working with physical therapy. 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
--- NOTE | 2020-07-15 19:34 | PC.NURSE ---
LEFT CHEST TUBE DRESSING CHANGED AFTER DR BAH FLUSHED HIS TUBE WITH 10 OF SALINE. PATIENT UP TO CHAIR FOR LUNCH AND RECIEVED BOTH UNITS WHILE UP . WENT TO [facility] AND HAD SMALL STOOL . VERY WEAK ON STANDING. DR OLIVEIRA AWARE AND STATED PATIENT COULD BARE WT ON IT TOMORROW , AND THAT HE WOULD SEND A SHOE FOR HIM TO WEAR ON IT TO KEEP FROM SLIPPING. BOTH CHEST TUBES DUMPED CONSIDERABLY WHEN HE WAS UP AND TRANSFERING TO BED. THE CHEST TUBES WERE BOTH CLAMPED AT 0700, THE NIGHT NURSE CHAPINCITO WAS INFORMED THAT THEY SHOULD GO TO SUCTION IF HE IS IN DISTRESS. BOTH UNITS OF BLOOD WERE INFUSED WITHOUT ISSUES.
[2020-07-16] VITALS (29 sets, daily range): BP systolic 79–161; BP diastolic 52–105; PULSE 60–104; RESP 7–24; TEMP 35.8–37.1; O2SAT 77–100
[2020-07-16 00:11] LABS: Glucose Point of Care 227 mg/dL (70-110)
[2020-07-16 00:11] LABS: Glucose Point of Care 180 mg/dL (70-110)
[2020-07-16 05:00] LABS: Basophils % 0.2 %; Eosinophils # 0.1 10^3/uL (0.0-0.8); Eosinophils % 1.2 %; Hematocrit 28.9 % (42.0-52.0); Hemoglobin 9.2 g/dL (11.7-16.6); Lymphocytes # 1.1 10^3/uL (0.8-4.8); Lymphocytes % 9.8 %; Mean Corpuscular HGB Conc 31.8 g/dL (30.0-36.0); Mean Corpuscular Hemoglobin 28.7 pg (28.0-34.0); Mean Platelet Volume 10.9 fL (7.4-10.4); Monocytes # 0.4 10^3/uL (0.2-0.9); Monocytes % 3.2 %; Neutrophils # 9.71 10^3/uL (1.8-7.7); Neutrophils % 85.3 %; Nucleated Red Blood Cells % 0 %; Platelet Count 125 10^3/cmm (130-400); Red Blood Count 3.21 10^6/uL (4.1-5.3); Red Cell Distribution Width 14.9 % (12.1-15.1); White Blood Count 11.4 10^3/uL (4.0-10.0)
[2020-07-16] MEDS: levoFLOXacin 750 mg Tablet PO (05:11)
[2020-07-16] MEDS: pantoprazole 40 mg SDV IVP ×2 (05:12→17:06)
[2020-07-16 05:29] LABS: Alanine Aminotransferase < 5 U/L (0-41); Albumin Level 1.9 g/dL (3.5-5.2); Alkaline Phosphatase 196 IU/L (40-130); Anion Gap 17.8 (5-19); Aspartate Amino Transferase 12 U/L (0-40); Blood Urea Nitrogen 37 mg/dL (6-20); C Reactive Protein 26.6 mg/L (0.0-4.9); Calcium 6.4 mg/dL (8.5-10.5); Carbon Dioxide 23 mmol/L (22-29); Chloride 102 mmol/L (98-107); Globulin 2.9 g/dL (1.3-4.6); Glomerular Filtration Rate 24.4 mL/min (90-130); Glucose 198 mg/dL (65-115); Magnesium 1.6 mg/dL (1.7-2.3); NT Pro B Type Natriuretic Pept 5039 pg/mL (0-125); Osmolality Calculated 302 mOsm/kg (285-295); Phosphorus 2.8 mg/dL (2.5-4.5); Potassium 3.8 mmol/L (3.5-5.1); Procalcitonin 0.56 ng/mL (0-0.5); Sodium 139 mmol/L (136-145); Total Bilirubin 0.2 mg/dL (0.15-1.2); Total Protein 4.8 g/dL (6.6-8.7)
[2020-07-16 05:30] LABS: Glucose Point of Care 250 mg/dL (70-110)
[2020-07-16 05:35] LABS: INR 1.26 (0.8-1.2)
[2020-07-16 05:43] LABS: Creatine Phosphokinase 16 U/L (39-308)
--- NOTE | 2020-07-16 07:00 | XR_ITS ---
WS: [id number] Exam: XR chest 1V portable [id number] Date/Time of Exam: 07/16/2020 7:02 AM Reason For Exam: sob Comparison 07/15/2020. Previously noted mild infiltrates in the left upper lobe and right lower lobe have improved. The lung s appear to be fully expanded on today's exam. Bilateral chest tubes are in place unchanged. There ap pears to be a kink in the left chest tube at the skin surface. Mild subcutaneous emphysema along the right scapula. Normal cardiomediastinal structures. Bony elements appear to be intact. XR/XR chest 1V portable [id number] IMPRESSION: 1. Improved mild infiltrates in the left upper lobe and right lower lobe since prior study. 2. The lungs appear to be fully inflated. 3. Bilateral chest tubes in place unchanged in position. Right-sided PICC line in place ending in the right atrium. 4. Mild subcutaneous emphysema along the right scapula which is a new finding.
--- NOTE | 2020-07-16 07:09 | P.PN_ITS ---
Subjective Subjective: Interval history: Patient seen bed side this a.m., denies any acute events overnight, tolerating regular diet. Denies any left foot pain. Vitals/I&O/Wt Last Vital Signs Temp 98.1 F 07/16/20 04:00 Pulse 81 07/16/20 06:00 Resp 24 H 07/16/20 06:00 BP 151/82 07/16/20 06:00 Pulse Ox 99 07/16/20 06:00 07/15/20 07/16/20 07/16/20 22:59 06:59 14:59 Intake Total 624 / 1524 60 / 1584 Output Total 350 / 1850 1100 / 2950 Balance 274 / -326 -1040 / -1366 Weight last 48 hrs Weight 189 lb 4.8 oz Weight 184 lb 8 oz Physical Exam Narrative: EXAM NARRATIVE: Mr. Hathaway is alert and oriented x3 and in no acute distress. VASCULAR: Dorsalis pedis and posterior tibial palpable. Capillary refill time less than 5 seconds distal lesser toes 2 through 5 left foot. Calf is supple and nontender proximally and distally. Diminished pedal hair growth bilaterally. NEUROLOGICAL: Protective sensation intact 0/10 sites, tested with [place] monofilament to bilateral feet. DERMATOLOGICAL: Resolved cellulitis to the left lower extremity, of concern is new localized ischemia at the distal portion of the amputation site just medial to the second digit as well as at the dorsum of the left midfoot limited to breakdown of skin has alejandro dusky appearance. No purulent drainage of the left foot. MUSCULOSKELETAL: No pain with posterior calf squeeze bilaterally. Muscle strength 5 out of 5 in all 3 cardinal planes to bilateral foot and ankle. Urinary Catheter Management^: Alfonso: Cath Placed During This Visit: yes, but has since been removed by the nurse Reason for Continuing Indwelling Catheter: Accurate Measurement of Urinary Output in Critically Ill Patients Urinary Catheter Date of Insertion: 07/03/20 Urinary Catheter Time of Insertion: 00:45 Date Urinary Catheter Removed: 07/07/20 Time Urinary Catheter Discontinued: 04:54 Alfonso Latex: Cath Placed During This Visit: yes Reason for Continuing Indwelling Catheter: Accurate Measurement of Urinary Ou tput in Critically Ill Patients Urinary Catheter Date of Insertion: 07/14/20 Urinary Catheter Time of Insertion: 06:45 Data : 07/16/20 03:15 07/16/20 03:15 Micro: Microbiology 07/14/20 12:52 Body Fluid Culture - Preliminary Other Source Yeast species 07/14/20 06:45 Urine Culture - Preliminary Urine,Clean Catch Yeast species A&P Assessment and plan (1) Diabetic peripheral neuropathy associated with type 2 diabetes mellitus: Status: Chronic (2) Diabetic wet gangrene of the foot: Status: Acute (3) Sepsis: Status: Resolved Qualifiers: Sepsis type: sepsis due to unspecified organism Sepsis acute organ dysfunction status: unspecified Qualified Code(s): A41.9 - Sepsis, unspecified organism Mr. 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 He is status post left metatarsectomy, debridement and wound VAC application date of operation 07/10/2020. No acute infection of the left lower extremity at this time, resolved erythema. Discontinued wound VAC for the time being, 2 areas of patchy localized ischemia at the left foot, will monitor for demarcation, no plans for further surgical invention to the left lower extremity during his hospitalization. Patient is at risk for higher level of amputation at this time infection is under control and patient would like to pursue limb salvage efforts this will require PICC line and local wound care. Podiatry will continue to follow, Tasneem's wet-to-dry dressing change performed today. Patient can work with physical therapy may weight-bear on his heel with a Ortho[employer]edge [employer] shoe. Attestations Medical Necessity Statement*: Wet gangrene left foot Coding Level of Care Code Acute Machine Load Clerk for [facility] Diagnoses Diabetic peripheral neuropathy associated with type 2 diabetes mellitus E11.42 Diabetic wet gangrene of the foot E11.52 Sepsis A41.9 Sepsis type: sepsis due to unspecified organism Sepsis acute organ dysfunction status: unspecified
[2020-07-16 07:31] LABS: Glucose Point of Care 213 mg/dL (70-110)
[2020-07-16] MEDS: fluconazole 100 mg Tablet 200 MG PO (08:11)
[2020-07-16] MEDS: amiodarone 200 mg Tablet PO ×2 (08:11→17:06)
[2020-07-16] MEDS: acetaZOLAMIDE 250 mg Tablet 500 MG PO ×2 (08:11→17:06)
[2020-07-16] MEDS: aspirin 81 mg Chew Tablet PO (08:11)
[2020-07-16] MEDS: phenazopyridine 100 mg Tablet 200 MG PO (08:11)
[2020-07-16] MEDS: ferrous gluconate 324 mg Tablet PO ×2 (08:14→17:06)
[2020-07-16] MEDS: ascorbic acid 500 mg Tablet PO (08:15)
[2020-07-16] MEDS: sodium chloride 0.9% 1,000 ML 100 ML IV (08:26)
[2020-07-16] MEDS: metoprolol tartrate 50 mg Tablet PO ×2 (08:26→17:05)
[2020-07-16] MEDS: tamsulosin 0.4 mg Capsule PO (08:26)
[2020-07-16] MEDS: nystatin powder 15 gm Btl 1 APPLIC TOPICAL ×2 (08:26→17:07)
[2020-07-16] MEDS: zinc gluconate 50 mg Tablet PO (08:27)
[2020-07-16 10:52] LABS: Glucose Point of Care 211 mg/dL (70-110)
--- NOTE | 2020-07-16 11:09 | PC.NURSE ---
CHEST TUBES REMAIN CLAMPED, NO DISTRESS OBSERVED IN PATIENT. SATS 98 OR BETTER ON ROOM AIR. EATING WELL. PAIN TREATED. REQUESTS TO STAY IN BED DR MAY PULL TUBES TODAY. PLAN FOR PT TO HELP HIM TO CHAIR EITHER WAY. ORAL CARE AND PERICARE PERFORMED AT THIS TIME WITH NYSTATIN AND BARRIER CREAM ON HIS SPECKLED RED BUTTOCK.
--- NOTE | 2020-07-16 12:43 | P.PN_ITS ---
Subjective Subjective: Interval history: This morning patient was examined, he sitting up in bed, in positive spirits, he is excited about the possibility of his chest tubes being removed, has no particular complaints this morning, no fevers, chills, no nausea, no vomiting, no shortness of breath, no chest pain Vitals/I&O/Wt Last Vital Signs Temp 98.1 F 07/16/20 08:00 Pulse 84 07/16/20 10:00 Resp 18 07/16/20 10:00 BP 123/60 07/16/20 10:00 Pulse Ox 97 07/16/20 10:00 07/15/20 07/16/20 07/16/20 22:59 06:59 14:59 Intake Total 974 / 1874 60 / 1934 240 / 240 Output Total 350 / 1850 1100 / 2950 Balance 624 / 24 -1040 / -1016 240 / 240 Weight last 48 hrs Weight 85.865 kg Weight 83.688 kg Physical Exam Const: COMMON NORMALS: no acute distress and patient oriented x3 HENMT: COMMON NORMALS: normocephalic HEAD & SCALP: normocephalic Neck/C-Spine: COMMON NORMALS: no JVD Chest: OTHER: Bilateral chest tubes in place Left lower extremity, wrapped in a gauze, wound VAC removed Resp: COMMON NORMALS: normal respiratory effort, No retractions, No use of accessory muscles and clear to auscultation bilaterally AUSCULTATION: clear to auscultation bilaterally Cardio: COMMON NORMALS: no JVD, regular rate, regular rhythm, S1 normal heart sound present and S2 normal heart sound present RATE: regular rate RHYTHM: regular rhythm HEART SOUNDS: S1 normal heart sound present and S2 normal heart sound present GI: COMMON NORMALS: Normal to inspection, nondistended, normoactive bowel sounds present, Soft to palpation, non-tender, No hepatosplenomegaly present, no masses and no bruits PALPATION: Yes Soft to palpation and Yes No hepatosplenomegaly present Extremity: COMMON NORMALS: capillary refill normal, no clubbing, cyanosis or edema, no calf tenderness and no pedal edema Neuro: COMMON NORMALS: patient oriented x3 Psych: COMMON NORMALS: mental status grossly normal Urinary Catheter Management^: Alfonso: Cath Placed During This Visit: yes, but has since been removed by the nurse Reason for Continuing Indwelling Catheter: Accurate Measurement of Urinary Output in Critically Ill Patients Urinary Catheter Date of Insertion: 07/03/20 Urinary Catheter Time of Insertion: 00:45 Date Urinary Catheter Removed: 07/07/20 Time Urinary Catheter Discontinued: 04:54 Alfonso Latex: Cath Placed During This Visit: yes Reason for Continuing Indwelling Catheter: Accurate Measurement of Urinary Output in Critically Ill Patients Urinary Catheter Date of Insertion: 07/14/20 Urinary Catheter Time of Insertion: 06:45 Data : 07/16/20 03:15 07/16/20 03:15 Micro: Microbiology 07/15/20 16:20 C.difficile Toxin B Gene (PCR) - Final Stool 07/14/20 12:52 Body Fluid Culture - Preliminary Other Source Yeast species 07/14/20 06:45 Urine Culture - Preliminary Urine,Clean Catch Yeast species A&P Assessment and plan (1) Hypoxia: Status: Acute (2) Sepsis: Status: Resolved Qualifiers: Sepsis type: sepsis due to unspecified organism Sepsis acute organ dysfunction status: unspecified Qualified Code(s): A41.9 - Sepsis, unspecified organism (3) Empyema: Status: Acute (4) Staphylococcus aureus bacteremia: -as noted above Status: Acute (5) Diabetic wet gangrene of the foot: Status: Acute (6) Diabetic peripheral neuropathy associated with type 2 diabetes mellitus: Status: Chronic (7) Atrial fibrillation with rapid ventricular response: Status: Resolved (8) HFrEF (heart failure with reduced ejection fraction): Status: Chronic (9) Peripheral arterial disease: Status: Chronic (10) COVID-19: Status: Acute (11) Medical non-compliance: Status: Acute (12) Bilateral pneumothorax: Status: Acute Additional A&P Information Bilateral pneumothorax: -Right chest tube was replaced by Dr. Bailey,right lung has expanded, no pneumothorax present today on chest x-ray, to waterseal today -Left chest tube in place, no pneumothorax on chest x-ray today -Both chest tubes, possible removal today -Repeat chest x-ray tomorrow morning BARBER, creatinine up to 2.7, BUN 37, urine output 2950, start gentle IV hydration LR 100 cc an hour Metabolic alkalosis, PCO2 23, improved with Diamox 500 twice daily for next 2 days Hypoxia: Most likely secondary to exacerbation of diastolic and systolic congestive heart failure and empyema and bilateral pneumothorax. Less likely s econdary to COVID-19. Echocardiogram shows an EF of 30 to 35% with diastolic dysfunction with mild to moderate MR, moderate AI. Currently on room air Urine output yesterday 2950cc Creatinine up to 2.7 today, Lasix 40 mg p.o. daily on hold Status post 2 doses of albumin today Fluid restriction up to 1500 cc. Strict input output charting. Daily weights. Wean oxygenation keeping saturation over 90%. Post thoracentesis on 07/[address] King. Fluid studies consistent with transudative most likely secondary to congestive heart failure Anemia: Status post 3 units PRBC this admission, hemoglobin 9.2, will restart Eliquis this afternoon Sepsis secondary to empyema: Case discussed with Dr. King. -Chest tube placed bilaterally -Right chest tube had some bleeding, which was reinforced with packing, Eliquis on hold -culture so far growing Staphylococcus aureus -Blood cultures on 07/09/2020 culture showed coagulase-negative staph, likely contamination, repeat blood culture today have been unremarkable s -white blood cell count up to 13.3, continue Levaquin, cefazolin as per infectious disease -Urine culture showing yeast species, start fluconazole Atrial fibrillation with rapid ventricular response: Has paroxysmal atrial fibrillation Continue with amiodarone 200 mg twice daily for next 7 days followed by 200 mg daily. metoprolol to 50 twice daily Currently Eliquis restarted MSSA staphylococcal and enterococcal bacteremia: Blood cultures positive from admission. Blood cultures since then has remained negative. -1 blood culture staph coagulase-negative, likely contamination Sepsis due to diabetic wet gangrene: Post amputation of the toe. Post debridement with Dr. Fung on 07/03 and 07/[address] Culture growing MSSA, Enterobacter Appreciate Dr. Fung and Dr. Vargas input. MRSA swab negative. Patient will most likely require PICC line. Repeat blood cultures have remained negative. We will go ahead with PICC line as patient will require 6 weeks of IV antibiotics. Acute on chronic anemia -Secondary to sepsis, COVID-19, bone marrow suppression, bleeding from chest tube -We will start Eliquis today, advised of risks and benefits, versus secondary to proceed -Status post 23unit PRBC -Hemoglobin 9.2 today -Protonix 40 twice daily BARBER: Multifactorial. Most likely secondary to cardiorenal syndrome and severe sepsis. Baseline creatinine normal. Creatinine has remained high stable and is trending down from 2.6. Currently 2.7 Lasix on hold Medical reconciliation done for nephrotoxic drugs. Controlled Alfonso catheterization for strict input output charting We will likely discontinue Alfonso catheter tomorrow COVID-19: Rapid antigen positive. Continue to hold off on dexamethasone and remdesivir. We will continue to monitor. Eliquis anticoagulation on hold for now Advair and Spiriva Vitamin C, zinc. Continue to monitor. Isolation precautions. Peripheral arterial disease: CTA aorta runoff appreciated. Case discussed with Dr. Diaz from cardiology. No plan for revascularization as an inpatient for now as patient has small vessel disease and has collaterals. Eliquis as above. Lipid panel results appreciated. Continue aspirin 81 mg oral daily. Type 2 diabetes mellitus: On admission was in DKA. Noncompliance. HbA1c 13. Insulin sliding scale at moderate dose. Renal nondialysis carb consistent diet. SCDs for DVT prophylaxis Full code. Discharge planning: We will continue ICU monitoring for now. On discharge patient will require wound VAC, IV antibiotics for 6 weeks most likely ertapenem on discharge. Currently patient has bilateral chest tubes, wound VAC. Will consult care coordination. Most likely patient will require pl acement at swing bed. Plan: Up into a chair, will remove bilateral chest tubes today hopefully will repeat chest x-ray tomorrow morning, gentle IV hydration Attestations Medical Necessity Statement*: Patient requires hospitalization for acute respiratory failure, bilateral pneumothorax, resolved, empyema, BARBER, A. fib, sepsis Coding Level of Care Code Acute Clinical Research Management Associate for [facility] Diagnoses Hypoxia R09.02 Sepsis A41.9 Sepsis type: sepsis due to unspecified organism Sepsis acute organ dysfunction status: unspecified Empyema J86.9 Staphylococcus aureus bacteremia R78.81; B95.61 Diabetic wet gangrene of the foot E11.52 Diabetic peripheral neuropathy associated with type 2 diabetes mellitus E11.42 Atrial fibrillation with rapid ventricular response I48.91 HFrEF (heart failure with reduced ejection fraction) I50.20 Peripheral arterial disease I73.9 COVID-19 U07.1 Medical non-compliance Z91.19 Bilateral pneumothorax J93.9
[2020-07-16 17:06] LABS: Glucose Point of Care 84 mg/dL (70-110)
[2020-07-16] MEDS: morphine 4 mg/mL SDV 1 mL 2 MG IVP (17:09)
--- NOTE | 2020-07-16 17:54 | PM.PN ---
Subjective Subjective: Interval history: Follow-up called on patient for management of bilateral chest tubes in patient with staph aureus empyema. This patient was earlier seen by my colleague. Patient is a 59-year-old male with past medical history of HF R EF, PAD, diabetic foot with wet gangrene, COVID-19 positive during this visit, [facility] aureus empyema with bilateral chest tubes placed for bilateral pleural effusions likely secondary to empyema and HFrEF, sepsis due to diabetic foot gangrene s/p debridement, A. fib RVR, BARBER likely due to cardiorenal/sepsis. -Patient clinically stable saturating 99% on room air -Chest x-ray showed resolution of bilateral pneumothorax -Left chest tube put out 300 cc since yesterday evening and after unclamping put out 100 cc -Right chest tube is 30 cc output in last 24 hours Medications: Reviewed: Yes Medication Review Details: Active Medications Generic Name Dose Route Start Last Admin Trade Name Freq PRN Reason Stop Dose Admin Acetaminophen 650 mg 07/01/20 19:39 Tylenol PO Q6H PRN Mild/Mod Pain Or Temp >/= 101 Apixaban 5 mg 07/04/20 18:00 07/07/20 08:35 Eliquis PO 5 mg BID DAIANA Administration Ascorbic Acid 500 mg 07/05/20 09:00 07/07/20 08:35 Vitamin C PO 500 mg DAILY DAIANA Administration Aspirin 325 mg 07/05/20 09:00 07/07/20 08:35 Aspirin PO 325 mg DAILY DAIANA Administration Dextrose 25 ml 07/01/20 14:07 D50w IVP ONCE PRN hypoglycemia prot ocol Protocol Dextrose 50 ml 07/01/20 14:07 D50w IVP PRN PRN hypoglycemia prot ocol Protocol Dextrose 25 ml 07/01/20 20:25 D50w IVP ONCE PRN hypoglycemia prot ocol Protocol Dextrose 50 ml 07/01/20 20:25 D50w IVP PRN PRN hypoglycemia prot ocol Protocol Famotidine 20 mg 07/02/20 09:00 07/07/20 08:35 Pepcid Tab PO 20 mg BID DAIANA Administration Glucagon 1 mg 07/01/20 14:07 Glucagen IM ONCE PRN Adult Acute Hypog lycemia Prot Protocol Glucagon 1 mg 07/01/20 20:25 Glucagen IM ONCE PRN Adult Acute Hypog lycemia Prot. Protocol Dextrose 500 mls @ 100 mls /hr 07/01/20 14:07 D5w IV ONCE PRN Adult Acute Hypog lycemia Prot Protocol Sodium Chloride 1,000 mls @ 50 ml s/hr 07/04/20 15:30 07/06/20 20:42 Sodium Chloride 0.9% IV 75 mls/hr .Q20H DAIANA Administration Imipenem/Cilastati n Sodium 250 100 mls @ 200 mls /hr 07/07/20 12:00 07/07/20 11:22 mg/ Sodium Chlor natalia IV 200 mls/hr Q6H DAIANA Administration Protocol Insulin Aspart 0 unit 07/01/20 21:00 07/07/20 11:22 Novolog SUBCUT 8 unit WM&BEDTIME DAIANA Administration Protocol Metoprolol Tartrat e 25 mg 07/03/20 18:00 07/07/20 08:35 Lopressor PO 25 mg BID DAIANA Administration Morphine Sulfate 2 mg 07/01/20 20:25 Morphine IVP Q4H PRN SEVERE PAIN Ondansetron HCl 4 mg 07/01/20 19:39 Zofran IVP Q8H PRN vomiting, or N/V if npo Tamsulosin HCl 0.4 mg 07/06/20 09:00 07/07/20 08:35 Flomax PO 0.4 mg DAILY DAIANA Administration Zinc Gluconate 50 mg 07/05/20 09:00 07/07/20 08:35 Zinc Gluconate PO 50 mg DAILY DAIANA Administration Penicillins Allergy (Intermediate, Verified 07/01/20 12:42) ALGY-Anaphylaxis Vitals/I&O/Wt Last Vital Signs Temp 98.7 F 07/16/20 14:00 Pulse 82 07/16/20 14:00 Resp 20 H 07/16/20 14:00 BP 92/56 07/16/20 14:00 Pulse Ox 99 07/16/20 14:00 07/16/20 07/16/20 07/16/20 06:59 14:59 22:59 Intake Total 60 / 1934 680 / 680 Output Total 1100 / 2950 2730 / 2730 Balance -1040 / -1016 -2049 / -2049 Weight last 48 hrs Weight 189 lb 4.8 oz Weight 184 lb 8 oz Physical Exam Narrative: EXAM NARRATIVE: General: alert, NAD HEENT: conj clear, EOMI, PERRL, mmm, Neck: supple, no meningismus Heme: no cervical LAP Pulmonary: Bilateral chest tubes present, bilateral air entry no abnormal sounds Cardiovascular: rrr, nl s1s2, no mrg Abdomen: soft, nt, nd, no r/g, bs+ Extremities: pulses +, no edema, no c/c : no CVA tenderness Skin: intact, no rash MSK: no back or neck pain Neurologic: grossly intact Urinary Catheter Management^: Lafonso: Cath Placed During This Visit: yes, but has since been removed by the nurse Reason for Continuing Indwelling Catheter: Accurate Measurement of Urinary Output in Critically Ill Patients Urinary Catheter Date of Insertion: 07/03/20 Urinary Catheter Time of Insertion: 00:45 Date Urinary Catheter Removed: 07/07/20 Time Urinary Catheter Discontinued: 04:54 Alfonso Latex: Cath Placed During This Visit: yes Reason for Continuing Indwelling Catheter: Accurate Measurement of Urinary Output in Critically Ill Patients Urinary Catheter Date of Insertion: 07/14/20 Urinary Catheter Time of Insertion: 06:45 Data : 07/16/20 03:15 07/16/20 03:15 Micro: Microbiology 07/14/20 06:45 Urine Culture - Final Urine,Clean Catch Manuela albicans 07/14/20 12:52 Body Fluid Culture - Preliminary Other Source Manuela albicans 07/15/20 16:20 C.difficile Toxin B Gene (PCR) - Final Stool A&P Assessment and plan (1) Empyema: Status: Acute (2) COVID-19: Status: Acute (3) HFrEF (heart failure with reduced ejection fraction): Status: Chronic (4) Bilateral pneumothorax: Status: Acute (5) Staphylococcus aureus bacteremia: Status: Acute #Patient admitted due to diabetic with gangrene of the 2 s/p debridement on 07/03/2020 and 07/10/2020 # #wound cultures cultures positive for staph aureus #Bilateral pleural effusions S/p thoracentesis 07/08/2020 pleural fluid cultures positive for staph aureus; later 14 [place] pigtail placed in both sides on 07/10/2020 to drain suspected empyema #Noted bilateral pneumothorax after couple of days with right side having large pneumothorax due to kinked 14 [place] catheter - removed kinked pigtail and replaced with another 14 [place] pigtail on 07/14/2020. -Not sure if bilateral pneumothorax is secondary due to COVID-19 pneumonia as there are many case reports suggesting possibility -Currently saturating 99% on room air patient is clinically and hemodynamically stable -Bilateral chest tubes were clamped yesterday evening and after 12 hours chest x-ray today morning showed bilateral resolution of apical pneumothoraces -Right chest tube has 30 cc output in last 24 hours and no output noted after unclamping; so removed right chest tube and sterile dressing applied -However left chest tube has more than 300 cc output since yesterday morning and unclamping put out 100 cc so connected left chest tube to suction. We will clamp left chest tube today night and repeat chest x-ray in a.m. depending on the chest x-ray and 24-hour output will decide to take out left chest tube tomorrow -Otherwise pleural cultures were growing staph aureus and patient is currently covered with cefazolin as per ID and Levaquin -Blood cultures so far grew coagulase-negative staph -Diabetic wet gangrene wound cultures growing MSSA and Enterobacter -Urine cultures and penile discharge showing yeast-change Alfonso and started on Diflucan -Patient is afebrile and WBC improving - Echo: EF of 30 to 35% with diastolic dysfunction with mild to moderate MR, moderate AI. - BARBER likely cardiorenal; worsening creatinine, Lasix on hold and received albumin - Strict input output charting. - Daily weights. #Rest of the management as per hospitalist taking care of the patient Attestations Medical Necessity Statement*: Staph aureus empyema with left chest tube drain still in place on IV antibiotics and COVID-19 positive Time Spent in Patient Care: Greater than 35 minutes (>than 50% of time spent in counselling and/or direct pt care on unit). Coding Level of Care Code Established Pt Acute Shell Press Operator for g Fwd Patient Type Established History Comprehensive Exam Comprehensive Medical Decision Making High Complexity Diagnoses Empyema J86.9 COVID-19 U07.1 HFrEF (heart failure with reduced ejection fraction) I50.20 Bilateral pneumothorax J93.9 Staphylococcus aureus bacteremia R78.81; B95.61 Time Spent (min) 45
[2020-07-16] MEDS: apixaban 5 mg Tablet PO (18:22)
[2020-07-16] MEDS: sodium chloride 0.9% 1,000 ML 75 ML IV (18:23)
--- NOTE | 2020-07-16 18:30 | PC.NURSE ---
PATIENT UP TO CHAIR FOR 2 HRS, DID NOT HAVE THE STAMINA FOR IT. HIS COCCYX HURTS AND HIS SKIN IS RED FROM THE YEAST, HE OFTEN LEAKS AROUND THE CATHETER AND DOES NOT INFORM US THAT HE IS WET. HE STOOLS WITHOUT KNOWING IT AT TIMES. HIS URINE WAS THICK WITH CLUMPS OF YEAST THIS MORNING BUT IMPROVED THE SHIFT WENT ON. DR AKHTAR REMOVED THE RIGHT CHEST TUBE AND HE TOLERATED WELL. THE LEFT SIDE HAD HIGH OUTPUT STILL. I WAS INFORMED THAT I NEEDED TO CLAMP THE TUBE AT END OF SHIFT AND STOP SUCTION . 10 CC OF NS WAS PUT IN THE BUBBLE CHAMBER AT TIME OF RETURNING TO SUCTION SMALL AIR LEAK PRESENT TIDELING SEEN. THE CHEST TUBE CONTAINER HAD ONLY SPACE FOR 300 CC MORE AT 1800 SO A SPARE ATRIUM WAS PUT AT BEDSIDE IN CASE THE CHEST TUBE WILL BE CONTINUED.
[2020-07-16 20:14] LABS: Glucose Point of Care 60 mg/dL (70-110)
[2020-07-16 21:09] LABS: Glucose Point of Care 96 mg/dL (70-110)
--- NOTE | 2020-07-16 22:39 | PC.NURSE ---
Called on-call Hospitalist concerning patient having a blood glucose of 60; hypogylcemic protocol initiated and patient was given a carb to assist. Glucose re-tested after intervention and a result of 96 acheived. Held HS Hetalr per MD orders. No other concerns noted, Patient alert and awake. Blood glucose to continue to be monitored to ensure within normal limits.
[2020-07-17] VITALS (33 sets, daily range): BP systolic 92–139; BP diastolic 55–77; PULSE 61–90; RESP 6–22; TEMP 36–36.6; O2SAT 98–100
--- NOTE | 2020-07-17 03:09 | PC.NURSE ---
Chest tube to left lateral side patient continue to be clamped per MD orders. Tube has been clamped since start of shift. No acute distress or s/s of infection noted.Will continue to ensure no complications are noted.Patient denies pain.
[2020-07-17 03:58] LABS: Basophils % 0.2 %; Eosinophils # 0.2 10^3/uL (0.0-0.8); Eosinophils % 1.6 %; Hematocrit 31.9 % (42.0-52.0); Hemoglobin 10.2 g/dL (11.7-16.6); Lymphocytes # 1.6 10^3/uL (0.8-4.8); Lymphocytes % 13.4 %; Mean Corpuscular Hemoglobin 28.8 pg (28.0-34.0); Mean Corpuscular Volume 90.1 fL (80-94); Monocytes # 0.3 10^3/uL (0.2-0.9); Monocytes % 2.7 %; Neutrophils # 9.89 10^3/uL (1.8-7.7); Neutrophils % 81.6 %; Nucleated Red Blood Cells % 0 %; Platelet Count 122 10^3/cmm (130-400); Red Blood Count 3.54 10^6/uL (4.1-5.3); Red Cell Distribution Width 15.1 % (12.1-15.1); White Blood Count 12.1 10^3/uL (4.0-10.0)
[2020-07-17 04:17] LABS: Alanine Aminotransferase < 5 U/L (0-41); Albumin Level 2.1 g/dL (3.5-5.2); Alkaline Phosphatase 180 IU/L (40-130); Aspartate Amino Transferase 14 U/L (0-40); Blood Urea Nitrogen 32 mg/dL (6-20); C Reactive Protein 40.6 mg/L (0.0-4.9); Calcium 7.1 mg/dL (8.5-10.5); Carbon Dioxide 24 mmol/L (22-29); Chloride 105 mmol/L (98-107); Globulin 3.2 g/dL (1.3-4.6); Glomerular Filtration Rate 44.6 mL/min (90-130); Glucose 72 mg/dL (65-115); INR 1.28 (0.8-1.2); Magnesium 1.7 mg/dL (1.7-2.3); Osmolality Calculated 285 mOsm/kg (285-295); Phosphorus 3.3 mg/dL (2.5-4.5); Sodium 135 mmol/L (136-145); Total Bilirubin 0.2 mg/dL (0.15-1.2); Total Protein 5.3 g/dL (6.6-8.7)
[2020-07-17 04:29] LABS: Anion Gap 10.1 (5-19); Potassium 4.1 mmol/L (3.5-5.1)
[2020-07-17 04:32] LABS: NT Pro B Type Natriuretic Pept 8395 pg/mL (0-125); Procalcitonin 0.61 ng/mL (0-0.5)
[2020-07-17 04:45] LABS: Creatine Phosphokinase 17 U/L (39-308)
[2020-07-17] MEDS: sodium chloride 0.9% 1,000 ML 75 ML IV (05:27)
[2020-07-17] MEDS: levoFLOXacin 750 mg Tablet PO (05:27)
[2020-07-17] MEDS: pantoprazole 40 mg SDV IVP ×2 (05:27→16:25)
[2020-07-17 06:00] LABS: Glucose Point of Care 90 mg/dL (70-110)
--- NOTE | 2020-07-17 07:00 | XR_ITS ---
WS: [id number] Exam: XR chest 1V portable [id number] Date/Time of Exam: 07/17/2020 5:09 AM Reason For Exam: sob Comparison 07/16/2020. Mild bilateral interstitial infiltrates persist unchanged. Right-sided chest tube is been removed. Le ft-sided chest tube is unchanged in position. The lungs remain fully inflated. Subcutaneous emphysema along the right scapula. No pleural effusions. Heart size is stable. A right-sided PICC line ends in the right atrium. XR/XR chest 1V portable [id number] IMPRESSION: 1. Right chest tube is been removed since previous exam. No other significant c hange in the overall appearance of the chest.
[2020-07-17] MEDS: acetaZOLAMIDE 250 mg Tablet 500 MG PO (09:03)
[2020-07-17] MEDS: phenazopyridine 100 mg Tablet 200 MG PO ×2 (09:03→16:25)
[2020-07-17] MEDS: aspirin 81 mg Chew Tablet PO (09:03)
[2020-07-17] MEDS: fluconazole 100 mg Tablet 200 MG PO (09:03)
[2020-07-17] MEDS: ascorbic acid 500 mg Tablet PO (09:04)
[2020-07-17] MEDS: metoprolol tartrate 50 mg Tablet PO ×2 (09:04→16:26)
[2020-07-17] MEDS: ferrous gluconate 324 mg Tablet PO ×2 (09:04→16:26)
[2020-07-17] MEDS: morphine 4 mg/mL SDV 1 mL 2 MG IVP (09:05)
[2020-07-17] MEDS: acetaminophen 325 mg Tablet 650 MG PO (09:07)
[2020-07-17] MEDS: nystatin powder 15 gm Btl 1 APPLIC TOPICAL ×2 (09:07→16:28)
[2020-07-17] MEDS: zinc gluconate 50 mg Tablet PO (09:08)
[2020-07-17] MEDS: amiodarone 200 mg Tablet PO ×2 (09:08→16:34)
[2020-07-17] MEDS: tamsulosin 0.4 mg Capsule PO (09:08)
[2020-07-17] MEDS: apixaban 5 mg Tablet PO ×2 (09:09→16:26)
[2020-07-17 09:34] LABS: Glucose Point of Care 87 mg/dL (70-110)
[2020-07-17 11:22] LABS: Glucose Point of Care 143 mg/dL (70-110)
--- NOTE | 2020-07-17 12:15 | P.PN_ITS ---
Subjective Subjective: Interval history: This morning patient was examined, he is in good spirits, his right chest tube was removed, left chest tube is to suction this morning, his appetite is improving, overall he feels he is doing better Vitals/I&O/Wt Last Vital Signs Temp 97.8 F 07/17/20 11:29 Pulse 74 07/17/20 10:13 Resp 16 07/17/20 10:13 BP 111/56 07/17/20 06:00 Pulse Ox 98 07/17/20 10:13 07/16/20 07/17/20 07/17/20 22:59 06:59 14:59 Intake Total 1477.5 / 2157.5 1000 / 3157.5 70 / 70 Output Total 253 / 2983 650 / 3633 500 / 500 Balance 1224.5 / -825.5 350 / -475.5 -430 / -430 Weight last 48 hrs Weight 84.187 kg Weight 85.865 kg Physical Exam Const: COMMON NORMALS: no acute distress and patient oriented x3 GENERAL APPEARANCE: ill appearing HENMT: COMMON NORMALS: normocephalic HEAD & SCALP: normocephalic Neck/C-Spine: COMMON NORMALS: no JVD Chest: OTHER: Left chest tube in place Resp: COMMON NORMALS: normal respiratory effort, No retractions, No use of accessory muscles and clear to auscultation bilaterally AUSCULTATION: clear to auscultation bilaterally Cardio: COMMON NORMALS: no JVD, regular rate, regular rhythm, S1 normal heart sound present and S2 normal heart sound present RATE: regular rate RHYTHM: regular rhythm HEART SOUNDS: S1 normal heart sound present and S2 normal heart sound present GI: COMMON NORMALS: Normal to inspection, nondistended, normoactive bowel sounds present, Soft to palpation, non-tender, No hepatosplenomegaly present, no masses and no bruits PALPATION: Yes Soft to palpation and Yes No hepatosplen omegaly present Extremity: COMMON NORMALS: capillary refill normal, no clubbing, cyanosis or edema, no calf tenderness and no pedal edema NARRATIVE EXTREMITY EXAM: Left foot wrapped, and a gauze Neuro: COMMON NORMALS: patient oriented x3 Psych: COMMON NORMALS: mental status grossly normal Urinary Catheter Management^: Alfonso: Cath Placed During This Visit: yes, but has since been removed by the nurse Reason for Continuing Indwelling Catheter: Accurate Measurement of Urinary Output in Critically Ill Patients Urinary Catheter Date of Insertion: 07/03/20 Urinary Catheter Time of Insertion: 00:45 Date Urinary Catheter Removed: 07/07/20 Time Urinary Catheter Discontinued: 04:54 Alfonso Latex: Cath Placed During This Visit: yes Reason for Continuing Indwelling Catheter: Accurate Measurement of Urinary Output in Critically Ill Patients Urinary Catheter Date of Insertion: 07/14/20 Urinary Catheter Time of Insertion: 06:45 Data : 07/17/20 03:15 07/17/20 03:15 Micro: Microbiology 07/14/20 12:52 Body Fluid Culture - Final Other Source Manuela albicans 07/14/20 06:45 Urine Culture - Final Urine,Clean Catch Manuela albicans 07/15/20 16:20 C.difficile Toxin B Gene (PCR) - Final Stool A&P Assessment and plan (1) Hypoxia: Status: Acute (2) Sepsis: Status: Resolved Qualifiers: Sepsis type: sepsis due to unspecified organism Sepsis acute organ dysfunction status: unspecified Qualified Code(s): A41.9 - Sepsis, unspecified organism (3) Empyema: Status: Acute (4) Staphylococcus aureus bacteremia: -as noted above Status: Acute (5) Diabetic wet gangrene of the foot: Status: Acute (6) Diabetic peripheral neuropathy associated with type 2 diabetes mellitus: Status: Chronic (7) Atrial fibrillation with rapid ventricular response: Status: Resolved (8) HFrEF (heart failure with reduced ejection fraction): Status: Chronic (9) Peripheral arterial disease: Status: Chronic (10) COVID-19: Status: Acute (11) Medical non-compliance: Status: Acute (12) Bilateral pneumothorax: Status: Acute Additional A&P Information Bilateral pneumothorax: -Chest tube out -Left chest tube in place, no pneumothorax on chest x-ray today, to suction -Repeat chest x-ray tomorrow morning BARBER, creatinine up to 1.6, BUN 37, urine output 2950, stop gentle hydration, continue oral hydration, hold Lasix Metabolic alkalosis, PCO2 23, has finished Diamox Hypoxia: Most likely secondary to exacerbation of diastolic and systolic c ongestive heart failure and empyema and bilateral pneumothorax. Less likely secondary to COVID-19. Echocardiogram shows an EF of 30 to 35% with diastolic dysfunction with mild to moderate MR, moderate AI. Currently on room air Urine output yesterday 363 cc Creatinine up to 1.6, Lasix on hold Status post 2 doses of albumin today Fluid restriction up to 1500 cc. Strict input output charting. Daily weights. Wean oxygenation keeping saturation over 90%. Post thoracentesis on 07/[address] King. Fluid studies consistent with transudative most likely secondary to congestive heart failure Anemia: Status post 3 units PRBC this admission, hemoglobin 10.2, Eliquis was restarted yesterday Sepsis secondary to empyema: Case discussed with Dr. King. -Chest tube placed bilaterally -Right chest tube had some bleeding, which was reinforced with packing, Eliquis on hold -culture so far growing Staphylococcus aureus -Blood cultures on 07/09/2020 culture showed coagulase-negative staph, likely contamination, repeat blood culture today have been unremarkable s -white blood cell count up to 12.1, continue Levaquin, cefazolin as per infectious disease -Urine culture showing Manuela, follow sensitivities, start fluconazole Atrial fibrillation with rapid ventricular response: Has paroxysmal atrial fibrillation Continue with amiodarone 200 mg twice daily for next 7 days followed by 200 mg daily. metoprolol to 50 twice daily Currently Eliquis restarted MSSA staphylococcal and enterococcal bacteremia: Blood cultures positive from admission. Blood cultures since then has remained negative. -1 blood culture staph coagulase-negative, likely contamination Sepsis due to diabetic wet gangrene: Post amputation of the toe No clinical evidence of osteomyelitis Post debridement with Dr. Fung on 07/03 and 07/[address] Culture growing MSSA, Enterobacter Appreciate Dr. Fung and Dr. Vargas input. MRSA swab negative. Patient will most likely require PICC line. Repeat blood cultures have remained negative. We will go ahead with PICC line as patient will require 6 weeks of IV antibiotics of cefazolin from day of day of drainage of empyema, 2 weeks p.o. Levaquin from day of debridement Acute on chronic anemia -Secondary to sepsis, COVID-19, bone marrow suppression, bleeding from chest tube -We will start Eliquis today, advised of risks and benefits, versus secondary to proceed -Status post 23unit PRBC -Hemoglobin 10.2 today -Protonix 40 twice daily BARBER: Multifactorial. Most likely secondary to cardiorenal syndrome and severe sepsis. Baseline creatinine normal. Creatinine has remained high stable and is trending down from 2.6. Currently 1.6 Lasix on hold Medical reconciliation done for nephrotoxic drugs. Controlled Alfonso catheterization for strict input output charting We will likely discontinue Alfonso catheter tomorrow COVID-19: Rapid antigen positive. Continue to hold off on dexamethasone and remdesivir. We will continue to monitor. Eliquis anticoagulation on hold for now Advair and Spiriva Vitamin C, zinc. Continue to monitor. Isolation precautions. Peripheral arterial disease: CTA aorta runoff appreciated. Case discussed with Dr. Diaz from cardiology. No plan for revascularization as an inpatient for now as patient has small vessel disease and has collaterals. Eliquis as above. Lipid panel results appreciated. Continue aspirin 81 mg oral daily. Type 2 diabetes mellitus: On admission was in DKA. Noncompliance. HbA1c 13. Insulin sliding scale at moderate dose. Renal nondialysis carb consistent diet. SCDs for DVT prophylaxis Full code. Discharge planning: We will continue ICU monitoring for now. On discharge patient will require wound VAC, IV antibiotics for 6 weeks most likely ertapenem on discharge. Currently patient has bilateral chest tubes, wound VAC. Will consult care coordination. Most likely patient will require placement at swing bed. Plan: Up into a chair, hopefully will remove left chest tube today, repeat chest x-ray tomorrow, hopefully transfer in the next 24 to 48 hours Attestations Medical Necessity Statement*: Patient requires hospitalization for acute respiratory failure secondary to empyema, pneumothorax, sepsis, anemia Coding Level of Care Code Acute Automotive Diagnostic Technician for [facility] Diagnoses Hypoxia R09.02 Sepsis A41.9 Sepsis type: sepsis due to unspecified organism Sepsis acute organ dysfunction status: unspecified Empyema J86.9 Staphylococcus aureus bacteremia R78.81; B95.61 Diabetic wet gangrene of the foot E11.52 Diabetic peripheral neuropathy associated with type 2 diabetes mellitus E11.42 Atrial fibrillation with rapid ventricular response I48.91 HFrEF (heart failure with reduced ejection fraction) I50.20 Peripheral arterial disease I73.9 COVID-19 U07.1 Medical non-compliance Z91.19 Bilateral pneumothorax J93.9
--- NOTE | 2020-07-17 12:27 | PM.PN ---
Subjective Subjective: Interval history: Patient seen bedside, states he is feeling well, denies any pain to left foot. Left foot dressing is intact without strikethrough drainage. Tolerating regular diet. Has been trying to work with physical therapy. Patient remains very optimistic and is in good spirits. Vitals/I&O/Wt Last Vital Signs Temp 97.8 F 07/17/20 11:29 Pulse 74 07/17/20 10:13 Resp 16 07/17/20 10:13 BP 111/56 07/17/20 06:00 Pulse Ox 98 07/17/20 10:13 07/16/20 07/17/20 07/17/20 22:59 06:59 14:59 Intake Total 1477.5 / 2157.5 1000 / 3157.5 70 / 70 Output Total 253 / 2983 650 / 3633 500 / 500 Balance 1224.5 / -825.5 350 / -475.5 -430 / -430 Weight last 48 hrs Weight 185 lb 9.6 oz Weight 189 lb 4.8 oz Physical Exam Narrative: EXAM NARRATIVE: Mr. Hathaway is alert and oriented x3 and in no acute distress. VASCULAR: Dorsalis pedis and posterior tibial palpable. Capillary refill time less than 5 seconds distal lesser toes 2 through 5 left foot. Calf is supple and nontender proximally and distally. Diminished pedal hair growth bilaterally. NEUROLOGICAL: Protective sensation intact 0/10 sites, tested with [place] Thomas monofilament to bilateral feet. DERMATOLOGICAL: Viable skin margin proximally and inferiorly, no purulent drainage from the wound. Superior margin is ischemic with dusky alejandro appearance and is nonviable. New onset of 2 patches of ischemia with questionable viability. No proximal lymphangitic streaking, no purulence. No warmth. MUSCULOSKELETAL: No pain with posterior calf squeeze bilaterally. Muscle strength 5 out of 5 in all 3 cardinal planes to bilateral foot and ankle. Urinary Catheter Management^: Alfonso: Cath Placed During This Visit: yes, but has since been removed by the nurse Reason for Continuing Indwelling Catheter: Accurate Measurement of Urinary Output in Critically Ill Patients Urinary Catheter Date of Insertion: 07/03/20 Urinary Catheter Time of Insertion: 00:45 Date Urinary Catheter Removed: 07/07/20 Time Urinary Catheter Discontinued: 04:54 Alfonso Latex: Cath Placed During This Visit: yes Reason for Continuing Indwelling Catheter: Accurate Measurement of Urinary Output in Critically Ill Patients Urinary Catheter Date of Insertion: 07/14/20 Urinary Catheter Time of Insertion: 06:45 Data : 07/17/20 03:15 07/17/20 03:15 Micro: Microbiology 07/14/20 12:52 Body Fluid Culture - Final Other Source Manuela albicans 07/14/20 06:45 Urine Culture - Final Urine,Clean Catch Manuela albicans 07/15/20 16:20 C.difficile Toxin B Gene (PCR) - Final Stool A&P Assessment and plan (1) Diabetic peripheral neuropathy associated with type 2 diabetes mellitus: Status: Chronic (2) Diabetic wet gangrene of the foot: Status: Acute (3) Sepsis: Status: Resolved Qualifiers: Sepsis type: sepsis due to unspecified organism Sepsis acute organ dysfunction status: unspecified Qualified Code(s): A41.9 - Sepsis, unspecified organism Mr. 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 He is status post left metatarsectomy, debridement and wound VAC application date of operation 07/10/2020. No acute infection of the left lower extremity at this time, resolved erythema. 2 areas of patchy localized ischemia at the left foot, will monitor for demarcation, no plans for further surgical invention to the left lower extremity during his hospitalization. Patient is at risk for higher level of amputation at this time infection is under control and patient would like to pursue limb salvage efforts. Podiatry will continue to follow, Tasneem's wet-to-dry dressing change performed today. Patient can work with physical therapy may weight-bear on his heel with a OrthoWedge Darco shoe. Patient okay for discharge/transfer from podiatry standpoint, infection well managed, no clinical signs of infection at this time, osteomyelitis removed surgically with partial first ray amputation. Will need local wound care and offloading moving forward. Attestations Medical Necessity Statement*: Wet gangrene left foot Coding Level of Care Code Acute Traffic Circuit Engineer for [facility] Fw Diagnoses Diabetic peripheral neuropathy associated with type 2 diabetes mellitus E11.42 Diabetic wet gangrene of the foot E11.52 Sepsis A41.9 Sepsis type: sepsis due to unspecified organism Sepsis acute organ dysfunction status: unspecified
--- NOTE | 2020-07-17 14:21 | P.PN_ITS ---
Subjective Subjective: Interval history: Patient seen bedside, clinically better offers no new complaints, tolerating regular diet. Has been trying to work with physical therapy. Right chest tube removed and today morning x-ray not show any pneumothorax both sides. Left chest tube put out 600 cc straw-colored fluid since yesterday and patient is already being treated for pneumonia with antib iotics the fluid is not looking like empyema so decision was made to take the left chest tube out Medications: Reviewed: Yes Medication Review Details: Active Medications Generic Name Dose Route Start Last Admin Trade Name Freq PRN Reason Stop Dose Admin Acetaminophen 650 mg 07/01/20 19:39 Tylenol PO Q6H PRN Mild/Mod Pain Or Temp >/= 101 Apixaban 5 mg 07/04/20 18:00 07/07/20 08:35 Eliquis PO 5 mg BID DAIANA Administration Ascorbic Acid 500 mg 07/05/20 09:00 07/07/20 08:35 Vitamin C PO 500 mg DAILY DAIANA Administration Aspirin 325 mg 07/05/20 09:00 07/07/20 08:35 Aspirin PO 325 mg DAILY DAIANA Administration Dextrose 25 ml 07/01/20 14:07 D50w IVP ONCE PRN hypoglycemia prot ocol Protocol Dextrose 50 ml 07/01/20 14:07 D50w IVP PRN PRN hypoglycemia prot ocol Protocol Dextrose 25 ml 07/01/20 20:25 D50w IVP ONCE PRN hypoglycemia prot ocol Protocol Dextrose 50 ml 07/01/20 20:25 D50w IVP PRN PRN hypoglycemia prot ocol Protocol Famotidine 20 mg 07/02/20 09:00 07/07/20 08:35 Pepcid Tab PO 20 mg BID DAIANA Administration Glucagon 1 mg 07/01/20 14:07 Glucagen IM ONCE PRN Adult Acute Hypog lycemia Prot Protocol Glucagon 1 mg 07/01/20 20:25 Glucagen IM ONCE PRN Adult Acute Hypog lycemia Prot. Protocol Dextrose 500 mls @ 100 mls /hr 07/01/20 14:07 D5w IV ONCE PRN Adult Acute Hypog lycemia Prot Protocol Sodium Chloride 1,000 mls @ 50 ml s/hr 07/04/20 15:30 07/06/20 20:42 Sodium Chloride 0.9% IV 75 mls/hr .Q20H DAIANA Administration Imipenem/Cilastati n Sodium 250 100 mls @ 200 mls /hr 07/07/20 12:00 07/07/20 11:22 mg/ Sodium Chlor natalia IV 200 mls/hr Q6H DAIANA Administration Protocol Insulin Aspart 0 unit 07/01/20 21:00 07/07/20 11:22 Novolog SUBCUT 8 unit WM&BEDTIME DAIANA Administration Protocol Metoprolol Tartrat e 25 mg 07/03/20 18:00 07/07/20 08:35 Lopressor PO 25 mg BID DAIANA Administration Morphine Sulfate 2 mg 07/01/20 20:25 Morphine IVP Q4H PRN SEVERE PAIN Ondansetron HCl 4 mg 07/01/20 19:39 Zofran IVP Q8H PRN vomiting, or N/V if npo Tamsulosin HCl 0.4 mg 07/06/20 09:00 07/07/20 08:35 Flomax PO 0.4 mg DAILY DAIANA Administration Zinc Gluconate 50 mg 07/05/20 09:00 07/07/20 08:35 Zinc Gluconate PO 50 mg DAILY DAIANA Administration Penicillins Allergy (Intermediate, Verified 07/01/20 12:42) ALGY-Anaphylaxis Vitals/I&O/Wt Last Vital Signs Temp 97.8 F 07/17/20 11:29 Pulse 71 07/17/20 14:00 Resp 16 07/17/20 10:13 BP 111/56 07/17/20 06:00 Pulse Ox 98 07/17/20 10:13 07/16/20 07/17/20 07/17/20 22:59 06:59 14:59 Intake Total 1477.5 / 2157.5 1000 / 3157.5 550 / 550 Output Total 253 / 2983 650 / 3633 600 / 600 Balance 1224.5 / -825.5 350 / -475.5 -50 / -50 Weight last 48 hrs Weight 185 lb 9.6 oz Weight 189 lb 4.8 oz Physical Exam Narrative: EXAM NARRATIVE: General: alert, NAD HEENT: conj clear, EOMI, PERRL, mmm, Neck: supple, no meningismus Heme: no cervical LAP Pulmonary: bilateral air entry no abnormal sounds Cardiovascular: rrr, nl s1s2, no mrg Abdomen: soft, nt, nd, no r/g, bs+ Extremities: pulses +, no edema, no c/c, wound dressing noted on left foot : no CVA tenderness Skin: intact, no rash MSK: no back or neck pain Neurologic: grossly intact Urinary Catheter Management^: Alfonso: Cath Placed During This Visit: yes, but has since been removed by the nurse Reason for Continuing Indwelling Catheter: Accurate Measurement of Urinary Output in Critically Ill Patients Urinary Catheter Date of Insertion: 07/03/20 Urinary Catheter Time of Insertion: 00:45 Date Urinary Catheter Removed: 07/07/20 Time Urinary Catheter Discontinued: 04:54 Alfonso Latex: Cath Placed During This Visit: yes Reason for Continuing Indwelling Catheter: Accurate Measurement of Urinary Output in Critically Ill Patients Urinary Catheter Date of Insertion: 07/14/20 Urinary Catheter Time of Insertion: 06:45 Data : 07/17/20 03:15 07/17/20 03:15 Micro: Microbiology 07/14/20 12:52 Body Fluid Culture - Final Other Source Manuela albicans 07/14/20 06:45 Urine Culture - Final Urine,Clean Catch Manuela albicans 07/15/20 16:20 C.difficile Toxin B Gene (PCR) - Final Stool A&P Assessment and plan (1) Empyema: Status: Acute (2) COVID-19: Status: Acute (3) HFrEF (heart failure with reduced ejection fraction): Status: Chronic (4) Bilateral pneumothorax: Status: Acute (5) Staphylococcus aureus bacteremia: Status: Acute #Patient admitted due to diabetic with gangrene of left foot of the 2 s/p debridement on 07/03/2020 and 07/10/2020 # #wound cultures cultures positive for staph aureus #Bilateral pleural effusions S/p thoracentesis 07/08/2020 pleural fluid cultures positive for staph aureus; later 14 [place] pigtail placed in both sides on 07/10/2020 to drain suspected empyema #Noted bilateral pneumothorax after couple of days with right side having large pneumothorax due to kinked 14 [place] catheter - removed kinked pigtail and replaced with another 14 [place] pigtail on 07/14/2020. #HF R EF -Not sure if bilateral pneumothorax is secondary due to COVID-19 pneumonia as there are many case reports suggesting possibility -Currently saturating 99% on room air patient is clinically and hemodynamically stable -Bilateral chest tubes were clamped yesterday evening and after 12 hours chest x-ray today morning showed bilateral resolution of apical pneumothoraces -Right chest tube has 30 cc output in last 24 hours and no output noted after unclamping; so removed right chest tube and sterile dressing applied -Left chest tube put out 600 cc straw-colored fluid since yesterday and patient is already being treated for pneumonia with antibiotics the fluid is not looking like empyema so decision was made to take the left chest tube out -Otherwise pleural cultures were growing staph aureus and patient is currently covered with cefazolin as per ID and Levaquin -Blood cultures so far grew coagulase-negative staph -Diabetic wet gangrene wound cultures growing MSSA and Enterobacter -Urine cultures and penile discharge showing yeast-change Alfonso and started on Diflucan -Patient is afebrile and WBC improving - Echo: EF of 30 to 35% with diastolic dysfunction with mild to moderate MR, moderate AI. - BARBER likely cardiorenal; worsening creatinine, Lasix on hold and received albumin - Strict input output charting. - Daily weights. #Rest of the management as per hospitalist taking care of the patient Attestations Medical Necessity Statement*: Sepsis secondary to diabetic foot with gangrene of left foot s/p debridement, staph pneumonia with bilateral pleural effusions secondary to parapneumonic versus HF R EF, s/p bilateral chest tubes later complicated by bilateral pneumothorax, now completely resolved. Time Spent in Patient Care: Greater than 35 minutes (>than 50% of time spent in counselling and/or direct pt care on unit) . Coding Level of Care Code Established Pt Acute Field Training Manager for [facility] Patient Type Established History Comprehensive Exam Comprehensive Medical Decision Making High Complexity Diagnoses Empyema J86.9 COVID-19 U07.1 HFrEF (heart failure with reduced ejection fraction) I50.20 Bilateral pneumothorax J93.9 Staphylococcus aureus bacteremia R78.81; B95.61 Time Spent (min) 45
--- NOTE | 2020-07-17 14:36 | PC.NURSE ---
dr aware that left chest tube output has been 600 since this morning when he asked that atrium be put to suction. patient was shaved, bathed and bed changed before breakfast as he had a large bm. he sat at the side of bed watching tubi for an hour and returned to supine position. decube on coccyx appears stable .3 cm spot of white eschar or tissue visible and surrounding tissue is blanchable. aquacell foam/optifoams placed in the area, total of three. needs a large coccyx cover but one not available . plan is to pull chest tube. patient is feeling good enough today to watch /listen to the tv.
[2020-07-17 16:16] LABS: Glucose Point of Care 87 mg/dL (70-110)
[2020-07-17] MEDS: sodium chloride 0.9% 250 ML 10 ML IV (16:34)
--- NOTE | 2020-07-17 18:53 | PC.NURSE ---
yañez removed at 1730 after his dinner . tolerated well. urinal with duoderm around the edge placed between his legs for now to see if he has control or not. very concerned about his future. he has not been able to text well due to no cheeter glasses. will try and bring him some tomorrow. shaved and bathed early. chest tube dressing on right changed as it was moist and new site from the right appears wnl no bleeding present. sats remain 100.
--- NOTE | 2020-07-17 18:59 | PC.NURSE ---
showed him how to watch tubi on the ipad.
[2020-07-17 19:55] LABS: Glucose Point of Care 128 mg/dL (70-110)
[2020-07-18] VITALS (26 sets, daily range): BP systolic 105–143; BP diastolic 60–85; PULSE 60–120; RESP 9–21; TEMP 36.1–36.9; O2SAT 86–100
[2020-07-18 04:28] LABS: Basophils % 0.3 %; Eosinophils # 0.2 10^3/uL (0.0-0.8); Eosinophils % 1.8 %; Hematocrit 32.2 % (42.0-52.0); Hemoglobin 9.9 g/dL (11.7-16.6); Lymphocytes % 8.7 %; Mean Corpuscular HGB Conc 30.7 g/dL (30.0-36.0); Mean Corpuscular Volume 91.2 fL (80-94); Monocytes # 0.3 10^3/uL (0.2-0.9); Monocytes % 2.2 %; Neutrophils # 10.28 10^3/uL (1.8-7.7); Neutrophils % 86.5 %; Nucleated Red Blood Cells % 0 %; Platelet Count 125 10^3/cmm (130-400); Red Blood Count 3.53 10^6/uL (4.1-5.3); Red Cell Distribution Width 15.1 % (12.1-15.1); White Blood Count 11.9 10^3/uL (4.0-10.0)
[2020-07-18 05:00] LABS: Alanine Aminotransferase < 5 U/L (0-41); Albumin Level 2.1 g/dL (3.5-5.2); Alkaline Phosphatase 163 IU/L (40-130); Aspartate Amino Transferase 12 U/L (0-40); Blood Urea Nitrogen 28 mg/dL (6-20); C Reactive Protein 38.3 mg/L (0.0-4.9); Carbon Dioxide 21 mmol/L (22-29); Chloride 105 mmol/L (98-107); Globulin 2.7 g/dL (1.3-4.6); Glomerular Filtration Rate 41.6 mL/min (90-130); Glucose 66 mg/dL (65-115); Magnesium 1.7 mg/dL (1.7-2.3); Osmolality Calculated 284 mOsm/kg (285-295); Phosphorus 3.3 mg/dL (2.5-4.5); Sodium 135 mmol/L (136-145); Total Bilirubin 0.2 mg/dL (0.15-1.2); Total Protein 4.8 g/dL (6.6-8.7)
[2020-07-18 05:05] LABS: NT Pro B Type Natriuretic Pept 6240 pg/mL (0-125); Procalcitonin 0.47 ng/mL (0-0.5)
[2020-07-18 05:06] LABS: INR 1.47 (0.8-1.2)
[2020-07-18 05:17] LABS: Creatine Phosphokinase 15 U/L (39-308)
[2020-07-18 06:28] LABS: Glucose Point of Care 91 mg/dL (70-110)
[2020-07-18] MEDS: levoFLOXacin 750 mg Tablet PO (06:37)
[2020-07-18] MEDS: pantoprazole 40 mg SDV IVP ×2 (06:38→18:33)
--- NOTE | 2020-07-18 07:27 | XR_ITS ---
WS: [id number] Exam: XR chest 1V portable [id number] Date/Time of Exam: 07/18/2020 7:27 AM Reason For Exam: sob Comparison 07/17/2020. Mild interstitial infiltrates in the lower lung zones persist unchanged. Mild cardiac enlargement. Le ft-sided chest tube has been removed. Both lungs remain fully inflated. Subcutaneous emphysema along the right shoulder. No pleural effusions. Monitoring leads superimpose the chest. XR/XR chest 1V portable [id number] IMPRESSION: 1. The lungs remain fully expanded. Left chest tube has been removed since prev ious study. 2. Mild interstitial infiltrates in the lower lung zones show no change. 3. Cardiac enlargement unchanged.
[2020-07-18] MEDS: ferrous gluconate 324 mg Tablet PO ×2 (07:47→18:33)
[2020-07-18 08:08] LABS: Glucose Point of Care 81 mg/dL (70-110)
[2020-07-18] MEDS: sodium chloride 0.9% 250 ML 10 ML IV ×2 (08:14→08:52)
[2020-07-18] MEDS: sodium chloride 0.9% 250 ML 100 ML IV (08:54)
[2020-07-18] MEDS: apixaban 5 mg Tablet PO ×2 (10:07→18:33)
[2020-07-18] MEDS: tamsulosin 0.4 mg Capsule PO (10:07)
[2020-07-18] MEDS: ascorbic acid 500 mg Tablet PO (10:07)
[2020-07-18] MEDS: zinc gluconate 50 mg Tablet PO (10:07)
[2020-07-18] MEDS: metoprolol tartrate 50 mg Tablet PO ×2 (10:07→18:33)
[2020-07-18] MEDS: aspirin 81 mg Chew Tablet PO (10:08)
[2020-07-18] MEDS: fluconazole 100 mg Tablet 200 MG PO (10:08)
[2020-07-18] MEDS: amiodarone 200 mg Tablet PO ×2 (10:09→18:33)
--- NOTE | 2020-07-18 11:15 | PM.DCS ---
Discharge Providers Date of Admission: 07/01/20 15:49 Date of Discharge: July 18, 2020 Attending Provider at Admission: Petra Bergeron Attending Provider at Discharge: Trenton Huynh MD Primary Care Provider: ADORE Ramires Diagnoses at Discharge Discharge Diagnosis (1) Empyema: Status: Acute (2) COVID-19: Status: Acute (3) HFrEF (heart failure with reduced ejection fraction): Status: Chronic (4) Bilateral pneumothorax: Status: Acute (5) Staphylococcus aureus bacteremia: Status: Acute Reason for Visit Reason for Visit: diabetic foot infection Hospital Course Hospital Course This is a 59-year-old male with a past medical history of noninsulin-dependent type 2 diabetes mellitus, diabetic peripheral neuropathy, who presents to [facility] due to generalized weakness, subjective fevers, chills, gangrene of left toe. Patient was admitted to [facility]: -Acute hypoxic respiratory failure secondary to CHF, heart failure reduced ejection fraction, received inpatient diuresis, fluid balance was -3 L on discharge, clinically improved, on room air, creatinine on discharge was 1.7, baseline is 1, continue to hold Lasix until creatinine normalizes, fluid restrictions 1500 cc, monitor ins and outs, monitor for shortness of breath -Patient developed bilateral pleural effusions, status post thoracocentesis on 07/08/2020, status post bilateral chest tubes 07/08/2020, pleural fluid positive for staph aureus sensitive to penicillin, bilateral chest tubes removed, right chest tube removed 07/15/2020, left removed 07/16/2020. Patient will be discharged on a total of 6 weeks of cefazolin 2 g every 8 hours starting on 07/08/2020. Levaquin 750 mg daily for the next 8 days p.o. Weekly CBCs and CMP. Repeat chest x-ray daily for the next 3 days. Patient should follow-up with infectious disease in 1 month, follow with pulmonary in 1 month. Repeat blood cultures negative on 07/13/2020. Urine cultures positive for Manuela, discharged on 5 remaining days of fluconazole. Alfonso catheter removed. -Patient developed bilateral pneumothoraxes during his hospitalization, right chest tube was kinked, replaced on 07/14/2020, bilateral pneumothorax have resolved, bilateral chest tubes were removed, patient clinically improving, on room air, relatively asymptomatic. Chest x-ray on discharge does not show any clinically significant pneumothorax bilaterally. Repeat chest x-ray daily for the next 3 days to continue to monitor. -Sepsis secondary to empyema and MSSA and enterococcal bacteremia, cefazolin 2 g every 8 hours IV for a total of 6 weeks starting on 07/08/2020. Levaquin 750 mg daily for total of 8 remaining days. 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 No concerns for underlying osteomyelitis. Wound VAC was removed. Antibiotics as above. Continue local wound care, follow-up with wound clinic -New onset atrial fibrillation, metoprolol 50 mg twice daily, amiodarone 200 mg daily, Eliquis 5 mg twice daily -Anemia, status post 3 units PRBC during his hospital admission, likely secondary to sepsis, restarted Eliquis, hemoglobin stable, hemoglobin on discharge 9.9 -Acute kidney injury, creatinine on discharge 1.7, continue to hold Lasix, encourage oral hydration -COVID-19, rapid antigen positive, did not require Decadron or remdesivir, Advair, Spiriva -Peripheral arterial disease, no plans on revascularization, Eliquis, aspirin, statin, follow-up with cardiology -Type 2 diabetes mellitus, hemoglobin A1c 13, low-dose sliding scale, Levemir 10 needs twice daily -Needs physical therapy, daily, and up into a chair, aggressive pulmonary toilet, pulmonary rehab Physical Exam Const: COMMON NORMALS: no acute distress and patient oriented x3 HENMT: COMMON NORMALS: normocephalic HEAD & SCALP: normocephalic Neck/C-Spine: COMMON NORMALS: no JVD Chest: OTHER: Bilateral chest tube removal site looks clean and dry Resp: COMMON NORMALS: normal respiratory effort, No retractions, No use of accessory muscles and clear to auscultation bilaterally AUSCULTATION: clear to auscultation bilaterally Cardio: COMMON NORMALS: no JVD, regular rate, regular rhythm, S1 normal heart sound present and S2 normal heart sound present RATE: regular rate RHYTHM: regular rhythm HEART SOUNDS: S1 normal heart sound present and S2 normal heart sound present GI: COMMON NORMALS: Normal to inspection, nondistended, normoactive bowel sounds present, Soft to palpation, non-tender, No hepatosplenomegaly present, no masses and no bruits PALPATION: Yes Soft to palpation and Yes No hepatosplenomegaly present Extremity: COMMON NORMALS: capillary refill normal, no clubbing, cyanosis or edema, no calf tenderness and no pedal edema OTHER: Left lower extremity wrapped in gauze Neuro: COMMON NORMALS: patient oriented x3 Psych: COMMON NORMALS: mental status grossly normal Urinary Catheter Management^: Alfonso: Cath Placed During This Visit: yes, but has since been removed by the nurse Reason for Continuing Indwelling Catheter: Accurate Measurement of Urinary Output in Critically Ill Patients Urinary Catheter Date of Insertion: 07/03/20 Urinary Catheter Time of Insertion: 00:45 Date Urinary Catheter Removed: 07/07/20 Time Urinary Catheter Discontinued: 04:54 Alfonso Latex: Cath Placed During This Visit: yes Reason for Continuing Indwelling Catheter: Accurate Measurement of Urinary Output in Critically Ill Patients Urinary Catheter Date of Insertion: 07/14/20 Urinary Catheter Time of Insertion: 06:45 Discharge Data Data Completed and Pending: Completed Studies During Hospitalization Category Date Time Status CT angio abd aort a runof 80327 Urge nt Cat Scan 07/02/20 22:[address] chest wo con 7 1250 Stat Cat Scan 07/08/20 07:36 Completed XR chest 1V luis alberto ble 17199 Routine Exams 07/10/20 13:36 Completed XR chest 1V luis alberto ble 37586 Routine Exams 07/12/20 07:53 Completed XR chest 1V luis alberto ble 72170 Routine Exams 07/13/20 07:00 Completed XR chest 1V luis alberto ble 87365 Routine Exams 07/13/20 09:00 Completed XR chest 1V luis alberto ble 70342 Routine Exams 07/13/20 16:03 Completed XR chest 1V luis alberto ble 39144 Routine Exams 07/14/20 07:00 Completed XR chest 1V luis alberto ble 18670 Routine Exams 07/15/20 07:00 Completed XR chest 1V luis alberto ble 70857 Routine Exams 07/16/20 07:00 Completed XR chest 1V luis alberto ble 40334 Routine Exams 07/17/20 07:00 Completed XR chest 1V luis alberto ble 88337 Stat Exams 07/01/20 14:54 Completed XR chest 1V luis alberto ble 35262 Stat Exams 07/08/20 05:57 Completed XR chest 1V luis alberto ble 26573 Stat Exams 07/10/20 23:12 Completed XR chest 1V luis alberto ble 14250 Stat Exams 07/12/20 10:44 Completed XR chest 1V luis alberto ble 67090 Stat Exams 07/12/20 17:16 Completed XR chest 1V luis alberto ble 38248 Stat Exams 07/14/20 11:03 Completed XR chest 1V luis alberto ble [id number] Stat Exams 07/18/20 07:27 Completed XR foot LT min 3V * 80396 Routine Exams 07/03/20 19:42 Completed XR foot LT min 3V * [id number] Routine Exams 07/08/20 06:44 Completed XR foot LT min 3V * 44515 Routine Exams 07/11/20 08:20 Completed XR foot LT min 3V * 21491 Stat Exams 07/01/20 14:54 Completed MR foot LT wo con * [id number] Routine MRI 07/08/20 07:30 Completed MR lower leg LT w o con* [id number] Routi ne MRI 07/08/20 08:30 Completed Pathology: Surgic al [PTH] Routine Pth 07/03/20 08:13 Completed CV echo complete* [id number] Routine Ultrasound 07/03/20 22:27 Completed CV echo complete* [id number] Routine Ultrasound 07/13/20 07:42 Completed CV renal doppler 48061 Routine Ultrasound 07/05/20 16:34 Completed Pending at discharge Category Date Time Status Blood Culture Sta t Lab 07/09/20 14:07 Results Mycobacteria, Cul ture w/Fluor Routi ne Lab 07/08/20 16:40 Results Pathology: Surgic al [PTH] Routine Pth 07/10/20 14:27 Received Labs from last 24 hours 07/18/20 07/18/20 07/18/20 08:01 06:19 04:09 WBC RBC Hgb Hct MCV MCH MCHC RDW Plt Count MPV Neut % (Auto) Lymph % (Auto) [place] % (Auto) Eos % (Auto) Baso % (Auto) Neut # (Auto) Lymph # (Auto) [place] # (Auto) Eos # (Auto) Baso # (Auto) Nucleated RBC % (a uto) Nucleated RBCs # PT INR Sodium Potassium Chloride Carbon Dioxide Anion Gap BUN Creatinine GFR Calculation Glucose POC Glucose 81 91 Calculated Osmolal ity Calcium Phosphorus Magnesium Total Bilirubin AST ALT Alkaline Phosphata se Creatine Kinase 15 L C-Reactive Protein NT-Pro-B Natriuret Pep 6240 H Total Protein Albumin Globulin Procalcitonin 0.47 07/18/20 07/18/20 07/18/20 04:09 04:09 04:09 WBC 11.9 H RBC 3.53 L Hgb 9.9 L Hct 32.2 L MCV 91.2 MCH 28.0 MCHC 30.7 RDW 15.1 Plt Count 125 L MPV 11.0 H Neut % (Auto) 86.5 Lymph % (Auto) 8.7 [place] % (Auto) 2.2 Eos % (Auto) 1.8 Baso % (Auto) 0.3 Neut # (Auto) 10.28 H Lymph # (Auto) 1.0 [place] # (Auto) 0.3 Eos # (Auto) 0.2 Baso # (Auto) 0.0 Nucleated RBC % (a uto) 0 Nucleated RBCs # 0.0 PT 18.30 H INR 1.47 H Sodium 135 L Potassium 4.0 Chloride 105 Carbon Dioxide 21 L Anion Gap 13.0 BUN 28 H Creatinine 1.7 H GFR Calculation 41.6 L Glucose 66 POC Glucose Calculated Osmolal ity 284 L Calcium 7.0 L Phosphorus 3.3 Magnesium 1.7 Total Bilirubin 0.2 AST 12 ALT < 5 Alkaline Phosphata se 163 H Creatine Kinase C-Reactive Protein 38.3 H NT-Pro-B Natriuret Pep Total Protein 4.8 L Albumin 2.1 L Globulin 2.7 Procalcitonin 07/17/20 07/17/20 07/17/20 19:39 16:04 10:52 WBC RBC Hgb Hct MCV MCH MCHC RDW Plt Count MPV Neut % (Auto) Lymph % (Auto) [place] % (Auto) Eos % (Auto) Baso % (Auto) Neut # (Auto) Lymph # (Auto) [place] # (Auto) Eos # (Auto) Baso # (Auto) Nucleated RBC % (a uto) Nucleated RBCs # PT INR Sodium Potassium Chloride Carbon Dioxide Anion Gap BUN Creatinine GFR Calculation Glucose POC Glucose 128 87 143 Calculated Osmolal ity Calcium Phosphorus Magnesium Total Bilirubin AST ALT Alkaline Phosphata se Creatine Kinase C-Reactive Protein NT-Pro-B Natriuret Pep Total Protein Albumin Globulin Procalcitonin Vitals: Last Vital Signs Temp 97.7 F 07/18/20 08:00 Pulse 72 07/18/20 10:00 Resp 18 07/18/20 10:00 BP 125/67 07/18/20 10:00 Pulse Ox 99 07/18/20 10:00 Discharge Plan Discharge Patient Disposition: Xfer Other Condition: Stable Prescriptions: New insulin aspart U-100 [Novolog U-100 Insulin aspart] 100 unit/mL Solution See Rx Instructions .ROUTE .COMPLEX Qty: 10 RF: 0 ascorbic acid (vitamin C) [Vitamin C] 500 mg Tablet 500 mg PO BIDWM 30 Days Qty: 30 RF: 0 zinc gluconate 50 mg Tablet 50 mg PO DAILY 30 Days Qty: 30 RF: 0 tamsulosin 0.4 mg Capsule 0.4 mg PO DAILY 30 Days Qty: 30 RF: 0 Spiriva with HandiHaler 18 mcg Capsule, W/Inhalation Device 18 mcg inhalation DAILY.RESPIRATORY 30 Days Qty: 30 RF: 0 levofloxacin 750 mg Tablet 750 mg PO DAILY@0600 8 Days Qty: 8 RF: 0 fluconazole 100 mg Tablet 200 mg PO DAILY 5 Days Qty: 5 RF: 0 acetaminophen 325 mg Tablet 650 mg PO Q6H PRN (Reason: Mild/Mod Pain Or Temp >/= 101) 30 Days Qty: 30 RF: 0 Eliquis 5 mg Tablet 5 mg PO BID 30 Days Qty: 60 RF: 0 ferrous gluconate 324 mg (37.5 mg iron) Tablet 324 mg PO BIDWM 30 Days Qty: 60 RF: 0 fluticasone propion-salmeterol [Advair Diskus] 250-50 mcg/dose Blister With Device 1 ea inhalation BID.RESPIRATORY Qty: 60 RF: 0 aspirin 81 mg Tablet,Chewable 81 mg PO DAILY 30 Days Qty: 30 RF: 0 amiodarone [Pacerone] 200 mg Tablet 200 mg PO DAILY 30 Days Qty: 30 RF: 0 nystatin [Nystop] 100,000 unit/gram Powder 1 applic topical BID PRN (Reason: rash) 30 Days Qty: 15 RF: 0 metoprolol tartrate 50 mg Tablet 50 mg PO BID 30 Days Qty: 60 RF: 0 furosemide 40 mg Tablet 40 mg PO DAILY@0800 PRN (Reason: shortness of breath or wheezing) 30 Days Qty: 30 RF: 0 Levemir U-100 Insulin 100 unit/mL Solution 10 unit SUBCUT Q12H 30 Days Qty: 6 RF: 0 cefazolin in 0.9% sod chloride 2 gram/100 mL solution See Rx Instructions .ROUTE .COMPLEX Qty: 2400 RF: 0 No Action No Known Home Medications RF: 0 Discharge Orders: Discharge Order (Routine); Ordered 07/18/20 Ordered By: Trenton Huynh Referrals: [facility] [place] Outpatient Surgery Department [Other] (You will need to come to [facility] [place] Outpatient Surgery department to receive your daily IV medication. You will need to come to the Main Entrance/Surgical Services Entrance of the hospital and check in; then they will show you where to go for your medication infusion. If you have any questions or concerns, please call them at the phone number provided.) Discharge Diet: Diabetic Discharge Activity: Resume usual activity Activity Restrictions/Additional Instructions: -For empyema, status post bilateral chest tubes, continue cefazolin 2 g every 8 hours for 6 weeks, starting 07/08/2020 -For bilateral pneumothorax, status post chest tube, bilateral chest tubes removed, no recurrent pneumothorax -Repeat chest x-ray daily for the next 3 days -For acute hypoxic respiratory failure secondary to CHF, Lasix currently on hold as creatinine is up to 1.6, good urine output, continue to hold Lasix, encourage oral hydration, institute Lasix as needed once creatinine has stabilized -For acute kidney injury, hydration as above -For left lower extremity diabetic foot wound, continue wound care, needs 8 remaining days of Levaquin, no underlying osteomyelitis -For atrial fibrillation continue metoprolol 50 twice daily, amiodarone 200 mg daily, Eliquis 5 mg daily -Check daily CBCs to monitor hemoglobin, as patient has had anemia during his hospitalization -Monitor creatinine, CMP is daily -COVID-19, no remdesivir or Decadron required Discharge Attestations Time Spent in Discharge Care*: less than 30 min Quality Metrics Clinical Quality Measures During this hospital stay, did patient experience: None Coding Level of Care Code Acute Adult Neurologist for [facility] Fwd Diagnoses Empyema J86.9 COVID-19 U07.1 HFrEF (heart failure with reduced ejection fraction) I50.20 Bilateral pneumothorax J93.9 Staphylococcus aureus bacteremia R78.81; B95.61
--- NOTE | 2020-07-18 11:36 | PC.NURSE ---
Nurse assisted patient to bedside commode with intent to transfer to chair afterwards. After done with the commode, the patient felt very weak and was unable to assisst with transferring to the chair. At the time it was best to transfer patient to the bed and will try sitting in the chair again after lunch. A nurse assisting with transfer soniya that she had him as a patient a few days ago and he had a similar problem then as well.
[2020-07-18 12:54] LABS: Glucose Point of Care 159 mg/dL (70-110)
--- NOTE | 2020-07-18 12:56 | PC.NURSE ---
Assisted patient to side of bed to eat lunch.
--- NOTE | 2020-07-18 13:06 | P.PN_ITS ---
Subjective Subjective: Interval history: Patient doing is doing well this morning, no fevers, chills, nausea, vomiting, would like to get up out of bed Vitals/I&O/Wt Last Vital Signs Temp 97.7 F 07/18/20 08:00 Pulse 79 07/18/20 12:00 Resp 18 07/18/20 12:00 BP 126/66 07/18/20 12:00 Pulse Ox 98 07/18/20 12:00 07/17/20 07/18/20 07/18/20 22:59 06:59 14:59 Intake Total 320 / 870 270 / 1140 403.000 / 403.000 Output Total 750 / 1950 400 / 2350 250 / 250 Balance -430 / -1080 -130 / -1210 153.000 / 153.000 Weight last 48 hrs Weight 87.997 kg Weight 84.187 kg Physical Exam Const: COMMON NORMALS: no acute distress and patient oriented x3 HENMT: COMMON NORMALS: normocephalic HEAD & SCALP: normocephalic Neck/C-Spine: COMMON NORMALS: no JVD Chest: OTHER: Bilateral chest tube removal sites look clean and dry Resp: COMMON NORMALS: normal respiratory effort, No retractions, No use of accessory muscles and clear to auscultation bilaterally AUSCULTATION: clear to auscultation bilaterally Cardio: COMMON NORMALS: no JVD, regular rate, regular rhythm, S1 normal heart sound present and S2 normal heart sound present RATE: regular rate RHYTHM: regular rhythm HEART SOUNDS: S1 normal heart sound present and S2 normal heart sound present GI: COMMON NORMALS: Normal to inspection, nondistended, normoactive bowel sounds present, Soft to palpation, non-tender, No hepatosplenomegaly present, no masses and no bruits PALPATION: Yes Soft to palpation and Yes No hepatosplenomegaly present Extremity: COMMON NORMALS: capillary refill normal, no clubbing, cyanosis or edema, no calf tenderness and no pedal edema NARRATIVE EXTREMITY EXAM: Left foot wrapped, and a gauze OTHER: Left lower extremity wrapped in gauze Neuro: COMMON NORMALS: patient oriented x3 Psych: COMMON NORMALS: mental status grossly normal Urinary Catheter Management^: Alfonso: Cath Placed During This Visit: yes, but has since been removed by the nurse Reason for Continuing Indwelling Catheter: Accurate Measurement of Urinary Output in Critically Ill Patients Urinary Catheter Date of Insertion: 07/03/20 Urinary Catheter Time of Insertion: 00:45 Date Urinary Catheter Removed: 07/07/20 Time Urinary Catheter Discontinued: 04:54 Alfonso Latex: Cath Placed During This Visit: yes Reason for Continuing Indwelling Catheter: Accurate Measurement of Urinary Output in Critically Ill Patients Urinary Catheter Date of Insertion: 07/14/20 Urinary Catheter Time of Insertion: 06:45 Data : 07/18/20 04:09 07/18/20 04:09 Micro: Microbiology 07/13/20 04:49 Blood Culture - Final Blood NO GROWTH AFTER 5 DAYS 07/13/20 04:15 Blood Culture - Final Blood NO GROWTH AFTER 5 DAYS 07/14/20 12:52 Body Fluid Culture - Final Other Source Manuela albicans A&P Assessment and plan (1) Empyema: Status: Acute (2) COVID-19: Status: Acute (3) HFrEF (heart failure with reduced ejection fraction): Status: Chronic (4) Bilateral pneumothorax: Status: Acute (5) Staphylococcus aureus bacteremia: -as noted above Status: Acute Additional A&P Information Bilateral pneumothorax: -Bilateral chest tubes out -Repeat chest x-ray this morning, no recurrent pneumothorax BARBER, creatinine up to 1.7, BUN 37, will give 250 cc bolus Metabolic alkalosis, PCO2 23, has finished Diamox Hypoxia: Most likely secondary to exacerbation of diastolic and systolic congestive heart failure and empyema and bilateral pneumothorax. Less likely secondary to COVID-19. Echocardiogram shows an EF of 30 to 35% with diastolic dysfunction with mild to moderate MR, moderate AI. Currently on room air Creatinine up to 1.7, Lasix on hold Status post 2 doses of albumin today Fluid restriction up to 1500 cc. Strict input output charting. Daily weights. Wean oxygenation keeping saturation over 90%. Post thoracentesis on 07/[address] King. Fluid studies consistent with transudative most likely secondary to congestive heart failure Anemia: Status post 3 units PRBC this admission, hemoglobin 10.2, Eliquis was restarted yesterday Sepsis secondary to empyema: Case discussed with Dr. King. -Chest tube placed bilaterally -Right chest tube had some bleeding, which was reinforced with packing, Eliquis on hold -culture so far growing Staphylococcus aureus -Blood cultures on 07/09/2020 culture showed coagulase-negative staph, likely contamination, repeat blood culture today have been unremarkable s -white blood cell count up to 12.1, continue Levaquin, cefazolin as per infectious disease -Urine culture showing Manuela, follow sensitivities, start fluconazole Atrial fibrillation with rapid ventricular response: Has paroxysmal atrial fibrillation Continue with amiodarone 200 mg twice daily for next 7 days followed by 200 mg daily. metoprolol to 50 twice daily Currently Eliquis restarted MSSA staphylococcal and enterococcal bacteremia: Blood cultures positive from admission. Blood cultures since then has remained negative. -1 blood culture staph coagulase-negative, likely contamination Sepsis due to diabetic wet gangrene: Post amputation of the toe No clinical evidence of osteomyelitis Post debridement with Dr. Fung on 07/03 and 07/[address] Culture growing MSSA, Enterobacter Appreciate Dr. Fung and Dr. Vargas input. MRSA swab negative. Patient will most likely require PICC line. Repeat blood cultures have remained negative. We will go ahead with PICC line as patient will require 6 weeks of IV antibiotics of cefazolin from day of day of drainage of empyema, 2 weeks p.o. Levaquin from day of debridement Acute on chronic anemia -Secondary to sepsis, COVID-19, bone marrow suppression, bleeding from chest tube -We will start Eliquis today, advised of risks and benefits, versus secondary to proceed -Status post 23unit PRBC -Hemoglobin 10.2 today -Protonix 40 twice daily BARBER: Multifactorial. Most likely secondary to cardiorenal syndrome and severe sepsis. Baseline creatinine normal. Creatinine has remained high stable and is trending down from 2.6. Currently 1.7 Lasix on hold Medical reconciliation done for nephrotoxic drugs. Controlled Alfonso catheterization for strict input output charting Alfonso catheter out COVID-19: Rapid antigen positive. Continue to hold off on dexamethasone and remdesivir. We will continue to monitor. Eliquis anticoagulation on hold for now Advair and Spiriva Vitamin C, zinc. Continue to monitor. Isolation precautions. Peripheral arterial disease: CTA aorta runoff appreciated. Case discussed with Dr. Diaz from cardiology. No plan for revascularization as an inpatient for now as patient has small vessel disease and has collaterals. Eliquis as above. Lipid panel results appreciated. Continue aspirin 81 mg oral daily. Type 2 diabetes mellitus: On admission was in DKA. Noncompliance. HbA1c 13. Insulin sliding scale at moderate dose. Renal nondialysis carb consistent diet. SCDs for DVT prophylaxis Full code. Discharge planning: We will continue ICU monitoring for now. On discharge patient will require wound VAC, IV antibiotics for 6 weeks most likely ertapenem on discharge. Currently patient has bilateral chest tubes, wound VAC. Will consult care coordination. Most likely patient will require placement at swing bed. Plan: Up into a chair, aggressive pulmonary rehab, hopefully discharge in the next 24 hours Attestations Medical Necessity Statement*: Requires hospitalization for acute respiratory failure secondary to CHF, empyema, sepsis secondary to MSSA Enterococcus bacteremia, bilateral pneumothorax Coding Level of Care Code Acute Pit Hoist Operator for [facility] Fw Diagnoses Empyema J86.9 COVID-19 U07.1 HFrEF (heart failure with reduced ejection fraction) I50.20 Bilateral pneumothorax J93.9 Staphylococcus aureus bacteremia R78.81; B95.61
[2020-07-18] MEDS: nystatin powder 15 gm Btl 1 APPLIC TOPICAL ×2 (13:39→18:33)
[2020-07-18 16:41] LABS: Lactate (Lactic Acid level) 1.7 mmol/L (0.5-2.2)
--- NOTE | 2020-07-18 17:27 | P.PN_ITS ---
Subjective Subjective: Interval history: Patient seen bedside doing well, denies any acute events overnight, denies any left foot pain. Has had difficulty working with physical therapy states that his legs feel weak, he is still in good spirits. Patient denies any subjective nausea, vomiting, fever, chills, shortness of breath or chest pain. Vitals/I&O/Wt Last Vital Signs Temp 98.4 F 07/18/20 16:00 Pulse 91 07/18/20 16:00 Resp 20 H 07/18/20 16:00 BP 143/85 07/18/20 16:00 Pulse Ox 100 07/18/20 16:00 07/18/20 07/18/20 07/18/20 06:59 14:59 22:59 Intake Total 270 / 1140 1703.000 / 1703.000 Output Total 400 / 2350 250 / 250 Balance -130 / -1210 1453.000 / 1453.000 Weight last 48 hrs Weight 194 lb Weight 185 lb 9.6 oz Physical Exam Narrative: EXAM NARRATIVE: Mr. Hathaway is alert and oriented x3 and in no acute distress. VASCULAR: Dorsalis pedis and posterior tibial palpable. Capillary refill time less than 5 seconds distal lesser toes 2 through 5 left foot. Calf is supple and nontender proximally and distally. Diminished pedal hair growth bilaterally. NEUROLOGICAL: Protective sensation intact 0/10 sites, tested with Ferris Thomas monofilament to bilateral feet. DERMATOLOGICAL: Viable skin margin proximally and inferiorly, no purulent drainage from the wound. Superior margin is ischemic with dusky alejandro appearance and is nonviable. New onset of 2 patches of ischemia with questionable viability. No proximal lymphangitic streaking, no purulence. No warmth. MUSCULOSKELETAL: No pain with posterior calf squeeze bilaterally. Muscle strength 5 out of 5 in all 3 cardinal planes to bilateral foot and ankle. Urinary Catheter Management^: Alfonso: Cath Placed During This Visit: yes, but has since been removed by the nurse Reason for Continuing Indwelling Catheter: Accurate Measurement of Urinary Output in Critically Ill Patients Urinary Catheter Date of Insertion: 07/03/20 Urinary Catheter Time of Insertion: 00:45 Date Urinary Catheter Removed: 07/07/20 Time Urinary Catheter Discontinued: 04:54 Alfonso Latex: Cath Placed During This Visit: yes Reason for Continuing Indwelling Catheter: Accurate Measurement of Urinary Output in Critically Ill Patients Urinary Catheter Date of Insertion: 07/14/20 Urinary Catheter Time of Insertion: 06:45 Data : 07/18/20 04:09 07/18/20 04:09 Micro: Microbiology 07/09/20 14:07 Blood Culture - Final Blood Coagulase negativ staphylococc 07/13/20 04:49 Blood Culture - Final Blood NO GROWTH AFTER 5 DAYS 07/13/20 04:15 Blood Culture - Final Blood NO GROWTH AFTER 5 DAYS A&P Assessment and plan (1) Diabetic peripheral neuropathy associated with type 2 diabetes mellitus: Status: Chronic (2) Diabetic wet gangrene of the foot: Status: Acute (3) Sepsis: Status: Resolved Qualifiers: Sepsis type: sepsis due to unspecified organism Sepsis acute organ dysfunction status: unspecified Qualified Code(s): A41.9 - Sepsis, unspecified organism Mr. 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 He is status post left metatarsectomy, debridement and wound VAC application date of operation 07/10/2020. Sepsis resolved. No acute infection of the left lower extremity at this time, resolved erythema. 2 areas of patchy localized ischemia at the left foot, will monitor for demarcation, no plans for further surgical invention to the left lower extremity during his hospitalization. Patient is at risk for higher level of amputation at this time infection is under control and patient would like to pursue limb salvage efforts. Patient can work with physical therapy may weight-bear on his heel with a OrthoWedge Darco shoe. Recommending twice daily dressing changes with saline wet-to-dry, will continue to monitor clinically for clear demarcation of ischemic zones prior to any more definitive level of amputation or surgical intervention. Attestations Medical Necessity Statement*: Gangrene left foot Coding Level of Care Code Acute Tool Radial Drill Press Set Up Operator for [facility] Fwd Diagnoses Diabetic peripheral neuropathy associated with type 2 diabetes mellitus E11.42 Diabetic wet gangrene of the foot E11.52 Sepsis A41.9 Sepsis type: sepsis due to unspecified organism Sepsis acute organ dysfunction status: unspecified
[2020-07-18 17:40] LABS: Glucose Point of Care 72 mg/dL (70-110)
--- NOTE | 2020-07-18 18:46 | PC.NURSE ---
Shift Summary - Uneventful shift. Patient mostly rested in bed, but did get up the the side of bed for lunch, to the bedside commode, and was able to move to a chair for dinner. Patient does have significant weakness and is a minimum 1 person assist. Sometimes two person. Patient is pending a transfer to [facility], we are waiting on a call from them.
--- NOTE | 2020-07-18 18:58 | P.PN_ITS ---
Subjective Subjective: Interval history: Overall patient improving clinically. Morning x-ray showed fully expanded lungs without any residual pneumothorax Medications: Reviewed: Yes Medication Review Details: Active Medications Generic Name Dose Route Start Last Admin Trade Name Freq PRN Reason Stop Dose Admin Acetaminophen 650 mg 07/01/20 19:39 Tylenol PO Q6H PRN Mild/Mod Pain Or Temp >/= 101 Apixaban 5 mg 07/04/20 18:00 07/07/20 08:35 Eliquis PO 5 mg BID DAIANA Administration Ascorbic Acid 500 mg 07/05/20 09:00 07/07/20 08:35 Vitamin C PO 500 mg DAILY DAIANA Administration Aspirin 325 mg 07/05/20 09:00 07/07/20 08:35 Aspirin PO 325 mg DAILY DAIANA Administration Dextrose 25 ml 07/01/20 14:07 D50w IVP ONCE PRN hypoglycemia prot ocol Protocol Dextrose 50 ml 07/01/20 14:07 D50w IVP PRN PRN hypoglycemia prot ocol Protocol Dextrose 25 ml 07/01/20 20:25 D50w IVP ONCE PRN hypoglycemia prot ocol Protocol Dextrose 50 ml 07/01/20 20:25 D50w IVP PRN PRN hypoglycemia prot ocol Protocol Famotidine 20 mg 07/02/20 09:00 07/07/20 08:35 Pepcid Tab PO 20 mg BID DAIANA Administration Glucagon 1 mg 07/01/20 14:07 Glucagen IM ONCE PRN Adult Acute Hypog lycemia Prot Protocol Glucagon 1 mg 07/01/20 20:25 Glucagen IM ONCE PRN Adult Acute Hypog lycemia Prot. Protocol Dextrose 500 mls @ 100 mls /hr 07/01/20 14:07 D5w IV ONCE PRN Adult Acute Hypog lycemia Prot Protocol Sodium Chloride 1,000 mls @ 50 ml s/hr 07/04/20 15:30 07/06/20 20:42 Sodium Chloride 0.9% IV 75 mls/hr .Q20H DAIANA Administration Imipenem/Cilastati n Sodium 250 100 mls @ 200 mls /hr 07/07/20 12:00 07/07/20 11:22 mg/ Sodium Chlor natalia IV 200 mls/hr Q6H DAIANA Administration Protocol Insulin Aspart 0 unit 07/01/20 21:00 07/07/20 11:22 Novolog SUBCUT 8 unit WM&BEDTIME DAIANA Administration Protocol Metoprolol Tartrat e 25 mg 07/03/20 18:00 07/07/20 08:35 Lopressor PO 25 mg BID DAIANA Administration Morphine Sulfate 2 mg 07/01/20 20:25 Morphine IVP Q4H PRN SEVERE PAIN Ondansetron HCl 4 mg 07/01/20 19:39 Zofran IVP Q8H PRN vomiting, or N/V if npo Tamsulosin HCl 0.4 mg 07/06/20 09:00 07/07/20 08:35 Flomax PO 0.4 mg DAILY DAIANA Administration Zinc Gluconate 50 mg 07/05/20 09:00 07/07/20 08:35 Zinc Gluconate PO 50 mg DAILY DAIANA Administration Penicillins Allergy (Intermediate, Verified 07/01/20 12:42) ALGY-Anaphylaxis Vitals/I&O/Wt Last Vital Signs Temp 98.4 F 07/18/20 16:00 Pulse 75 07/18/20 18:00 Resp 20 H 07/18/20 18:00 BP 143/85 07/18/20 18:00 Pulse Ox 100 07/18/20 18:00 07/18/20 07/18/20 07/18/20 06:59 14:59 22:59 Intake Total 270 / 1140 1703.000 / 1703.000 360 / 2063.000 Output Total 400 / 2350 250 / 250 Balance -130 / -1210 1453.000 / 1453.000 360 / 1813.000 Weight last 48 hrs Weight 194 lb Weight 185 lb 9.6 oz Physical Exam Narrative: EXAM NARRATIVE: General: alert, NAD HEENT: conj clear, EOMI, PERRL, mmm, Neck: supple, no meningismus Heme: no cervical LAP Pulmonary: bilateral air entry no abnormal sounds Cardiovascular: rrr, nl s1s2, no mrg Abdomen: soft, nt, nd, no r/g, bs+ Extremities: pulses +, no edema, no c/c, wound dressing noted on left foot : no CVA tenderness Skin: intact, no rash MSK: no back or neck pain Neurologic: grossly intact Urinary Catheter Management^: Alfonso: Cath Placed During This Visit: yes, but has since been removed by the nurse Reason for Continuing Indwelling Catheter: Accurate Measurement of Urinary Output in Critically Ill Patients Urinary Catheter Date of Insertion: 07/03/20 Urinary Catheter Time of Insertion: 00:45 Date Urinary Catheter Removed: 07/07/20 Time Urinary Catheter Discontinued: 04:54 Alfonso Latex: Cath Placed During This Visit: yes Reason for Continuing Indwelling Catheter: Accurate Measurement of Urinary Output in Critically Ill Patients Urinary Catheter Date of Insertion: 07/14/20 Urinary Catheter Time of Insertion: 06:45 Data : 07/18/20 04:09 07/18/20 04:09 Micro: Microbiology 07/09/20 14:07 Blood Culture - Final Blood Coagulase negativ staphylococc 07/13/20 04:49 Blood Culture - Final Blood NO GROWTH AFTER 5 DAYS 07/13/20 04:15 Blood Culture - Final Blood NO GROWTH AFTER 5 DAYS A&P Assessment and plan (1) Empyema: Status: Acute (2) COVID-19: Status: Acute (3) HFrEF (heart failure with reduced ejection fraction): Status: Chronic (4) Bilateral pneumothorax: Status: Acute (5) Staphylococcus aureus bacteremia: Status: Acute #Patient admitted due to diabetic with gangrene of left foot of the 2 s/p debridement on 07/03/2020 and 07/10/2020 # #wound cultures cultures positive for staph aureus #Bilateral pleural effusions S/p thoracentesis 07/08/2020 pleural fluid cultures positive for staph aureus; later 14 Yemeni pigtail placed in both sides on 07/10/2020 to drain suspected empyema #Noted bilateral pneumothorax after couple of days with right side having large pneumothorax due to kinked 14 Yemeni catheter - removed kinked pigtail and replaced with another 14 Yemeni pigtail on 07/14/2020. #HF R EF -Possibility that bilateral pneumothorax is secondary due to COVID-19 pneumonia as there are many case reports suggesting possibility -Currently saturating 99% on room air patient is clinically and hemodynamically stable -Bilateral chest tubes removed and chest x-ray fully expanded lungs with no residual pneumothorax -Otherwise pleural cultures were growing staph aureus and patient is currently covered with cefazolin as per ID and Levaquin -Blood cultures so far grew coagulase-negative staph -Diabetic wet gangrene wound cultures growing MSSA and Enterobacter -Urine cultures and penile discharge showing yeast-change Alfonso and started on Diflucan -Patient is afebrile and WBC improving - Echo: EF of 30 to 35% with diastolic dysfunction with mild to moderate MR, moderate AI. - BARBER likely cardiorenal; worsening creatinine, Lasix on hold and received albumin - Strict input output charting. - Daily weights. #We will sign off case today as primary reason for consult was management of bilateral chest tubes were removed patient is clinically improving as far as strep pneumonia/diabetic foot infection is considered #Recommendations conveyed to the hospitalist taking care of the patient and he agreed to consult as needed. thank you Attestations Medical Necessity Statement*: Patient clinically improving Time Spent in Patient Care: 16 - 35 minutes (>than 50% of time spent in counselling and/or direct pt care on unit) . Coding Level of Care Code Established Pt Acute Bed Manager for [facility] Patient Type Established History Comprehensive Exam Comprehensive Medical Decision Making Moderate Complexity Diagnoses Empyema J86.9 COVID-19 U07.1 HFrEF (heart failure with reduced ejection fraction) I50.20 Bilateral pneumothorax J93.9 Staphylococcus aureus bacteremia R78.81; B95.61 Time Spent (min) 30
[2020-07-18 20:38] LABS: Glucose Point of Care 109 mg/dL (70-110)
[2020-07-19] VITALS (13 sets, daily range): BP systolic 127–151; BP diastolic 58–101; PULSE 65–99; RESP 16–24; TEMP 36.2–37.1; O2SAT 95–100
--- NOTE | 2020-07-19 02:06 | PC.NURSE ---
Patient verbalized concern of what living circumstances he will have after current hospital facility discharge. He has also voiced concern on how he would ensure he could have transport back and forth to followup care appointments after his discharge. He stated that before hospital admission, he was in the process of securing a living arrangement and has since lost potential living arrangement during current admission. Patient expresses wishes to live in [facility] assisted living facility in [facility], but states/understands that he must be able to mobilize on his own before acceptance. Until this time comes, he is unsure on what and where his next steps are. He has stated he feels he needs help into what choices and options he may have. Patient has little to no family who are available to help care for him at this time. This nurse stated that she would try to look into what next steps and processes of application may be available to him based on his current situation, and would try to start a line of communication with Social work/update oncoming dayshift RN of concerns stated by patient as well.
[2020-07-19 05:43] LABS: Basophils % 0.2 %; Eosinophils # 0.2 10^3/uL (0.0-0.8); Eosinophils % 1.8 %; Hematocrit 29.7 % (42.0-52.0); Hemoglobin 9.4 g/dL (11.7-16.6); Lymphocytes # 1.1 10^3/uL (0.8-4.8); Lymphocytes % 9.6 %; Mean Corpuscular HGB Conc 31.6 g/dL (30.0-36.0); Mean Corpuscular Volume 91.7 fL (80-94); Monocytes # 0.3 10^3/uL (0.2-0.9); Monocytes % 2.7 %; Neutrophils # 9.32 10^3/uL (1.8-7.7); Neutrophils % 85.2 %; Nucleated Red Blood Cells % 0 %; Platelet Count 134 10^3/cmm (130-400); Red Blood Count 3.24 10^6/uL (4.1-5.3); Red Cell Distribution Width 14.8 % (12.1-15.1); White Blood Count 10.9 10^3/uL (4.0-10.0)
[2020-07-19] MEDS: levoFLOXacin 750 mg Tablet PO (05:48)
[2020-07-19] MEDS: pantoprazole 40 mg SDV IVP (05:48)
[2020-07-19 06:02] LABS: Alanine Aminotransferase < 5 U/L (0-41); Albumin Level 2.1 g/dL (3.5-5.2); Alkaline Phosphatase 152 IU/L (40-130); Aspartate Amino Transferase 14 U/L (0-40); Blood Urea Nitrogen 27 mg/dL (6-20); C Reactive Protein 38.7 mg/L (0.0-4.9); Calcium 7.1 mg/dL (8.5-10.5); Carbon Dioxide 21 mmol/L (22-29); Chloride 107 mmol/L (98-107); Globulin 3.2 g/dL (1.3-4.6); Glomerular Filtration Rate 30.9 mL/min (90-130); Glucose 70 mg/dL (65-115); Magnesium 1.7 mg/dL (1.7-2.3); Osmolality Calculated 286 mOsm/kg (285-295); Phosphorus 3.1 mg/dL (2.5-4.5); Sodium 136 mmol/L (136-145); Total Bilirubin 0.2 mg/dL (0.15-1.2); Total Protein 5.3 g/dL (6.6-8.7)
[2020-07-19 06:20] LABS: Anion Gap 11.8 (5-19); Potassium 3.8 mmol/L (3.5-5.1)
[2020-07-19 06:30] LABS: NT Pro B Type Natriuretic Pept 6177 pg/mL (0-125)
[2020-07-19 06:49] LABS: INR 1.44 (0.8-1.2)
--- NOTE | 2020-07-19 07:00 | XR_ITS ---
WS: [id number] Exam: XR chest 1V portable [id number] Date/Time of Exam: 07/19/2020 7:00 AM Reason For Exam: sob Comparison 07/18/2020. Bilateral infiltrates show no change since previous exam. The lungs remain fully inflated. No pleural effusion. Heart size is top limits normal. The mediastinum and bony thorax are intact. XR/XR chest 1V portable [id number] IMPRESSION: 1. Bilateral pulmonary infiltrates unchanged. 2. The lungs remain fully inflated.
[2020-07-19] MEDS: ferrous gluconate 324 mg Tablet PO (07:43)
[2020-07-19] MEDS: sodium chloride 0.9% 1,000 ML 75 ML IV (07:55)
[2020-07-19 08:36] LABS: Glucose Point of Care 101 mg/dL (70-110)
[2020-07-19] MEDS: amiodarone 200 mg Tablet PO (10:00)
[2020-07-19] MEDS: apixaban 5 mg Tablet PO (10:00)
[2020-07-19] MEDS: aspirin 81 mg Chew Tablet PO (10:00)
[2020-07-19] MEDS: ascorbic acid 500 mg Tablet PO (10:00)
[2020-07-19] MEDS: zinc gluconate 50 mg Tablet PO (10:00)
[2020-07-19] MEDS: metoprolol tartrate 50 mg Tablet PO (10:00)
[2020-07-19] MEDS: tamsulosin 0.4 mg Capsule PO (10:00)
[2020-07-19] MEDS: nystatin powder 15 gm Btl 1 APPLIC TOPICAL (10:01)
[2020-07-19] MEDS: fluconazole 100 mg Tablet 200 MG PO (10:22)
[2020-07-19 11:51] LABS: Glucose Point of Care 88 mg/dL (70-110)
--- NOTE | 2020-07-19 14:29 | PC.NURSE ---
patient is transferring to [facility] surge room 134. Nurse called [facility], spoke to kyrie and gave patient report.
--- NOTE | 2020-07-19 16:40 | PC.NURSE ---
Patient transported to [facility] via [facility].
== END 2020-07-19 16:41 | disposition swing bed (61) | DRG 853 ==
LOC: ER 13:11 → MEDSURG 18:28 → ICU 07-08 14:06
PROVIDERS: Family Medicine; Internal Medicine; Internal Medicine Critical Care Medicine; Podiatrist Foot & Ankle Surgery; Student in an Organized Health Care Education/Training Program; Admitting Provider Hospitalist; Emergency Provider Family Medicine; PCP Nurse Practitioner; Visit Provider Family Medicine
PROC: 0Y6Q0Z0 Detachment at Left 1st Toe, Complete, Open Approach (ICD-10-PCS; principal; 2020-07-03 07:00)
PROC: 0QBR0ZZ Excision of Left Toe Phalanx, Open Approach (ICD-10-PCS; principal; 2020-07-10 12:00)
PROC: 0W9930Z Drainage of Right Pleural Cavity with Drainage Device, Percutaneous Approach (ICD-10-PCS; CPT 32551; 2020-07-10 12:00)
DX: A41.9 Sepsis, unspecified organism (principal); U07.1 COVID-19; E11.10 Type 2 diabetes mellitus with ketoacidosis without coma; J86.9 Pyothorax without fistula; J96.01 Acute respiratory failure with hypoxia; R78.81 Bacteremia; I50.22 Chronic systolic (congestive) heart failure; E11.52 Type 2 diabetes mellitus with diabetic peripheral angiopathy with gangrene; I96 Gangrene, not elsewhere classified; J90 Pleural effusion, not elsewhere classified; Z16.11 Resistance to penicillins; N17.9 Acute kidney failure, unspecified; E87.3 Alkalosis; M86.8X7 Other osteomyelitis, ankle and foot; B95.61 Methicillin susceptible Staphylococcus aureus infection as the cause of diseases classified elsewhere; E11.42 Type 2 diabetes mellitus with diabetic polyneuropathy; Z89.422 Acquired absence of other left toe(s); E11.51 Type 2 diabetes mellitus with diabetic peripheral angiopathy without gangrene; D64.9 Anemia, unspecified; I48.0 Paroxysmal atrial fibrillation; I34.0 Nonrheumatic mitral (valve) insufficiency; Z91.14 Patient's other noncompliance with medication regimen; E11.621 Type 2 diabetes mellitus with foot ulcer; E11.69 Type 2 diabetes mellitus with other specified complication
CPT/HCPCS: 12345; 36415; 36416; 36430; 36569; 36592; 36600; 51702; 71045; 71250; 73630; 73718; 75635; 80048; 80051; 80053; 80061; 80202; 80500; 81001; 81003; 82009; 82274; 82330; 82436; 82550; 82570; 82728; 82803; 82805; 82945; 82962; 83036; 83540; 83550; 83605; 83615; 83735; 83880; 83986; 84100; 84133; 84145; 84157; 84300; 84443; 85014; 85018; 85025; 85049; 85378; 85384; 85610; 85651; 85730; 85999; 86140; 86850; 86900; 86920; 87015; 87040; 87070; 87075; 87077; 87086; 87106; 87116; 87186; 87205; 87206; 87493; 87635; 87641; 87801; 88305; 88307; 89050; 93005; 93306; 93975; 94640; 94660; 96372; 96375; 97110; 97161; 97530; 99283; C9113; J0282; J0690; J0692; J0743; J1100; J1170; J1644; J1815 ×2; J1940; J1956; J2060; J2270; J2370; J2405; J2704; J3010; J3370; J3490; J7030; J7040; J7050; J7060; L3260; P9016; P9047; Q9967; S0030